=== PATIENT | female | born 1950 | race Caucasian/White ===

== ENCOUNTER 2016-04-10 15:57 | Emergency (ER) | payer BC ==
[2016-04-10 16:07] VITALS: TEMP 98.4; BMI 35.0
--- NOTE | 2016-04-10 18:09 | PDOC ---
[id number]: No Limitations - History of Present Illness Initial Comments: 04/10/16 19:02 The patient is a 65 year old female with a significant past medical history of COPD, GERD, hypothyroid, stress incontinence, SATYA, urinary retention, who presents to the emergency department today for further evaluation of RUQ abdominal and right flank pain occurring for one month. The patient states that her flank pain radiates to her right lower thoracic and upper lumbar regions. She states that her pain is intermittent with no distinct pattern. The patient reports taking Tylenol to alleviate symptoms with minimal relief. The patient also notes intermittent shooting pain radiating from her right ear to her right shoulder. The patient denies fever, chills, and sweats. The patient denies nausea, vomiting, and diarrhea. The patient denies chest pain, cough, and shortness of breath. <Victorino Palafox - Last Filed: 04/10/16 19:02> <Octavio Swenson - Last Filed: 05/09/16 09:45> - General Chief Complaint: Pain, Acute Stated Complaint: ABD PAIN, LOWER BACK PAIN Time Seen by Provider: 04/10/16 17:22 Past History <Victorino Palafox - Last Filed: 04/10/16 19:02> - Past Medical History Anemia: No Asthma: No Cancer: No Cardiac Disorders: No CVA: No COPD: Yes CHF: No Dementia: No Diabetes: Yes (PRE) GI Disorders: Yes (gall stones) Disorders: Yes (STATES HAS KIDNEY STONES) HTN: No Hypercholesterolemia: Yes Kidney Stones: Yes Liver Disease: No Seizures: No Thyroid Disease: Yes - Surgical History Abdominal Surgery: No Appendectomy: No Cardiac Surgery: No Cholecystectomy: Yes Lung Surgery: No Neurologic Surgery: No Orthopedic Surgery: No - Reproductive History (#): 1 Para: 1 Spontaneous : 1 - Immunization History Immunization Up to Date: Yes - Psycho/Social/Smoking Cessation Hx Anxiety: No Suicidal Ideation: No Smoking Status: Yes Smoking History: Former smoker Have you smoked in the past 12 months: No Number of Cigarettes Smoked Daily: 20 If you are a former smoker, when did you quit?: 2012 Information on smoking cessation initiated: No Hx Alcohol Use: No Drug/Substance Use Hx: No Substance Use Type: None Hx Substance Use Treatment: No <Octavio Swenson - Last Filed: 05/09/16 09:45> - Past Medical History Allergies/Adverse Reactions: Allergies Allergy/AdvReac Type Severity Reaction Status Date / Time No Known Allergies Allergy Verified 04/10/16 16:04 Home Medications: Ambulatory Orders Alendronate Sodium [Binosto] 70 mg PO MO 04/19/15 FA/Mv,Ca,Iron,Min/Lycopene/Lut [Centrum Tablet] 1 each PO DAILY 04/19/15 Levothyroxine [Synthroid -] 112 mcg PO DAILY 04/19/15 Meloxicam [Mobic (Nf) -] 15 mg PO DAILY 04/19/15 Oxybutynin Chloride [Ditropan Xl] 5 mg PO DAILY 04/19/15 Potassium Citrate [Potassium Citrate ER] 10 meq PO TID 04/19/15 Pravastatin Sodium [Pravachol -] 80 mg PO HS 04/19/15 Ropinirole HCl 1 mg PO TID 04/19/15 Tiotropium [place] [Spiriva] 1 inh PO DAILY 04/19/15 Ursodiol [Actigal -] 300 mg PO BID #60 capsule 04/22/15 Albuterol 0.083% Nebulizer [place] [Ventolin 0.083% Nebulizer Soln -] 1 amp NEB QID 07/23/15 Diclofenac Sodium 50 mg PO DAILY 07/23/15 Aspirin [ASA -] 325 mg PO DAILY@0800 tablet 07/30/15 Oxycodone HCl [Roxicodone -] 5 mg PO Q4H PRN #60 tablet MDD 6 07/30/15 Cephalexin Monohydrate [Keflex -] 500 mg PO BID #20 capsule 04/10/16 Cholecalciferol (Vitamin D3) [Vitamin D3] 50,000 unit PO MO 04/10/16 Ibuprofen 800 mg PO TID #30 tablet 04/10/16 Oxycodone HCl/Acetaminophen [Percocet 5-325 mg Tablet] 1 - 2 tab PO Q6H #20 tablet MDD 4 04/10/16 Review of Systems - Review of Systems Able to Perform ROS?: Yes Comments:: 04/10/16 19:02 GENERAL/CONSTITUTIONAL: No fever or chills. No weakness. HEAD, EYES, EARS, NOSE AND THROAT: No change in vision. Right ear pain. No sore throat. CARDIOVASCULAR: No chest pain or shortness of breath. RESPIRATORY: No cough, wheezing, or hemoptysis. GASTROINTESTINAL: No nausea, vomiting, diarrhea or constipation. GENITOURINARY: No dysuria, frequency, or change in urination. MUSCULOSKELETAL: (+) Right flank pain radiating to her right lower thoracic and upper lumbar regions. Right shoulder pain. SKIN: No rash NEUROLOGIC: No headache, vertigo, loss of consciousness, or change in strength/ sensation. ENDOCRINE: No increased thirst. No abnormal weight change. HEMATOLOGIC/LYMPHATIC: No anemia, easy bleeding, or history of blood clots. ALLERGIC/IMMUNOLOGIC: No hives or skin allergy. <Victorino Palafox - Last Filed: 04/10/16 19:02> *Physical Exam - Vital Signs Last Vital Signs Temp Pulse Resp BP Pulse Ox 98.4 F 80 20 133/69 96 04/10/16 16:05 04/10/16 16:05 04/10/16 16:04/10/16 16:04/10/16 18:07 - Physical Exam Comments: 04/10/16 19:03 GENERAL: Awake, alert, and fully oriented, in no acute distress HEAD: No signs of trauma EYES: PERRLA, EOMI, sclera anicteric, conjunctiva clear ENT: Auricles normal inspection, hearing grossly normal, nares patent, oropharynx clear without exudates. Moist mucosa NECK/BACK: Normal ROM, supple, no lymphadenopathy, JVD, or masses. Mild tenderness palpation of right flank. LUNGS: Breath sounds equal, clear to auscultation bilaterally. No wheezes, and no crackles HEART: Regular rate and rhythm, normal S1 and S2, no murmurs, rubs or gallops ABDOMEN: Soft, nontender, normoactive bowel sounds. No guarding, no rebound. No masses EXTREMITIES: Normal range of motion, no edema. No clubbing or cyanosis. No cords, erythema, or tenderness NEUROLOGICAL: Cranial nerves II through XII grossly intact. Normal speech, normal gait SKIN: Warm, Dry, normal turgor, no rashes or lesions noted. <Victorino Palafox - Last Filed: 04/10/16 19:02> - Vital Signs Last Vital Signs Temp Pulse Resp BP Pulse Ox 98.4 F 80 20 133/69 95 04/10/16 16:05 04/10/16 16:05 04/10/16 16:05 04/10/16 16:05 04/10/16 16:05 <Octavio Swenson - Last Filed: 05/09/16 09:45> ED Treatment Course - LABORATORY CBC & Chemistry Diagram: 04/10/16 18:07 04/10/16 18:07 - ADDITIONAL ORDERS Additional order review: Laboratory Results 04/10/16 04/10/16 18:07 18:07 Sodium 140 Potassium 4.4 Chloride 100 Carbon Dioxide 30 Anion Gap 10 BUN 33 H Creatinine 0.9 Creat Clearance w eGFR > 60 Random Glucose 84 Calcium 9.5 Total Bilirubin 0.4 AST 15 D ALT 22 D Alkaline Phosphatase 89 D Total Protein 8.0 Albumin 4.0 Lipase 123 Urine Color Ltyellow Urine Appearance Slcloudy Urine pH 7.0 D Ur Specific [place] 1.017 Urine Protein Negative Urine Glucose (UA) Negative Urine Ketones 1+ H Urine Blood Negative Urine Nitrite Negative Urine Bilirubin Negative Urine Urobilinogen Negative Ur Leukocyte Esterase 2+ H Urine RBC 1 Urine WBC 5 Ur Epithelial Cells Rare Urine Bacteria Rare Urine Mucus Rare 04/10/16 18:07 RBC 4.24 D MCV 87.2 MCHC 33.2 RDW 13.4 MPV 8.9 Neutrophils % 62.3 Lymphocytes % 28.0 D Monocytes % 7.2 Eosinophils % 1.7 D Basophils % 0.8 - Medications Given in the ED: ED Medications Discontinued Medications Generic Name Dose Route Start Last Admin Trade Name Lashonda PRN Reason Stop Dose Admin Ibuprofen 400 mg 04/10/16 18:28 04/10/16 18:40 Motrin - PO 04/10/16 18:29 400 mg ONCE ONE Administration Ondansetron HCl 8 mg 04/10/16 18:28 04/10/16 18:40 Zofran Odt - SL 04/10/16 18:29 8 mg ONCE ONE Administration Oxycodone/Acetaminophen 2 combo 04/10/16 18:28 04/10/16 18:40 Percocet 5/325 - PO 04/10/16 18:29 2 combo ONCE ONE Administration <Victorino Palafox - Last Filed: 04/10/16 19:02> - LABORATORY CBC & Chemistry Diagram: 04/10/16 18:07 04/10/16 18:07 <Octavio Swenson - Last Filed: 05/09/16 09:45> *DC/Admit/Observation/Transfer <Victorino Palafox - Last Filed: 04/10/16 19:02> - Attestations Physician Attestion: 04/10/16 18:09 I, Dr. Octavio Swenson, attest that this document has been prepared under my direction and personally reviewed by me in its entirety. I further attest, that it accurately reflects all work, treatment, procedures and medical decision -making performed by me. <Octavio Swenson - Last Filed: 05/09/16 09:45> Diagnosis at time of Disposition: Abdominal pain Qualifiers: Abdominal location: epigastric Qualified Code(s): R10.13 - Epigastric pain UTI (urinary tract infection) Qualifiers: Urinary tract infection type: site unspecified Hematuria presence: without hematuria Qualified Code(s): N39.0 - Urinary tract infection, site not specified Gallstone Qualifiers: Cholecystitis presence: without cholecystitis Biliary obstruction: without biliary obstruction Qualified Code(s): K80.20 - Calculus of gallbladder without cholecystitis without obstruction - Discharge Dispostion Disposition: HOME Condition at time of disposition: Stable - Prescriptions Prescriptions: Ibuprofen 800 mg PO TID #30 tablet Cephalexin Monohydrate [Keflex -] 500 mg PO BID #20 capsule Oxycodone HCl/Acetaminophen [Percocet 5-325 mg Tablet] 1 - 2 tab PO Q6H #20 tablet MDD 4 - Referrals Referrals: Darin Mahajan MD [Primary Care Provider] - Alejandro Blount MD [Staff Physician] - - Patient Instructions Printed Discharge Instructions: DI for Gallstones, DI for Urinary Tract Infection (UTI)
[2016-04-10 18:12] LABS: URINE APPEARANCE SLCLOUDY; URINE BILIRUBIN NEGATIVE (NEGATIVE); URINE BLOOD NEGATIVE (NEGATIVE); URINE COLOR LTYELLOW; URINE GLUCOSE (UA) NEGATIVE (NEGATIVE); URINE KETONE 1+ (NEGATIVE); URINE NITRITE NEGATIVE (NEGATIVE); URINE PROTEIN NEGATIVE (NEGATIVE); URINE UROBILINOGEN NEGATIVE E.U./dl (0.2-1.0)
[2016-04-10 18:13] LABS: URINE LEUK ESTERASE 2+ (NEGATIVE)
[2016-04-10 18:14] LABS: BASOPHIL 0.8 % (0-2.0); EOSINOPHIL 1.7 % (0-4.5); MCH 28.9 pg (25.7-33.7); MCHC 33.2 g/dl (32.0-36.0); MEAN CELL VOLUME 87.2 fl (80-96); MEAN PLT VOLUME 8.9 fl (7.5-11.1); NEUTROPHILS 62.3 % (42.8-82.8); PLATELET COUNT 246 K/MM3 (134-434); RDW 13.4 % (11.6-15.6); WHITE BLOOD COUNT 10.1 K/mm3 (4.0-10.0)
[2016-04-10 18:18] LABS: URINE BACTERIA RARE /hpf (NONE SEEN); URINE MUCUS RARE; URINE RBC 1 /hpf (0-3); URINE WBC 5 /hpf (3-5)
[2016-04-10] MEDS ORDERED: ONDANSETRON *ODT* 4 MG TABLET SL ONE (18:28)
[2016-04-10] MEDS ORDERED: OXYCODONE/APAP 5/325MG COMBO TABLET PO ONE (18:28)
[2016-04-10] MEDS ORDERED: IBUPROFEN 400 MG TABLET (FP) PO ONE ×2 (18:28→18:37)
[2016-04-10] MEDS ORDERED: OXYCODONE/APAP 5/325MG COMBO TABLET ONE (18:37)
[2016-04-10] MEDS ORDERED: ONDANSETRON *ODT* 4 MG TABLET ONE (18:37)
[2016-04-10 18:38] LABS: ALK PHOS 89 U/L (45-117); ANION GAP 10 (8-16); BILIRUBIN,TOTAL 0.4 mg/dL (0.2-1.0); CALCIUM 9.5 mg/dL (8.5-10.1); CO2 30 mmol/L (21-32); CREATININE 0.9 mg/dL (0.55-1.02); GLUCOSE,RANDOM 84 mg/dL (74-106); SGOT/AST 15 U/L (15-37); SGPT/ALT 22 U/L (12-78)
[2016-04-10] MEDS ORDERED: CEPHALEXIN MONOHYDRATE 500 MG CAPSULE (UD) PO ONE (19:18)
[2016-04-10] MEDS ORDERED: CEPHALEXIN MONOHYDRATE 250 MG CAPSULE (FP) ONE ×2 (19:26→20:12)
--- NOTE | 2016-04-10 20:42 | PDOC ---
*Physical Exam - Vital Signs Last Vital Signs Temp Pulse Resp BP Pulse Ox 98.4 F 80 20 133/69 96 04/10/16 16:05 04/10/16 16:05 04/10/16 16:05 04/10/16 16:05 04/10/16 18:07 ED Treatment Course - LABORATORY CBC & Chemistry Diagram: 04/10/16 18:07 04/10/16 18:07 - ADDITIONAL ORDERS Additional order review: Laboratory Results 04/10/16 04/10/16 18:07 18:07 Sodium 140 Potassium 4.4 Chloride 100 Carbon Dioxide 30 Anion Gap 10 BUN 33 H Creatinine 0.9 Creat Clearance w eGFR > 60 Random Glucose 84 Calcium 9.5 Total Bilirubin 0.4 AST 15 D ALT 22 D Alkaline Phosphatase 89 D Total Protein 8.0 Albumin 4.0 Lipase 123 Urine Color Ltyellow Urine Appearance Slcloudy Urine pH 7.0 D Ur Specific [place] 1.017 Urine Protein Negative Urine Glucose (UA) Negative Urine Ketones 1+ H Urine Blood Negative Urine Nitrite Negative Urine Bilirubin Negative Urine Urobilinogen Negative Ur Leukocyte Esterase 2+ H Urine RBC 1 Urine WBC 5 Ur Epithelial Cells Rare Urine Bacteria Rare Urine Mucus Rare 04/10/16 18:07 RBC 4.24 D MCV 87.2 MCHC 33.2 RDW 13.4 MPV 8.9 Neutrophils % 62.3 Lymphocytes % 28.0 D Monocytes % 7.2 Eosinophils % 1.7 D Basophils % 0.8 - Medications Given in the ED: ED Medications Discontinued Medications Generic Name Dose Route Start Last Admin Trade Name Freq PRN Reason Stop Dose Admin Cephalexin HCl 500 mg 04/10/16 19:18 04/10/16 20:10 Keflex - PO 04/10/16 19:19 500 mg ONCE ONE Administration Ibuprofen 400 mg 04/10/16 18:28 04/10/16 18:40 Motrin - PO 04/10/16 18:29 400 mg ONCE ONE Administration Ondansetron HCl 8 mg 04/10/16 18:28 04/10/16 18:40 Zofran Odt - SL 04/10/16 18:29 8 mg ONCE ONE Administration Oxycodone/Acetaminophen 2 combo 04/10/16 18:28 04/10/16 18:40 Percocet 5/325 - PO 04/10/16 18:29 2 combo ONCE ONE Administration *DC/Admit/Observation/Transfer Diagnosis at time of Disposition: Abdominal pain Qualifiers: Abdominal location: epigastric Qualified Code(s): R10.13 - Epigastric pain UTI (urinary tract infection) Qualifiers: Urinary tract infection type: site unspecified Hematuria presence: without hematuria Qualified Code(s): N39.0 - Urinary tract infection, site not specified Gallstone Qualifiers: Cholecystitis presence: without cholecystitis - Discharge Dispostion Disposition: HOME Condition at time of disposition: Stable Admit: No - Prescriptions Prescriptions: Ibuprofen 800 mg PO TID #30 tablet Cephalexin Monohydrate [Keflex -] 500 mg PO BID #20 capsule Oxycodone HCl/Acetaminophen [Percocet 5-325 mg Tablet] 1 - 2 tab PO Q6H #20 tablet MDD 4 - Referrals Referrals: Darin Mahajan MD [Primary Care Provider] - Alejandro Blount MD [Staff Physician] - - Patient Instructions Printed Discharge Instructions: DI for Urinary Tract Infection (UTI), DI for Gallstones - Post Discharge Activity
[2016-04-10 20:52] VITALS: BP 130/70; PULSE 78
== END 2016-04-10 20:52 | disposition home or self-care (01) ==
LOC: JER 15:57
DX: N39.0 Urinary tract infection, site not specified (principal); R10.11 Right upper quadrant pain
CPT/HCPCS: 36415; 76700-TC; 80053; 81003; 81015; 83690; 85025; 99283-25

== ENCOUNTER 2016-06-09 07:21 | Emergency (ER) | payer BC, OTHER ==
[2016-06-09 07:27] VITALS: TEMP 98.3; BMI 34.0
--- NOTE | 2016-06-09 07:46 | PDOC ---
History of Present Illness - General Chief Complaint: Injury Stated Complaint: FALL Time Seen by Provider: 06/09/16 07:44 History Source: Patient Exam Limitations: No Limitations - History of Present Illness Initial Comments: 06/09/16 07:45 CHIEF COMPLAINT: Fall HISTORY OF PRESENT ILLNESS: This is a 65 year old female with a history of COPD , GERD, hypothyroid, stress incontinence, SATYA, and urinary retention who presents to the ED for evaluation of swelling and pain around her right eye after tripping and falling last night. She struck her head on the ground but did not lose consciousness. She denies vomiting, visual changes, difficulty walking, dizziness, neck pain, or any other symptoms. She takes ASA 81mg daily, but no other AC. V/s on arrival are unremarkable. REVIEW OF SYSTEMS: GENERAL/CONSTITUTIONAL: No fever or chills. No weakness. No weight change. HEAD, EYES, EARS, NOSE AND THROAT: No change in vision. Pain around right eye. CARDIOVASCULAR: No chest pain or palpitations. RESPIRATORY: No cough, wheezing, or shortness of breath. GASTROINTESTINAL: No nausea, vomiting, diarrhea or constipation. GENITOURINARY: No dysuria, frequency, or change in urination. MUSCULOSKELETAL: No joint or muscle swelling or pain. No neck or back pain. SKIN: No rash or easy bruising. NEUROLOGIC: No headache, vertigo, loss of consciousness, or loss of sensation. PSYCHIATRIC: No depression or anxiety. ENDOCRINE: No increased thirst. No abnormal weight change. HEMATOLOGIC/LYMPHATIC: No anemia, easy bleeding, or history of blood clots. ALLERGIC/IMMUNOLOGIC: No hives or skin allergy. No latex allergy. PHYSICAL EXAM: GENERAL: The patient is awake, alert, and fully oriented, in no acute distress. ENT: Hematoma, tenderness to right lateral orbit. EOMI. PERRLA. Visual acuity 20 /25 both eyes. LUNGS: Clear to auscultation bilaterally. Normal excursion. No respiratory distress or use of accessory muscles. CV: RRR, S1/S2, no MRG. Cap refill < 2 sec. ABDOMEN: Soft, non-distended, non-tender. EXTREMITIES: Normal range of motion, no edema. NEUROLOGICAL: Normal speech, normal gait. CN II-XII grossly intact. No midline cervical vertebral tenderness. PSYCH: Normal mood, normal affect. SKIN: Warm, dry, normal turgor, no rashes or lesions noted. Past History - Past Medical History Allergies/Adverse Reactions: Allergies Allergy/AdvReac Type Severity Reaction Status Date / Time No Known Allergies Allergy Verified 06/09/16 07:27 Home Medications: Ambulatory Orders Alendronate Sodium [Binosto] 70 mg PO WEEKLY 04/19/15 FA/Mv,Ca,Iron,Min/Lycopene/Lut [Centrum Tablet] 1 each PO DAILY 04/19/15 Levothyroxine [Synthroid -] 112 mcg PO DAILY 04/19/15 Meloxicam [Mobic (Nf) -] 15 mg PO DAILY 04/19/15 Oxybutynin Chloride [Ditropan Xl] 5 mg PO DAILY 04/19/15 Potassium Citrate [Potassium Citrate ER] 10 meq PO TID 04/19/15 Pravastatin Sodium [Pravachol -] 80 mg PO HS 04/19/15 Ropinirole HCl 1 mg PO TID 04/19/15 Tiotropium [place] [Spiriva] 1 inh PO DAILY 04/19/15 Ursodiol [Actigal -] 300 mg PO BID #60 capsule 04/22/15 Albuterol 0.083% Nebulizer [place]ár[place] [Ventolin 0.083% Nebulizer Soln -] 1 amp NEB QID 07/23/15 Diclofenac Sodium 50 mg PO DAILY 07/23/15 Aspirin [ASA -] 325 mg PO DAILY@0800 tablet 07/30/15 Cholecalciferol (Vitamin D3) [Vitamin D3] 50,000 unit PO WEEKLY 04/10/16 Anemia: No Asthma: No Cancer: No Cardiac Disorders: No CVA: No COPD: Yes CHF: No Dementia: No Diabetes: Yes (PRE) GI Disorders: Yes (gall stones) Disorders: Yes (STATES HAS KIDNEY STONES) HTN: No Hypercholesterolemia: Yes Kidney Stones: Yes Liver Disease: No Seizures: No Thyroid Disease: Yes - Surgical History Abdominal Surgery: No Appendectomy: No Cardiac Surgery: No Cholecystectomy: Yes Lung Surgery: No Neurologic Surgery: No Orthopedic Surgery: No - Reproductive History (#): 1 Para: 1 Spontaneous : 1 - Immunization History Immunization Up to Date: Yes - Psycho/Social/Smoking Cessation Hx Anxiety: No Suicidal Ideation: No Smoking Status: Yes Smoking History: Former smoker Have you smoked in the past 12 months: No Number of Cigarettes Smoked Daily: 20 If you are a former smoker, when did you quit?: 2013 Information on smoking cessation initiated: No Hx Alcohol Use: No Drug/Substance Use Hx: No Substance Use Type: None Hx Substance Use Treatment: No *Physical Exam - Vital Signs Last Vital Signs Temp Pulse Resp BP Pulse Ox 98.3 F 70 18 135/62 96 06/09/16 07:22 06/09/16 07:22 06/09/16 07:22 06/09/16 07:22 06/09/16 07:22 Medical Decision Making - Medical Decision Making 06/09/16 09:21 A/P: 65 year old female with right orbital hematoma s/p mechanical fall. Normal neurologic exam. 1. CT head and facial bones 2. Tylenol 975mg for pain CTH and facial bones reviewed: moderate soft tissue swelling/hematoma along the lateral aspect of the right orbit with no fracture. No intracranial hemorrhage. Incidental note of mild asymmetric prominence of right laryngeal wall relative to left; ENT evaluation recommended. 10mm lesion within the left lateral ventricle also noted in 2005 is again seen; non-emergent MRI is recommended. *DC/Admit/Observation/Transfer Diagnosis at time of Disposition: Fall Qualifiers: Encounter type: initial encounter Qualified Code(s): W19.XXXA - Unspecified fall, initial encounter Closed head injury Qualifiers: Encounter type: initial encounter Qualified Code(s): S09.90XA - Unspecified injury of head, initial encounter - Discharge Dispostion Disposition: HOME Condition at time of disposition: Stable Admit: No - Referrals Referrals: Nora Harry MD [Primary Care Provider] - 3 days - Patient Instructions Printed Discharge Instructions: DI for Closed Head Injury Additional Instructions: -Your CT scans do not show any signs of fracture. -Please see Dr. Harry later this week and show her the copies of your CT scans, as there are some findings that need to be followed up. -Take Tylenol as needed for pain and apply ice to the swollen area several times a day. -Return here for severe headache, change in your vision, vomiting, difficulty walking, or any other concerning symptoms.
[2016-06-09] MEDS ORDERED: ACETAMINOPHEN 500 MG TABLET (FP) PO ONE (07:50)
[2016-06-09] MEDS ORDERED: ACETAMINOPHEN 325 MG TABLET (FP) ONE (08:04)
[2016-06-09 09:59] VITALS: BP 130/78; PULSE 80
== END 2016-06-09 09:59 | disposition home or self-care (01) ==
LOC: JER 07:21
DX: S05.11XA Contusion of eyeball and orbital tissues, right eye, initial encounter (principal); W01.0XXA Fall on same level from slipping, tripping and stumbling without subsequent striking against object, initial encounter; Y93.89 Activity, other specified; Y92.89 Other specified places as the place of occurrence of the external cause; J44.9 Chronic obstructive pulmonary disease, unspecified; K21.9 Gastro-esophageal reflux disease without esophagitis; R73.03 Prediabetes; E03.9 Hypothyroidism, unspecified
CPT/HCPCS: 70450-TC; 70486-TC; 99282-25

== ENCOUNTER 2016-06-22 01:29 | Inpatient (IN) | payer BC, OTHER ==
[2016-06-22] MEDS ORDERED: MAG HYDROX/AL HYDROX/SIMETH 30 ML UNIT-DOSE CUP PO ONE (02:31)
[2016-06-22] MEDS ORDERED: KETOROLAC TROMETHAMINE 30 MG/1 ML VIAL IVPUSH ONE (02:31)
[2016-06-22] MEDS ORDERED: LACTULOSE 20 GM/30 ML UDC (FOR ORAL USE ONLY) PO ONE (02:31)
[2016-06-22] MEDS ORDERED: FAMOTIDINE 20 MG/50 ML IVPB 50 ML IVPB ONE ×2 (02:31→02:59)
--- NOTE | 2016-06-22 02:32 | PDOC ---
History of Present Illness - History of Present Illness Initial Comments: 06/22/16 02:32 The patient is a 65 year old female with history of hyperlipidemia, prediabetes , gallstones, kidney stones, thryoid disorder, COPD on home oxygen, who presents to the ED complaining of diffuse abdominal pain for some time, made much worse tonight around 9 PM. She states her pain is now moderate and worse with positional changes and lying flat. The patient denies any fever or chills. She denies nausea, vomiting, or diarrhea. She reports she produced two bowel movements today. She denies dysuria, hematuria, or urinary retention. GI: Dr. Smyth <Ashley Bloom - Last Filed: 06/22/16 05:49> <Rekha Morgan - Last Filed: 06/22/16 19:28> - General Chief Complaint: Pain, Acute Stated Complaint: ABDOMINAL PAIN Time Seen by Provider: 06/22/16 01:44 Past History <Ashley Bloom - Last Filed: 06/22/16 05:49> - Past Medical History Anemia: No Asthma: No Cancer: No Cardiac Disorders: No CVA: No COPD: Yes CHF: No Dementia: No Diabetes: Yes (PRE) GI Disorders: Yes (gall stones) Disorders: Yes (STATES HAS KIDNEY STONES) HTN: No Hypercholesterolemia: Yes Kidney Stones: Yes Liver Disease: No Seizures: No Thyroid Disease: Yes - Surgical History Abdominal Surgery: No Appendectomy: No Cardiac Surgery: No Cholecystectomy: Yes Lung Surgery: No Neurologic Surgery: No Orthopedic Surgery: No - Reproductive History (#): 1 Para: 1 Spontaneous : 1 - Immunization History Immunization Up to Date: Yes - Psycho/Social/Smoking Cessation Hx Anxiety: No Suicidal Ideation: No Smoking Status: Yes Smoking History: Former smoker Have you smoked in the past 12 months: No Number of Cigarettes Smoked Daily: 20 If you are a former smoker, when did you quit?: 2012 Information on smoking cessation initiated: No Hx Alcohol Use: No Drug/Substance Use Hx: No Substance Use Type: None Hx Substance Use Treatment: No <Rekha Morgan - Last Filed: 06/22/16 19:28> - Past Medical History Allergies/Adverse Reactions: Allergies Allergy/AdvReac Type Severity Reaction Status Date / Time No Known Allergies Allergy Verified 06/22/16 01:33 Home Medications: Ambulatory Orders Alendronate Sodium [Binosto] 70 mg PO WEEKLY 04/19/15 FA/Mv,Ca,Iron,Min/Lycopene/Lut [Centrum Tablet] 1 each PO DAILY 04/19/15 Levothyroxine [Synthroid -] 112 mcg PO DAILY 04/19/15 Meloxicam [Mobic (Nf) -] 15 mg PO DAILY 04/19/15 Oxybutynin Chloride [Ditropan Xl] 5 mg PO DAILY 04/19/15 Potassium Citrate [Potassium Citrate ER] 10 meq PO TID 04/19/15 Pravastatin Sodium [Pravachol -] 80 mg PO HS 04/19/15 Ropinirole HCl 1 mg PO TID 04/19/15 Tiotropium [place] [Spiriva] 1 inh PO DAILY 04/19/15 Ursodiol [Actigal -] 300 mg PO BID #60 capsule 04/22/15 Albuterol 0.083% Nebulizer Bárbara [Ventolin 0.083% Nebulizer Soln -] 1 amp NEB QID 07/23/15 Diclofenac Sodium 50 mg PO DAILY 07/23/15 Aspirin [ASA -] 325 mg PO DAILY@0800 tablet 07/30/15 Cholecalciferol (Vitamin D3) [Vitamin D3] 50,000 unit PO WEEKLY 04/10/16 Review of Systems - Review of Systems Able to Perform ROS?: Yes Comments:: 06/22/16 02:35 GENERAL/CONSTITUTIONAL: No fever or chills. No weakness. HEAD, EYES, EARS, NOSE AND THROAT: No change in vision. No ear pain or discharge. No sore throat CARDIOVASCULAR: No chest pain or shortness of breath. RESPIRATORY: No cough, wheezing, or hemoptysis. GASTROINTESTINAL: +Diffuse abdominal pain. No nausea, vomiting, diarrhea. GENITOURINARY: No dysuria, frequency, or change in urination. MUSCULOSKELETAL: No joint or muscle swelling or pain. No neck or back pain. SKIN: No rash NEUROLOGIC: No headache, vertigo, loss of consciousness, or change in strength/ sensation. ENDOCRINE: No increased thirst. No abnormal weight change. HEMATOLOGIC/LYMPHATIC: No anemia, easy bleeding, or history of blood clots. ALLERGIC/IMMUNOLOGIC: No hives or skin allergy. <Ashley Bloom - Last Filed: 06/22/16 05:49> *Physical Exam - Vital Signs Last Vital Signs Temp Pulse Resp BP Pulse Ox 98.8 F 112 H 18 113/56 90 L 06/22/16 01:33 06/22/16 01:33 06/22/16 01:33 06/22/16 01:33 06/22/16 01:33 - Physical Exam Comments: 06/22/16 02:36 GENERAL: Awake, alert, and fully oriented, uncomfortable appearing. HEAD: No signs of trauma EYES: PERRLA, EOMI, sclera anicteric, conjunctiva clear ENT: Auricles normal inspection, hearing grossly normal, nares patent, oropharynx clear without exudates. Moist mucosa. Poor dentition. NECK: Normal ROM, supple, no lymphadenopathy, JVD, or masses LUNGS: Breath sounds equal, clear to auscultation bilaterally. No wheezes, and no crackles HEART: Regular rate and rhythm, normal S1 and S2, no murmurs, rubs or gallops ABDOMEN: Diffuse tenderness to palpation. Soft, normoactive bowel sounds. No guarding, no rebound. No masses EXTREMITIES: Normal range of motion, no edema. No clubbing or cyanosis. No cords, erythema, or tenderness NEUROLOGICAL: Cranial nerves II through XII grossly intact. Normal speech, normal gait SKIN: Warm, Dry, normal turgor, no rashes or lesions noted. <Ashley Bloom - Last Filed: 06/22/16 05:49> - Vital Signs Last Vital Signs Temp Pulse Resp BP Pulse Ox 98.8 F 112 H 18 113/56 90 L 06/22/16 01:33 06/22/16 01:33 06/22/16 01:33 06/22/16 01:33 06/22/16 01:33 <Rekha Morgan - Last Filed: 06/22/16 19:28> ED Treatment Course - LABORATORY CBC & Chemistry Diagram: 06/22/16 03:15 06/22/16 03:15 <Ashley Bloom - Last Filed: 06/22/16 05:49> - LABORATORY CBC & Chemistry Diagram: 06/22/16 17:30 06/22/16 17:30 <Rekha Morgan - Last Filed: 06/22/16 19:28> Medical Decision Making - Medical Decision Making 06/22/16 05:49 Placed call to patient's PCP, Dr. Morley and [phone]. Awaiting callback. <Ashley Bloom - Last Filed: 06/22/16 05:49> - Medical Decision Making 06/22/16 06:49 Pt comes with abdominal pain. SHe is demanding narcotics, however I will not give them to her as on exam pt appears to be full of hard stools in her abdomen. She is afebrile. She was treated with ofirmev and toradol, lactulose and miralax, NSS, and pepcid and maalox. SHe drank oral contrast for a CT scan. CT scan is pending. She will go for CT abd/pelvis this AM. All labs are normal. Pt will be signed out to the daytime ER doctor. <Rekha Morgan - Last Filed: 06/22/16 19:28> *DC/Admit/Observation/Transfer - Attestations Scribe Attestion: 06/22/16 02:36 Documentation prepared by Ashley Bloom, acting as certified medical transcriptionist for Rekha Morgan MD. <Ashley Bloom - Last Filed: 06/22/16 05:49> <Rekha Morgan - Last Filed: 06/22/16 19:28> Diagnosis at time of Disposition: Pneumoperitoneum - Discharge Dispostion Condition at time of disposition: Guarded - Referrals
[2016-06-22] MEDS ORDERED: LACTULOSE 20 GM/30 ML UDC (FOR ORAL USE ONLY) ONE (02:58)
[2016-06-22] MEDS ORDERED: MAG HYDROX/AL HYDROX/SIMETH 30 ML UNIT-DOSE CUP ONE (02:59)
[2016-06-22] MEDS ORDERED: KETOROLAC TROMETHAMINE 30 MG/1 ML VIAL ONE (02:59)
[2016-06-22 03:26] LABS: BASOPHIL 0.4 % (0-2.0); EOSINOPHIL 0.4 % (0-4.5); MCHC 32.9 g/dl (32.0-36.0); MEAN CELL VOLUME 85.1 fl (80-96); MEAN PLT VOLUME 9.1 fl (7.5-11.1); NEUTROPHILS 79.8 % (42.8-82.8); PLATELET COUNT 312 K/MM3 (134-434); RDW 13.1 % (11.6-15.6); WHITE BLOOD COUNT 11.4 K/mm3 (4.0-10.0)
[2016-06-22 03:51] LABS: ALBUMIN 3.7 g/dl (3.4-5.0); CALCIUM 8.5 mg/dL (8.5-10.1); COCKROFT - GAULT 39.083; CREATININE 1.3 mg/dL (0.55-1.02)
[2016-06-22 03:53] LABS: BILIRUBIN,TOTAL 0.7 mg/dL (0.2-1.0); TOT PROT 7.8 g/dl (6.4-8.2)
[2016-06-22] MEDS ORDERED: ACETAMINOPHEN 1000 MG/100 ML VIAL (NON FORMULARY) IVPB ONE ×2 (04:04→10:44)
[2016-06-22] MEDS ORDERED: POLYETHYLENE GLYCOL 3350 119 GM BTL PO ONE (04:04)
[2016-06-22] MEDS ORDERED: ACETAMINOPHEN INJECTION 100 ML IVPB ONE ×2 (04:14→11:02)
[2016-06-22] MEDS ORDERED: SODIUM CHLORIDE 0.9% 500 ML INFUS.BAG IV ONE (04:16)
--- NOTE | 2016-06-22 10:13 | PDOC ---
*Physical Exam - Vital Signs Last Vital Signs Temp Pulse Resp BP Pulse Ox 97.6 F 96 H 18 100/68 96 06/22/16 06:52 06/22/16 06:52 06/22/16 06:52 06/22/16 06:52 06/22/16 06:52 <Jovani Ugarteine - Last Filed: 06/22/16 11:47> - Vital Signs Last Vital Signs Temp Pulse Resp BP Pulse Ox 97.6 F 96 H 18 100/68 96 06/22/16 06:52 06/22/16 06:52 06/22/16 06:52 06/22/16 06:52 06/22/16 06:52 <Mildred Chau - Last Filed: 06/22/16 14:14> ED Treatment Course - LABORATORY CBC & Chemistry Diagram: 06/22/16 03:15 06/22/16 03:15 - ADDITIONAL ORDERS Additional order review: Laboratory Results 06/22/16 06/22/16 06/22/16 03:15 03:15 03:15 Sodium 141 Potassium 4.3 Chloride 100 Carbon Dioxide 30 Anion Gap 11 BUN 29 H D Creatinine 1.3 H Creat Clearance w eGFR 40.86 Random Glucose 168 H D Calcium 8.5 Total Bilirubin 0.7 D AST 15 ALT 18 Alkaline Phosphatase 77 Total Protein 7.8 Albumin 3.7 Total Amylase 60 D Lipase 277 06/22/16 03:15 RBC 4.28 MCV 85.1 MCHC 32.9 RDW 13.1 MPV 9.1 Neutrophils % 79.8 D Lymphocytes % 13.8 D Monocytes % 5.6 Eosinophils % 0.4 Basophils % 0.4 - Medications Given in the ED: ED Medications Discontinued Medications Generic Name Dose Route Start Last Admin Trade Name Kareemq PRN Reason Stop Dose Admin Acetaminophen 1,000 mg 06/22/16 04:04 06/22/16 04:14 Ofirmev Injection - IVPB 06/22/16 04:05 1,000 mg ONCE ONE Administration Al Hydroxide/Mg Hydroxide 30 ml 06/22/16 02:31 06/22/16 03:00 Mylanta Oral Suspension - PO 06/22/16 02:32 30 ml ONCE ONE Administration Famotidine/Sodium Chloride 50 mls @ 100 mls/hr 06/22/16 02:31 06/22/16 03:27 Pepcid 20 Mg Premixed Ivpb - IVPB 06/22/16 03:00 100 mls/hr ONCE ONE Administration Ketorolac Tromethamine 30 mg 06/22/16 02:31 06/22/16 03:27 Toradol Injection - IVPUSH 06/22/16 02:32 30 mg ONCE ONE Administration Lactulose 20 gm 06/22/16 02:31 06/22/16 02:59 Cephulac (Oral Use) PO 06/22/16 02:32 20 gm ONCE ONE Administration Polyethylene Glycol 17 gm 06/22/16 04:04 06/22/16 04:25 Miralax (For Daily Use) - PO 06/22/16 04:05 17 g ONCE ONE Administration Sodium Chloride 1,000 ml 06/22/16 04:16 06/22/16 04:47 Normal Saline - IV 06/22/16 04:17 1,000 ml ONCE ONE Administration <Priscila Ugarte - Last Filed: 06/22/16 11:47> - LABORATORY CBC & Chemistry Diagram: 06/22/16 03:15 06/22/16 03:15 - ADDITIONAL ORDERS Additional order review: Laboratory Results 06/22/16 06/22/16 06/22/16 03:15 03:15 03:15 Sodium 141 Potassium 4.3 Chloride 100 Carbon Dioxide 30 Anion Gap 11 BUN 29 H D Creatinine 1.3 H Creat Clearance w eGFR 40.86 Random Glucose 168 H D Calcium 8.5 Total Bilirubin 0.7 D AST 15 ALT 18 Alkaline Phosphatase 77 Total Protein 7.8 Albumin 3.7 Total Amylase 60 D Lipase 277 06/22/16 03:15 RBC 4.28 MCV 85.1 MCHC 32.9 RDW 13.1 MPV 9.1 Neutrophils % 79.8 D Lymphocytes % 13.8 D Monocytes % 5.6 Eosinophils % 0.4 Basophils % 0.4 - Medications Given in the ED: ED Medications Discontinued Medications Generic Name Dose Route Start Last Admin Trade Name Freq PRN Reason Stop Dose Admin Acetaminophen 1,000 mg 06/22/16 04:04 06/22/16 04:14 Ofirmev Injection - IVPB 06/22/16 04:05 1,000 mg ONCE ONE Administration Al Hydroxide/Mg Hydroxide 30 ml 06/22/16 02:31 06/22/16 03:00 Mylanta Oral Suspension - PO 06/22/16 02:32 30 ml ONCE ONE Administration Famotidine/Sodium Chloride 50 mls @ 100 mls/hr 06/22/16 02:31 06/22/16 03:27 Pepcid 20 Mg Premixed Ivpb - IVPB 06/22/16 03:00 100 mls/hr ONCE ONE Administration Ketorolac Tromethamine 30 mg 06/22/16 02:31 06/22/16 03:27 Toradol Injection - IVPUSH 06/22/16 02:32 30 mg ONCE ONE Administration Lactulose 20 gm 06/22/16 02:31 06/22/16 02:59 Cephulac (Oral Use) PO 06/22/16 02:32 20 gm ONCE ONE Administration Polyethylene Glycol 17 gm 06/22/16 04:04 06/22/16 04:25 Miralax (For Daily Use) - PO 06/22/16 04:05 17 g ONCE ONE Administration Sodium Chloride 1,000 ml 06/22/16 04:16 06/22/16 04:47 Normal Saline - IV 06/22/16 04:17 1,000 ml ONCE ONE Administration <Mildred Chau - Last Filed: 06/22/16 14:14> Medical Decision Making - Medical Decision Making 06/22/16 10:[address] Nora Chiu. Immediate response. Case was discussed. 06/22/16 10:24 Paged Adelaida Esquivel. Immediate response. Case was discussed. 06/22/16 10:[address] Nora Chiu. 06/22/16 10:[address] Chiu at her mobile phone. Left voicemail. 06/22/16 11:[address] Chiu via service. 06/22/16 11:[address] Chiu. 06/22/16 11:[address] Chiu. Case was discussed. 06/22/16 11:[address] Johnson. 06/22/16 11:[address] Johnson. Immediate response. Case was discussed. <Priscila Ugarte - Last Filed: 06/22/16 11:47> - Critical Care Time Total Critical Care Time (minutes): 60 Critical Care Statement: The care of this patient involved high complexity decision making to prevent further life threatening deterioration of the patient 's condition and/or to evalute & treat vital organ system(s) failure or risk of failure. - Medical Decision Making 06/22/16 07:12 Patient received at 7am signout, presented with abdominal pain. Labs have resulted, she is awaiting CT a/p for further evaluation. 06/22/16 10:06 Called by radiology, patient with +pneumoperitoneum on CT. Discussed results with patient. She is currently in pain, I will give morphine. I will call Dr. Harry to discuss admission. 06/22/16 10:24 Case d/w Dr. Harry, requested Dr. Esquivel for surgery. I spoke with Dr. Esquivel , he is approximately 3 hours away, not available for consult (not documentation engineer today ). Will call Dr. Harry back for additional request. 06/22/16 11:05 Pt noted to have fever. I will send blood cx and lactate. Will give second dose of IV tylenol. Will give broad spectrum abx. Awaiting callback from Dr. Harry. 06/22/16 11:[address] Johnson's service. Awaiting callback. 06/22/16 11:50 Case d/w Dr. Johnson. He is now discussing with Dr. Harry via phone (Dr. Harry at bedside). 06/22/16 13:20 Called to bedside by RN, patient desatting to 60%. Improved with O2 via NRB. She states that she was having difficulty taking deep breath due to pain. She is about to receive the dose of dilaudid. Will give and continue to monitor. 06/22/16 13:48 Dr. Johnson at bedside. <Mildred Chau - Last Filed: 06/22/16 14:14> *DC/Admit/Observation/Transfer <Priscila Ugarte - Last Filed: 06/22/16 11:47> - Discharge Dispostion Admit: Yes <Mildred Chau - Last Filed: 06/22/16 14:14> Diagnosis at time of Disposition: Pneumoperitoneum - Discharge Dispostion Condition at time of disposition: Guarded - Referrals - Patient Instructions - Post Discharge Activity
[2016-06-22] MEDS ORDERED: morphine CARPU-JECT 4 MG/1 ML DISP.SYRIN IVPUSH ONE (10:14)
[2016-06-22] MEDS ORDERED: morphine CARPU-JECT 4 MG/1 ML DISP.SYRIN ONE (10:25)
[2016-06-22] MEDS ORDERED: SODIUM CHLORIDE 1,000 ML IV STA (10:42)
[2016-06-22] MEDS: SODIUM CHLORIDE 1,000 ML IV SCH (10:44)
[2016-06-22] MEDS ORDERED: VANCOMYCIN 1,000 MG in DEXTROSE 5%-WATER - 250 ML IVPB ONE (10:52)
[2016-06-22] MEDS ORDERED: PIPERACILLIN/TAZOB 3.375 GM 3.375 GM in DEXTROSE 5%-WATER - 50 ML IVPB ONE (10:52)
[2016-06-22] MEDS ORDERED: ALBUTEROL SO4 2.5/IPRATROPIUM 0.5 INH SOL 3 ML VIAL.NEB. NEB ONE ×2 (11:02→13:19)
[2016-06-22] MEDS ORDERED: PIPERACILLIN/TAZOB 3.375 GM 50 ML IVPB ONE (11:02)
[2016-06-22] MEDS ORDERED: VANCOMYCIN 1 GRAM (PRE-DOCKED) 250 ML IVPB ONE (11:02)
[2016-06-22] MEDS: ALBUTEROL SO4 2.5/IPRATROPIUM 0.5 INH SOL 3 ML VIAL.NEB. NEB SCH ×2 (11:03→11:33)
--- NOTE | 2016-06-22 12:04 | CON.GI ---
Consult Consult Specialty:: GI Referred by:: Dr Harry Reason for Consultation:: perforated viscus - History of Present Illness Chief Complaint: abdominal pain History of Present Illness: 65 F with h/o HLD, DM, gallstones, nephrolithiasis, hypothyroid, O2 dependent COPD, seen by myself as opt last month for abdominal pain evaluation. She was noted to be on 3 NSAIDS which I told her to stop taking. I also sent her for CT which apparently took several weeks to authorize. The CT showed marked abnormality in the gastric antrum but no perf. I scheduled an EGD but she came into the hospital prior to the procedure with abdominal pain and was found to have a large amount of free air, likely secondary to perforated gastric ulcer. - History Source History Provided By: Patient, Family Member, Medical Record, Caregiver (PCP-Dr Harry) Limitations to Obtaining History: No Limitations - Past Medical History Pulmonary: Yes: COPD, Sleep Apnea Gastrointestinal: Yes: GERD Hepatobiliary: Yes: Cholelithiasis Renal/: Yes: Renal Calculi ...LMP: 03/09/95 Endocrine: Yes: Hypothyroidism - Past Surgical History Past Surgical History: Yes: Colonoscopy (More than 8 years ago, negative), C- Section (At age 42) - Alcohol/Substance Use Hx Alcohol Use: No History of Substance Use: reports: None - Smoking History Smoking history: Former smoker Have you smoked in the past 12 months: No Aproximately how many cigarettes per day: 20 If you are a former smoker, when did you quit?: 2012 - Social History ADL: Independent History of Recent Travel: No Home Medications - Allergies Allergies/Adverse Reactions: Allergies Allergy/AdvReac Type Severity Reaction Status Date / Time No Known Allergies Allergy Verified 06/22/16 01:33 - Home Medications Home Medications: Ambulatory Orders Alendronate Sodium [Binosto] 70 mg PO WEEKLY 04/19/15 FA/Mv,Ca,Iron,Min/Lycopene/Lut [Centrum Tablet] 1 each PO DAILY 04/19/15 Levothyroxine [Synthroid -] 112 mcg PO DAILY 04/19/15 Meloxicam [Mobic (Nf) -] 15 mg PO DAILY 04/19/15 Oxybutynin Chloride [Ditropan Xl] 5 mg PO DAILY 04/19/15 Potassium Citrate [Potassium Citrate ER] 10 meq PO TID 04/19/15 Pravastatin Sodium [Pravachol -] 80 mg PO HS 04/19/15 Ropinirole HCl 1 mg PO TID 04/19/15 Tiotropium [place] [Spiriva] 1 inh PO DAILY 04/19/15 Ursodiol [Actigal -] 300 mg PO BID #60 capsule 04/22/15 Albuterol 0.083% Nebulizer [place]árbara [Ventolin 0.083% Nebulizer Soln -] 1 amp NEB QID 07/23/15 Diclofenac Sodium 50 mg PO DAILY 07/23/15 Aspirin [ASA -] 325 mg PO DAILY@0800 tablet 07/30/15 Cholecalciferol (Vitamin D3) [Vitamin D3] 50,000 unit PO WEEKLY 04/10/16 Family Disease History - Family Disease History Family Disease History: Heart Disease: Mother (CHF, Hypoglycemia), Other: Father (Alzheimer's), Mother Physical Exam-GI Vital Signs: Vital Signs Temperature 97.5 F L 06/22/16 11:00 Pulse Rate 116 H 06/22/16 11:48 Respiratory Rate 20 06/22/16 11:48 Blood Pressure 127/62 06/22/16 11:48 O2 Sat by Pulse Oximetry (%) 96 06/22/16 11:48 Constitutional: Yes: Well Nourished, Mild Distress HENT: Yes: Normocephalic Neck: Yes: Supple Cardiovascular: Yes: Regular Rate and Rhythm, Tachycardia Respiratory: Yes: Diminished Gastrointestinal Inspection: Yes: WNL ...Auscultate: Yes: No Bowel Sounds ...Palpate: Yes: Firm/Rigid, Tenderness (-diffuse) ...Percussion: Yes: Tympanitic ((+) rebound) Labs: CBC, BMP 06/22/16 03:15 06/22/16 03:15 Hepatic Panel Total Bilirubin 0.7 mg/dL (0.2-1.0) D 06/22/16 03:15 AST 15 U/L (15-37) 06/22/16 03:15 ALT 18 U/L (12-78) 06/22/16 03:15 Alkaline Phosphatase 77 U/L (45-117) 06/22/16 03:15 Albumin 3.7 g/dl (3.4-5.0) 06/22/16 03:15 Imaging - Results Cat Scan: Report Reviewed Assessment/Plan Patient with spontaneous perforation likely gastric based on film done 06/09. Surgery notified (Alex) and is coming in now. NPO IV AbRx (vanco/zosyn) PCP present (Kamryn) For surgery JOLLY Re-check labs incl TSH protonix drip
--- NOTE | 2016-06-22 12:24 | HP ---
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 patiet seen and examined in the ER -- daughter at bedside She reports abdominal pain began last night - generalized / reports 2 BM no blood prior to coming to ER / no N / V/ patient initially treated for constipation and sent for CT -- which showed pneumoperitoneum Surgery contacted and being evaluated for OR today . History Source: Patient, Family Member, Medical Record Limitations to Obtaining History: No Limitations, Poor Historian - Past Medical History Cardiovascular: Yes: Hyperlipdemia Pulmonary: Yes: COPD, Sleep Apnea Gastrointestinal: Yes: GERD Hepatobiliary: Yes: Cholelithiasis Renal/: Yes: Renal Calculi ...LMP: 03/09/95 ...: No Endocrine: Yes: Hypothyroidism - Past Surgical History Past Surgical History: Yes: Colonoscopy (More than 8 years ago, negative), C- Section (At age 42) - Smoking History Smoking history: Former smoker Have you smoked in the past 12 months: No Aproximately how many cigarettes per day: 20 If you are a former smoker, when did you quit?: 2013 - Alcohol/Substance Use Hx Alcohol Use: No History of Substance Use: reports: None - Social History ADL: Independent History of Recent Travel: No Home Medications - Allergies Allergies/Adverse Reactions: Allergies Allergy/AdvReac Type Severity Reaction Status Date / Time No Known Allergies Allergy Verified 06/22/16 01:33 - Home Medications Home Medications: Ambulatory Orders Alendronate Sodium [Binosto] 70 mg PO WEEKLY 04/19/15 FA/Mv,Ca,Iron,Min/Lycopene/Lut [Centrum Tablet] 1 each PO DAILY 04/19/15 Levothyroxine [Synthroid -] 112 mcg PO DAILY 04/19/15 Meloxicam [Mobic (Nf) -] 15 mg PO DAILY 04/19/15 Oxybutynin Chloride [Ditropan Xl] 5 mg PO DAILY 04/19/15 Potassium Citrate [Potassium Citrate ER] 10 meq PO TID 04/19/15 Pravastatin Sodium [Pravachol -] 80 mg PO HS 04/19/15 Ropinirole HCl 1 mg PO TID 04/19/15 Tiotropium [place] [Spiriva] 1 inh PO DAILY 04/19/15 Ursodiol [Actigal -] 300 mg PO BID #60 capsule 04/22/15 Albuterol 0.083% Nebulizer [place]ár[place] [Ventolin 0.083% Nebulizer Soln -] 1 amp NEB QID 07/23/15 Diclofenac Sodium 50 mg PO DAILY 07/23/15 Aspirin [ASA -] 325 mg PO DAILY@0800 tablet 07/30/15 Cholecalciferol (Vitamin D3) [Vitamin D3] 50,000 unit PO WEEKLY 04/10/16 Family Disease History - Family Disease History Family Disease History: Heart Disease: Mother (CHF, Hypoglycemia), Other: Father (Alzheimer's), Mother Review of Systems - Review of Systems Constitutional: reports: No Symptoms, Loss of Appetite Eyes: reports: No Symptoms HENT: reports: No Symptoms Neck: reports: No Symptoms Cardiovascular: reports: No Symptoms Respiratory: reports: SOB on Exertion Gastrointestinal: reports: Abdominal Pain, Bloating, Other (distension) Genitourinary: reports: No Symptoms Breasts: reports: No Symptoms Reported Musculoskeletal: reports: No Symptoms Integumentary: reports: No Symptoms Neurological: reports: No Symptoms Endocrine: reports: No Symptoms Hematology/Lymphatic: reports: No Symptoms Psychiatric: reports: No Symptoms Physical Examination Vital Signs: Vital Signs Temperature 97.5 F L 06/22/16 11:00 Pulse Rate 116 H 06/22/16 11:48 Respiratory Rate 20 06/22/16 11:48 Blood Pressure 127/62 06/22/16 11:48 O2 Sat by Pulse Oximetry (%) 96 06/22/16 11:48 Findings/Remarks: seen and examined at bed side -- daughter present Constitutional: Yes: Well Nourished, Calm, Mild Distress Eyes: Yes: WNL HENT: Yes: WNL, Other (trauma to right periocular area s/p fall -- hx seen at office last feek) Neck: Yes: WNL Cardiovascular: Yes: WNL, Regular Rate and Rhythm, Tachycardia Respiratory: Yes: CTA Bilaterally (shallow breaths -- pain with deep inspiration ), Bradypnea Gastrointestinal: Yes: Tenderness, Rebound (distended/ diffusely tender / firm abdomen / hypo - absent BS /) Breast(s): Yes: WNL Musculoskeletal: Yes: WNL Extremities: Yes: WNL Edema: No Peripheral Pulses: Left Radial: 1+, Right Radial: 1+, Left Doralis Pedis: 1+, Right Dorsalis Pedis: 1+, Left Femoral: 1+, Right Femoral: 1+ Neurological: Yes: WNL, Alert, Oriented ...Motor Strength: WNL Psychiatric: Yes: WNL, Alert, Oriented Problem List - Problems (1) Pneumoperitoneum Code(s): K66.8 - OTHER SPECIFIED DISORDERS OF PERITONEUM (2) Abdominal pain Code(s): R10.9 - UNSPECIFIED ABDOMINAL PAIN Qualifiers: Abdominal location: epigastric Qualified Code(s): R10.13 - Epigastric pain (3) Diabetes Code(s): E11.9 - TYPE 2 DIABETES MELLITUS WITHOUT COMPLICATIONS (4) COPD (chronic obstructive pulmonary disease) Code(s): J44.9 - CHRONIC OBSTRUCTIVE PULMONARY DISEASE, UNSPECIFIED Assessment/Plan # Perforated Bowel / gastric perforation ? IV fluids / IV broad spectrum abx surgical consult Dr Johnson GI consult appreciated protonix drip # COPD nebulizer / O2 probably intubated post OR # Hx of neck surgery /with trache yrs ago anesthesia eval ?? trache vs Intubation # DM II has been controlled NPO observe for hypoglycemia
[2016-06-22 12:27] LABS: INR 1.21 (0.82-1.09); PROTHROMBIN TIME (PATIENT) 13.4 SEC (9.98-11.88)
[2016-06-22] MEDS ORDERED: PANTOPRAZOLE SODIUM 40 MG VIAL ONE (12:33)
[2016-06-22 12:41] LABS: THYROID STIMULATING HORMONE 2.16 uIU/ml (0.358-3.74)
[2016-06-22] MEDS: PANTOPRAZOLE SODIUM 80 MG in SODIUM CHLORIDE 100 ML IVPB SCH ×2 (12:49→23:50)
[2016-06-22] MEDS ORDERED: SODIUM CHLORIDE 1,000 ML IV ONE ×3 (12:49→12:51)
[2016-06-22] MEDS ORDERED: DEXTROSE 5%-NORMAL SALINE 1,000 ML IV ONE (13:02)
[2016-06-22] MEDS ORDERED: HYDROmorphone HCL CARPU-JECT 1 MG/1 ML DISP.SYRIN ONE (13:13)
[2016-06-22] MEDS ORDERED: HYDROmorphone HCL CARPU-JECT 1 MG/1 ML DISP.SYRIN IVPUSH ONE (13:13)
--- NOTE | 2016-06-22 14:11 | EKG ---
Test Reason : Blood Pressure : / mmHG Vent. Rate : 104 BPM Atrial Rate : 104 BPM P-R Int : 160 ms QRS Dur : 086 ms QT Int : 350 ms P-R-T Axes : 044 016 043 degrees QTc Int : 460 ms SINUS TACHYCARDIA POSSIBLE LEFT ATRIAL ENLARGEMENT BORDERLINE ECG WHEN COMPARED WITH ECG OF 18-JUL-2015 11:55, VENT. RATE HAS INCREASED BY 48 BPM NONSPECIFIC T WAVE ABNORMALITY NOW EVIDENT IN LATERAL LEADS QT HAS LENGTHENED CLINICAL CORRELATION IS RECOMMENDED Confirmed by GET GANDARA MD ([id number]) on 06/22/2016 2:11:21 PM Referred By: Confirmed By:GET GANDARA MD
[2016-06-22 14:35] LABS: URINE APPEARANCE CLEAR; URINE BILIRUBIN NEGATIVE (NEGATIVE); URINE BLOOD NEGATIVE (NEGATIVE); URINE COLOR YELLOW; URINE GLUCOSE (UA) NEGATIVE (NEGATIVE); URINE KETONE TRACE (NEGATIVE); URINE LEUK ESTERASE NEGATIVE (NEGATIVE); URINE NITRITE NEGATIVE (NEGATIVE); URINE UROBILINOGEN NEGATIVE E.U./dl (0.2-1.0)
--- NOTE | 2016-06-22 14:37 | CONSULT ---
Consult Consult Specialty:: Surgery Referred by:: Apple Melendez MD Reason for Consultation:: Perforated viscus. - History of Present Illness Chief Complaint: Abdominal pain since yesterday. History of Present Illness: C/O Abdominal pain in midabdomen since yesterday. Denies any vomiting. She has had similar abdominal pain about a year ago and was diagnosed to have gallstones and kidney stone. She says she has passed her kidney stone, since. She is oxygen dependent, amd had total thyroidectomy about 3 years ago at [facility]. Following the procedure she had an emergency tracheostomy, for vocal cord paralysis. She has been followed by shrink pit supervisor , and had radiological study showing a deformity of the stomach, and followed by Dr. Smyth. - History Source History Provided By: Patient Limitations to Obtaining History: No Limitations - Past Medical History Cardio/Vascular: Yes: Hyperlipdemia Pulmonary: Yes: COPD, Sleep Apnea Gastrointestinal: Yes: GERD Hepatobiliary: Yes: Cholelithiasis Renal/: Yes: Renal Calculi ...LMP: 03/09/95 ...: No Endocrine: Yes: Hypothyroidism - Past Surgical History Past Surgical History: Yes: Colonoscopy (More than 8 years ago, negative), C- Section (At age 42) - Alcohol/Substance Use Hx Alcohol Use: No History of Substance Use: reports: None - Smoking History Smoking history: Former smoker Have you smoked in the past 12 months: No Aproximately how many cigarettes per day: 20 If you are a former smoker, when did you quit?: 2012 - Social History ADL: Independent History of Recent Travel: No Home Medications - Allergies Allergies/Adverse Reactions: Allergies Allergy/AdvReac Type Severity Reaction Status Date / Time No Known Allergies Allergy Verified 06/22/16 01:33 - Home Medications Home Medications: Ambulatory Orders Alendronate Sodium [Binosto] 70 mg PO WEEKLY 04/19/15 FA/Mv,Ca,Iron,Min/Lycopene/Lut [Centrum Tablet] 1 each PO DAILY 04/19/15 Levothyroxine [Synthroid -] 112 mcg PO DAILY 04/19/15 Meloxicam [Mobic (Nf) -] 15 mg PO DAILY 04/19/15 Oxybutynin Chloride [Ditropan Xl] 5 mg PO DAILY 04/19/15 Potassium Citrate [Potassium Citrate ER] 10 meq PO TID 04/19/15 Pravastatin Sodium [Pravachol -] 80 mg PO HS 04/19/15 Ropinirole HCl 1 mg PO TID 04/19/15 Tiotropium [place] [Spiriva] 1 inh PO DAILY 04/19/15 Ursodiol [Actigal -] 300 mg PO BID #60 capsule 04/22/15 Albuterol 0.083% Nebulizer Bárbara [Ventolin 0.083% Nebulizer Soln -] 1 amp NEB QID 07/23/15 Diclofenac Sodium 50 mg PO DAILY 07/23/15 Aspirin [ASA -] 325 mg PO DAILY@0800 tablet 07/30/15 Cholecalciferol (Vitamin D3) [Vitamin D3] 50,000 unit PO WEEKLY 04/10/16 Family Disease History - Family Disease History Family Disease History: Heart Disease: Mother (CHF, Hypoglycemia), Other: Father (Alzheimer's), Mother Physical Exam Vital Signs: Vital Signs Temperature 98.6 F 06/22/16 13:06 Pulse Rate 111 H 06/22/16 13:06 Respiratory Rate 20 06/22/16 13:06 Blood Pressure 133/82 06/22/16 13:06 O2 Sat by Pulse Oximetry (%) 96 06/22/16 13:06 Neck: Yes: Other (Scar of prior tracheostomy and thyroidectomy.) Gastrointestinal: Yes: Abdomen, Obese, Other (Diffusely tender, and guarding. Obese/distended abdomen.) Imaging - Results Cat Scan: Report Reviewed, Image Reviewed (Ct sca was reviewed with radiologist. Free air in peritoneal cavity, with plenty of contrast and fluid around the stomach. CT of neck does not show any narrowing of the trachea.) Problem List - Problems (1) Perforated viscus Code(s): R19.8 - OTH SYMPTOMS AND SIGNS INVOLVING THE DGSTV SYS AND ABDOMEN (2) Pneumoperitoneum Code(s): K66.8 - OTHER SPECIFIED DISORDERS OF PERITONEUM (3) Surgical pneumoperitoneum Code(s): K66.8 - OTHER SPECIFIED DISORDERS OF PERITONEUM (4) Abdominal pain Code(s): R10.9 - UNSPECIFIED ABDOMINAL PAIN Qualifiers: Abdominal location: generalized Qualified Code(s): R10.84 - Generalized abdominal pain (5) Abnormal EKG Code(s): R94.31 - ABNORMAL ELECTROCARDIOGRAM [ECG] [EKG] (6) Gallstone Code(s): K80.20 - CALCULUS OF GALLBLADDER W/O CHOLECYSTITIS W/O OBSTRUCTION Qualifiers: Cholecystitis presence: without cholecystitis Biliary obstruction: without biliary obstruction Qualified Code(s): K80.20 - Calculus of gallbladder without cholecystitis without obstruction (7) SOB (shortness of breath) Code(s): R06.02 - SHORTNESS OF BREATH (8) COPD (chronic obstructive pulmonary disease) Code(s): J44.9 - CHRONIC OBSTRUCTIVE PULMONARY DISEASE, UNSPECIFIED Qualifiers : COPD type: emphysema Assessment/Plan Patoent and her daughter were informed of the finding of a perforated viscus, with large amounts of air and fluid in the peritoneal cavity. She was explained the seriousness of the situation, and critical nature of her problem. She was to undergo an orthopedic procedure last week . and was cancelled due to inability to intubate. She is explained that this is an emergency procedure , and she might need an emergency tracheostomy, for airway, if needed. Complication of the surgical procedure and postoperative sequlae was explained , including leakage , intestinal fistulae , sepsis, bleeding and fatality. She understands. If unable to ventilate she might be transferred to [facility]. The possibilty of blood transfusion was explained. Condition critical. H/O vocal cord paralysis following thyroidectomy about 3 years ago , with immediate postoperative tracheoatomy. She is oxygen dependant. Antibiotics and fluids given. She is taken to the OR. I was called around 11.00 am. ICU team aware.
[2016-06-22 14:40] LABS: URINE PROTEIN 1+ (NEGATIVE)
[2016-06-22 14:45] LABS: URINE MUCUS RARE; URINE RBC 12 /hpf (0-3); URINE WBC 1 /hpf (3-5)
--- NOTE | 2016-06-22 16:57 | OP ---
Operative Note - Note: Operative Date: 06/22/16 Pre-Operative Diagnosis: Perforated viscus,. COPD,. Vocal cord paralysis. Obesity. Operation: Exploratory laparotomy,. Plicationof duodenal ulcer with omental overlay,. Peritoneal washout. Findings: 1)1cm. perforation of the anterior wall of the prepyloric. pyloric channel ulcer. 2) Intrabdominal abscess with diffuse peritonitis, and contamination. 3)Paralysis of left vocal cord noted during intubation. Post-Operative Diagnosis: Other (Perforation of anterior wall of the pyloric channel . Generalised peritonitis with abscess.) Surgeon: Nadeen Johnson Mail Teller: Steffen Arora Anesthesiologist/BID WRITER: Melodie Oliva Anesthesia: General Specimens Removed: None Estimated Blood Loss (mls): 20 Drains & Tubes with Location: Ciara sump tube in subhepatic space. Operative Report Dictated: Yes
[2016-06-22] MEDS ORDERED: PROPOFOL 100 ML ONE (17:15)
[2016-06-22] MEDS ORDERED: ONDANSETRON 4 MG/2 ML VIAL IVPUSH PRN (17:20)
[2016-06-22] MEDS ORDERED: LACTATED RINGERS SOLUTION 1,000 ML IV SCH (17:30)
[2016-06-22] MEDS ORDERED: PROPOFOL 100 ML IVPB SCH ×2 (17:30)
[2016-06-22] MEDS ORDERED: PHENYLEPHRINE HCL 10 MG/1 ML SINGLE DOSE VIAL ONE ×2 (17:39→23:27)
[2016-06-22 17:50] LABS: MCH 27.8 pg (25.7-33.7); MCHC 31.4 g/dl (32.0-36.0); MEAN CELL VOLUME 88.6 fl (80-96); MEAN PLT VOLUME 9.8 fl (7.5-11.1); RDW 13.8 % (11.6-15.6); WHITE BLOOD COUNT 5.2 K/mm3 (4.0-10.0)
[2016-06-22 18:11] LABS: ALBUMIN 2.5 g/dl (3.4-5.0); BILIRUBIN,TOTAL 0.3 mg/dL (0.2-1.0); COCKROFT - GAULT 28.2285; CREATININE 1.8 mg/dL (0.55-1.02); TOT PROT 5.9 g/dl (6.4-8.2)
[2016-06-22] MEDS ORDERED: PHENYLEPHRINE HCL 20,000 MCG in SODIUM CHLORIDE 248 ML IVPB SCH (18:15)
[2016-06-22 18:19] LABS: CALCIUM 6.8 mg/dL (8.5-10.1)
[2016-06-22 18:55] LABS: PLATELET ESTIMATE DECREASED (NORMAL)
[2016-06-22 18:56] LABS: DOHLE BODIES 1+
[2016-06-22 20:00] LABS: ARTERIAL BLOOD GAS BASE EXCESS -7.7 meq/l (-2-2); ARTERIAL BLOOD GAS pH 7.35 (7.35-7.45)
[2016-06-22 20:01] LABS: ALLENS TEST POSITIVE; ART PUNCT SITE RIGHT RADIAL; ARTERIAL BLOOD GAS HCO3 16.5 meq/L (22-26); LPM/O2% 100%; MECH. VENT. YES; PT. ON O2? YES; TYPE OF O2 MECH VENT; VENT RATE 14; VT/PRESS 500
--- NOTE | 2016-06-22 20:16 | CONSULT ---
Consult - text type - Consultation Consultation Note: PULM/CCM Pt seen and examined in ICU CC: abd pain, s/p ex lap for perforated viscous HPI: Briefly Ms Nolan is a 65 year old female with pmhx of hyperlipidemia, prediabetes, gallstones, kidney stones, thryoid disorder, COPD on home oxygen, who presented to the ED complaining of diffuse abdominal pain last night. CTAP was performed with PO contrast which showed free air and contrast. Surgery was consulted and pt went to OR today with Dr Johnson. Exploratory laparotomy, placation of duodenal ulcer with omental overlay and Peritoneal washout was performed. . A 1cm. perforation of the anterior wall of the prepyloric with ulcer was noted as was Intrabdominal abscess with diffuse peritonitis, and contamination. Of note during intubation by anesthesia Paralysis of left vocal cord noted (hx of trach after neck surgery years back now since decannulated). Post operatively she was hypotensive despite fluid resusitation. Her Cr had climbed, and HCo3 dropped. Pt required low dose (50mc) phenylepherine for blood pressure support. Given tenuous status and compromised vocal cord pt was not extubated in PACU. She has a drain in R abd with serous -sang output, an NG to LWS with bilious output. Past Medical History Cardio/Vascular Hyperlipdemia Pulmonary COPD,Sleep Apnea Gastrointestinal GERD Hepatobiliary Cholelithiasis Renal/ Renal Calculi Endocrine Hypothyroidism Past Surgical History Past Surgical History Colonoscopy (More than 8 years ago, negative),C - Section (At age 42) Home Medications Medication Instructions Recorded Alendronate Sodium [Binosto] 70 mg PO WEEKLY 04/19/15 FA/Mv,Ca,Iron,Min/Lycopene/Lut 1 each PO DAILY 04/19/15 [Centrum Tablet] Levothyroxine [Synthroid -] 112 mcg PO DAILY 04/19/15 Meloxicam [Mobic (Nf) -] 15 mg PO DAILY 04/19/15 Oxybutynin Chloride [Ditropan Xl] 5 mg PO DAILY 04/19/15 Potassium Citrate [Potassium 10 meq PO TID 04/19/15 Citrate ER] Pravastatin Sodium [Pravachol -] 80 mg PO HS 04/19/15 Ropinirole HCl 1 mg PO TID 04/19/15 Tiotropium [place] [Spiriva] 1 inh PO DAILY 04/19/15 Ursodiol [Actigal -] 300 mg PO BID #60 capsule 04/22/15 Albuterol 0.083% Nebulizer Bárbara 1 amp NEB QID 07/23/15 [Ventolin 0.083% Nebulizer Soln -] Diclofenac Sodium 50 mg PO DAILY 07/23/15 Aspirin [ASA -] 325 mg PO DAILY@0800 tablet 07/30/15 Cholecalciferol (Vitamin D3) 50,000 unit PO WEEKLY 04/10/16 [Vitamin D3] Current Medications Fentanyl (Sublimaze Injection -) 25 mcg IVPUSH [id number] PRN PRN Reason: PAIN Stop: 06/25/16 17:21 Heparin Sodium (Porcine) (Heparin -) 5,000 unit SQ BID KARIE Sodium Chloride (Normal Saline -) 1,000 mls @ 75 mls/hr IV ASDIR KARIE Last Admin: 06/22/16 10:44 Dose: 75 mls/hr Pantoprazole Sodium 80 mg/ (Sodium Chloride) 100 mls @ 10 mls/hr IVPB Q10H KARIE PRN Reason: 8 MG/HR Last Admin: 06/22/16 12:49 Dose: 10 mls/hr Dextrose/Lactated Ringer's (D5-Lr -) 1,000 mls @ 125 mls/hr IV ASDIR KARIE Piperacillin Sod/Tazobactam Sod (Zosyn 3.375gm Ivpb (Pre-Docked)) 50 mls @ 100 mls/hr IVPB Q8H-IV KARIE PRN Reason: Protocol Piperacillin Sod/Tazobactam Sod (Zosyn 3.375gm Ivpb (Pre-Docked)) 50 mls @ 100 mls/hr IVPB Q8H-IV KARIE PRN Reason: Protocol Stop: 06/23/16 02:29 Lactated Ringer's (Lactated Ringers Solution) 1,000 mls @ 125 mls/hr IV ASDIR KARIE Propofol (Diprivan -) 100 mls @ 3.538 mls/hr IVPB TITR KARIE; 10 MCG/KG/MIN PRN Reason: Protocol Phenylephrine HCl 20,000 mcg/ (Sodium Chloride) 250 mls @ 75 mls/hr IVPB ASDIR KARIE; 100 MCG/MIN PRN Reason: Protocol Ondansetron HCl (Zofran Injection) 4 mg IVPUSH Q6H PRN PRN Reason: NAUSEA AND/OR VOMITING Stop: 06/22/16 23:21 CBC, BMP 06/22/16 17:30 06/22/16 17:30 Vital Signs Temp 97 F L 06/22/16 20:19 Pulse 76 06/22/16 20:19 Resp 14 06/22/16 20:19 BP 117/79 06/22/16 20:19 Pulse Ox 100 06/22/16 18:50 Intake & Output 06/21/16 06/22/16 06/22/16 23:59 11:59 23:59 Intake Total 7700 Output Total 5380 Balance 2320 Weight 58.967 kg 95.1 kg Intake: IV 2900 Other 4800 Output: Urine 650 Mroe 200 Estimated Blood Loss 10 Other 4720 Other: Voiding Method Bedpan Indwelling Catheter Height 5 ft 3 in 5 ft 3 in Body Mass Index (BMI) 23.0 37.1 Weight Measurement Method Est/Stated by Patient CTAP: free air and contrast throughout abd cavity CTneck: minimal narrowing at level of cords CTchest: bibasilar atelectasis, few small air-bronchograms c/f pna PE: HEENT: orally intubated, PERRL, trach midline PULM: diminished bases, few crackles bilaterally ABD: slightly distended, minimal serous-sang output from R abd drain, absent bowel sounds EXT: w/w/p, mild dependant edema NEURO: awakens to voice, not purposeful, slight grimace to abd palpation diffusely Peripheral access Current Active Problems COPD (chronic obstructive pulmonary disease) (Acute) Diabetes (Acute) Perforated viscus (Acute) Pneumoperitoneum (Acute) Surgical pneumoperitoneum (Acute) Acute Kidney Injury A/ 65 y/o woman s/p ex lap for perforated viscous with Dr Johnson , pre pyloric ulcer noted, abd washout of abcess and free fluid. Noted vocal cord paralysis during intubation likely from previous neck surgery/tracheostomy now in ICU for post op care on low dose vasopressors P/ -cont vent support tonight. Make sure pt has adequate cuff leak and minimal oral secretions prior to extubation given vocal cord paralysis, consider ENT eval if note signs of aspiration -cont abx, agree with PT, low trheshold to escalate if rising pressors -wean vasopressors as tolerated, may need more volume resusitation -closely follow Cr, uptrending with assoc drop in Hco3 -monitor drain output -NG to intermittent LWS -GI/Fallick following - will add PPI -ICU care. Donnell Daniel ACNP [id number]
[2016-06-22 20:23] VITALS: BMI 37.1
[2016-06-22] MEDS ORDERED: HYDROmorphone HCL CARPU-JECT 1 MG/1 ML DISP.SYRIN IVPUSH PRN (22:15)
[2016-06-22 22:38] LABS: BASOPHIL 0.2 % (0-2.0); WHITE BLOOD COUNT 8.3 K/mm3 (4.0-10.0)
[2016-06-22 22:45] LABS: MCH 27.8 pg (25.7-33.7); MCHC 32.2 g/dl (32.0-36.0); MEAN CELL VOLUME 86.2 fl (80-96); MEAN PLT VOLUME 9.5 fl (7.5-11.1); NEUTROPHILS 80.6 % (42.8-82.8); PLATELET COUNT 358 K/MM3 (134-434); RDW 13.2 % (11.6-15.6)
[2016-06-22] MEDS: DEXTROSE 5%-LACTATED RINGERS 1,000 ML IV SCH (23:22)
[2016-06-22] MEDS: HEPARIN NA (PORCINE) 5,000 UNITS/ML 1ML VIAL SQ SCH (23:29)
[2016-06-22] MEDS: PIPERACILLIN/TAZOB 3.375 GM 50 ML IVPB SCH (23:30)
[2016-06-22 23:48] LABS: ALBUMIN 2.2 g/dl (3.4-5.0); BILIRUBIN,TOTAL 0.4 mg/dL (0.2-1.0); COCKROFT - GAULT 47.6; CREATININE 1.7 mg/dL (0.55-1.02); MAGNESIUM 2.1 mg/dL (1.8-2.4); PHOSPHOROUS 2.8 mg/dL (2.5-4.9); TOT PROT 5.4 g/dl (6.4-8.2)
[2016-06-22 23:55] LABS: CALCIUM 6.1 mg/dL (8.5-10.1)
[2016-06-22] MEDS ORDERED: CALCIUM GLUCONATE 10% - 1,000 MG/10 ML VIAL ONE (23:59)
[2016-06-23] MEDS ORDERED: PROPOFOL 100 ML IVPB SCH (00:15)
[2016-06-23] MEDS ORDERED: CALCIUM GLUCONATE 10% - 1,000 MG/10 ML VIAL IVPB ONE (01:00)
[2016-06-23] MEDS: PIPERACILLIN/TAZOB 3.375 GM 50 ML IVPB SCH ×3 (01:17→17:22)
[2016-06-23] MEDS ORDERED: PHENYLEPHRINE HCL 10 MG/1 ML SINGLE DOSE VIAL ONE (03:00)
[2016-06-23 06:05] LABS: BASOPHIL 0.1 % (0-2.0); MCH 27.9 pg (25.7-33.7); MCHC 32.2 g/dl (32.0-36.0); MEAN CELL VOLUME 86.8 fl (80-96); MEAN PLT VOLUME 9.6 fl (7.5-11.1); NEUTROPHILS 86.7 % (42.8-82.8); PLATELET COUNT 286 K/MM3 (134-434); RDW 13.5 % (11.6-15.6); WHITE BLOOD COUNT 12.5 K/mm3 (4.0-10.0)
[2016-06-23 06:51] LABS: COCKROFT - GAULT 47.6; CREATININE 1.7 mg/dL (0.55-1.02)
[2016-06-23] MEDS: PANTOPRAZOLE SODIUM 80 MG in SODIUM CHLORIDE 100 ML IVPB SCH ×3 (08:18→18:30)
--- NOTE | 2016-06-23 08:51 | PN ---
Progress Note (short form) - Note Progress Note: Anesthesia POD#1 S/P Ex lap and Repair of duodenal ulcer under GA She remained stable overnight while intubated.VSS. Rise of creatinine POSt/op. Extubation is the plan under supervision of critical care Dr. Fio2 50% A/P Stable,no new complications except the vocal cord paralysis found out at intubation time. Careful extubation is recommend. Yaneli Conroy MD.
[2016-06-23 09:32] LABS: CALCIUM 6.6 mg/dL (8.5-10.1)
[2016-06-23] MEDS: morphine CARPU-JECT 2 MG/1 ML DISP.SYRIN IVPUSH PRN ×3 (10:05→21:38)
[2016-06-23] MEDS ORDERED: morphine CARPU-JECT 2 MG/1 ML DISP.SYRIN ONE (10:08)
--- NOTE | 2016-06-23 10:30 | OP ---
DATE OF OPERATION: 06/22/2016 PREOPERATIVE DIAGNOSES: Perforated viscus. Chronic obstructive pulmonary disease. Vocal cord paralysis. Obesity. Sleep apnea. Gastroesophageal reflux disease. Cholelithiasis. POSTOPERATIVE DIAGNOSES: Perforation of the anterior wall of the pyloric channel. Generalized peritonitis with abscess. OPERATIVE PROCEDURE: Exploratory laparotomy, plication of duodenal ulcer with omental overlay (patch) and peritoneal washout. SURGEON: Pawan Johnson MD TRANSPORTATION SALES CONSULTANT: Kelli, PGY1 Laboratory Apparatus Glass Blower ANESTHESIA: General anesthesia. OPERATIVE DESCRIPTION: This 65-year-old woman came to the emergency room with abdominal pain for 1 day. She was found to have diffuse peritonitis with abdominal pain and rigidity. She was found to have free air in the peritoneal cavity with contrast in the peritoneal cavity and a lot of air and fluid. Patient also has history of COPD and oxygen dependent. She has had previous tracheostomy, total thyroidectomy, vocal cord paralysis treated at [facility] 3 years ago. Consent was obtained for exploratory laparotomy for repair of perforated viscus. Risks, benefits, and complications had been extensively discussed with the patient and the daughter. Patient was given antibiotics and IV fluids in the emergency room, brought to the operating room. General anesthesia was administered. Patient was intubated satisfactorily and abdomen was painted and draped. Time- out was called. The abdomen was opened through a vertical midline incision above the umbilicus. Upon entering the abdominal cavity, there was 2 L of fluid in the peritoneal cavity, which was cloudy and purulent. There were multiple exudates in the peritoneal cavity and fluid collections throughout the abdominal cavity in all quadrants. The fluid was evacuated. Upon exploring the abdomen, there was a large 1-cm punched-out ulcer in the anterior wall of the pyloric channel and the prepyloric area through which gastric and duodenal fluid was exuding out. This was repaired with number 1 silk sutures with 3 silk sutures across the ulcer, 1 above the ulcer and 1 at the middle of the perforation and 1 below the perforation. This was then approximated, approximating the ulcer. A segment of greater omentum was then laid over the repair and the silk suture was again tied. Thus, an omental overlay was performed after plicating the ulcer. There was no leak from the abdominal cavity after the perforation was closed. The abdominal cavity was then thoroughly irrigated with normal saline. The bowel was run from the duodenal-jejunal flexure to the terminal ileum. All fluid was evacuated from both right upper quadrant of the abdomen, left upper quadrant of the abdomen, from both gutters as well as the pelvis and peritoneal cavity. The abdominal cavity was then thoroughly irrigated with 5-6 L of normal saline. A n Ciara drain was then placed into the abdominal cavity through a stab wound in the right flank and placed in the subhepatic space and over the stomach and perforation. This was anchored to the abdominal wall with number 1 silk sutures. After thorough irrigation, peritoneal washout, and removing some of the exudates from the peritoneal cavity, sending for culture along with the peritoneal fluid, the abdomen was closed with number 1 looped PDS sutures in a running fashion. The skin and subcutaneous tissue was then irrigated with normal saline, loosely approximated with nile. Sponge count, instrument count were correct. Sterile dressing was placed over the wound and patient was sent to the ICU, intubated and on a ventilator. Estimated blood loss was less than 20 mL. The urinary output was about 100 mL. Ange OREILLY/[id number] cc: Nora Harry MD MTDD
--- NOTE | 2016-06-23 11:55 | PN ---
Progress Note, Physician - Current Medication List Current Medications: Active Medications Fentanyl (Sublimaze Injection -) 25 mcg IVPUSH [id number] PRN PRN Reason: PAIN Stop: 06/25/16 17:21 Heparin Sodium (Porcine) (Heparin -) 5,000 unit SQ BID KARIE Last Admin: 06/22/16 23:29 Dose: 5,000 unit Sodium Chloride (Normal Saline -) 1,000 mls @ 75 mls/hr IV ASDIR KARIE Last Admin: 06/22/16 10:44 Dose: 75 mls/hr Pantoprazole Sodium 80 mg/ (Sodium Chloride) 100 mls @ 10 mls/hr IVPB Q10H KARIE PRN Reason: 8 MG/HR Last Admin: 06/23/16 08:18 Dose: 10 mls/hr Dextrose/Lactated Ringer's (D5-Lr -) 1,000 mls @ 125 mls/hr IV ASDIR KARIE Last Admin: 06/22/16 23:22 Dose: 125 mls/hr Piperacillin Sod/Tazobactam Sod (Zosyn 3.375gm Ivpb (Pre-Docked)) 50 mls @ 100 mls/hr IVPB Q8H-IV KARIE PRN Reason: Protocol Phenylephrine HCl 20,000 mcg/ (Sodium Chloride) 250 mls @ 75 mls/hr IVPB ASDIR KARIE; 100 MCG/MIN PRN Reason: Protocol Last Titration: 06/23/16 01:05 Dose: 75 mcg/min Propofol (Diprivan -) 100 mls @ 5.706 mls/hr IVPB TITR KARIE; 10 MCG/KG/MIN PRN Reason: Protocol Last Titration: 06/23/16 01:06 Dose: 15 mcg/kg/min Pneumococcal 13-Valent Conj Vacc (Prevnar 13 Syringe -) 0.5 ml IM .ONCE ONE Stop: 06/22/16 20:47 - Objective Vital Signs: Vital Signs Temperature 97 F L 06/22/16 20:19 Pulse Rate 78 06/23/16 09:35 Respiratory Rate 24 06/23/16 09:40 Blood Pressure 120/71 06/23/16 04:38 O2 Sat by Pulse Oximetry (%) 68 L 06/23/16 09:40 Labs: CBC, BMP 06/23/16 05:15 06/23/16 05:15 INR, PTT INR 1.21 (0.82-1.09) H 06/22/16 12:00 Problem List - Problems (1) Perforated viscus Code(s): R19.8 - OTH SYMPTOMS AND SIGNS INVOLVING THE DGSTV SYS AND ABDOMEN (2) Pneumoperitoneum Code(s): K66.8 - OTHER SPECIFIED DISORDERS OF PERITONEUM (3) Surgical pneumoperitoneum Code(s): K66.8 - OTHER SPECIFIED DISORDERS OF PERITONEUM (4) Abdominal pain Code(s): R10.9 - UNSPECIFIED ABDOMINAL PAIN Qualifiers: Abdominal location: generalized Qualified Code(s): R10.84 - Generalized abdominal pain (5) Abnormal EKG Code(s): R94.31 - ABNORMAL ELECTROCARDIOGRAM [ECG] [EKG] (6) Gallstone Code(s): K80.20 - CALCULUS OF GALLBLADDER W/O CHOLECYSTITIS W/O OBSTRUCTION Qualifiers: Cholecystitis presence: without cholecystitis Biliary obstruction: without biliary obstruction Qualified Code(s): K80.20 - Calculus of gallbladder without cholecystitis without obstruction (7) SOB (shortness of breath) Code(s): R06.02 - SHORTNESS OF BREATH (8) COPD (chronic obstructive pulmonary disease) Code(s): J44.9 - CHRONIC OBSTRUCTIVE PULMONARY DISEASE, UNSPECIFIED Qualifiers : COPD type: emphysema Assessment/Plan Surgery: Patient is extubated, alert and oriented. NG tube was adjusted. NG is draining bilious material. Wound is clean. Patient is talking, alert and oriented. Still has lactic acid, low bicarb, low albumin. sepsis. Continue antibiotics. manage I & O.
[2016-06-23] MEDS: HEPARIN NA (PORCINE) 5,000 UNITS/ML 1ML VIAL SQ SCH ×2 (12:11→21:17)
--- NOTE | 2016-06-23 12:11 | PN ---
Teaching Attending Note Name of Resident: Otilio Alonzo ATTENDING PHYSICIAN STATEMENT I saw and evaluated the patient. I reviewed the resident's note and discussed the case with the resident. I agree with the resident's findings and plan as documented. SUBJECTIVE: Pt seen and examined in the ICU. s/p ex-lap found to have perforated prepyloric ulcer with difffuse peritonitis, s/p plication/Umair patch repair and peritoneal washout. Also noted to have left vocal cord paralysis during intubation. Remained intubated overnight, currently awake, tolerated CPAP/PS trials and subsequently extubated. OBJECTIVE: Last Vital Signs Temp Pulse Resp BP Pulse Ox 97 F L 78 24 120/71 68 L 06/22/16 20:19 06/23/16 09:35 06/23/16 09:40 06/23/16 04:38 06/23/16 09:40 Intake & Output 06/20/16 06/21/16 06/22/16 06/23/16 23:59 23:59 23:59 23:59 Intake Total 7700 2335 Output Total 5380 750 Balance 2320 1585 Weight 209 lb 10.554 oz Gen: intubated, awake Heart: RRR Lung: decreased breath sounds at the bases Abd: soft, appropriately tender, dressings dry, drain in place Ext: no edema CBC, BMP 06/23/16 05:15 06/23/16 05:15 Active Medications Fentanyl (Sublimaze Injection -) 25 mcg IVPUSH [id number] PRN PRN Reason: PAIN Stop: 06/25/16 17:21 Heparin Sodium (Porcine) (Heparin -) 5,000 unit SQ BID KARIE Last Admin: 06/23/16 12:11 Dose: 5,000 unit Sodium Chloride (Normal Saline -) 1,000 mls @ 75 mls/hr IV ASDIR KARIE Last Admin: 06/23/16 12:12 Dose: 75 mls/hr Pantoprazole Sodium 80 mg/ (Sodium Chloride) 100 mls @ 10 mls/hr IVPB Q10H KARIE PRN Reason: 8 MG/HR Last Admin: 06/23/16 08:18 Dose: 10 mls/hr Dextrose/Lactated Ringer's (D5-Lr -) 1,000 mls @ 125 mls/hr IV ASDIR KARIE Last Admin: 06/22/16 23:22 Dose: 125 mls/hr Piperacillin Sod/Tazobactam Sod (Zosyn 3.375gm Ivpb (Pre-Docked)) 50 mls @ 100 mls/hr IVPB Q8H-IV KARIE PRN Reason: Protocol Phenylephrine HCl 20,000 mcg/ (Sodium Chloride) 250 mls @ 75 mls/hr IVPB ASDIR KARIE; 100 MCG/MIN PRN Reason: Protocol Last Titration: 06/23/16 01:05 Dose: 75 mcg/min Propofol (Diprivan -) 100 mls @ 5.706 mls/hr IVPB TITR KARIE; 10 MCG/KG/MIN PRN Reason: Protocol Last Titration: 06/23/16 01:06 Dose: 15 mcg/kg/min Morphine Sulfate (Morphine Injection -) 2 mg IVPUSH Q2H PRN PRN Reason: PAIN Pneumococcal 13-Valent Conj Vacc (Prevnar 13 Syringe -) 0.5 ml IM .ONCE ONE Stop: 06/22/16 20:47 ASSESSMENT AND PLAN: Perforated Gastric Ulcer s/p ex-lap/Umair patch repair/abdominal washout 06/23 Peritonitis Severe Sepsis Lactic Acidosis Acute Kidney Injury s/p Acute respiratory Failure - extubated to ventimask - continue antibiotics - f/u cultures - ID evaluation - protonix - pain control - incentive spirometry - IVF - monitor urine output, creatinine - trend lactate - NPO - NGT to low wall suction - DVT/GI prophylaxis - continue ICU monitoring critical care time spent in reviewing chart, evaluating patient and formulating plan 40 min
[2016-06-23] MEDS: SODIUM CHLORIDE 1,000 ML IV SCH (12:12)
--- NOTE | 2016-06-23 12:51 | PN ---
Progress Note (short form) - Note Progress Note: ID consult dictated imp/reccd pod #1 65 year old female presented 06/22 with abdominal pain found to have pneumoperitoneum s/p OR - ex lap -prepyloric ulcer with perforation and intra-abdominal abscess with peritonitis awake and alert extubated ivf/no pressors denies recent antibiotic use or hospitalization Left TKR- july 2015 home oxygen 2 liters would continue zosyn as ordered by surgery f/u operative cultures Problem List - Problems (1) Perforated viscus Code(s): R19.8 - OTH SYMPTOMS AND SIGNS INVOLVING THE DGSTV SYS AND ABDOMEN (2) Peritonitis Code(s): K65.9 - PERITONITIS, UNSPECIFIED
[2016-06-23] MEDS: DEXTROSE 5%-LACTATED RINGERS 1,000 ML IV SCH (17:20)
[2016-06-23] MEDS ORDERED: PNEUMOC 13-VAL CONJ-DIP CRM/PF 0.5 ML DISP.SYRIN IM ONE (18:00)
--- NOTE | 2016-06-23 19:41 | PN ---
Physical Exam: SUBJECTIVE: Patient seen and examined at bed side in ICU. Remained intubated overnight, currently awake, tolerated CPAP/PS trials and subsequently extubated. currently awake and alert. ivf/no pressors NG tube was adjusted. NG is draining bilious material pneumoperitoneum-s/p OR - ex lap -prepyloric ulcer with perforation and intra- abdominal abscess with peritonitis pod #1 on home oxygen 2 liters OBJECTIVE: Vital Signs Period Temp Pulse Resp BP Sys/Regan Pulse Ox Last 24 Hr 97 F-98.2 F 55-99 14-24 101-148/53-93 68-100 GENERAL: The patient is awake, alert, and fully oriented, in no acute distress. HEAD: Normal with no signs of trauma. EYES: PERRL, extraocular movements intact, sclera anicteric, conjunctiva clear. No ptosis. ENT: Ears normal, nares patent, oropharynx clear without exudates, moist mucous membranes. NECK: Trachea midline, full range of motion, supple. old scare trachostomy LUNGS: diminished bases, few crackles bilaterally HEART: Regular rate and rhythm, S1, S2 without murmur, rub or gallop. ABDOMEN: Soft, nontender, nondistended, no bowel sounds, no guarding, no rebound, no hepatosplenomegaly, no masses. intact and dry surgical dressing EXTREMITIES: 2+ pulses, warm, well-perfused,trace edema. NEUROLOGICAL: Cranial nerves II through XII grossly intact. Normal speech, gait not observed. PSYCH: Normal mood, normal affect. SKIN: Warm, dry, normal turgor, no rashes or lesions noted Laboratory Results - last 24 hr 06/22/16 06/22/16 06/22/16 19:49 22:00 22:00 WBC 8.3 D RBC 4.07 Hgb 11.3 Hct 35.1 MCV 86.2 MCHC 32.2 RDW 13.2 Plt Count 358 MPV 9.5 Neutrophils % 80.6 D Lymphocytes % 15.7 Monocytes % 3.5 L Eosinophils % 0.0 D Basophils % 0.2 Puncture Site Right radial ABG pH 7.35 ABG pCO2 at Pt Temp 31.1 L ABG pO2 at Pt Temp 324.0 H* ABG HCO3 16.5 L ABG O2 Sat (Measured) 100.0 H* ABG O2 Content 16.3 ABG Base Excess -7.7 L Azael Test Positive O2 Delivery Device Mech vent Oxygen Flow Rate 100% Vent Mode A/c Vent Rate 14 Mechanical Rate Yes PEEP 5.0 Pressure Support Vent 500 Sodium 139 Potassium 4.7 Chloride 106 Carbon Dioxide 19 L Anion Gap 14 BUN 29 H Creatinine 1.7 H Creat Clearance w eGFR 29.98 Random Glucose 190 H Lactic Acid Calcium 6.1 L* Phosphorus 2.8 Magnesium 2.1 Total Bilirubin 0.4 D AST 73 H ALT 70 Alkaline Phosphatase 42 L Total Protein 5.4 L Albumin 2.2 L 06/22/16 06/23/16 06/23/16 22:00 05:15 05:15 WBC 12.5 H D RBC 4.05 Hgb 11.3 Hct 35.2 MCV 86.8 MCHC 32.2 RDW 13.5 Plt Count 286 D MPV 9.6 Neutrophils % 86.7 H Lymphocytes % 7.9 L D Monocytes % 5.3 Eosinophils % 0.0 Basophils % 0.1 Puncture Site ABG pH ABG pCO2 at Pt Temp ABG pO2 at Pt Temp ABG HCO3 ABG O2 Sat (Measured) ABG O2 Content ABG Base Excess Azael Test O2 Delivery Device Oxygen Flow Rate Vent Mode Vent Rate Mechanical Rate PEEP Pressure Support Vent Sodium 139 Potassium 4.9 Chloride 106 Carbon Dioxide 22 Anion Gap 11 BUN 30 H Creatinine 1.7 H Creat Clearance w eGFR Random Glucose 210 H Lactic Acid 4.112 H* Calcium 6.6 L* Phosphorus Magnesium Total Bilirubin AST ALT Alkaline Phosphatase Total Protein Albumin 06/23/16 07:15 WBC RBC Hgb Hct MCV MCHC RDW Plt Count MPV Neutrophils % Lymphocytes % Monocytes % Eosinophils % Basophils % Puncture Site ABG pH ABG pCO2 at Pt Temp ABG pO2 at Pt Temp ABG HCO3 ABG O2 Sat (Measured) ABG O2 Content ABG Base Excess Azael Test O2 Delivery Device Oxygen Flow Rate Vent Mode Vent Rate Mechanical Rate PEEP Pressure Support Vent Sodium Potassium Chloride Carbon Dioxide Anion Gap BUN Creatinine Creat Clearance w eGFR Random Glucose Lactic Acid 3.430 H* Calcium Phosphorus Magnesium Total Bilirubin AST ALT Alkaline Phosphatase Total Protein Albumin Active Medications Generic Name Dose Route Start Last Admin Trade Name Freq PRN Reason Stop Dose Admin Fentanyl 25 mcg 06/22/16 17:20 Sublimaze Injection - IVPUSH 06/25/16 17:21 [id number] PRN PAIN Heparin Sodium (Porcine) 5,000 unit 06/22/16 22:00 06/23/16 12:11 Heparin - SQ 5,000 unit BID KARIE Administration Pantoprazole Sodium 80 mg/ 100 mls @ 10 mls/hr 06/22/16 12:30 06/23/16 17:20 Sodium Chloride IVPB 10 mls/hr Q10H KARIE Administration 8 MG/HR Dextrose/Lactated Ringer's 1,000 mls @ 125 mls/hr 06/22/16 17:00 06/23/16 17:20 D5-Lr - IV 125 mls/hr ASDIR KARIE Administration Piperacillin Sod/Tazobactam Sod 50 mls @ 100 mls/hr 06/23/16 13:00 06/23/16 17: 22 Zosyn 3.375gm Ivpb (Pre-Docked) IVPB 100 mls/hr Q8H-IV KARIE Administration Protocol Morphine Sulfate 2 mg 06/23/16 11:59 06/23/16 13:27 Morphine Injection - IVPUSH 2 mg Q2H PRN Administration PAIN ASSESSMENT/PLAN: 65 year old female with pmhx of hyperlipidemia, prediabetes, gallstones, kidney stones, thryoid disorder, COPD on home oxygen, who presented to the ED complaining of diffuse abdominal pain. CT showed free air and contrast. A 1cm. perforation of the anterior wall of the prepyloric with ulcer was noted as was Intrabdominal abscess with diffuse peritonitis, and contamination. .POD#1 sever sepses 2/2 Peritonitis 2/2 erforated Gastric Ulcer, lactic acidosis POD# 1 s/p ex-lap/Umair patch repair/abdominal washout demargination-WBC trended up as expected post surgery NG tube was adjusted. NG is draining bilious material. Wound is clean. Still has lactic acid, trend down continue Zosyn day #2 f/u cultures trend lactate NGT to low wall suction low bicarb, low albumin. pain contol morphine 2mg IVPush Q2H PRN s/p Acute respiratory Failure s/p extubation to Venti mask incentive spirometry keep PO2 > 90% Lactic Acidosis- trending down keep trending Acute Kidney Injury - IVF - monitor urine output, creatinine DVT/GI prophylaxis hep sq TID protonix FEN D5Lr replet electrolytes as needed NPO diso: continue ICU monitoring Visit type - Emergency Visit Emergency Visit: Yes ED Registration Date: 06/22/16 Care time: The patient presented to the Emergency Department on the above date and was hospitalized for further evaluation of their emergent condition. - New Patient This patient is new to me today: Yes Date on this admission: 06/22/16 - Critical Care Critical Care patient: Yes Total Critical Care Time (in minutes): 46 Critical Care Statement: The care of this patient involved high complexity decision making to prevent further life threatening deterioration of the patient 's condition and/or to evalute & treat vital organ system(s) failure or risk of failure.
[2016-06-24] MEDS: PIPERACILLIN/TAZOB 3.375 GM 50 ML IVPB SCH ×3 (01:15→18:02)
[2016-06-24] MEDS: morphine CARPU-JECT 2 MG/1 ML DISP.SYRIN IVPUSH PRN ×4 (03:27→21:23)
[2016-06-24] MEDS: PANTOPRAZOLE SODIUM 80 MG in SODIUM CHLORIDE 100 ML IVPB SCH ×2 (04:30→14:30)
[2016-06-24 06:33] LABS: MCH 28.2 pg (25.7-33.7); MCHC 32.9 g/dl (32.0-36.0); MEAN CELL VOLUME 85.9 fl (80-96); MEAN PLT VOLUME 9.6 fl (7.5-11.1); PLATELET COUNT 220 K/MM3 (134-434); RDW 13.7 % (11.6-15.6); WHITE BLOOD COUNT 10.5 K/mm3 (4.0-10.0)
[2016-06-24 06:50] LABS: CALCIUM 7.2 mg/dL (8.5-10.1); COCKROFT - GAULT 74.443; CREATININE 1.1 mg/dL (0.55-1.02); MAGNESIUM 2.3 mg/dL (1.8-2.4); PHOSPHOROUS 2.6 mg/dL (2.5-4.9)
[2016-06-24] MEDS: HEPARIN NA (PORCINE) 5,000 UNITS/ML 1ML VIAL SQ SCH ×2 (09:16→21:05)
--- NOTE | 2016-06-24 09:49 | PN ---
Progress Note (short form) - Note Progress Note: doing well no complaints Vital Signs Period Temp Pulse Resp BP Sys/Regan Pulse Ox Last 24 Hr 97.8 F-98.5 F 62-99 11-23 99-148/47-93 95-95 cor-rrr lungs clear abd soft, +drain ext no edema CBC, BMP 06/24/16 05:15 06/24/16 05:15 Current Medications Fentanyl (Sublimaze Injection -) 25 mcg IVPUSH [id number] PRN PRN Reason: PAIN Stop: 06/25/16 17:21 Heparin Sodium (Porcine) (Heparin -) 5,000 unit SQ BID KARIE Last Admin: 06/24/16 09:16 Dose: 5,000 unit Pantoprazole Sodium 80 mg/ (Sodium Chloride) 100 mls @ 10 mls/hr IVPB Q10H KARIE PRN Reason: 8 MG/HR Last Admin: 06/24/16 04:30 Dose: 10 mls/hr Dextrose/Lactated Ringer's (D5-Lr -) 1,000 mls @ 125 mls/hr IV ASDIR KARIE Last Admin: 06/23/16 17:20 Dose: 125 mls/hr Piperacillin Sod/Tazobactam Sod (Zosyn 3.375gm Ivpb (Pre-Docked)) 50 mls @ 100 mls/hr IVPB Q8H-IV KARIE PRN Reason: Protocol Last Admin: 06/24/16 09:16 Dose: 100 mls/hr Morphine Sulfate (Morphine Injection -) 2 mg IVPUSH Q2H PRN PRN Reason: PAIN Last Admin: 06/24/16 09:12 Dose: 2 mg imp/reccd pod #2 65 year old female presented 06/22 with abdominal pain found to have pneumoperitoneum s/p OR - ex lap -prepyloric ulcer with perforation and intra-abdominal abscess with peritonitis awake and alert extubated would continue zosyn f/u operative culture Problem List - Problems (1) Perforated viscus Code(s): R19.8 - OTH SYMPTOMS AND SIGNS INVOLVING THE DGSTV SYS AND ABDOMEN (2) Peritonitis Code(s): K65.9 - PERITONITIS, UNSPECIFIED
--- NOTE | 2016-06-24 10:11 | PN ---
Progress Note, Physician - Current Medication List Current Medications: Active Medications Fentanyl (Sublimaze Injection -) 25 mcg IVPUSH [id number] PRN PRN Reason: PAIN Stop: 06/25/16 17:21 Heparin Sodium (Porcine) (Heparin -) 5,000 unit SQ BID KARIE Last Admin: 06/24/16 09:16 Dose: 5,000 unit Pantoprazole Sodium 80 mg/ (Sodium Chloride) 100 mls @ 10 mls/hr IVPB Q10H KARIE PRN Reason: 8 MG/HR Last Admin: 06/24/16 04:30 Dose: 10 mls/hr Dextrose/Lactated Ringer's (D5-Lr -) 1,000 mls @ 125 mls/hr IV ASDIR KARIE Last Admin: 06/23/16 17:20 Dose: 125 mls/hr Piperacillin Sod/Tazobactam Sod (Zosyn 3.375gm Ivpb (Pre-Docked)) 50 mls @ 100 mls/hr IVPB Q8H-IV KARIE PRN Reason: Protocol Last Admin: 06/24/16 09:16 Dose: 100 mls/hr Morphine Sulfate (Morphine Injection -) 2 mg IVPUSH Q2H PRN PRN Reason: PAIN Last Admin: 06/24/16 09:12 Dose: 2 mg - Objective Vital Signs: Vital Signs Temperature 97.3 F L 06/24/16 09:55 Pulse Rate 80 06/24/16 09:55 Respiratory Rate 18 06/24/16 09:55 Blood Pressure 114/57 06/24/16 09:55 O2 Sat by Pulse Oximetry (%) 95 06/24/16 08:24 Labs: CBC, BMP 06/24/16 05:15 06/24/16 05:15 INR, PTT INR 1.21 (0.82-1.09) H 06/22/16 12:00 Problem List - Problems (1) Perforated viscus Code(s): R19.8 - OTH SYMPTOMS AND SIGNS INVOLVING THE DGSTV SYS AND ABDOMEN (2) Pneumoperitoneum Code(s): K66.8 - OTHER SPECIFIED DISORDERS OF PERITONEUM (3) Surgical pneumoperitoneum Code(s): K66.8 - OTHER SPECIFIED DISORDERS OF PERITONEUM (4) Abdominal pain Code(s): R10.9 - UNSPECIFIED ABDOMINAL PAIN Qualifiers: Abdominal location: generalized Qualified Code(s): R10.84 - Generalized abdominal pain (5) Abnormal EKG Code(s): R94.31 - ABNORMAL ELECTROCARDIOGRAM [ECG] [EKG] (6) Gallstone Code(s): K80.20 - CALCULUS OF GALLBLADDER W/O CHOLECYSTITIS W/O OBSTRUCTION Qualifiers: Cholecystitis presence: without cholecystitis Biliary obstruction: without biliary obstruction Qualified Code(s): K80.20 - Calculus of gallbladder without cholecystitis without obstruction (7) SOB (shortness of breath) Code(s): R06.02 - SHORTNESS OF BREATH (8) COPD (chronic obstructive pulmonary disease) Code(s): J44.9 - CHRONIC OBSTRUCTIVE PULMONARY DISEASE, UNSPECIFIED Qualifiers : COPD type: emphysema Assessment/Plan Surgery: Post op day 3 2; She is alert and oriented. Abdomen is soft , not distended. Wound is clean. NG drainage is 600ml, bilious. Abdominal drainage is 100ml, blood stained , not bilious. Lactic acid is corrected. Urine output has improved. Chest X-Ray as reported , bilateral pleural effusions, infiltrates /, large heart. No calf tenderness, she has "restless leg syndrome". Overall , she is improving, no sign of ongoing sepsis. Continue NG aspiration , hydrate, antibiotics.
--- NOTE | 2016-06-24 12:40 | PN ---
Teaching Attending Note Name of Resident: Otilio Alonzo ATTENDING PHYSICIAN STATEMENT I saw and evaluated the patient. I reviewed the resident's note and discussed the case with the resident. I agree with the resident's findings and plan as documented. SUBJECTIVE: Pt seen and examined in the ICU. Pain controlled with current regimen. Remains on 50% fiO2. Denies shortness of breath. No fevers or chills. OBJECTIVE: Last Vital Signs Temp Pulse Resp BP Pulse Ox 98.4 F 85 18 129/68 95 06/24/16 10:55 06/24/16 10:55 06/24/16 10:55 06/24/16 10:55 06/24/16 08:24 Intake & Output 06/21/16 06/22/16 06/23/16 06/24/16 23:59 23:59 23:59 23:59 Intake Total 7700 4555 Output Total 5380 2900 700 Balance 2320 1655 -700 Weight 209 lb 10.554 oz 209 lb 8 oz Gen: mildly tachypneic at rest Heart: RRR Lung: scattered rhonchi Abd: soft, appropriately tender, dressings dry Ext: no edema CBC, BMP 06/24/16 05:15 06/24/16 05:15 Active Medications Fentanyl (Sublimaze Injection -) 25 mcg IVPUSH [id number] PRN PRN Reason: PAIN Stop: 06/25/16 17:21 Heparin Sodium (Porcine) (Heparin -) 5,000 unit SQ BID KARIE Last Admin: 06/24/16 09:16 Dose: 5,000 unit Pantoprazole Sodium 80 mg/ (Sodium Chloride) 100 mls @ 10 mls/hr IVPB Q10H KARIE PRN Reason: 8 MG/HR Last Admin: 06/24/16 04:30 Dose: 10 mls/hr Piperacillin Sod/Tazobactam Sod (Zosyn 3.375gm Ivpb (Pre-Docked)) 50 mls @ 100 mls/hr IVPB Q8H-IV KARIE PRN Reason: Protocol Last Admin: 06/24/16 09:16 Dose: 100 mls/hr Dextrose/Lactated Ringer's (D5-Lr -) 1,000 mls @ 75 mls/hr IV ASDIR KARIE Morphine Sulfate (Morphine Injection -) 2 mg IVPUSH Q2H PRN PRN Reason: PAIN Last Admin: 06/24/16 09:12 Dose: 2 mg ASSESSMENT AND PLAN: Perforated Gastric Ulcer s/p ex-lap/Umair patch repair/abdominal washout 06/23 Peritonitis Severe Sepsis improving Lactic Acidosis resolved Acute Kidney Injury s/p Acute respiratory Failure - taper Fio2 to keep SpO2 >90% - continue antibiotics - f/u cultures - protonix - pain control - incentive spirometry - decrease IVF rate - monitor urine output, creatinine - NPO - NGT to low wall suction - DVT/GI prophylaxis - continue ICU monitoring critical care time spent in reviewing chart, evaluating patient and formulating plan 40 min
[2016-06-24 13:26] LABS: MCH 27.8 pg (25.7-33.7); MCHC 32.5 g/dl (32.0-36.0); MEAN CELL VOLUME 85.6 fl (80-96); MEAN PLT VOLUME 8.9 fl (7.5-11.1); PLATELET COUNT 224 K/MM3 (134-434); RDW 13.6 % (11.6-15.6); WHITE BLOOD COUNT 11.9 K/mm3 (4.0-10.0)
[2016-06-24] MEDS: DEXTROSE 5%-LACTATED RINGERS 1,000 ML IV SCH (14:47)
--- NOTE | 2016-06-24 16:04 | PN ---
Physical Exam: SUBJECTIVE: Patient seen and examined in ICU at bedside. patient sitting in chair comfortably. afebrile, No BM d/c More today Vitals stable, Venti mask 50% decreased to 40%, than NC 3L saturating well. ( home uses 2L NC intermittently) Denies fevers, chills, cp, sob, n/v/d. POD#2 NG drainage is 600ml, bilious. Abdominal drainage is 100ml, blood stained , not bilious. H/H decreased to 9.8 today, repeat H/H stable. OBJECTIVE: Vital Signs Period Temp Pulse Resp BP Sys/Regan Pulse Ox Last 24 Hr 97.3 F-98.9 F 62-90 11-23 99-129/47-68 95-95 GENERAL: The patient is awake, alert, and fully oriented, in no acute distress. HEAD: Normal with no signs of trauma. EYES: PERRL, extraocular movements intact, sclera anicteric, conjunctiva clear. No ptosis. ENT: Ears normal, nares patent, oropharynx clear without exudates, moist mucous membranes. NECK: Trachea midline, full range of motion, supple. old scare trachostomy LUNGS: diminished bases, diffused crackles bilaterally HEART: Regular rate and rhythm, S1, S2 without murmur, rub or gallop. ABDOMEN: Soft, nontender, nondistended, no bowel sounds, no guarding, no rebound, no hepatosplenomegaly, no masses. intact and dry surgical dressing EXTREMITIES: 2+ pulses, warm, well-perfused, trace edema. NEUROLOGICAL: Normal speech, gait not observed. PSYCH: Normal mood, normal affect. SKIN: Warm, dry, normal turgor, no rashes or lesions noted Laboratory Results - last 24 hr 06/24/16 06/24/16 06/24/16 05:15 05:15 05:15 WBC 10.5 H RBC 3.49 L Hgb 9.8 L D Hct 29.9 L D MCV 85.9 MCHC 32.9 RDW 13.7 Plt Count 220 D MPV 9.6 Sodium 145 Potassium 4.1 Chloride 111 H Carbon Dioxide 27 D Anion Gap 7 L BUN 19 H D Creatinine 1.1 H D Random Glucose 96 D Lactic Acid 1.347 Calcium 7.2 L Phosphorus 2.6 Magnesium 2.3 06/24/16 13:05 WBC 11.9 H RBC 3.51 L Hgb 9.8 L Hct 30.0 L MCV 85.6 MCHC 32.5 RDW 13.6 Plt Count 224 MPV 8.9 Sodium Potassium Chloride Carbon Dioxide Anion Gap BUN Creatinine Random Glucose Lactic Acid Calcium Phosphorus Magnesium Active Medications Generic Name Dose Route Start Last Admin Trade Name Freq PRN Reason Stop Dose Admin Fentanyl 25 mcg 06/22/16 17:20 Sublimaze Injection - IVPUSH 06/25/16 17:21 [id number] PRN PAIN Heparin Sodium (Porcine) 5,000 unit 06/22/16 22:00 06/24/16 09:16 Heparin - SQ 5,000 unit BID KARIE Administration Pantoprazole Sodium 80 mg/ 100 mls @ 10 mls/hr 06/22/16 12:30 06/24/16 14:30 Sodium Chloride IVPB 10 mls/hr Q10H KARIE Administration 8 MG/HR Piperacillin Sod/Tazobactam Sod 50 mls @ 100 mls/hr 06/23/16 13:00 06/24/16 09: 16 Zosyn 3.375gm Ivpb (Pre-Docked) IVPB 100 mls/hr Q8H-IV KARIE Administration Protocol Dextrose/Lactated Ringer's 1,000 mls @ 75 mls/hr 06/24/16 12:09 06/24/16 14:47 D5-Lr - IV 75 mls/hr ASDIR KARIE Administration Morphine Sulfate 2 mg 06/23/16 11:59 06/24/16 09:12 Morphine Injection - IVPUSH 2 mg Q2H PRN Administration PAIN ASSESSMENT/PLAN: 65 year old female with pmhx of hyperlipidemia, prediabetes, gallstones, kidney stones, thryoid disorder, COPD on home oxygen, who presented to the ED complaining of diffuse abdominal pain. CT showed free air and contrast. A 1cm. perforation of the anterior wall of the prepyloric with ulcer was noted as was Intrabdominal abscess with diffuse peritonitis, and contamination. POD#2 Sever sepses 2/2 Peritonitis 2/2 erforated Gastric Ulcer, lactic acidosis POD# 1 s/p ex-lap/Umair patch repair/abdominal washout Chest X-Ray bilateral pleural effusions, infiltrates. demargination-WBC trended up as expected post surgery NGT to low wall suction NG is draining bilious material. Abdominal drainage is 100ml, blood stained , not bilious. Wound is clean. lactic acid trended down continue Zosyn day #3 f/u cultures pain control morphine 2mg IVPush Q2H PRN s/p Acute respiratory Failure s/p extubation to Venti mask incentive spirometry keep PO2 > 90% incentive spirometry Anemia: Dilutional H/H decreased to 9.8 today, repeat H/H stable. Lactic Acidosis- trending down keep trending Acute Kidney Injury- improving - IVF - monitor urine output, creatinine DVT/GI prophylaxis hep sq TID protonix OOB FEN D5Lr decreased to 75cc/hr replete electrolytes as needed NPO diso: continue ICU monitoring Visit type - Emergency Visit Emergency Visit: Yes ED Registration Date: 06/22/16 Care time: The patient presented to the Emergency Department on the above date and was hospitalized for further evaluation of their emergent condition. - New Patient This patient is new to me today: No - Critical Care Critical Care patient: Yes Total Critical Care Time (in minutes): 42 Critical Care Statement: The care of this patient involved high complexity decision making to prevent further life threatening deterioration of the patient 's condition and/or to evalute & treat vital organ system(s) failure or risk of failure.
--- NOTE | 2016-06-24 21:08 | PN ---
Progress Note (short form) - Note Progress Note: seen at 7pm ICU daughter at bedside events noted patient extubated NG in place - NG is draining bilious material pneumoperitoneum-s/p OR - ex lap -prepyloric ulcer with perforation and intra- abdominal abscess with peritonitis pod #1 awake alert / off pressers Vital Signs Period Temp Pulse Resp BP Sys/Regan Pulse Ox Last 24 Hr 97.3 F-99.3 F 62-88 11-18 99-129/46-68 94-95 neck supple heart reg lungs clear bilat poor inspiratory effort abd distended soft appropriately Tender midline surgical scar covered - dry Ext no edema no calf tenderness Microbiology 06/22/16 17:40 Abscess Wound Culture - Preliminary Lactose Fermenting Neg Bacilli Staphylococcus Latex Coag Pos Group D Strep Or Entero Coccus 06/22/16 17:40 Peritoneal Fluid Body Fluid Culture - Preliminary Staphylococcus Latex Coag Pos 06/22/16 11:10 Blood - Peripheral Venous Blood Culture - Preliminary NO GROWTH OBTAINED AFTER 48 HOURS, INCUBATION TO CONTINUE FOR 3 DAYS. 06/22/16 11:05 Blood - Peripheral Venous Blood Culture - Preliminary NO GROWTH OBTAINED AFTER 48 HOURS, INCUBATION TO CONTINUE FOR 3 DAYS. 06/22/16 14:28 Urine - Urine - Catheterized Urine Culture - Final NO GROWTH OBTAINED Active Medications Fentanyl (Sublimaze Injection -) 25 mcg IVPUSH [id number] PRN PRN Reason: PAIN Stop: 06/25/16 17:21 Heparin Sodium (Porcine) (Heparin -) 5,000 unit SQ BID KARIE Last Admin: 06/24/16 21:05 Dose: 5,000 unit Pantoprazole Sodium 80 mg/ (Sodium Chloride) 100 mls @ 10 mls/hr IVPB Q10H KARIE PRN Reason: 8 MG/HR Last Admin: 06/24/16 14:30 Dose: 10 mls/hr Piperacillin Sod/Tazobactam Sod (Zosyn 3.375gm Ivpb (Pre-Docked)) 50 mls @ 100 mls/hr IVPB Q8H-IV KARIE PRN Reason: Protocol Last Admin: 06/24/16 18:02 Dose: 100 mls/hr Dextrose/Lactated Ringer's (D5-Lr -) 1,000 mls @ 75 mls/hr IV ASDIR [facility] Last Admin: 06/24/16 14:47 Dose: 75 mls/hr Morphine Sulfate (Morphine Injection -) 2 mg IVPUSH Q2H PRN PRN Reason: PAIN Last Admin: 06/24/16 15:35 Dose: 2 mg Assessment/Plan # pneumoperitoneum-s/p OR - ex lap -prepyloric ulcer with perforation and intra-abdominal abscess with peritonitis ICU care Off pressers earlier today / IV fluids / IV broad spectrum abx surgical Dr Johnson ID consult appreciated protonix drip # COPD nebulizer / O2 incentive spirometer # DM II has been controlled NPO observe for hypoglycemia Problem List - Problems (1) Pneumoperitoneum Code(s): K66.8 - OTHER SPECIFIED DISORDERS OF PERITONEUM (2) Abdominal pain Code(s): R10.9 - UNSPECIFIED ABDOMINAL PAIN Qualifiers: Abdominal location: generalized Qualified Code(s): R10.84 - Generalized abdominal pain (3) Diabetes Code(s): E11.9 - TYPE 2 DIABETES MELLITUS WITHOUT COMPLICATIONS (4) COPD (chronic obstructive pulmonary disease) Code(s): J44.9 - CHRONIC OBSTRUCTIVE PULMONARY DISEASE, UNSPECIFIED Qualifiers : COPD type: emphysema
[2016-06-24] MEDS ORDERED: DEXMEDETOMIDINE HCL 200 MCG/2 ML ML IVPB SCH (22:00)
[2016-06-24] MEDS ORDERED: LORAZEPAM CARPU-JECT 2 MG/ML DISP.SYRIN IVPUSH ONE (22:15)
[2016-06-25] MEDS: PANTOPRAZOLE SODIUM 80 MG in SODIUM CHLORIDE 100 ML IVPB SCH ×3 (00:30→20:38)
[2016-06-25] MEDS: DEXTROSE 5%-LACTATED RINGERS 1,000 ML IV SCH ×4 (01:05→23:19)
[2016-06-25] MEDS: PIPERACILLIN/TAZOB 3.375 GM 50 ML IVPB SCH (01:05)
[2016-06-25 06:13] LABS: MCH 28.5 pg (25.7-33.7); MCHC 33.2 g/dl (32.0-36.0); MEAN CELL VOLUME 85.8 fl (80-96); MEAN PLT VOLUME 9.3 fl (7.5-11.1); PLATELET COUNT 248 K/MM3 (134-434); RDW 13.2 % (11.6-15.6); WHITE BLOOD COUNT 12.2 K/mm3 (4.0-10.0)
[2016-06-25 06:51] LABS: CALCIUM 7.6 mg/dL (8.5-10.1); COCKROFT - GAULT 81.6; MAGNESIUM 2.2 mg/dL (1.8-2.4)
--- NOTE | 2016-06-25 07:15 | PN ---
Progress Note, Physician Chief Complaint: ID Sharla Post day 3 Alert oriented no complaints - Current Medication List Current Medications: Active Medications Fentanyl (Sublimaze Injection -) 25 mcg IVPUSH [id number] PRN PRN Reason: PAIN Stop: 06/25/16 17:21 Heparin Sodium (Porcine) (Heparin -) 5,000 unit SQ BID KARIE Last Admin: 06/24/16 21:05 Dose: 5,000 unit Pantoprazole Sodium 80 mg/ (Sodium Chloride) 100 mls @ 10 mls/hr IVPB Q10H KARIE PRN Reason: 8 MG/HR Last Admin: 06/25/16 00:30 Dose: 10 mls/hr Piperacillin Sod/Tazobactam Sod (Zosyn 3.375gm Ivpb (Pre-Docked)) 50 mls @ 100 mls/hr IVPB Q8H-IV KARIE PRN Reason: Protocol Last Admin: 06/25/16 01:05 Dose: 100 mls/hr Dextrose/Lactated Ringer's (D5-Lr -) 1,000 mls @ 75 mls/hr IV ASDIR KAIRE Last Admin: 06/25/16 01:05 Dose: 75 mls/hr Morphine Sulfate (Morphine Injection -) 2 mg IVPUSH Q2H PRN PRN Reason: PAIN Last Admin: 06/24/16 21:23 Dose: 2 mg - Objective Vital Signs: Vital Signs Temperature 98.4 F 06/25/16 06:00 Pulse Rate 62 06/25/16 06:00 Respiratory Rate 15 06/25/16 06:00 Blood Pressure 148/64 06/25/16 06:00 O2 Sat by Pulse Oximetry (%) 94 L 06/24/16 20:36 Neck: Yes: WNL, Supple Cardiovascular: Yes: Regular Rate and Rhythm, S1, S2. No: Murmur Respiratory: Yes: WNL, Regular, CTA Bilaterally Gastrointestinal: Yes: WNL, Normal Bowel Sounds, Soft, Other (Drain mid line incision). No: Tenderness, Tenderness, Rebound Edema: No Labs: CBC, BMP 06/25/16 05:15 INR, PTT INR 1.21 (0.82-1.09) H 06/22/16 12:00 Assessment/Plan Microbiology 06/22/16 17:40 Peritoneal Fluid Body Fluid Culture - Preliminary Staphylococcus Latex Coag Pos 06/22/16 17:40 Abscess Wound Culture - Preliminary Lactose Fermenting Neg Bacilli Staphylococcus Latex Coag Pos Group D Strep Or Entero Coccus Laboratory Tests 06/24/16 06/25/16 06/25/16 13:05 05:15 05:15 WBC 11.9 H Pending Hgb 9.8 L Pending Hct 30.0 L Plt Count 224 Pending BUN 15 D Assessment Perforation of the antrum day 3 post op Peritonitis Intrabdominal abscess polymicrobial as above Plan Stop Zosyn Substitute Unasyn 1.5gr q6H ESR CRP Await final c/s Discussed with madelyn Chávez MD
[2016-06-25 07:43] LABS: ALLENS TEST POSITIVE; ART PUNCT SITE LEFT BRACHIAL; ARTERIAL BLD GAS O2 SATURATION 94.5 % (90-98.9); ARTERIAL BLOOD GAS BASE EXCESS 0.1 meq/l (-2-2); ARTERIAL BLOOD GAS HCO3 25.2 meq/L (22-26); ARTERIAL BLOOD GAS PO2 70.6 mmHg (80-100); ARTERIAL BLOOD GAS pH 7.36 (7.35-7.45); LPM/O2% 3 LPM; PT. ON O2? YES; TYPE OF O2 N/C
[2016-06-25] MEDS ORDERED: AMPICILLIN NA/SULBACTAM NA 1.5 GM in SODIUM CHLORIDE 100 ML IVPB SCH (09:00)
[2016-06-25] MEDS: morphine CARPU-JECT 2 MG/1 ML DISP.SYRIN IVPUSH PRN ×3 (09:01→20:47)
[2016-06-25] MEDS: HEPARIN NA (PORCINE) 5,000 UNITS/ML 1ML VIAL SQ SCH ×2 (09:10→22:18)
[2016-06-25] MEDS: AMPICILLIN NA/SULBACTAM NA 1.5 GM/100 ML PRE-DOCKED IVPB SCH ×3 (09:10→21:15)
[2016-06-25 09:25] LABS: C-REACTIVE PROTEIN 29.6 MG/DL (0.00-0.3)
--- NOTE | 2016-06-25 11:58 | PN ---
Teaching Attending Note Name of Resident: Otilio Alonzo ATTENDING PHYSICIAN STATEMENT I saw and evaluated the patient. I reviewed the resident's note and discussed the case with the resident. I agree with the resident's findings and plan as documented. SUBJECTIVE: Pt seen and examined in the ICU. Pain controlled with current regimen. No fevers or chills. No nausea or vomiting. No flatus or BM. OBJECTIVE: Last Vital Signs Temp Pulse Resp BP Pulse Ox 98.1 F 68 15 148/68 98 06/25/16 10:00 06/25/16 11:41 06/25/16 11:41 06/25/16 11:41 06/25/16 10:05 Intake & Output 06/22/16 06/23/16 06/24/16 06/25/16 23:59 23:59 23:59 23:59 Intake Total 7700 4555 1370 995 Output Total 5380 2900 935 240 Balance 2320 1655 435 755 Weight 209 lb 10.554 oz 209 lb 8 oz 208 lb 12.8 oz Gen: NAD at rest Heart: RRR Lung: decreased breath sounds at the bases Abd: soft, nontender, dressings dry Ext: no edema CBC, BMP 06/25/16 05:15 06/25/16 05:15 Active Medications Ampicillin Sodium/Sulbactam Sodium (Unasyn 1.5 Gm (Pre-Docked)) 1.5 gm IVPB Q6H -IV KARIE Last Admin: 06/25/16 09:10 Dose: 1.5 gm Fentanyl (Sublimaze Injection -) 25 mcg IVPUSH [id number] PRN PRN Reason: PAIN Stop: 06/25/16 17:21 Heparin Sodium (Porcine) (Heparin -) 5,000 unit SQ BID KARIE Last Admin: 06/25/16 09:10 Dose: 5,000 unit Pantoprazole Sodium 80 mg/ (Sodium Chloride) 100 mls @ 10 mls/hr IVPB Q10H KARIE PRN Reason: 8 MG/HR Last Admin: 06/25/16 10:59 Dose: 10 mls/hr Dextrose/Lactated Ringer's (D5-Lr -) 1,000 mls @ 75 mls/hr IV ASDIR KARIE Last Admin: 06/25/16 01:05 Dose: 75 mls/hr Potassium Phosphate 20 mm/ (Sodium Chloride) 256.6667 mls @ 62.5 mls/hr IVPB ONCE ONE Stop: 06/25/16 15:22 Morphine Sulfate (Morphine Injection -) 2 mg IVPUSH Q2H PRN PRN Reason: PAIN Last Admin: 06/25/16 09:01 Dose: 2 mg ASSESSMENT AND PLAN: Perforated Gastric Ulcer s/p ex-lap/Umair patch repair/abdominal washout 06/23 Peritonitis Severe Sepsis improving Lactic Acidosis resolved Acute Kidney Injury s/p Acute respiratory Failure - taper Fio2 to keep SpO2 >90% - continue antibiotics - f/u OR cultures - protonix - pain control - incentive spirometry - continue IVF - monitor urine output, creatinine - NPO - NGT to low wall suction - OOB to chair - DVT/GI prophylaxis - can monitor on surgical floor critical care time spent in reviewing chart, evaluating patient and formulating plan 35 min
[2016-06-25] MEDS ORDERED: POTASSIUM PHOSPHATE 20 MM in SODIUM CHLORIDE 250 ML IVPB ONE (12:00)
--- NOTE | 2016-06-25 12:14 | PN ---
Physical Exam: SUBJECTIVE: Patient seen and examined in ICU at bedside. patient sitting in chair comfortably. only asked used 2mg morphine over night Afebrile, No BM, No flatus , BM, +BS NC 2L saturating well. (home uses 2L NC intermittently) Denies fevers, chills, cp, sob, n/v/d. POD #3 NG drainage is 200ml, bilious. Abdominal drainage is 40ml, serous little blood stained. OBJECTIVE: Vital Signs Period Temp Pulse Resp BP Sys/Regan Pulse Ox Last 24 Hr 98.1 F-99.4 F 62-93 12-18 93-148/40-68 94-98 GENERAL: The patient is awake, alert, and fully oriented, in no acute distress.siting up in chair HEAD: Normal with no signs of trauma. EYES: PERRL, extraocular movements intact, sclera anicteric, conjunctiva clear. No ptosis. ENT: Ears normal, nares patent, oropharynx clear without exudates, moist mucous membranes. NECK: Trachea midline, full range of motion, supple. old scare trachostomy LUNGS: diminished bases, diffused crackles bilaterally HEART: Regular rate and rhythm, S1, S2 without murmur, rub or gallop. ABDOMEN: Soft, nontender, nondistended, + bowel sounds, no guarding, no rebound, no hepatosplenomegaly, no masses. intact and dry surgical dressing EXTREMITIES: 2+ pulses, warm, well-perfused, trace edema. NEUROLOGICAL: slow sleard speech at base line , gait not observed. PSYCH: Normal mood, normal affect. SKIN: Warm, dry, normal turgor, no rashes or lesions noted Laboratory Results - last 24 hr 06/24/16 06/25/16 06/25/16 13:05 05:15 05:15 WBC 11.9 H 12.2 H RBC 3.51 L 3.30 L Hgb 9.8 L 9.4 L Hct 30.0 L 28.3 L MCV 85.6 85.8 MCHC 32.5 33.2 RDW 13.6 13.2 Plt Count 224 248 MPV 8.9 9.3 Puncture Site ABG pH ABG pCO2 at Pt Temp ABG pO2 at Pt Temp ABG HCO3 ABG O2 Sat (Measured) ABG O2 Content ABG Base Excess Azael Test O2 Delivery Device Oxygen Flow Rate PEEP Sodium 144 Potassium 3.7 Chloride 109 H Carbon Dioxide 30 Anion Gap 5 L BUN 15 D Creatinine 1.0 Random Glucose 150 H D Lactic Acid Calcium 7.6 L Phosphorus 2.0 L D Magnesium 2.2 C-Reactive Protein 29.6 H D 06/25/16 06/25/16 06/25/16 05:15 05:15 07:20 WBC RBC Hgb Hct MCV MCHC RDW Plt Count MPV Puncture Site Left brachial ABG pH 7.36 ABG pCO2 at Pt Temp 45.6 H D ABG pO2 at Pt Temp 70.6 L D ABG HCO3 25.2 ABG O2 Sat (Measured) 94.5 ABG O2 Content 15.2 ABG Base Excess 0.1 Azael Test Positive O2 Delivery Device N/c Oxygen Flow Rate 3 lpm PEEP 0.0 Sodium Potassium Chloride Carbon Dioxide Anion Gap BUN Creatinine Random Glucose Lactic Acid 1.001 Calcium Phosphorus Magnesium C-Reactive Protein Cancelled Active Medications Generic Name Dose Route Start Last Admin Trade Name Freq PRN Reason Stop Dose Admin Ampicillin Sodium/Sulbactam Sodium 1.5 gm 06/25/16 09:00 06/25/16 09:10 Unasyn 1.5 Gm (Pre-Docked) IVPB 1.5 gm Q6H-IV KARIE Administration Fentanyl 25 mcg 06/22/16 17:20 Sublimaze Injection - IVPUSH 06/25/16 17:21 [id number] PRN PAIN Heparin Sodium (Porcine) 5,000 unit 06/22/16 22:00 06/25/16 09:10 Heparin - SQ 5,000 unit BID KARIE Administration Pantoprazole Sodium 80 mg/ 100 mls @ 10 mls/hr 06/22/16 12:30 06/25/16 10:59 Sodium Chloride IVPB 10 mls/hr Q10H KARIE Administration 8 MG/HR Dextrose/Lactated Ringer's 1,000 mls @ 75 mls/hr 06/24/16 12:09 06/25/16 01:05 D5-Lr - IV 75 mls/hr ASDIR KARIE Administration Potassium Phosphate 20 mm/ 256.6667 mls @ 64.16 mls/hr 06/25/16 12:00 Sodium Chloride IVPB 06/25/16 16:00 ONCE ONE 20 MM/4 HR Morphine Sulfate 2 mg 06/23/16 11:59 06/25/16 09:01 Morphine Injection - IVPUSH 2 mg Q2H PRN Administration PAIN ASSESSMENT/PLAN: 65 year old female with pmhx of hyperlipidemia, prediabetes, gallstones, kidney stones, thryoid disorder, COPD on home oxygen, who presented to the ED complaining of diffuse abdominal pain. CT showed free air and contrast. A 1cm. perforation of the anterior wall of the prepyloric with ulcer was noted as was Intrabdominal abscess with diffuse peritonitis, and contamination. .POD#1 sever sepses: improving 2/2 Peritonitis 2/2 erforated Gastric Ulcer, lactic acidosis POD# 2 s/p ex-lap/Umair patch repair/abdominal washout demargination-WBC trended up as expected post surgery NG is draining bilious material. Wound is clean. Still has lactic acid,Resolved continue Zosyn day #3 f/u cultures trend lactate NGT to low wall suction low bicarb, low albumin. pain contol morphine 2mg IVPush Q2H PRN Acute respiratory Failure: resolved s/p extubation to Venti mask saturating well on 2 L NC, ( base line patient on home intermittent 2L NC) incentive spirometry keep PO2 > 90% Lactic Acidosis- resolved keep trending Acute Kidney Injury - IVF - monitor urine output, creatinine DVT/GI prophylaxis hep sq TID protonix FEN D5Lr replet electrolytes as needed NPO diso: can monitor on surgical floor Visit type - Emergency Visit Emergency Visit: Yes ED Registration Date: 06/22/16 Care time: The patient presented to the Emergency Department on the above date and was hospitalized for further evaluation of their emergent condition. - New Patient This patient is new to me today: No - Critical Care Critical Care patient: Yes Total Critical Care Time (in minutes): 41 Critical Care Statement: The care of this patient involved high complexity decision making to prevent further life threatening deterioration of the patient 's condition and/or to evalute & treat vital organ system(s) failure or risk of failure.
[2016-06-25] MEDS ORDERED: LORAZEPAM CARPU-JECT 2 MG/ML DISP.SYRIN IM ONE (23:00)
[2016-06-25] MEDS ORDERED: LORazepam 2 MG/ML SDV VIAL IM ONE (23:00)
--- NOTE | 2016-06-26 00:56 | PN ---
Progress Note (short form) - Note Progress Note: POD # 2 patient seen and examined in ICU comfortable / was OOB to chair earlier today NGT in place --Bilious drainage (600 cc) remains afebrile /hemodynamically stable Vital Signs Period Temp Pulse Resp BP Sys/Regan Pulse Ox Last 24 Hr 98 F-99.4 F 62-93 12-20 93-148/40-76 98 awake alert oriented X3 NGT in place neck supple /no JVD heart regular S1/S2 lungs clear bilat / abd depresable /appropriately tender / dressing dry Bs scant ext no calf tenderness / warm to touch / 06/24/17 18/17 06/24/16 05:15 05:15 05:15 WBC 10.5 H RBC 3.49 L Hgb 9.8 L D Hct 29.9 L D MCV 85.9 MCHC 32.9 RDW 13.7 Plt Count 220 D MPV 9.6 Sodium 145 Potassium 4.1 Chloride 111 H Carbon Dioxide 27 D Anion Gap 7 L BUN 19 H D Creatinine 1.1 H D Random Glucose 96 D Lactic Acid 1.347 Calcium 7.2 L Phosphorus 2.6 Magnesium 2.3 06/24/16 13:05 WBC 11.9 H RBC 3.51 L Hgb 9.8 L Hct 30.0 L MCV 85.6 MCHC 32.5 RDW 13.6 Plt Count 224 MPV 8.9 Fentanyl (Sublimaze Injection -) 25 mcg IVPUSH [id number] PRN PRN Reason: PAIN Stop: 06/25/16 17:21 Heparin Sodium (Porcine) (Heparin -) 5,000 unit SQ BID KARIE Last Admin: 06/24/16 09:16 Dose: 5,000 unit Pantoprazole Sodium 80 mg/ (Sodium Chloride) 100 mls @ 10 mls/hr IVPB Q10H [facility] PRN Reason: 8 MG/HR Last Admin: 06/24/16 04:30 Dose: 10 mls/hr Dextrose/Lactated Ringer's (D5-Lr -) 1,000 mls @ 125 mls/hr IV ASDIR KARIE Last Admin: 06/23/16 17:20 Dose: 125 mls/hr Piperacillin Sod/Tazobactam Sod (Zosyn 3.375gm Ivpb (Pre-Docked)) 50 mls @ 100 mls/hr IVPB Q8H-IV KARIE PRN Reason: Protocol Last Admin: 06/24/16 09:16 Dose: 100 mls/hr Morphine Sulfate (Morphine Injection -) 2 mg IVPUSH Q2H PRN PRN Reason: PAIN Last Admin: 06/24/16 09:12 Dose: 2 mg Assessment/Plan # pneumoperitoneum-s/p OR - ex lap -prepyloric ulcer with perforation and intra-abdominal abscess with peritonitis POD #2 / ICU care Off pressers / IV fluids / IV broad spectrum abx / protonix drip # COPD nebulizer / O2 incentive spirometer # DM II has been controlled NPO observe for hypoglycemia Problem List - Problems (1) Pneumoperitoneum Code(s): K66.8 - OTHER SPECIFIED DISORDERS OF PERITONEUM (2) Abdominal pain Code(s): R10.9 - UNSPECIFIED ABDOMINAL PAIN Qualifiers: Abdominal location: generalized Qualified Code(s): R10.84 - Generalized abdominal pain (3) Diabetes Code(s): E11.9 - TYPE 2 DIABETES MELLITUS WITHOUT COMPLICATIONS (4) COPD (chronic obstructive pulmonary disease) Code(s): J44.9 - CHRONIC OBSTRUCTIVE PULMONARY DISEASE, UNSPECIFIED Qualifiers : COPD type: emphysema
--- NOTE | 2016-06-26 01:25 | PN ---
Progress Note (short form) - Note Progress Note: POD#3 comfortable / has been OOB to chair NGT remains in place afebrile Vital Signs Period Temp Pulse Resp BP Sys/Regan Pulse Ox Last 24 Hr 98 F-99.4 F 62-93 12-20 93-148/40-76 98 awake / alert / neck supple heart reg s1/s2 lungs clear bilat abd distended / depressible / surgical scar intact / ext no calf tenderness / no edema / warm to touch CBC, BMP 06/25/16 05:15 06/25/16 05:15 Microbiology 06/22/16 17:40 Peritoneal Fluid Gram Stain - Final 06/22/16 17:40 Peritoneal Fluid Body Fluid Culture - Preliminary Staphylococcus Aureus 06/22/16 17:40 Peritoneal Fluid Anaerobic Culture - Final NO ANAEROBES WERE ISOLATED 06/22/16 17:40 Abscess Gram Stain - Final 06/22/16 17:40 Abscess Wound Culture - Preliminary Klebsiella Oxytoca Staphylococcus Aureus Group D Strep Or Entero Coccus 06/22/16 11:10 Blood - Peripheral Venous Blood Culture - Preliminary NO GROWTH OBTAINED AFTER 72 HOURS, INCUBATION TO CONTINUE FOR 2 DAYS. 06/22/16 11:05 Blood - Peripheral Venous Blood Culture - Preliminary NO GROWTH OBTAINED AFTER 72 HOURS, INCUBATION TO CONTINUE FOR 2 DAYS. 06/22/16 14:28 Urine - Urine - Catheterized Urine Culture - Final NO GROWTH OBTAINED Active Medications Ampicillin Sodium/Sulbactam Sodium (Unasyn 1.5 Gm (Pre-Docked)) 1.5 gm IVPB Q6H -IV KARIE Last Admin: 06/25/16 21:15 Dose: 1.5 gm Heparin Sodium (Porcine) (Heparin -) 5,000 unit SQ BID KARIE Last Admin: 06/25/16 22:18 Dose: 5,000 unit Dextrose/Lactated Ringer's (D5-Lr -) 1,000 mls @ 75 mls/hr IV ASDIR KARIE Last Admin: 06/25/16 23:19 Dose: Not Given Pantoprazole Sodium 80 mg/ (Sodium Chloride) 100 mls @ 10 mls/hr IVPB Q10H KARIE PRN Reason: 8 MG/HR Last Admin: 06/25/16 20:38 Dose: 10 mls/hr Morphine Sulfate (Morphine Injection -) 2 mg IVPUSH Q2H PRN PRN Reason: PAIN Last Admin: 06/25/16 20:47 Dose: 2 mg appreciate ID follow up patient transferred to medical [facility] today remains hemodynamicallystable Assessment/Plan # pneumoperitoneum-s/p OR - ex lap -prepyloric ulcer with perforation and intra-abdominal abscess with peritonitis POD#3 / IV fluids / IV broad spectrum abx continue per ID # COPD nebulizer / O2 incentive spirometer # DM II has been controlled NPO observe for hypoglycemia Problem List - Problems (1) Pneumoperitoneum Code(s): K66.8 - OTHER SPECIFIED DISORDERS OF PERITONEUM (2) Abdominal pain Code(s): R10.9 - UNSPECIFIED ABDOMINAL PAIN Qualifiers: Abdominal location: generalized Qualified Code(s): R10.84 - Generalized abdominal pain (3) Diabetes Code(s): E11.9 - TYPE 2 DIABETES MELLITUS WITHOUT COMPLICATIONS (4) COPD (chronic obstructive pulmonary disease) Code(s): J44.9 - CHRONIC OBSTRUCTIVE PULMONARY DISEASE, UNSPECIFIED Qualifiers : COPD type: emphysema
[2016-06-26] MEDS: AMPICILLIN NA/SULBACTAM NA 1.5 GM/100 ML PRE-DOCKED IVPB SCH (02:08)
[2016-06-26] MEDS: PANTOPRAZOLE SODIUM 80 MG in SODIUM CHLORIDE 100 ML IVPB SCH ×2 (06:05→16:36)
[2016-06-26 08:37] LABS: CALCIUM 8.2 mg/dL (8.5-10.1); COCKROFT - GAULT 114.24; CREATININE 0.7 mg/dL (0.55-1.02); MAGNESIUM 1.7 mg/dL (1.8-2.4); PHOSPHOROUS 3.6 mg/dL (2.5-4.9)
[2016-06-26 08:39] LABS: MCHC 32.9 g/dl (32.0-36.0); MEAN CELL VOLUME 85.1 fl (80-96); MEAN PLT VOLUME 8.9 fl (7.5-11.1); PLATELET COUNT 251 K/MM3 (134-434); RDW 13.1 % (11.6-15.6); WHITE BLOOD COUNT 13.3 K/mm3 (4.0-10.0)
--- NOTE | 2016-06-26 08:44 | PN ---
Progress Note, Physician Chief Complaint: ID Unasyn post op alert and NAD - Current Medication List Current Medications: Active Medications Ampicillin Sodium/Sulbactam Sodium (Unasyn 1.5 Gm (Pre-Docked)) 1.5 gm IVPB Q6H -IV KARIE Last Admin: 06/26/16 02:08 Dose: 1.5 gm Heparin Sodium (Porcine) (Heparin -) 5,000 unit SQ BID KARIE Last Admin: 06/25/16 22:18 Dose: 5,000 unit Dextrose/Lactated Ringer's (D5-Lr -) 1,000 mls @ 75 mls/hr IV ASDIR KARIE Last Admin: 06/25/16 23:19 Dose: Not Given Pantoprazole Sodium 80 mg/ (Sodium Chloride) 100 mls @ 10 mls/hr IVPB Q10H KARIE PRN Reason: 8 MG/HR Last Admin: 06/26/16 06:05 Dose: 10 mls/hr Morphine Sulfate (Morphine Injection -) 2 mg IVPUSH Q2H PRN PRN Reason: PAIN Last Admin: 06/25/16 20:47 Dose: 2 mg - Objective Vital Signs: Vital Signs Temperature 98.2 F 06/26/16 06:00 Pulse Rate 91 H 06/26/16 06:00 Respiratory Rate 20 06/26/16 06:00 Blood Pressure 147/67 06/26/16 06:00 O2 Sat by Pulse Oximetry (%) 98 06/25/16 21:00 Constitutional: Yes: Well Nourished, No Distress HENT: Yes: Other (NG tube) Cardiovascular: Yes: Regular Rate and Rhythm, S1, S2. No: Murmur Respiratory: Yes: WNL, Regular, CTA Bilaterally Gastrointestinal: Yes: Soft, Other (post op incision Drain) Labs: INR, PTT INR 1.21 (0.82-1.09) H 06/22/16 12:00 Assessment/Plan Microbiology 06/22/16 17:40 Peritoneal Fluid Gram Stain - Final 06/22/16 17:40 Peritoneal Fluid Anaerobic Culture - Final NO ANAEROBES WERE ISOLATED 06/22/16 17:40 Abscess Gram Stain - Final 06/22/16 17:40 Peritoneal Fluid Body Fluid Culture - Preliminary Staphylococcus Aureus 06/22/16 17:40 Abscess Wound Culture - Preliminary Klebsiella Oxytoca Staphylococcus Aureus Group D Strep Or Entero Coccus Laboratory Tests 06/25/16 06/25/16 06/26/16 05:15 05:15 07:00 WBC 12.2 H Pending Hgb 9.4 L Pending BUN 15 D Creatinine 1.0 Assessment Perforation of the antrum with abscess Plan Final sensitivity reviewed Klebsiela Oxytoxa only intermediate for Unasyn Original choice of Zosyn probably better option then Saira FLORES
[2016-06-26] MEDS: DEXTROSE 5%-LACTATED RINGERS 1,000 ML IV SCH ×2 (08:57→18:50)
--- NOTE | 2016-06-26 09:07 | PN ---
Progress Note (short form) - Note Progress Note: Awake and alert. Reports abdominal pain overall better. NGT intact. Denies CP or SOB. No BM. Intake & Output 06/23/16 06/24/16 06/25/16 06/26/16 23:59 23:59 23:59 23:59 Intake Total 4555 1370 1835 Output Total 2900 935 320 10 Balance 4743 140 9876 -10 Weight 209 lb 8 oz 208 lb 12.8 oz 204 lb 11.2 oz Last Vital Signs Temp Pulse Resp BP Pulse Ox 98.2 F 91 H 20 147/67 98 06/26/16 06:00 06/26/16 06:00 06/26/16 06:00 06/26/16 06:00 06/25/16 21:00 Active Medications Heparin Sodium (Porcine) (Heparin -) 5,000 unit SQ BID KARIE Last Admin: 06/25/16 22:18 Dose: 5,000 unit Dextrose/Lactated Ringer's (D5-Lr -) 1,000 mls @ 75 mls/hr IV ASDIR KARIE Last Admin: 06/26/16 08:57 Dose: 75 mls/hr Pantoprazole Sodium 80 mg/ (Sodium Chloride) 100 mls @ 10 mls/hr IVPB Q10H KARIE PRN Reason: 8 MG/HR Last Admin: 06/26/16 06:05 Dose: 10 mls/hr Piperacillin Sod/Tazobactam Sod (Zosyn 4.5gm Ivpb (Pre-Docked)) 100 mls @ 200 mls/hr IVPB Q8H-IV KARIE PRN Reason: Protocol Morphine Sulfate (Morphine Injection -) 2 mg IVPUSH Q2H PRN PRN Reason: PAIN Last Admin: 06/25/16 20:47 Dose: 2 mg Gen: NAD at rest Heart: RRR Lung: decreased breath sounds at the bases Abd: soft, nontender, dressings dry Ext: no edema Laboratory Results - last 24 hr 06/25/16 06/25/16 06/26/16 05:15 05:15 07:00 WBC 13.3 H RBC 3.47 L Hgb 9.7 L Hct 29.5 L MCV 85.1 MCHC 32.9 RDW 13.1 Plt Count 251 MPV 8.9 Sodium Potassium Chloride Carbon Dioxide Anion Gap BUN Creatinine Random Glucose Calcium Phosphorus Magnesium C-Reactive Protein 29.6 H D Cancelled 06/26/16 07:00 WBC RBC Hgb Hct MCV MCHC RDW Plt Count MPV Sodium 143 Potassium 3.7 Chloride 104 Carbon Dioxide 29 Anion Gap 10 BUN 8 D Creatinine 0.7 D Random Glucose 95 D Calcium 8.2 L Phosphorus 3.6 D Magnesium 1.7 L D C-Reactive Protein ASSESSMENT AND PLAN: Perforated Gastric Ulcer s/p ex-lap/Umair patch repair/abdominal washout 06/23 Peritonitis Severe Sepsis improving Lactic Acidosis resolved Acute Kidney Injury s/p Acute respiratory Failure - O2 to maintain to SpO2 > 88% to 92% - ABX per ID - GI prophylaxis - pain control - incentive spirometry - monitor urine output, creatinine - NGT to low wall suction - OOB to chair - DVT/GI prophylaxis Dr Jama
[2016-06-26] MEDS: HEPARIN NA (PORCINE) 5,000 UNITS/ML 1ML VIAL SQ SCH ×2 (09:34→21:31)
[2016-06-26] MEDS: morphine CARPU-JECT 2 MG/1 ML DISP.SYRIN IVPUSH PRN ×4 (09:34→23:11)
[2016-06-26] MEDS: PIPERACILLIN/TAZOB 4.5 GM 100 ML IVPB SCH ×2 (09:35→18:00)
--- NOTE | 2016-06-26 15:30 | PN ---
Progress Note, Physician - Current Medication List Current Medications: Active Medications Heparin Sodium (Porcine) (Heparin -) 5,000 unit SQ BID KARIE Last Admin: 06/26/16 09:34 Dose: 5,000 unit Dextrose/Lactated Ringer's (D5-Lr -) 1,000 mls @ 75 mls/hr IV ASDIR KARIE Last Admin: 06/26/16 08:57 Dose: 75 mls/hr Pantoprazole Sodium 80 mg/ (Sodium Chloride) 100 mls @ 10 mls/hr IVPB Q10H KARIE PRN Reason: 8 MG/HR Last Admin: 06/26/16 06:05 Dose: 10 mls/hr Piperacillin Sod/Tazobactam Sod (Zosyn 4.5gm Ivpb (Pre-Docked)) 100 mls @ 200 mls/hr IVPB Q8H-IV KARIE PRN Reason: Protocol Last Admin: 06/26/16 09:35 Dose: 200 mls/hr Morphine Sulfate (Morphine Injection -) 2 mg IVPUSH Q2H PRN PRN Reason: PAIN Last Admin: 06/26/16 12:09 Dose: 2 mg - Objective Vital Signs: Vital Signs Temperature 97.9 F 06/26/16 15:21 Pulse Rate 76 06/26/16 15:21 Respiratory Rate 18 06/26/16 15:21 Blood Pressure 135/59 06/26/16 12:00 O2 Sat by Pulse Oximetry (%) 99 06/26/16 09:00 Labs: CBC, BMP 06/26/16 07:00 06/26/16 07:00 INR, PTT INR 1.21 (0.82-1.09) H 06/22/16 12:00 Problem List - Problems (1) Perforated viscus Code(s): R19.8 - OTH SYMPTOMS AND SIGNS INVOLVING THE DGSTV SYS AND ABDOMEN (2) Pneumoperitoneum Code(s): K66.8 - OTHER SPECIFIED DISORDERS OF PERITONEUM (3) Surgical pneumoperitoneum Code(s): K66.8 - OTHER SPECIFIED DISORDERS OF PERITONEUM (4) Abdominal pain Code(s): R10.9 - UNSPECIFIED ABDOMINAL PAIN Qualifiers: Abdominal location: generalized Qualified Code(s): R10.84 - Generalized abdominal pain (5) Abnormal EKG Code(s): R94.31 - ABNORMAL ELECTROCARDIOGRAM [ECG] [EKG] (6) Gallstone Code(s): K80.20 - CALCULUS OF GALLBLADDER W/O CHOLECYSTITIS W/O OBSTRUCTION Qualifiers: Cholecystitis presence: without cholecystitis Biliary obstruction: without biliary obstruction Qualified Code(s): K80.20 - Calculus of gallbladder without cholecystitis without obstruction (7) SOB (shortness of breath) Code(s): R06.02 - SHORTNESS OF BREATH (8) COPD (chronic obstructive pulmonary disease) Code(s): J44.9 - CHRONIC OBSTRUCTIVE PULMONARY DISEASE, UNSPECIFIED Qualifiers : COPD type: emphysema Assessment/Plan Patient is out of bed. Wound is clean. WBC is rising, [address]. Cultures : Staph and Klebsiella, and enterococcus. Will do gastrograffin g.i. study tomorrow, before resuming oral ffeds, and removing NG tube. R/O Intraabdominal collections/ abscess.
--- NOTE | 2016-06-26 22:07 | PN ---
Progress Note (short form) - Note Progress Note: patient in medical [facility] comfortable / has remained afebrile / complain of restless leg / unable to sleep NGT in place clamped events reviewed scheduled for Gastrografin study in am Vital Signs Period Temp Pulse Resp BP Sys/Regan Pulse Ox Last 24 Hr 97.7 F-99 F 73-95 18-20 135-161/59-78 98-99 awake / alert / comfortable NGT in place neck supple heat regulat lungs clear bilat abd surgical scar midline nile in place dry healing well / + scant BS / depressable Ext no edema / no calf tenderness CBC, BMP 06/26/16 07:00 06/26/16 07:00 Microbiology 06/22/16 17:40 Abscess Gram Stain - Final 06/22/16 17:40 Abscess Wound Culture - Final Klebsiella Oxytoca Staphylococcus Aureus Enterococcus Faecalis 06/22/16 11:10 Blood - Peripheral Venous Blood Culture - Preliminary NO GROWTH OBTAINED AFTER 96 HOURS, INCUBATION TO CONTINUE FOR 1 DAYS. 06/22/16 11:05 Blood - Peripheral Venous Blood Culture - Preliminary NO GROWTH OBTAINED AFTER 96 HOURS, INCUBATION TO CONTINUE FOR 1 DAYS. 06/22/16 17:40 Peritoneal Fluid Gram Stain - Final 06/22/16 17:40 Peritoneal Fluid Body Fluid Culture - Final Staphylococcus Aureus 06/22/16 17:40 Peritoneal Fluid Anaerobic Culture - Final NO ANAEROBES WERE ISOLATED 06/22/16 14:28 Urine - Urine - Catheterized Urine Culture - Final NO GROWTH OBTAINED ID note reviewed and appreciated Active Medications Heparin Sodium (Porcine) (Heparin -) 5,000 unit SQ BID KARIE Last Admin: 06/26/16 21:31 Dose: 5,000 unit Dextrose/Lactated Ringer's (D5-Lr -) 1,000 mls @ 75 mls/hr IV ASDIR KARIE Last Admin: 06/26/16 08:57 Dose: 75 mls/hr Pantoprazole Sodium 80 mg/ (Sodium Chloride) 100 mls @ 10 mls/hr IVPB Q10H KARIE PRN Reason: 8 MG/HR Last Admin: 06/26/16 16:36 Dose: 10 mls/hr Piperacillin Sod/Tazobactam Sod (Zosyn 4.5gm Ivpb (Pre-Docked)) 100 mls @ 200 mls/hr IVPB Q8H-IV KARIE PRN Reason: Protocol Last Admin: 06/26/16 18:00 Dose: 200 mls/hr Morphine Sulfate (Morphine Injection -) 2 mg IVPUSH Q2H PRN PRN Reason: PAIN Last Admin: 06/26/16 17:37 Dose: 2 mg Assessment/Plan # pneumoperitoneum-s/p OR - ex lap -prepyloric ulcer with perforation and intra-abdominal abscess with peritonitis POD#4 WBC slightly elevated IV fluids / OOB to chair / activity as tolerated NGT in place / clamped scheduled for Gastrografin in am cultured reviewed / abx per ID # COPD nebulizer / O2 incentive spirometer # DM II has been controlled NPO observe for hypoglycemia # restless leg ativan IM for sleep PRN Problem List - Problems (1) Pneumoperitoneum Code(s): K66.8 - OTHER SPECIFIED DISORDERS OF PERITONEUM (2) Abdominal pain Code(s): R10.9 - UNSPECIFIED ABDOMINAL PAIN Qualifiers: Abdominal location: generalized Qualified Code(s): R10.84 - Generalized abdominal pain (3) Diabetes Code(s): E11.9 - TYPE 2 DIABETES MELLITUS WITHOUT COMPLICATIONS (4) COPD (chronic obstructive pulmonary disease) Code(s): J44.9 - CHRONIC OBSTRUCTIVE PULMONARY DISEASE, UNSPECIFIED Qualifiers : COPD type: emphysema
[2016-06-26] MEDS ORDERED: LORAZEPAM CARPU-JECT 2 MG/ML DISP.SYRIN IM ONE (22:14)
[2016-06-27] MEDS: PIPERACILLIN/TAZOB 4.5 GM 100 ML IVPB SCH ×3 (01:17→17:14)
[2016-06-27] MEDS: DEXTROSE 5%-LACTATED RINGERS 1,000 ML IV SCH ×3 (01:28→20:39)
[2016-06-27] MEDS ORDERED: PT OWN MED DRAWER 7, Y5N ONE (02:12)
[2016-06-27] MEDS: PANTOPRAZOLE SODIUM 80 MG in SODIUM CHLORIDE 100 ML IVPB SCH ×3 (02:35→22:22)
[2016-06-27 07:21] LABS: MCH 28.2 pg (25.7-33.7); MCHC 33.3 g/dl (32.0-36.0); MEAN CELL VOLUME 84.6 fl (80-96); MEAN PLT VOLUME 8.5 fl (7.5-11.1); PLATELET COUNT 258 K/MM3 (134-434); RDW 13.3 % (11.6-15.6); WHITE BLOOD COUNT 11.1 K/mm3 (4.0-10.0)
[2016-06-27 07:49] LABS: CALCIUM 8.4 mg/dL (8.5-10.1); MAGNESIUM 1.5 mg/dL (1.8-2.4)
[2016-06-27 07:51] LABS: COCKROFT - GAULT 113.9765; CREATININE 0.7 mg/dL (0.55-1.02); PHOSPHOROUS 3.6 mg/dL (2.5-4.9)
[2016-06-27] MEDS: morphine CARPU-JECT 2 MG/1 ML DISP.SYRIN IVPUSH PRN ×3 (09:03→21:54)
--- NOTE | 2016-06-27 10:30 | PN ---
Progress Note (short form) - Note Progress Note: doing well some abdominal discomfort- generalized Vital Signs Period Temp Pulse Resp BP Sys/Regan Pulse Ox Last 24 Hr 97.7 F-98.1 F 73-80 16-20 112-135/56-71 99 cor-rrr lungs decreased bs at bases abd nile intact, firm lower abdomen, right sided drain ext no edema CBC, BMP 06/27/16 06:15 06/27/16 06:15 Microbiology 06/22/16 17:40 Abscess Gram Stain - Final 06/22/16 17:40 Abscess Wound Culture - Final Klebsiella Oxytoca Staphylococcus Aureus Enterococcus Faecalis 06/22/16 11:10 Blood - Peripheral Venous Blood Culture - Preliminary NO GROWTH OBTAINED AFTER 96 HOURS, INCUBATION TO CONTINUE FOR 1 DAYS. 06/22/16 11:05 Blood - Peripheral Venous Blood Culture - Preliminary NO GROWTH OBTAINED AFTER 96 HOURS, INCUBATION TO CONTINUE FOR 1 DAYS. 06/22/16 17:40 Peritoneal Fluid Gram Stain - Final 06/22/16 17:40 Peritoneal Fluid Body Fluid Culture - Final Staphylococcus Aureus 06/22/16 17:40 Peritoneal Fluid Anaerobic Culture - Final NO ANAEROBES WERE ISOLATED 06/22/16 14:28 Urine - Urine - Catheterized Urine Culture - Final NO GROWTH OBTAINED Current Medications Heparin Sodium (Porcine) (Heparin -) 5,000 unit SQ BID [facility] Last Admin: 06/26/16 21:31 Dose: 5,000 unit Dextrose/Lactated Ringer's (D5-Lr -) 1,000 mls @ 75 mls/hr IV ASDIR [facility] Last Admin: 06/27/16 01:28 Dose: 75 mls/hr Pantoprazole Sodium 80 mg/ (Sodium Chloride) 100 mls @ 10 mls/hr IVPB Q10H [facility] PRN Reason: 8 MG/HR Last Admin: 06/27/16 02:35 Dose: 10 mls/hr Piperacillin Sod/Tazobactam Sod (Zosyn 4.5gm Ivpb (Pre-Docked)) 100 mls @ 200 mls/hr IVPB Q8H-IV [facility] PRN Reason: Protocol Last Admin: 06/27/16 01:17 Dose: 200 mls/hr Morphine Sulfate (Morphine Injection -) 2 mg IVPUSH Q2H PRN PRN Reason: PAIN Last Admin: 06/27/16 09:03 Dose: 2 mg imp/reccd pod #5 65 year old female presented 06/22 with abdominal pain found to have pneumoperitoneum s/p OR - ex lap -prepyloric ulcer with perforation and intra-abdominal abscess with peritonitis awake and alert extubated for gatrograffin test today continue zosyn Problem List - Problems (1) Perforated viscus Code(s): R19.8 - OTH SYMPTOMS AND SIGNS INVOLVING THE DGSTV SYS AND ABDOMEN (2) Peritonitis Code(s): K65.9 - PERITONITIS, UNSPECIFIED
[2016-06-27] MEDS: HEPARIN NA (PORCINE) 5,000 UNITS/ML 1ML VIAL SQ SCH ×2 (11:02→21:54)
[2016-06-27] MEDS: KCL 10 MEQ IVPB 100 ML IVPB SCH ×4 (11:05→23:53)
--- NOTE | 2016-06-27 14:56 | PN ---
Progress Note (short form) - Note Progress Note: PULMONARY AFEBRILE/VSS AWAKE/ALERT NGT IN PLACE ANICTERIC CLEAR ANTERIOR B/L S1S2 FIRM MILDLY TENDER NO EDEMA/NO CALF TENDERNESS LABS/MEDS/NOTES/IMAGING/MICRO REVIEWED ASSESSMENT AND PLAN: Perforated Gastric Ulcer s/p ex-lap/Umair patch repair/abdominal washout 06/23 Peritonitis Severe Sepsis improving Lactic Acidosis resolved Acute Kidney Injury s/p Acute respiratory Failure - O2 to maintain to SpO2 > 88% to 92% - ABX per ID - GI prophylaxis - pain control - incentive spirometry - monitor urine output, creatinine - NGT to low wall suction - OOB to chair - DVT/GI proph Lois RAYA MD
--- NOTE | 2016-06-27 16:35 | PN ---
Progress Note, Physician - Current Medication List Current Medications: Active Medications Heparin Sodium (Porcine) (Heparin -) 5,000 unit SQ BID [facility] Last Admin: 06/27/16 11:02 Dose: 5,000 unit Dextrose/Lactated Ringer's (D5-Lr -) 1,000 mls @ 75 mls/hr IV ASDIR [facility] Last Admin: 06/27/16 14:52 Dose: 75 mls/hr Pantoprazole Sodium 80 mg/ (Sodium Chloride) 100 mls @ 10 mls/hr IVPB Q10H [facility] PRN Reason: 8 MG/HR Last Admin: 06/27/16 14:48 Dose: 10 mls/hr Piperacillin Sod/Tazobactam Sod (Zosyn 4.5gm Ivpb (Pre-Docked)) 100 mls @ 200 mls/hr IVPB Q8H-IV [facility] PRN Reason: Protocol Last Admin: 06/27/16 11:02 Dose: 200 mls/hr Morphine Sulfate (Morphine Injection -) 2 mg IVPUSH Q2H PRN PRN Reason: PAIN Last Admin: 06/27/16 14:49 Dose: 2 mg - Objective Vital Signs: Vital Signs Temperature 99.2 F 06/27/16 15:33 Pulse Rate 93 H 06/27/16 15:33 Respiratory Rate 18 06/27/16 15:33 Blood Pressure 124/63 06/27/16 15:33 O2 Sat by Pulse Oximetry (%) 99 06/26/16 21:00 Labs: CBC, BMP 06/27/16 06:15 06/27/16 06:15 INR, PTT INR 1.21 (0.82-1.09) H 06/22/16 12:00 Problem List - Problems (1) Perforated viscus Code(s): R19.8 - OTH SYMPTOMS AND SIGNS INVOLVING THE DGSTV SYS AND ABDOMEN (2) Pneumoperitoneum Code(s): K66.8 - OTHER SPECIFIED DISORDERS OF PERITONEUM (3) Surgical pneumoperitoneum Code(s): K66.8 - OTHER SPECIFIED DISORDERS OF PERITONEUM (4) Abdominal pain Code(s): R10.9 - UNSPECIFIED ABDOMINAL PAIN Qualifiers: Abdominal location: generalized Qualified Code(s): R10.84 - Generalized abdominal pain (5) Abnormal EKG Code(s): R94.31 - ABNORMAL ELECTROCARDIOGRAM [ECG] [EKG] (6) Gallstone Code(s): K80.20 - CALCULUS OF GALLBLADDER W/O CHOLECYSTITIS W/O OBSTRUCTION Qualifiers: Cholecystitis presence: without cholecystitis Biliary obstruction: without biliary obstruction Qualified Code(s): K80.20 - Calculus of gallbladder without cholecystitis without obstruction (7) SOB (shortness of breath) Code(s): R06.02 - SHORTNESS OF BREATH (8) COPD (chronic obstructive pulmonary disease) Code(s): J44.9 - CHRONIC OBSTRUCTIVE PULMONARY DISEASE, UNSPECIFIED Qualifiers : COPD type: emphysema Assessment/Plan Surgery: Patient c/o left lower quadrant abdominal pain. NG drainage , bilious 110 ml. Abdomen is soft , wound is clean, CT scan shows no leak from stomach [place] [address]. Will clamp NG tube, Maintain drain until feeding is tolerated. Continue antibiotics.
--- NOTE | 2016-06-27 17:01 | PN ---
Progress Note (short form) - Note Progress Note: patient in medical muñoz comfortable / has remained afebrile / complain of restless leg / unable to sleep NGT in place to LWS events reviewed scheduled for Gastrografin study today Vital Signs Period Temp Pulse Resp BP Sys/Regan Pulse Ox Last 24 Hr 97.7 F-99 F 73-95 18-20 135-161/59-78 98-99 awake / alert / comfortable NGT in place neck supple heat regulat lungs clear bilat abd surgical scar midline nile in place dry healing well / + scant BS / depressable Ext no edema / no calf tenderness CBC, BMP 06/27/16 06:15 06/27/16 06:15 Microbiology 06/22/16 17:40 Abscess Gram Stain - Final 06/22/16 17:40 Abscess Wound Culture - Final Klebsiella Oxytoca Staphylococcus Aureus Enterococcus Faecalis 06/22/16 11:10 Blood - Peripheral Venous Blood Culture - Preliminary NO GROWTH OBTAINED AFTER 96 HOURS, INCUBATION TO CONTINUE FOR 1 DAYS. 06/22/16 11:05 Blood - Peripheral Venous Blood Culture - Preliminary NO GROWTH OBTAINED AFTER 96 HOURS, INCUBATION TO CONTINUE FOR 1 DAYS. 06/22/16 17:40 Peritoneal Fluid Gram Stain - Final 06/22/16 17:40 Peritoneal Fluid Body Fluid Culture - Final Staphylococcus Aureus 06/22/16 17:40 Peritoneal Fluid Anaerobic Culture - Final NO ANAEROBES WERE ISOLATED 06/22/16 14:28 Urine - Urine - Catheterized Urine Culture - Final NO GROWTH OBTAINED ID note reviewed and appreciated Active Medications Heparin Sodium (Porcine) (Heparin -) 5,000 unit SQ BID [facility] Last Admin: 06/27/16 11:02 Dose: 5,000 unit Dextrose/Lactated Ringer's (D5-Lr -) 1,000 mls @ 75 mls/hr IV ASDIR [facility] Last Admin: 06/27/16 14:52 Dose: 75 mls/hr Pantoprazole Sodium 80 mg/ (Sodium Chloride) 100 mls @ 10 mls/hr IVPB Q10H [facility] PRN Reason: 8 MG/HR Last Admin: 06/27/16 14:48 Dose: 10 mls/hr Piperacillin Sod/Tazobactam Sod (Zosyn 4.5gm Ivpb (Pre-Docked)) 100 mls @ 200 mls/hr IVPB Q8H-IV [facility] PRN Reason: Protocol Last Admin: 06/27/16 11:02 Dose: 200 mls/hr Morphine Sulfate (Morphine Injection -) 2 mg IVPUSH Q2H PRN PRN Reason: PAIN Last Admin: 06/27/16 14:49 Dose: 2 mg Assessment/Plan # pneumoperitoneum-s/p OR - ex lap -prepyloric ulcer with perforation and intra-abdominal abscess with peritonitis POD#5 WBC down to 11 IV fluids / OOB to chair / activity as tolerated NGT in place / scheduled for Gastrografin today cultured reviewed / abx per ID # COPD nebulizer / O2 incentive spirometer # DM II has been controlled NPO observe for hypoglycemia # restless leg ativan IM for sleep PRN Problem List - Problems (1) Pneumoperitoneum Code(s): K66.8 - OTHER SPECIFIED DISORDERS OF PERITONEUM (2) Abdominal pain Code(s): R10.9 - UNSPECIFIED ABDOMINAL PAIN Qualifiers: Abdominal location: generalized Qualified Code(s): R10.84 - Generalized abdominal pain (3) Diabetes Code(s): E11.9 - TYPE 2 DIABETES MELLITUS WITHOUT COMPLICATIONS (4) COPD (chronic obstructive pulmonary disease) Code(s): J44.9 - CHRONIC OBSTRUCTIVE PULMONARY DISEASE, UNSPECIFIED Qualifiers : COPD type: emphysema
[2016-06-27] MEDS ORDERED: MAGNESIUM SULF 50% (8.12 MEQ/2 ML-1 GM VIAL) IVPB ONE (19:15)
[2016-06-28] MEDS: PIPERACILLIN/TAZOB 4.5 GM 100 ML IVPB SCH ×3 (01:45→17:03)
[2016-06-28] MEDS: morphine CARPU-JECT 2 MG/1 ML DISP.SYRIN IVPUSH PRN ×2 (05:06→09:39)
[2016-06-28] MEDS: DEXTROSE 5%-LACTATED RINGERS 1,000 ML IV SCH ×2 (05:54→20:54)
[2016-06-28 07:13] LABS: BASOPHIL 0.5 % (0-2.0); EOSINOPHIL 3.3 % (0-4.5); MCH 27.8 pg (25.7-33.7); MCHC 32.9 g/dl (32.0-36.0); MEAN CELL VOLUME 84.5 fl (80-96); NEUTROPHILS 68.5 % (42.8-82.8); PLATELET COUNT 343 K/MM3 (134-434); WHITE BLOOD COUNT 12.7 K/mm3 (4.0-10.0)
[2016-06-28 07:42] LABS: ALBUMIN 1.9 g/dl (3.4-5.0); ANION GAP 8 (8-16); CALCIUM 8.7 mg/dL (8.5-10.1); CO2 34 mmol/L (21-32); GLUCOSE,RANDOM 146 mg/dL (74-106); MAGNESIUM 1.9 mg/dL (1.8-2.4)
[2016-06-28 07:46] LABS: ALK PHOS 64 U/L (45-117); BILIRUBIN,TOTAL 0.4 mg/dL (0.2-1.0); CREATININE 0.8 mg/dL (0.55-1.02); PHOSPHOROUS 3.7 mg/dL (2.5-4.9); SGOT/AST 11 U/L (15-37); SGPT/ALT 18 U/L (12-78); TOT PROT 5.4 g/dl (6.4-8.2)
[2016-06-28] MEDS ORDERED: PT OWN MED DRAWER 7, Y5N ONE ×2 (08:50→09:23)
[2016-06-28] MEDS: PANTOPRAZOLE SODIUM 80 MG in SODIUM CHLORIDE 100 ML IVPB SCH ×2 (08:55→18:32)
[2016-06-28] MEDS: HEPARIN NA (PORCINE) 5,000 UNITS/ML 1ML VIAL SQ SCH ×2 (09:29→22:00)
--- NOTE | 2016-06-28 12:51 | PN ---
Progress Note, Physician History of Present Illness: pulmonary alert,nad,-sob,ngt removed. pt with less abd discomfort - Current Medication List Current Medications: Active Medications Heparin Sodium (Porcine) (Heparin -) 5,000 unit SQ BID [facility] Last Admin: 06/28/16 09:29 Dose: 5,000 unit Dextrose/Lactated Ringer's (D5-Lr -) 1,000 mls @ 75 mls/hr IV ASDIR [facility] Last Admin: 06/28/16 05:54 Dose: 75 mls/hr Pantoprazole Sodium 80 mg/ (Sodium Chloride) 100 mls @ 10 mls/hr IVPB Q10H [facility] PRN Reason: 8 MG/HR Last Admin: 06/28/16 08:55 Dose: 10 mls/hr Piperacillin Sod/Tazobactam Sod (Zosyn 4.5gm Ivpb (Pre-Docked)) 100 mls @ 200 mls/hr IVPB Q8H-IV [facility] PRN Reason: Protocol Last Admin: 06/28/16 09:28 Dose: 200 mls/hr Morphine Sulfate (Morphine Injection -) 2 mg IVPUSH Q2H PRN PRN Reason: PAIN Last Admin: 06/28/16 09:39 Dose: 2 mg - Objective Vital Signs: Vital Signs Temperature 97.2 F L 06/28/16 08:15 Pulse Rate 77 06/28/16 08:15 Respiratory Rate 18 06/28/16 08:15 Blood Pressure 129/63 06/28/16 08:15 O2 Sat by Pulse Oximetry (%) 98 06/28/16 01:16 Constitutional: Yes: Well Nourished, Calm Eyes: Yes: WNL HENT: Yes: WNL Neck: Yes: WNL Cardiovascular: Yes: Regular Rate and Rhythm, S1, S2 Respiratory: Yes: Diminished Gastrointestinal: Yes: Normal Bowel Sounds, Soft Extremities: Yes: WNL Edema: No Labs: CBC, BMP 06/28/16 06:00 06/28/16 06:00 INR, PTT INR 1.21 (0.82-1.09) H 06/22/16 12:00 Assessment/Plan ASSESSMENT AND PLAN: Perforated Gastric Ulcer s/p ex-lap/Umair patch repair/abdominal washout 06/23 Peritonitis Severe Sepsis improved Lactic Acidosis resolved Acute Kidney Injury s/p Acute respiratory Failure - O2 - continue antibiotics - protonix - pain control - incentive spirometry - continue IVF - monitor urine output, creatinine - OOB to chair - DVT/GI prophylaxis - PO as per surgery DR RAMIREZ
--- NOTE | 2016-06-28 16:20 | PN ---
Progress Note (short form) - Note Progress Note: sitting in chair / appears comfortable NGT out / ice chips PO difficulty doing incentive spirometry Vital Signs Period Temp Pulse Resp BP Sys/Regan Pulse Ox Last 24 Hr 97.2 F-99.4 F 71-96 18-20 117-153/57-79 95-98 neck supple heart reg lungs decreased bs through out / dull at base abd distended / BS + nile in place / depressable ext no edema no calf tenderness CBC, BMP 06/28/16 06:00 06/28/16 06:00 Microbiology 06/22/16 11:10 Blood - Peripheral Venous Blood Culture - Final NO GROWTH AFTER 5 DAYS INCUBATION 06/22/16 11:05 Blood - Peripheral Venous Blood Culture - Final NO GROWTH AFTER 5 DAYS INCUBATION 06/22/16 17:40 Abscess Gram Stain - Final 06/22/16 17:40 Abscess Wound Culture - Final Klebsiella Oxytoca Staphylococcus Aureus Enterococcus Faecalis 06/22/16 17:40 Peritoneal Fluid Gram Stain - Final 06/22/16 17:40 Peritoneal Fluid Body Fluid Culture - Final Staphylococcus Aureus 06/22/16 17:40 Peritoneal Fluid Anaerobic Culture - Final NO ANAEROBES WERE ISOLATED 06/22/16 14:28 Urine - Urine - Catheterized Urine Culture - Final NO GROWTH OBTAINED Active Medications Albuterol/Ipratropium (Duoneb -) 1 amp NEB QIDR [facility] Heparin Sodium (Porcine) (Heparin -) 5,000 unit SQ BID [facility] Last Admin: 06/28/16 09:29 Dose: 5,000 unit Dextrose/Lactated Ringer's (D5-Lr -) 1,000 mls @ 75 mls/hr IV ASDIR [facility] Last Admin: 06/28/16 05:54 Dose: 75 mls/hr Pantoprazole Sodium 80 mg/ (Sodium Chloride) 100 mls @ 10 mls/hr IVPB Q10H [facility] PRN Reason: 8 MG/HR Last Admin: 06/28/16 08:55 Dose: 10 mls/hr Piperacillin Sod/Tazobactam Sod (Zosyn 4.5gm Ivpb (Pre-Docked)) 100 mls @ 200 mls/hr IVPB Q8H-IV [facility] PRN Reason: Protocol Last Admin: 06/28/16 09:28 Dose: 200 mls/hr Morphine Sulfate (Morphine Injection -) 2 mg IVPUSH Q2H PRN PRN Reason: PAIN Last Admin: 06/28/16 09:39 Dose: 2 mg Assessment/Plan # pneumoperitoneum-s/p OR - ex lap -prepyloric ulcer with perforation and intra-abdominal abscess with peritonitis POD#6 WBC down to 11 IV fluids / OOB to chair / activity as tolerated NGT removed / ice chips / sips of water cultured reviewed / abx per ID # COPD nebulizer duoned QID O2 incentive spirometer # DM II has been controlled NPO observe for hypoglycemia # restless leg ativan IM for sleep PRN # hypomag / hypok / follow lytes and replace as needed # deconditioning PT for ambulation Problem List - Problems (1) Pneumoperitoneum Code(s): K66.8 - OTHER SPECIFIED DISORDERS OF PERITONEUM (2) Abdominal pain Code(s): R10.9 - UNSPECIFIED ABDOMINAL PAIN Qualifiers: Abdominal location: generalized Qualified Code(s): R10.84 - Generalized abdominal pain (3) Diabetes Code(s): E11.9 - TYPE 2 DIABETES MELLITUS WITHOUT COMPLICATIONS (4) COPD (chronic obstructive pulmonary disease) Code(s): J44.9 - CHRONIC OBSTRUCTIVE PULMONARY DISEASE, UNSPECIFIED Qualifiers : COPD type: emphysema
[2016-06-28] MEDS: ALBUTEROL SO4 2.5/IPRATROPIUM 0.5 INH SOL 3 ML VIAL.NEB. NEB SCH ×2 (18:00→23:00)
[2016-06-28] MEDS ORDERED: morphine CARPU-JECT 2 MG/1 ML DISP.SYRIN IVPUSH ONE (20:46)
[2016-06-29] MEDS: PIPERACILLIN/TAZOB 4.5 GM 100 ML IVPB SCH ×3 (01:12→17:37)
[2016-06-29] MEDS ORDERED: morphine CARPU-JECT 2 MG/1 ML DISP.SYRIN IVPUSH ONE (03:03)
[2016-06-29] MEDS: PANTOPRAZOLE SODIUM 80 MG in SODIUM CHLORIDE 100 ML IVPB SCH (04:00)
[2016-06-29] MEDS: ALBUTEROL SO4 2.5/IPRATROPIUM 0.5 INH SOL 3 ML VIAL.NEB. NEB SCH ×4 (06:14→23:38)
[2016-06-29] MEDS: DEXTROSE 5%-LACTATED RINGERS 1,000 ML IV SCH ×2 (07:22→12:00)
[2016-06-29 08:35] LABS: BASOPHIL 0.7 % (0-2.0); EOSINOPHIL 3.6 % (0-4.5); MCHC 32.9 g/dl (32.0-36.0); MEAN PLT VOLUME 8.1 fl (7.5-11.1); NEUTROPHILS 62.4 % (42.8-82.8); PLATELET COUNT 341 K/MM3 (134-434); RDW 13.4 % (11.6-15.6)
[2016-06-29 08:55] LABS: CALCIUM 7.6 mg/dL (8.5-10.1); COCKROFT - GAULT 88.6465; CREATININE 0.9 mg/dL (0.55-1.02); MAGNESIUM 1.8 mg/dL (1.8-2.4)
[2016-06-29] MEDS: HEPARIN NA (PORCINE) 5,000 UNITS/ML 1ML VIAL SQ SCH ×2 (09:39→21:53)
--- NOTE | 2016-06-29 11:09 | PN ---
Progress Note (short form) - Note Progress Note: feels better ngt out Vital Signs Period Temp Pulse Resp BP Sys/Regan Pulse Ox Last 24 Hr 97.9 F-98.3 F 65-77 18-20 110-117/52-64 98 cor-rrr llungs decreased bs at bases abd soft, incision dry, still with drain ext no edema CBC, BMP 06/29/16 06:30 06/29/16 06:30 Microbiology 06/22/16 11:10 Blood - Peripheral Venous Blood Culture - Final NO GROWTH AFTER 5 DAYS INCUBATION 06/22/16 11:05 Blood - Peripheral Venous Blood Culture - Final NO GROWTH AFTER 5 DAYS INCUBATION 06/22/16 17:40 Abscess Gram Stain - Final 06/22/16 17:40 Abscess Wound Culture - Final Klebsiella Oxytoca Staphylococcus Aureus Enterococcus Faecalis 06/22/16 17:40 Peritoneal Fluid Gram Stain - Final 06/22/16 17:40 Peritoneal Fluid Body Fluid Culture - Final Staphylococcus Aureus 06/22/16 17:40 Peritoneal Fluid Anaerobic Culture - Final NO ANAEROBES WERE ISOLATED 06/22/16 14:28 Urine - Urine - Catheterized Urine Culture - Final NO GROWTH OBTAINED Current Medications Albuterol/Ipratropium (Duoneb -) 1 amp NEB QIDR [facility] Last Admin: 06/29/16 06:14 Dose: 1 amp Heparin Sodium (Porcine) (Heparin -) 5,000 unit SQ BID [facility] Last Admin: 06/29/16 09:39 Dose: 5,000 unit Dextrose/Lactated Ringer's (D5-Lr -) 1,000 mls @ 75 mls/hr IV ASDIR [facility] Last Admin: 06/29/16 07:22 Dose: Not Given Pantoprazole Sodium 80 mg/ (Sodium Chloride) 100 mls @ 10 mls/hr IVPB Q10H [facility] PRN Reason: 8 MG/HR Last Admin: 06/29/16 04:00 Dose: 10 mls/hr Piperacillin Sod/Tazobactam Sod (Zosyn 4.5gm Ivpb (Pre-Docked)) 100 mls @ 200 mls/hr IVPB Q8H-IV [facility]IE PRN Reason: Protocol Last Admin: 06/29/16 09:39 Dose: 200 mls/hr imp/reccd pod #7 65 year old female presented 06/22 with abdominal pain found to have pneumoperitoneum s/p OR - ex lap -prepyloric ulcer with perforation and intra-abdominal abscess with peritonitis ngt out continue zosyn surgical f/u encourage OOB and incentive spirometry if wbc continues to rise will need ct scan abd/pelvis to r/o fluid collection Problem List - Problems (1) Perforated viscus Code(s): R19.8 - OTH SYMPTOMS AND SIGNS INVOLVING THE DGSTV SYS AND ABDOMEN (2) Peritonitis Code(s): K65.9 - PERITONITIS, UNSPECIFIED
[2016-06-29] MEDS: morphine CARPU-JECT 2 MG/1 ML DISP.SYRIN IVPB PRN ×2 (11:57→17:16)
--- NOTE | 2016-06-29 13:41 | PN ---
Progress Note, Physician - Current Medication List Current Medications: Active Medications Albuterol/Ipratropium (Duoneb -) 1 amp NEB QIDR [facility] Last Admin: 06/29/16 11:13 Dose: 1 amp Heparin Sodium (Porcine) (Heparin -) 5,000 unit SQ BID [facility] Last Admin: 06/29/16 09:39 Dose: 5,000 unit Dextrose/Lactated Ringer's (D5-Lr -) 1,000 mls @ 75 mls/hr IV ASDIR [facility] Last Admin: 06/29/16 12:00 Dose: 75 mls/hr Pantoprazole Sodium 80 mg/ (Sodium Chloride) 100 mls @ 10 mls/hr IVPB Q10H [facility] PRN Reason: 8 MG/HR Last Admin: 06/29/16 04:00 Dose: 10 mls/hr Piperacillin Sod/Tazobactam Sod (Zosyn 4.5gm Ivpb (Pre-Docked)) 100 mls @ 200 mls/hr IVPB Q8H-IV [facility] PRN Reason: Protocol Last Admin: 06/29/16 09:39 Dose: 200 mls/hr Morphine Sulfate (Morphine Injection -) 2 mg IVPB Q2H PRN PRN Reason: PAIN Last Admin: 06/29/16 11:57 Dose: 2 mg Pantoprazole Sodium (Protonix -) 40 mg PO BID [facility] - Objective Vital Signs: Vital Signs Temperature 98.2 F 06/29/16 08:43 Pulse Rate 68 06/29/16 11:12 Respiratory Rate 18 06/29/16 08:43 Blood Pressure 117/52 06/29/16 08:43 O2 Sat by Pulse Oximetry (%) 91 L 06/29/16 11:12 Labs: CBC, BMP 06/29/16 06:30 06/29/16 06:30 INR, PTT INR 1.21 (0.82-1.09) H 06/22/16 12:00 Problem List - Problems (1) Perforated viscus Code(s): R19.8 - OTH SYMPTOMS AND SIGNS INVOLVING THE DGSTV SYS AND ABDOMEN (2) Pneumoperitoneum Code(s): K66.8 - OTHER SPECIFIED DISORDERS OF PERITONEUM (3) Surgical pneumoperitoneum Code(s): K66.8 - OTHER SPECIFIED DISORDERS OF PERITONEUM (4) Abdominal pain Code(s): R10.9 - UNSPECIFIED ABDOMINAL PAIN Qualifiers: Abdominal location: generalized Qualified Code(s): R10.84 - Generalized abdominal pain (5) Abnormal EKG Code(s): R94.31 - ABNORMAL ELECTROCARDIOGRAM [ECG] [EKG] (6) Gallstone Code(s): K80.20 - CALCULUS OF GALLBLADDER W/O CHOLECYSTITIS W/O OBSTRUCTION Qualifiers: Cholecystitis presence: without cholecystitis Biliary obstruction: without biliary obstruction Qualified Code(s): K80.20 - Calculus of gallbladder without cholecystitis without obstruction (7) SOB (shortness of breath) Code(s): R06.02 - SHORTNESS OF BREATH (8) COPD (chronic obstructive pulmonary disease) Code(s): J44.9 - CHRONIC OBSTRUCTIVE PULMONARY DISEASE, UNSPECIFIED Qualifiers : COPD type: emphysema Assessment/Plan Surgery: Patient is afebrile. Abdomen is soft , no sign of wound infection. Drain removed , no drainage from tube. Tolerated clear liquids. Will progress to full liquids , and then progress to regular [place] [address], increased. Will start oral medications, Pantoprazole. Out of bed , ambulating. Continue antibiotics. Discharge planning.
[2016-06-29] MEDS: PANTOPRAZOLE 40 MG TABLET (FP) PO SCH ×2 (14:23→21:51)
--- NOTE | 2016-06-29 15:09 | PN ---
Progress Note, Physician History of Present Illness: pulmonary alert,oob-chair,-sob. drain removed - Current Medication List Current Medications: Active Medications Albuterol/Ipratropium (Duoneb -) 1 amp NEB QIDR [facility] Last Admin: 06/29/16 11:13 Dose: 1 amp Heparin Sodium (Porcine) (Heparin -) 5,000 unit SQ BID [facility] Last Admin: 06/29/16 09:39 Dose: 5,000 unit Piperacillin Sod/Tazobactam Sod (Zosyn 4.5gm Ivpb (Pre-Docked)) 100 mls @ 200 mls/hr IVPB Q8H-IV [facility] PRN Reason: Protocol Last Admin: 06/29/16 09:39 Dose: 200 mls/hr Morphine Sulfate (Morphine Injection -) 2 mg IVPB Q2H PRN PRN Reason: PAIN Last Admin: 06/29/16 11:57 Dose: 2 mg Pantoprazole Sodium (Protonix -) 40 mg PO BID [facility] Last Admin: 06/29/16 14:23 Dose: 40 mg - Objective Vital Signs: Vital Signs Temperature 99.3 F 06/29/16 14:58 Pulse Rate 81 06/29/16 14:58 Respiratory Rate 20 06/29/16 14:58 Blood Pressure 113/59 06/29/16 14:58 O2 Sat by Pulse Oximetry (%) 91 L 06/29/16 11:12 Constitutional: Yes: Well Nourished, Calm Eyes: Yes: WNL HENT: Yes: WNL Neck: Yes: WNL Cardiovascular: Yes: Regular Rate and Rhythm, S1, S2 Respiratory: Yes: Diminished Gastrointestinal: Yes: Normal Bowel Sounds, Soft Extremities: Yes: WNL Edema: LLE: Trace, RLE: Trace Labs: CBC, BMP 06/29/16 06:30 06/29/16 06:30 INR, PTT INR 1.21 (0.82-1.09) H 06/22/16 12:00 - ....Imaging Chest X-ray: Report Reviewed, Image Reviewed Assessment/Plan ASSESSMENT AND PLAN: Perforated Gastric Ulcer s/p ex-lap/Umair patch repair/abdominal washout 06/23 Peritonitis Severe Sepsis improved Lactic Acidosis resolved Acute Kidney Injury s/p Acute respiratory Failure - O2 - continue antibiotics - protonix - pain control - incentive spirometry - continue IVF - monitor urine output, creatinine - OOB to chair - DVT/GI prophylaxis - PO as per surgery DR RAMIREZ
--- NOTE | 2016-06-29 15:12 | PN ---
Progress Note (short form) - Note Progress Note: called earlier by staff patient desaturating to high 80's in spite of O2 2 l n/c in place has had no pain meds -- probably splinting / painful deep inspiration has been shallow breathing Remains afebrile and now starting to tolerate PO had full liquids for lunch and is doing well > no N/V resumed Mso4 for pain sats now 95% Vital Signs Period Temp Pulse Resp BP Sys/Regan Pulse Ox Last 24 Hr 97.9 F-99.3 F 65-81 18-20 110-117/52-60 91-98 neck - jvd heart reg lungs decreased BS especially lower dull percusion bases abd soft /depressable / BS + / distended ext no edema + pluses CBC, BMP 06/29/16 06:30 06/29/16 06:30 CXR -- no CHF bibasilar effusion / atelectasis Microbiology 06/22/16 11:10 Blood - Peripheral Venous Blood Culture - Final NO GROWTH AFTER 5 DAYS INCUBATION 06/22/16 11:05 Blood - Peripheral Venous Blood Culture - Final NO GROWTH AFTER 5 DAYS INCUBATION 06/22/16 17:40 Abscess Gram Stain - Final 06/22/16 17:40 Abscess Wound Culture - Final Klebsiella Oxytoca Staphylococcus Aureus Enterococcus Faecalis 06/22/16 17:40 Peritoneal Fluid Gram Stain - Final 06/22/16 17:40 Peritoneal Fluid Body Fluid Culture - Final Staphylococcus Aureus 06/22/16 17:40 Peritoneal Fluid Anaerobic Culture - Final NO ANAEROBES WERE ISOLATED 06/22/16 14:28 Urine - Urine - Catheterized Urine Culture - Final NO GROWTH OBTAINED Active Medications Albuterol/Ipratropium (Duoneb -) 1 amp NEB QIDR [facility] Last Admin: 06/29/16 11:13 Dose: 1 amp Heparin Sodium (Porcine) (Heparin -) 5,000 unit SQ BID [facility] Last Admin: 06/29/16 09:39 Dose: 5,000 unit Piperacillin Sod/Tazobactam Sod (Zosyn 4.5gm Ivpb (Pre-Docked)) 100 mls @ 200 mls/hr IVPB Q8H-IV [facility] PRN Reason: Protocol Last Admin: 06/29/16 09:39 Dose: 200 mls/hr Morphine Sulfate (Morphine Injection -) 2 mg IVPB Q2H PRN PRN Reason: PAIN Last Admin: 06/29/16 11:57 Dose: 2 mg Pantoprazole Sodium (Protonix -) 40 mg PO BID [facility] Last Admin: 06/29/16 14:23 Dose: 40 mg ssessment/Plan # pneumoperitoneum-s/p OR - ex lap -prepyloric ulcer with perforation and intra-abdominal abscess with peritonitis POD#7 WBC 13K slightly up IV fluids / OOB to chair / activity as tolerated NGT removed / advancing diet / full liquids cultured reviewed / abx per ID # COPD CXR --- bilatera basilar atelectasis / effusion nebulizer / duoned QID O2 incentive spirometer increase physical activity as tolerated # DM II has been controlled diet started # restless leg will start requip tonight # hypomag / hypok / follow lytes and replace as needed # deconditioning PT for ambulation / ADLs Problem List - Problems (1) Pneumoperitoneum Code(s): K66.8 - OTHER SPECIFIED DISORDERS OF PERITONEUM (2) Abdominal pain Code(s): R10.9 - UNSPECIFIED ABDOMINAL PAIN Qualifiers: Abdominal location: generalized Qualified Code(s): R10.84 - Generalized abdominal pain (3) Diabetes Code(s): E11.9 - TYPE 2 DIABETES MELLITUS WITHOUT COMPLICATIONS (4) COPD (chronic obstructive pulmonary disease) Code(s): J44.9 - CHRONIC OBSTRUCTIVE PULMONARY DISEASE, UNSPECIFIED Qualifiers : COPD type: emphysema
[2016-06-29] MEDS ORDERED: PT OWN MED DRAWER 7, Y5N ONE (21:49)
[2016-06-29] MEDS: rOPINIRole HCL 1 MG TABLET (FP) PO SCH (21:51)
[2016-06-29] MEDS: ACLIDINIUM BROMIDE 400 MCG/INH AERO.POWD IH SCH (21:52)
[2016-06-30] MEDS: PIPERACILLIN/TAZOB 4.5 GM 100 ML IVPB SCH ×3 (01:30→17:00)
[2016-06-30] MEDS: ACLIDINIUM BROMIDE 400 MCG/INH AERO.POWD IH SCH ×3 (01:31→22:17)
[2016-06-30] MEDS: morphine CARPU-JECT 2 MG/1 ML DISP.SYRIN IVPB PRN ×5 (06:08→22:24)
[2016-06-30] MEDS: rOPINIRole HCL 1 MG TABLET (FP) PO SCH ×3 (06:08→22:12)
[2016-06-30] MEDS: LEVOTHYROXINE NA 125 MCG TABLET (FP) PO SCH (06:08)
[2016-06-30] MEDS: ALBUTEROL SO4 2.5/IPRATROPIUM 0.5 INH SOL 3 ML VIAL.NEB. NEB SCH ×3 (06:35→17:15)
[2016-06-30 08:24] LABS: MCH 27.5 pg (25.7-33.7); MCHC 32.7 g/dl (32.0-36.0); MEAN CELL VOLUME 84.3 fl (80-96); MEAN PLT VOLUME 7.7 fl (7.5-11.1); PLATELET COUNT 405 K/MM3 (134-434); RDW 13.6 % (11.6-15.6); WHITE BLOOD COUNT 14.4 K/mm3 (4.0-10.0)
[2016-06-30 08:54] LABS: CALCIUM 7.9 mg/dL (8.5-10.1); COCKROFT - GAULT 99.433; CREATININE 0.8 mg/dL (0.55-1.02); MAGNESIUM 1.9 mg/dL (1.8-2.4)
--- NOTE | 2016-06-30 10:29 | PN ---
Progress Note (short form) - Note Progress Note: PULMONARY Denies shortness of breath. Occasional cough. Reports abdominal pain. Tolerating clears. +flatus but no BM. Last Vital Signs Temp Pulse Resp BP Pulse Ox 98.1 F 72 20 135/62 91 L 06/30/16 07:39 06/30/16 07:39 06/30/16 07:39 06/30/16 07:39 06/29/16 21:00 Gen: NAD at rest Heart: RRR Lung: scattered rhonchi, decreased breath sounds at the bases Abd: soft, diffusely tender but appropriate, no rebound Ext: no edema CBC, BMP 06/30/16 06:15 Active Medications Aclidinium [place] (Tudorza -) 1 puff IH BID [facility] Last Admin: 06/30/16 01:31 Dose: Not Given Albuterol/Ipratropium (Duoneb -) 1 amp NEB QIDR [facility] Last Admin: 06/30/16 06:35 Dose: 1 amp Heparin Sodium (Porcine) (Heparin -) 5,000 unit SQ BID [facility] Last Admin: 06/29/16 21:53 Dose: 5,000 unit Piperacillin Sod/Tazobactam Sod (Zosyn 4.5gm Ivpb (Pre-Docked)) 100 mls @ 200 mls/hr IVPB Q8H-IV KARIE PRN Reason: Protocol Last Admin: 06/30/16 01:30 Dose: 200 mls/hr Levothyroxine Sodium (Synthroid -) 125 mcg PO DAILY@0700 [facility] Last Admin: 06/30/16 06:08 Dose: 125 mcg Morphine Sulfate (Morphine Injection -) 2 mg IVPB Q2H PRN PRN Reason: PAIN Last Admin: 06/30/16 08:47 Dose: 2 mg Pantoprazole Sodium (Protonix -) 40 mg PO BID [facility] Last Admin: 06/29/16 21:51 Dose: 40 mg Ropinirole HCl (Requip -) 1 mg PO TID [facility] Last Admin: 06/30/16 06:08 Dose: 1 mg A/P Perforated Gastric Ulcer s/p ex-lap/Umair patch repair/abdominal washout 06/23 Peritonitis Severe Sepsis resolved Acute Kidney Injury Hypoxia likely related to Atelectasis COPD - continue antibiotics - protonix - pain control - taper Fio2 to keep SpO2 >90% - incentive spirometry - PO per surgery - OOB to chair - increase activity, encouraged ambulation - DVT/GI prophylaxis
[2016-06-30] MEDS ORDERED: PT OWN MED DRAWER 7, Y5N ONE ×2 (10:32→13:36)
[2016-06-30] MEDS: PANTOPRAZOLE 40 MG TABLET (FP) PO SCH ×2 (10:35→22:12)
[2016-06-30] MEDS: HEPARIN NA (PORCINE) 5,000 UNITS/ML 1ML VIAL SQ SCH ×2 (10:36→22:12)
[2016-06-30 12:28] LABS: PLATELET ESTIMATE ADEQUATE (NORMAL)
--- NOTE | 2016-06-30 12:28 | PN ---
Progress Note, Physician History of Present Illness: OOB in chair C/O diffuse abdominal pain No N/V + Flatus; no BM No fever/ chills WBC elevated 14k - Current Medication List Current Medications: Active Medications Aclidinium [place] (Tudorza -) 1 puff IH BID [facility] Last Admin: 06/30/16 10:36 Dose: 1 inh Albuterol/Ipratropium (Duoneb -) 1 amp NEB QIDR [facility] Last Admin: 06/30/16 11:30 Dose: 1 amp Heparin Sodium (Porcine) (Heparin -) 5,000 unit SQ BID [facility] Last Admin: 06/30/16 10:36 Dose: 5,000 unit Piperacillin Sod/Tazobactam Sod (Zosyn 4.5gm Ivpb (Pre-Docked)) 100 mls @ 200 mls/hr IVPB Q8H-IV KARIE PRN Reason: Protocol Last Admin: 06/30/16 10:35 Dose: 200 mls/hr Levothyroxine Sodium (Synthroid -) 125 mcg PO DAILY@0700 [facility] Last Admin: 06/30/16 06:08 Dose: 125 mcg Morphine Sulfate (Morphine Injection -) 2 mg IVPB Q2H PRN PRN Reason: PAIN Last Admin: 06/30/16 08:47 Dose: 2 mg Pantoprazole Sodium (Protonix -) 40 mg PO BID [facility] Last Admin: 06/30/16 10:35 Dose: 40 mg Ropinirole HCl (Requip -) 1 mg PO TID [facility] Last Admin: 06/30/16 06:08 Dose: 1 mg - Objective Vital Signs: Vital Signs Temperature 97.9 F 06/30/16 08:25 Pulse Rate 86 06/30/16 08:25 Respiratory Rate 18 06/30/16 08:25 Blood Pressure 144/69 06/30/16 08:25 O2 Sat by Pulse Oximetry (%) 92 L 06/30/16 09:00 Constitutional: Yes: No Distress Eyes: Yes: Conjunctiva Clear Cardiovascular: Yes: Regular Rate and Rhythm, S1, S2 Respiratory: Yes: CTA Bilaterally Gastrointestinal: Yes: Normal Bowel Sounds, Soft, Abdomen, Obese, Tenderness ( mild diffuse tenderness) Labs: CBC, BMP 06/30/16 06:15 06/30/16 06:15 INR, PTT INR 1.21 (0.82-1.09) H 06/22/16 12:00 Assessment/Plan POD #8 exploratory laparotomy, perforated peptic ulcer/ peritonitis/abscess Leukocytosis Continue zosyn CT abdo/pelvis in light of persistant leukocytosis
[2016-07-01] MEDS: PIPERACILLIN/TAZOB 4.5 GM 100 ML IVPB SCH ×2 (01:25→09:46)
[2016-07-01] MEDS: ALBUTEROL SO4 2.5/IPRATROPIUM 0.5 INH SOL 3 ML VIAL.NEB. NEB SCH ×2 (05:57)
[2016-07-01] MEDS: rOPINIRole HCL 1 MG TABLET (FP) PO SCH ×3 (06:53→23:49)
[2016-07-01] MEDS: LEVOTHYROXINE NA 125 MCG TABLET (FP) PO SCH (06:53)
[2016-07-01] MEDS: morphine CARPU-JECT 2 MG/1 ML DISP.SYRIN IVPB PRN ×5 (07:03→19:30)
--- NOTE | 2016-07-01 09:31 | PN ---
Progress Note (short form) - Note Progress Note: PULMONARY Still with diffuse abdominal pain. Denies shortness of breath. Occasional cough. +flatus but no BM. CT A/P showing RLQ enhancing fluid collection. Last Vital Signs Temp Pulse Resp BP Pulse Ox 98 F 72 20 124/58 92 L 07/01/16 06:10 07/01/16 06:10 07/01/16 06:10 07/01/16 06:10 06/30/16 09:00 Gen: NAD at rest Heart: RRR Lung: scattered rhonchi, decreased breath sounds at the bases Abd: soft, diffusely tender but appropriate, no rebound Ext: no edema CBC, BMP 06/30/16 06:15 06/30/16 06:15 Active Medications Aclidinium [place] (Tudorza -) 1 puff IH BID [facility] Last Admin: 06/30/16 22:17 Dose: 1 inh Albuterol/Ipratropium (Duoneb -) 1 amp NEB QIDR [facility] Last Admin: 07/01/16 05:57 Dose: 1 amp Heparin Sodium (Porcine) (Heparin -) 5,000 unit SQ BID [facility] Last Admin: 06/30/16 22:12 Dose: 5,000 unit Piperacillin Sod/Tazobactam Sod (Zosyn 4.5gm Ivpb (Pre-Docked)) 100 mls @ 200 mls/hr IVPB Q8H-IV KARIE PRN Reason: Protocol Last Admin: 07/01/16 01:25 Dose: 200 mls/hr Levothyroxine Sodium (Synthroid -) 125 mcg PO DAILY@0700 [facility] Last Admin: 07/01/16 06:53 Dose: 125 mcg Morphine Sulfate (Morphine Injection -) 2 mg IVPB Q2H PRN PRN Reason: PAIN Last Admin: 07/01/16 07:03 Dose: 2 mg Pantoprazole Sodium (Protonix -) 40 mg PO BID [facility] Last Admin: 06/30/16 22:12 Dose: 40 mg Ropinirole HCl (Requip -) 1 mg PO TID [facility] Last Admin: 07/01/16 06:53 Dose: 1 mg A/P Perforated Gastric Ulcer s/p ex-lap/Umair patch repair/abdominal washout 06/23 Peritonitis Severe Sepsis resolved Acute Kidney Injury Hypoxia likely related to Atelectasis COPD - continue antibiotics - d/w surgery/ID need for drainage of fluid collection - protonix - pain control - taper Fio2 to keep SpO2 >90% - incentive spirometry - PO per surgery - OOB to chair - increase activity, encouraged ambulation - DVT/GI prophylaxis
[2016-07-01] MEDS: HEPARIN NA (PORCINE) 5,000 UNITS/ML 1ML VIAL SQ SCH ×2 (09:46→23:49)
[2016-07-01] MEDS: PANTOPRAZOLE 40 MG TABLET (FP) PO SCH ×2 (09:46→23:49)
--- NOTE | 2016-07-01 10:15 | PN ---
Progress Note, Physician - Current Medication List Current Medications: Active Medications Albuterol Sulfate (Ventolin 0.083% Nebulizer Soln -) 1 amp NEB QIDR [facility] Cholecalciferol (Vitamin D3 -) 5,000 unit PO ONCE ONE Stop: 07/01/16 10:31 Heparin Sodium (Porcine) (Heparin -) 5,000 unit SQ BID [facility] Last Admin: 07/01/16 09:46 Dose: 5,000 unit Piperacillin Sod/Tazobactam Sod (Zosyn 4.5gm Ivpb (Pre-Docked)) 100 mls @ 200 mls/hr IVPB Q8H-IV KARIE PRN Reason: Protocol Last Admin: 07/01/16 09:46 Dose: 200 mls/hr Levothyroxine Sodium (Synthroid -) 125 mcg PO DAILY@0700 [facility] Last Admin: 07/01/16 06:53 Dose: 125 mcg Morphine Sulfate (Morphine Injection -) 2 mg IVPB Q2H PRN PRN Reason: PAIN Last Admin: 07/01/16 09:46 Dose: 2 mg Pantoprazole Sodium (Protonix -) 40 mg PO BID [facility] Last Admin: 07/01/16 09:46 Dose: 40 mg Ropinirole HCl (Requip -) 1 mg PO TID [facility] Last Admin: 07/01/16 06:53 Dose: 1 mg Tiotropium [place] (Spiriva -) 1 puff IH DAILY [facility] - Objective Vital Signs: Vital Signs Temperature 98 F 07/01/16 06:10 Pulse Rate 72 07/01/16 06:10 Respiratory Rate 20 07/01/16 06:10 Blood Pressure 124/58 07/01/16 06:10 O2 Sat by Pulse Oximetry (%) 92 L 06/30/16 09:00 Labs: CBC, BMP 06/30/16 06:15 06/30/16 06:15 INR, PTT INR 1.21 (0.82-1.09) H 06/22/16 12:00 Problem List - Problems (1) Perforated viscus Code(s): R19.8 - OTH SYMPTOMS AND SIGNS INVOLVING THE DGSTV SYS AND ABDOMEN (2) Pneumoperitoneum Code(s): K66.8 - OTHER SPECIFIED DISORDERS OF PERITONEUM (3) Surgical pneumoperitoneum Code(s): K66.8 - OTHER SPECIFIED DISORDERS OF PERITONEUM (4) Abdominal pain Code(s): R10.9 - UNSPECIFIED ABDOMINAL PAIN Qualifiers: Abdominal location: generalized Qualified Code(s): R10.84 - Generalized abdominal pain (5) Abnormal EKG Code(s): R94.31 - ABNORMAL ELECTROCARDIOGRAM [ECG] [EKG] (6) Gallstone Code(s): K80.20 - CALCULUS OF GALLBLADDER W/O CHOLECYSTITIS W/O OBSTRUCTION Qualifiers: Cholecystitis presence: without cholecystitis Biliary obstruction: without biliary obstruction Qualified Code(s): K80.20 - Calculus of gallbladder without cholecystitis without obstruction (7) SOB (shortness of breath) Code(s): R06.02 - SHORTNESS OF BREATH (8) COPD (chronic obstructive pulmonary disease) Code(s): J44.9 - CHRONIC OBSTRUCTIVE PULMONARY DISEASE, UNSPECIFIED Qualifiers : COPD type: emphysema Assessment/Plan Wound is clean. WBC is rising. CT scan reviewed , has about 2 intraabdominal collections. I have discussed with Dr. Fam. Will drain the collections. Continue antibiotics.
[2016-07-01] MEDS ORDERED: CHOLECALCIFEROL (VITAMIN D3) 1,000 UNIT TABLET (FP) PO ONE (10:30)
[2016-07-01] MEDS: ALBUTEROL SO4 0.083% IH SOL 2.5 MG/3 ML VIAL.NEB. NEB SCH ×3 (11:10→23:15)
--- NOTE | 2016-07-01 11:13 | PN ---
Progress Note, Physician History of Present Illness: C/O intermittant diffuse abdominal pain No N/V + Flatus No BM Afebrile CT shows abdominal fluid collection, probable abscess - Current Medication List Current Medications: Active Medications Albuterol Sulfate (Ventolin 0.083% Nebulizer Soln -) 1 amp NEB QIDR [facility] Heparin Sodium (Porcine) (Heparin -) 5,000 unit SQ BID [facility] Last Admin: 07/01/16 09:46 Dose: 5,000 unit Piperacillin Sod/Tazobactam Sod (Zosyn 4.5gm Ivpb (Pre-Docked)) 100 mls @ 200 mls/hr IVPB Q8H-IV KARIE PRN Reason: Protocol Last Admin: 07/01/16 09:46 Dose: 200 mls/hr Levothyroxine Sodium (Synthroid -) 125 mcg PO DAILY@0700 [facility] Last Admin: 07/01/16 06:53 Dose: 125 mcg Morphine Sulfate (Morphine Injection -) 2 mg IVPB Q2H PRN PRN Reason: PAIN Last Admin: 07/01/16 09:46 Dose: 2 mg Pantoprazole Sodium (Protonix -) 40 mg PO BID [facility] Last Admin: 07/01/16 09:46 Dose: 40 mg Ropinirole HCl (Requip -) 1 mg PO TID [facility] Last Admin: 07/01/16 06:53 Dose: 1 mg Tiotropium [place] (Spiriva -) 1 puff IH DAILY [facility] - Objective Vital Signs: Vital Signs Temperature 98 F 07/01/16 06:10 Pulse Rate 72 07/01/16 06:10 Respiratory Rate 20 07/01/16 06:10 Blood Pressure 124/58 07/01/16 06:10 O2 Sat by Pulse Oximetry (%) 92 L 06/30/16 09:00 Constitutional: Yes: No Distress, Obese Eyes: Yes: Conjunctiva Clear Cardiovascular: Yes: Regular Rate and Rhythm, S1, S2 Respiratory: Yes: CTA Bilaterally Gastrointestinal: Yes: Normal Bowel Sounds, Soft, Other (surgical wound with nile in place no erythema/ drainage). No: Tenderness Labs: CBC, BMP 06/30/16 06:15 06/30/16 06:15 INR, PTT INR 1.21 (0.82-1.09) H 06/22/16 12:00 Assessment/Plan POD #9 exploratory laparotomy, perforated peptic ulcer/ peritonitis/abscess Intra abdominal collection, probable abscess Leukocytosis Continue zosyn IR evaluation for percutaneous drainage
[2016-07-01] MEDS: TIOTROPIUM BROMIDE 18 MCG/INH (DEVICE W/ 5 CAPSULES) IH SCH (11:27)
--- NOTE | 2016-07-01 12:28 | PN ---
Progress Note (short form) - Note Progress Note: patient sitting in chair comfortable but still with diffuse abdominal pain as been tolerating PO as its advaced Vital Signs Period Temp Pulse Resp BP Sys/Regan Pulse Ox Last 24 Hr 95 F-98.2 F 68-89 16-20 124-133/57-78 neck suppl e heart reg lungs decreased BS - some scattered rhonchi abd distended diffusely tender / appropriate BS + / + flatus ext no edema Active Medications Aclidinium [place] (Tudorza -) 1 puff IH BID [facility] Last Admin: 06/30/16 01:31 Dose: Not Given Albuterol/Ipratropium (Duoneb -) 1 amp NEB QIDR [facility] Last Admin: 06/30/16 06:35 Dose: 1 amp Heparin Sodium (Porcine) (Heparin -) 5,000 unit SQ BID [facility] Last Admin: 06/29/16 21:53 Dose: 5,000 unit Piperacillin Sod/Tazobactam Sod (Zosyn 4.5gm Ivpb (Pre-Docked)) 100 mls @ 200 mls/hr IVPB Q8H-IV KARIE PRN Reason: Protocol Last Admin: 06/30/16 01:30 Dose: 200 mls/hr Levothyroxine Sodium (Synthroid -) 125 mcg PO DAILY@0700 [facility] Last Admin: 06/30/16 06:08 Dose: 125 mcg Morphine Sulfate (Morphine Injection -) 2 mg IVPB Q2H PRN PRN Reason: PAIN Last Admin: 06/30/16 08:47 Dose: 2 mg Pantoprazole Sodium (Protonix -) 40 mg PO BID [facility] Last Admin: 06/29/16 21:51 Dose: 40 mg Ropinirole HCl (Requip -) 1 mg PO TID [facility] Last Admin: 06/30/16 06:08 Dose: 1 mg sessment/Plan # pneumoperitoneum-s/p OR - ex lap -prepyloric ulcer with perforation and intra-abdominal abscess with peritonitis POD#8 IV fluids / OOB to chair / activity as tolerated NGT removed / advancing diet / cultured reviewed / abx per ID # COPD CXR --- bilatera basilar atelectasis / effusion nebulizer / duoned QID O2 incentive spirometer increase physical activity as tolerated # DM II has been controlled diet started # restless leg started requip # hypomag / hypok / follow lytes and replace as needed # deconditioning PT for ambulation / ADLs Problem List - Problems (1) Pneumoperitoneum Code(s): K66.8 - OTHER SPECIFIED DISORDERS OF PERITONEUM (2) Abdominal pain Code(s): R10.9 - UNSPECIFIED ABDOMINAL PAIN Qualifiers: Abdominal location: generalized Qualified Code(s): R10.84 - Generalized abdominal pain (3) Diabetes Code(s): E11.9 - TYPE 2 DIABETES MELLITUS WITHOUT COMPLICATIONS (4) COPD (chronic obstructive pulmonary disease) Code(s): J44.9 - CHRONIC OBSTRUCTIVE PULMONARY DISEASE, UNSPECIFIED Qualifiers : COPD type: emphysema
--- NOTE | 2016-07-01 12:35 | PN ---
Progress Note (short form) - Note Progress Note: in bed c/o diffuse pain tolerated diet no n/v/ episodes of desatuation has difficulty with incentive spirometry encouraged to "try her best" and continue Incentive spirometry aware she will require a tap for abscess formation discussed with her / she understands and agrees to procedure Vital Signs Period Temp Pulse Resp BP Sys/Regan Pulse Ox Last 24 Hr 97.3 F-98.3 F 60-90 18-22 119-163/55-93 92-100 neck supple heart reg S1/s2 lungs clear bilat abd soft / depressible / BS + diffusely tender / BS + Ext no calf tenderness / no edema # abscess collection will require abdominal tap -- scheduled for tomorrow patient understands and agrees # pneumoperitoneum-s/p OR - ex lap -prepyloric ulcer with perforation and intra-abdominal abscess with peritonitis POD#9 IV fluids / OOB to chair / activity as tolerated tolerating diet - had regular food this am cultured reviewed / abx per ID # COPD CXR --- bilatera basilar atelectasis / effusion nebulizer / duoned QID O2 incentive spirometer increase physical activity as tolerated # DM II has been controlled diet started # restless leg started requip # hypomag / hypok / follow lytes and replace as needed # deconditioning PT for ambulation / ADLs Problem List - Problems (1) Pneumoperitoneum Code(s): K66.8 - OTHER SPECIFIED DISORDERS OF PERITONEUM (2) Abdominal pain Code(s): R10.9 - UNSPECIFIED ABDOMINAL PAIN Qualifiers: Abdominal location: generalized Qualified Code(s): R10.84 - Generalized abdominal pain (3) Diabetes Code(s): E11.9 - TYPE 2 DIABETES MELLITUS WITHOUT COMPLICATIONS (4) COPD (chronic obstructive pulmonary disease) Code(s): J44.9 - CHRONIC OBSTRUCTIVE PULMONARY DISEASE, UNSPECIFIED Qualifiers : COPD type: emphysema
[2016-07-01] MEDS ORDERED: PT OWN MED DRAWER 7, Y5N ONE ×2 (13:28→22:23)
[2016-07-01] MEDS: PIPERACILLIN/TAZOB 4.5 GM/100 ML PRE-DOCKED IVPB SCH (17:27)
[2016-07-02] MEDS: PIPERACILLIN/TAZOB 4.5 GM/100 ML PRE-DOCKED IVPB SCH ×3 (01:28→18:18)
[2016-07-02] MEDS: LEVOTHYROXINE NA 125 MCG TABLET (FP) PO SCH (06:14)
[2016-07-02] MEDS: rOPINIRole HCL 1 MG TABLET (FP) PO SCH ×3 (06:14→21:26)
[2016-07-02] MEDS: morphine CARPU-JECT 2 MG/1 ML DISP.SYRIN IVPB PRN ×5 (06:16→22:59)
[2016-07-02] MEDS: ALBUTEROL SO4 0.083% IH SOL 2.5 MG/3 ML VIAL.NEB. NEB SCH ×3 (07:05→18:10)
[2016-07-02] MEDS: TIOTROPIUM BROMIDE 18 MCG/INH (DEVICE W/ 5 CAPSULES) IH SCH (12:06)
[2016-07-02] MEDS: PANTOPRAZOLE 40 MG TABLET (FP) PO SCH ×2 (12:06→21:26)
[2016-07-02] MEDS: HEPARIN NA (PORCINE) 5,000 UNITS/ML 1ML VIAL SQ SCH ×2 (12:07→21:27)
--- NOTE | 2016-07-02 12:19 | PN ---
Progress Note, Physician History of Present Illness: S/P IR drainage of abdominal abscesses [address] C/O generalized abdominal pain No F/C No N/V No BM - Current Medication List Current Medications: Active Medications Albuterol Sulfate (Ventolin 0.083% Nebulizer Soln -) 1 amp NEB QIDR [facility] Last Admin: 07/02/16 10:59 Dose: Not Given Heparin Sodium (Porcine) (Heparin -) 5,000 unit SQ BID [facility] Last Admin: 07/02/16 12:07 Dose: Not Given Levothyroxine Sodium (Synthroid -) 125 mcg PO DAILY@0700 [facility] Last Admin: 07/02/16 06:14 Dose: 125 mcg Morphine Sulfate (Morphine Injection -) 2 mg IVPB Q2H PRN PRN Reason: PAIN Last Admin: 07/02/16 12:06 Dose: 2 mg Pantoprazole Sodium (Protonix -) 40 mg PO BID [facility] Last Admin: 07/02/16 12:06 Dose: 40 mg Piperacillin Sod/Tazobactam Sod (Zosyn 4.5gm Ivpb (Pre-Docked)) 4.5 gm IVPB Q8H -IV [facility] Last Admin: 07/02/16 01:28 Dose: 4.5 gm Ropinirole HCl (Requip -) 1 mg PO TID [facility] Last Admin: 07/02/16 06:14 Dose: 1 mg Tiotropium [place] (Spiriva -) 1 puff IH DAILY [facility] Last Admin: 07/02/16 12:06 Dose: 1 puff - Objective Vital Signs: Vital Signs Temperature 98.3 F 07/01/16 22:00 Pulse Rate 85 07/02/16 11:32 Respiratory Rate 21 07/02/16 11:32 Blood Pressure 146/75 07/02/16 11:32 O2 Sat by Pulse Oximetry (%) 92 L 07/02/16 11:32 Constitutional: Yes: No Distress, Obese Eyes: Yes: Conjunctiva Clear Cardiovascular: Yes: Regular Rate and Rhythm, S1, S2 Respiratory: Yes: Diminished Gastrointestinal: Yes: Normal Bowel Sounds, Soft, Abdomen, Obese, Tenderness, Other (mild diffuse tenderness Surgical wound with nile in place + surgical drains x 2) Labs: CBC, BMP 06/30/16 06:15 06/30/16 06:15 INR, PTT INR 1.21 (0.82-1.09) H 06/22/16 12:00 Assessment/Plan POD # 10 exploratory laparotomy, perforated peptic ulcer/ peritonitis/abscess Intra abdominal collection, probable abscess Leukocytosis Continue zosyn Await cultures
[2016-07-02] MEDS ORDERED: PT OWN MED DRAWER 7, Y5N ONE (14:50)
--- NOTE | 2016-07-02 15:10 | PN ---
Progress Note, Physician - Current Medication List Current Medications: Active Medications Albuterol Sulfate (Ventolin 0.083% Nebulizer Soln -) 1 amp NEB QIDR [facility] Last Admin: 07/02/16 10:59 Dose: Not Given Heparin Sodium (Porcine) (Heparin -) 5,000 unit SQ BID [facility] Last Admin: 07/02/16 12:07 Dose: Not Given Levothyroxine Sodium (Synthroid -) 125 mcg PO DAILY@0700 [facility] Last Admin: 07/02/16 06:14 Dose: 125 mcg Morphine Sulfate (Morphine Injection -) 2 mg IVPB Q2H PRN PRN Reason: PAIN Last Admin: 07/02/16 12:06 Dose: 2 mg Pantoprazole Sodium (Protonix -) 40 mg PO BID [facility] Last Admin: 07/02/16 12:06 Dose: 40 mg Piperacillin Sod/Tazobactam Sod (Zosyn 4.5gm Ivpb (Pre-Docked)) 4.5 gm IVPB Q8H -IV [facility] Last Admin: 07/02/16 13:01 Dose: 4.5 gm Ropinirole HCl (Requip -) 1 mg PO TID [facility] Last Admin: 07/02/16 06:14 Dose: 1 mg Tiotropium [place] (Spiriva -) 1 puff IH DAILY [facility] Last Admin: 07/02/16 12:06 Dose: 1 puff - Objective Vital Signs: Vital Signs Temperature 97.7 F 07/02/16 10:00 Pulse Rate 85 07/02/16 11:32 Respiratory Rate 21 07/02/16 11:32 Blood Pressure 146/75 07/02/16 11:32 O2 Sat by Pulse Oximetry (%) 92 L 07/02/16 11:32 Labs: CBC, BMP 06/30/16 06:15 06/30/16 06:15 INR, PTT INR 1.21 (0.82-1.09) H 06/22/16 12:00 Problem List - Problems (1) Perforated viscus Code(s): R19.8 - OTH SYMPTOMS AND SIGNS INVOLVING THE DGSTV SYS AND ABDOMEN (2) Pneumoperitoneum Code(s): K66.8 - OTHER SPECIFIED DISORDERS OF PERITONEUM (3) Surgical pneumoperitoneum Code(s): K66.8 - OTHER SPECIFIED DISORDERS OF PERITONEUM (4) Abdominal pain Code(s): R10.9 - UNSPECIFIED ABDOMINAL PAIN Qualifiers: Abdominal location: generalized Qualified Code(s): R10.84 - Generalized abdominal pain (5) Abnormal EKG Code(s): R94.31 - ABNORMAL ELECTROCARDIOGRAM [ECG] [EKG] (6) Gallstone Code(s): K80.20 - CALCULUS OF GALLBLADDER W/O CHOLECYSTITIS W/O OBSTRUCTION Qualifiers: Cholecystitis presence: without cholecystitis Biliary obstruction: without biliary obstruction Qualified Code(s): K80.20 - Calculus of gallbladder without cholecystitis without obstruction (7) SOB (shortness of breath) Code(s): R06.02 - SHORTNESS OF BREATH (8) COPD (chronic obstructive pulmonary disease) Code(s): J44.9 - CHRONIC OBSTRUCTIVE PULMONARY DISEASE, UNSPECIFIED Qualifiers : COPD type: emphysema Assessment/Plan Surgery: Abdominal wound : Clean , nile intact. S/P drainage of intraabdominal abscess. Out of bed eating. Constipted. On Zosyn IV.
--- NOTE | 2016-07-02 17:39 | PN ---
Progress Note, Physician History of Present Illness: pulmonary alert,nad,-sob,mild abd discomfort - Current Medication List Current Medications: Active Medications Albuterol Sulfate (Ventolin 0.083% Nebulizer Soln -) 1 amp NEB QIDR [facility] Last Admin: 07/02/16 10:59 Dose: Not Given Docusate Sodium (Colace -) 100 mg PO DAILY [facility] Heparin Sodium (Porcine) (Heparin -) 5,000 unit SQ BID [facility] Last Admin: 07/02/16 12:07 Dose: Not Given Levothyroxine Sodium (Synthroid -) 125 mcg PO DAILY@0700 [facility] Last Admin: 07/02/16 06:14 Dose: 125 mcg Morphine Sulfate (Morphine Injection -) 2 mg IVPB Q2H PRN PRN Reason: PAIN Last Admin: 07/02/16 15:19 Dose: 2 mg Pantoprazole Sodium (Protonix -) 40 mg PO BID [facility] Last Admin: 07/02/16 12:06 Dose: 40 mg Piperacillin Sod/Tazobactam Sod (Zosyn 4.5gm Ivpb (Pre-Docked)) 4.5 gm IVPB Q8H -IV [facility] Last Admin: 07/02/16 13:01 Dose: 4.5 gm Ropinirole HCl (Requip -) 1 mg PO TID [facility] Last Admin: 07/02/16 15:14 Dose: 1 mg Tiotropium [place] (Spiriva -) 1 puff IH DAILY [facility] Last Admin: 07/02/16 12:06 Dose: 1 puff - Objective Vital Signs: Vital Signs Temperature 97.7 F 07/02/16 10:00 Pulse Rate 85 07/02/16 11:32 Respiratory Rate 21 07/02/16 11:32 Blood Pressure 146/75 07/02/16 11:32 O2 Sat by Pulse Oximetry (%) 92 L 07/02/16 11:32 Constitutional: Yes: Well Nourished, Calm Eyes: Yes: WNL HENT: Yes: WNL Neck: Yes: WNL Cardiovascular: Yes: Regular Rate and Rhythm, S1, S2 Respiratory: Yes: Rhonchi (occ few rhonchi) Gastrointestinal: Yes: Soft, Tenderness Extremities: Yes: WNL Edema: Yes Labs: CBC, BMP Assessment/Plan ASSESSMENT AND PLAN: Perforated Gastric Ulcer s/p ex-lap/Umair patch repair/abdominal washout 06/23 Peritonitis Severe Sepsis improved Lactic Acidosis resolved Acute Kidney Injury s/p Acute respiratory Failure - O2 - continue antibiotics - protonix - pain control - incentive spirometry - monitor urine output, creatinine - OOB to chair - DVT/GI prophylaxis - PO as per surgery DR RAMIREZ
[2016-07-03] MEDS: ALBUTEROL SO4 0.083% IH SOL 2.5 MG/3 ML VIAL.NEB. NEB SCH ×5 (00:03→23:33)
[2016-07-03] MEDS: morphine CARPU-JECT 2 MG/1 ML DISP.SYRIN IVPB PRN ×5 (01:29→17:58)
[2016-07-03] MEDS: PIPERACILLIN/TAZOB 4.5 GM/100 ML PRE-DOCKED IVPB SCH ×3 (01:37→18:23)
[2016-07-03] MEDS: LEVOTHYROXINE NA 125 MCG TABLET (FP) PO SCH (07:23)
[2016-07-03] MEDS: rOPINIRole HCL 1 MG TABLET (FP) PO SCH ×3 (07:23→21:59)
--- NOTE | 2016-07-03 09:38 | PN ---
Progress Note (short form) - Note Progress Note: History of Present Illness: S/P IR drainage of abdominal abscesses [address] C/O generalized abdominal pain No F/C No N/V No BM Vital Signs Period Temp Pulse Resp BP Sys/Regan Pulse Ox Last 24 Hr 97.3 F-98.3 F 60-90 18-22 119-163/55-93 92-100 Temperature 98.3 F 07/01/16 22:00 Pulse Rate 85 07/02/16 11:32 Respiratory Rate 21 07/02/16 11:32 Blood Pressure 146/75 07/02/16 11:32 O2 Sat by Pulse Oximetry (%) 92 L 07/02/16 11:32 supple heart reg S1/S2 lungs clear but diminished BS throughtout abd distended drains in place appropriately tender ext no edema / no calf tenderness # s/p drainage of intra abdominal abcess today s/p pneumoperitoneum-s/p OR -POD # 10 ex lap -prepyloric ulcer with perforation and intra-abdominal abscess with peritonitis IV fluids / OOB to chair / activity as tolerated cultured reviewed / abx per ID # COPD CXR --- bilatera basilar atelectasis / effusion nebulizer / duoned QID O2 incentive spirometer increase physical activity as tolerated # DM II has been controlled diet started # restless leg started requip # hypomag / hypok / follow lytes and replace as needed # deconditioning PT for ambulation / ADLs Problem List - Problems (1) Pneumoperitoneum Code(s): K66.8 - OTHER SPECIFIED DISORDERS OF PERITONEUM (2) Abdominal pain Code(s): R10.9 - UNSPECIFIED ABDOMINAL PAIN Qualifiers: Abdominal location: generalized Qualified Code(s): R10.84 - Generalized abdominal pain (3) Diabetes Code(s): E11.9 - TYPE 2 DIABETES MELLITUS WITHOUT COMPLICATIONS (4) COPD (chronic obstructive pulmonary disease) Code(s): J44.9 - CHRONIC OBSTRUCTIVE PULMONARY DISEASE, UNSPECIFIED Qualifiers : COPD type: emphysema
--- NOTE | 2016-07-03 09:47 | PN ---
Progress Note (short form) - Note Progress Note: PULMONARY Reports pain in RLQ not controlled with current regimen. Denies shortness of breath. Occasional cough. +flatus but no BM. Tolerating PO. Last Vital Signs Temp Pulse Resp BP Pulse Ox 97.3 F L 60 20 119/55 94 L 07/03/16 07:24 07/03/16 07:24 07/03/16 07:24 07/03/16 07:24 07/02/16 21:00 Gen: NAD at rest Heart: RRR Lung: scattered rhonchi, decreased breath sounds at the bases Abd: soft, diffusely tender but appropriate, no rebound, +RITIKA drains Ext: no edema CBC, BMP 06/30/16 06:15 06/30/16 06:15 Active Medications Albuterol Sulfate (Ventolin 0.083% Nebulizer Soln -) 1 amp NEB QIDR [facility] Last Admin: 07/03/16 06:46 Dose: 1 amp Docusate Sodium (Colace -) 100 mg PO DAILY [facility] Levothyroxine Sodium (Synthroid -) 125 mcg PO DAILY@0700 [facility] Last Admin: 07/03/16 07:23 Dose: 125 mcg Morphine Sulfate (Morphine Injection -) 4 mg IVPB Q3H PRN PRN Reason: PAIN Pantoprazole Sodium (Protonix -) 40 mg PO BID [facility] Last Admin: 07/02/16 21:26 Dose: 40 mg Piperacillin Sod/Tazobactam Sod (Zosyn 4.5gm Ivpb (Pre-Docked)) 4.5 gm IVPB Q8H -IV [facility] Last Admin: 07/03/16 01:37 Dose: 4.5 gm Ropinirole HCl (Requip -) 1 mg PO TID [facility] Last Admin: 07/03/16 07:23 Dose: 1 mg Tiotropium [place] (Spiriva -) 1 puff IH DAILY [facility] Last Admin: 07/02/16 12:06 Dose: 1 puff A/P Perforated Gastric Ulcer s/p ex-lap/Umair patch repair/abdominal washout 06/23 Peritonitis Severe Sepsis resolved Acute Kidney Injury Hypoxia likely related to Atelectasis COPD - continue antibiotics - f/u drain cultures - protonix - pain control, will increase morphine to 4mg q3h PRN - taper Fio2 to keep SpO2 >90% - incentive spirometry - PO per surgery - OOB to chair - increase activity, encouraged ambulation - DVT/GI prophylaxis
[2016-07-03] MEDS ORDERED: PT OWN MED DRAWER 7, Y5N ONE ×3 (10:08→21:21)
[2016-07-03] MEDS: DOCUSATE SODIUM 100 MG CAPSULE (FP) PO SCH (10:12)
[2016-07-03] MEDS: PANTOPRAZOLE 40 MG TABLET (FP) PO SCH ×2 (10:12→21:59)
[2016-07-03] MEDS: TIOTROPIUM BROMIDE 18 MCG/INH (DEVICE W/ 5 CAPSULES) IH SCH (10:25)
--- NOTE | 2016-07-03 10:25 | PN ---
Progress Note (short form) - Note Progress Note: sitting up in bed c/o pain to abdomen [address] minimal draiage this am toelrated breakfast no Nausea / Vomiting / no fever was OOB to chair yesterday Vital Signs Period Temp Pulse Resp BP Sys/Regan Pulse Ox Last 24 Hr 97.3 F-98.3 F 60-90 18-22 119-163/55-93 92-100 neck supple heart reg lung decreased BS at bases / mild scattered rhonchi abd diffusely tender / Distended / BS + [address] Ext no edema no calf tenderness CBC, BMP 06/30/16 06:15 06/30/16 06:15 # s/p drainage of intra abdominal abcess 07/[address] incresed abdominal pain Morphine dose adjusted by Dr Olvera afebrile # s/p pneumoperitoneum- s/p OR -POD # 11 ex lap -prepyloric ulcer with perforation and intra- abdominal abscess with peritonitis IV fluids / OOB to chair / activity as tolerated cultured reviewed / abx per ID # COPD CXR --- bilatera basilar atelectasis / effusion nebulizer / duoned QID O2 incentive spirometer increase physical activity as tolerated # DM II has been controlled diet started # restless leg started requip # hypomag / hypok / follow lytes and replace as needed # deconditioning PT for ambulation / ADLs Problem List - Problems (1) Pneumoperitoneum Code(s): K66.8 - OTHER SPECIFIED DISORDERS OF PERITONEUM (2) Abdominal pain Code(s): R10.9 - UNSPECIFIED ABDOMINAL PAIN Qualifiers: Abdominal location: generalized Qualified Code(s): R10.84 - Generalized abdominal pain (3) Diabetes Code(s): E11.9 - TYPE 2 DIABETES MELLITUS WITHOUT COMPLICATIONS (4) COPD (chronic obstructive pulmonary disease) Code(s): J44.9 - CHRONIC OBSTRUCTIVE PULMONARY DISEASE, UNSPECIFIED Qualifiers : COPD type: emphysema
--- NOTE | 2016-07-03 16:01 | PN ---
Progress Note, Physician History of Present Illness: No c/o abdominal pain, No N/V No BM Afebrile WBC slightly elevated - Current Medication List Current Medications: Active Medications Albuterol Sulfate (Ventolin 0.083% Nebulizer Soln -) 1 amp NEB QIDR [facility] Last Admin: 07/03/16 11:31 Dose: 1 amp Docusate Sodium (Colace -) 100 mg PO DAILY [facility] Last Admin: 07/03/16 10:12 Dose: 100 mg Levothyroxine Sodium (Synthroid -) 125 mcg PO DAILY@0700 [facility] Last Admin: 07/03/16 07:23 Dose: 125 mcg Morphine Sulfate (Morphine Injection -) 4 mg IVPB Q3H PRN PRN Reason: PAIN Last Admin: 07/03/16 14:26 Dose: 4 mg Pantoprazole Sodium (Protonix -) 40 mg PO BID [facility] Last Admin: 07/03/16 10:12 Dose: 40 mg Piperacillin Sod/Tazobactam Sod (Zosyn 4.5gm Ivpb (Pre-Docked)) 4.5 gm IVPB Q8H -IV [facility] Last Admin: 07/03/16 10:13 Dose: 4.5 gm Ropinirole HCl (Requip -) 1 mg PO TID [facility] Last Admin: 07/03/16 14:26 Dose: 1 mg Tiotropium [place] (Spiriva -) 1 puff IH DAILY [facility] Last Admin: 07/03/16 10:25 Dose: 1 puff - Objective Vital Signs: Vital Signs Temperature 98.9 F 07/03/16 14:42 Pulse Rate 97 H 07/03/16 14:42 Respiratory Rate 20 07/03/16 14:42 Blood Pressure 115/56 07/03/16 14:42 O2 Sat by Pulse Oximetry (%) 88 L 07/03/16 11:30 Constitutional: Yes: No Distress Eyes: Yes: Conjunctiva Clear Cardiovascular: Yes: Regular Rate and Rhythm, S1, S2 Respiratory: Yes: CTA Bilaterally Gastrointestinal: Yes: Normal Bowel Sounds, Soft, Tenderness, Other (+ mild diffuse tenderness Surgical drains in place) Labs: CBC, BMP 06/30/16 06:15 06/30/16 06:15 INR, PTT INR 1.21 (0.82-1.09) H 06/22/16 12:00 Assessment/Plan POD # 11 exploratory laparotomy, perforated peptic ulcer/ peritonitis/abscess Intra abdominal collection, probable abscess S/P IR drainage Leukocytosis Continue zosyn Await cultures
--- NOTE | 2016-07-03 17:01 | PN ---
Progress Note, Physician - Current Medication List Current Medications: Active Medications Albuterol Sulfate (Ventolin 0.083% Nebulizer Soln -) 1 amp NEB QIDR [facility] Last Admin: 07/03/16 11:31 Dose: 1 amp Docusate Sodium (Colace -) 100 mg PO DAILY [facility] Last Admin: 07/03/16 10:12 Dose: 100 mg Levothyroxine Sodium (Synthroid -) 125 mcg PO DAILY@0700 [facility] Last Admin: 07/03/16 07:23 Dose: 125 mcg Morphine Sulfate (Morphine Injection -) 4 mg IVPB Q3H PRN PRN Reason: PAIN Last Admin: 07/03/16 14:26 Dose: 4 mg Pantoprazole Sodium (Protonix -) 40 mg PO BID [facility] Last Admin: 07/03/16 10:12 Dose: 40 mg Piperacillin Sod/Tazobactam Sod (Zosyn 4.5gm Ivpb (Pre-Docked)) 4.5 gm IVPB Q8H -IV [facility] Last Admin: 07/03/16 10:13 Dose: 4.5 gm Ropinirole HCl (Requip -) 1 mg PO TID [facility] Last Admin: 07/03/16 14:26 Dose: 1 mg Tiotropium [place] (Spiriva -) 1 puff IH DAILY [facility] Last Admin: 07/03/16 10:25 Dose: 1 puff - Objective Vital Signs: Vital Signs Temperature 98.9 F 07/03/16 14:42 Pulse Rate 97 H 07/03/16 14:42 Respiratory Rate 20 07/03/16 14:42 Blood Pressure 115/56 07/03/16 14:42 O2 Sat by Pulse Oximetry (%) 88 L 07/03/16 11:30 Labs: CBC, BMP 06/30/16 06:15 06/30/16 06:15 INR, PTT INR 1.21 (0.82-1.09) H 06/22/16 12:00 Problem List - Problems (1) Perforated viscus Code(s): R19.8 - OTH SYMPTOMS AND SIGNS INVOLVING THE DGSTV SYS AND ABDOMEN (2) Pneumoperitoneum Code(s): K66.8 - OTHER SPECIFIED DISORDERS OF PERITONEUM (3) Surgical pneumoperitoneum Code(s): K66.8 - OTHER SPECIFIED DISORDERS OF PERITONEUM (4) Abdominal pain Code(s): R10.9 - UNSPECIFIED ABDOMINAL PAIN Qualifiers: Abdominal location: generalized Qualified Code(s): R10.84 - Generalized abdominal pain (5) Abnormal EKG Code(s): R94.31 - ABNORMAL ELECTROCARDIOGRAM [ECG] [EKG] (6) Gallstone Code(s): K80.20 - CALCULUS OF GALLBLADDER W/O CHOLECYSTITIS W/O OBSTRUCTION Qualifiers: Cholecystitis presence: without cholecystitis Biliary obstruction: without biliary obstruction Qualified Code(s): K80.20 - Calculus of gallbladder without cholecystitis without obstruction (7) SOB (shortness of breath) Code(s): R06.02 - SHORTNESS OF BREATH (8) COPD (chronic obstructive pulmonary disease) Code(s): J44.9 - CHRONIC OBSTRUCTIVE PULMONARY DISEASE, UNSPECIFIED Qualifiers : COPD type: emphysema Assessment/Plan Suergery: Afebrile, Wound is clean. Abscesses drained , cultures : Staph aureus, and gram negative bacilli. On antibiotics as per ID. tolerating diet.
[2016-07-03] MEDS: morphine CARPU-JECT 4 MG/1 ML DISP.SYRIN IVPB PRN (20:08)
[2016-07-04] MEDS: PIPERACILLIN/TAZOB 4.5 GM/100 ML PRE-DOCKED IVPB SCH ×3 (02:55→18:48)
[2016-07-04] MEDS: morphine CARPU-JECT 4 MG/1 ML DISP.SYRIN IVPB PRN ×5 (03:37→22:16)
[2016-07-04] MEDS ORDERED: PT OWN MED DRAWER 7, Y5N ONE ×3 (06:15→21:59)
[2016-07-04] MEDS: LEVOTHYROXINE NA 125 MCG TABLET (FP) PO SCH (06:32)
[2016-07-04] MEDS: rOPINIRole HCL 1 MG TABLET (FP) PO SCH ×3 (06:32→22:00)
[2016-07-04] MEDS: ALBUTEROL SO4 0.083% IH SOL 2.5 MG/3 ML VIAL.NEB. NEB SCH ×3 (06:40→18:10)
[2016-07-04 07:53] LABS: BASOPHIL 1.2 % (0-2.0); EOSINOPHIL 1.9 % (0-4.5); MCH 27.3 pg (25.7-33.7); MEAN CELL VOLUME 85.3 fl (80-96); NEUTROPHILS 68.5 % (42.8-82.8); PLATELET COUNT 451 K/MM3 (134-434); RDW 13.5 % (11.6-15.6); WHITE BLOOD COUNT 11.8 K/mm3 (4.0-10.0)
[2016-07-04 08:40] LABS: ALBUMIN 1.8 g/dl (3.4-5.0); BILIRUBIN,TOTAL 0.2 mg/dL (0.2-1.0); CALCIUM 8.1 mg/dL (8.5-10.1); COCKROFT - GAULT 76.687; MAGNESIUM 2.2 mg/dL (1.8-2.4); PHOSPHOROUS 3.7 mg/dL (2.5-4.9); TOT PROT 6.4 g/dl (6.4-8.2)
[2016-07-04] MEDS: DOCUSATE SODIUM 100 MG CAPSULE (FP) PO SCH (09:59)
[2016-07-04] MEDS: PANTOPRAZOLE 40 MG TABLET (FP) PO SCH ×2 (09:59→22:00)
[2016-07-04] MEDS: TIOTROPIUM BROMIDE 18 MCG/INH (DEVICE W/ 5 CAPSULES) IH SCH (10:58)
--- NOTE | 2016-07-04 12:26 | PN ---
Progress Note (short form) - Note Progress Note: PULMONARY AFEBRILE/VSS AWAKE/ALERT/SITTING IN [employer] DISCOMFORT YESTERDAY AFTER EATING BUT NONE TODAY AFTER BREAKFAST ANICTERIC DIMINISHED BIBASILAR S1S2 BS+ MILDLY TENDER NO EDEMA/NO CALF TENDERNESS LABS/MEDS/NOTES/IMAGING/MICRO REVIEWED ASSESSMENT AND PLAN: Perforated Gastric Ulcer s/p ex-lap/Umair patch repair/abdominal washout 06/23 Peritonitis Severe Sepsis improved Lactic Acidosis resolved Acute Kidney Injury s/p Acute respiratory Failure - O2 to maintain to SpO2 > 88% to 92% - ABX per ID - GI prophylaxis - pain control - incentive spirometry - monitor urine output, creatinine - OOB to chair - DVT/GI proph - Needs PT Lois RAYA MD
--- NOTE | 2016-07-04 13:54 | PN ---
Progress Note, Physician History of Present Illness: Was doing well; pain-free until she ate solids Now with c/o bilateral lower abdominal pain No N/V + soft BMs No c/o fever/ chills - Current Medication List Current Medications: Active Medications Albuterol Sulfate (Ventolin 0.083% Nebulizer Soln -) 1 amp NEB QIDR [facility] Last Admin: 07/04/16 11:21 Dose: 1 amp Docusate Sodium (Colace -) 100 mg PO DAILY [facility] Last Admin: 07/04/16 09:59 Dose: 100 mg Levothyroxine Sodium (Synthroid -) 125 mcg PO DAILY@0700 [facility] Last Admin: 07/04/16 06:32 Dose: 125 mcg Morphine Sulfate (Morphine Injection -) 4 mg IVPB Q3H PRN PRN Reason: PAIN Last Admin: 07/04/16 13:36 Dose: 4 mg Pantoprazole Sodium (Protonix -) 40 mg PO BID [facility] Last Admin: 07/04/16 09:59 Dose: 40 mg Piperacillin Sod/Tazobactam Sod (Zosyn 4.5gm Ivpb (Pre-Docked)) 4.5 gm IVPB Q8H -IV [facility] Last Admin: 07/04/16 10:00 Dose: 4.5 gm Ropinirole HCl (Requip -) 1 mg PO TID [facility] Last Admin: 07/04/16 13:36 Dose: 1 mg Tiotropium [place] (Spiriva -) 1 puff IH DAILY [facility] Last Admin: 07/04/16 10:58 Dose: 1 puff - Objective Vital Signs: Vital Signs Temperature 97.3 F L 07/04/16 08:48 Pulse Rate 72 07/04/16 11:22 Respiratory Rate 20 07/04/16 08:48 Blood Pressure 134/61 07/04/16 08:48 O2 Sat by Pulse Oximetry (%) 94 L 07/04/16 11:52 Constitutional: Yes: No Distress Eyes: Yes: Conjunctiva Clear Cardiovascular: Yes: Regular Rate and Rhythm, S1, S2 Respiratory: Yes: CTA Bilaterally Gastrointestinal: Yes: Normal Bowel Sounds, Soft, Tenderness (mild lower abdominal tenderness biltaterally +nile in place, surgical wound) Edema: No Labs: CBC, BMP 07/04/16 06:15 07/04/16 06:15 INR, PTT INR 1.21 (0.82-1.09) H 06/22/16 12:00 Assessment/Plan POD # 12 exploratory laparotomy, perforated peptic ulcer/ peritonitis/abscess Intra abdominal collection, probable abscess S/P IR drainage wound c/s polmicrobial, including yeast Leukocytosis- improved Continue zosyn Add fluconazole for yeast in abdo c/s
[2016-07-04] MEDS: FLUCONAZOLE 200 MG/D5W 100 ML IVPB SCH (15:22)
--- NOTE | 2016-07-04 17:45 | PN ---
Progress Note, Physician - Current Medication List Current Medications: Active Medications Albuterol Sulfate (Ventolin 0.083% Nebulizer Soln -) 1 amp NEB QIDR [facility] Last Admin: 07/04/16 11:21 Dose: 1 amp Docusate Sodium (Colace -) 100 mg PO DAILY [facility] Last Admin: 07/04/16 09:59 Dose: 100 mg Fluconazole (Diflucan 200 Mg/D5w Premixed Ivpb -) 100 mls @ 100 mls/hr IVPB DAILY [facility] Last Admin: 07/04/16 15:22 Dose: 100 mls/hr Levothyroxine Sodium (Synthroid -) 125 mcg PO DAILY@0700 [facility] Last Admin: 07/04/16 06:32 Dose: 125 mcg Morphine Sulfate (Morphine Injection -) 4 mg IVPB Q3H PRN PRN Reason: PAIN Last Admin: 07/04/16 13:36 Dose: 4 mg Pantoprazole Sodium (Protonix -) 40 mg PO BID [facility] Last Admin: 07/04/16 09:59 Dose: 40 mg Piperacillin Sod/Tazobactam Sod (Zosyn 4.5gm Ivpb (Pre-Docked)) 4.5 gm IVPB Q8H -IV [facility] Last Admin: 07/04/16 10:00 Dose: 4.5 gm Ropinirole HCl (Requip -) 1 mg PO TID [facility] Last Admin: 07/04/16 13:36 Dose: 1 mg Tiotropium [place] (Spiriva -) 1 puff IH DAILY [facility] Last Admin: 07/04/16 10:58 Dose: 1 puff - Objective Vital Signs: Vital Signs Temperature 98.4 F 07/04/16 14:24 Pulse Rate 69 07/04/16 14:24 Respiratory Rate 16 07/04/16 14:24 Blood Pressure 128/55 07/04/16 14:24 O2 Sat by Pulse Oximetry (%) 94 L 07/04/16 11:52 Labs: CBC, BMP 07/04/16 06:15 07/04/16 06:15 INR, PTT INR 1.21 (0.82-1.09) H 06/22/16 12:00 Problem List - Problems (1) Perforated viscus Code(s): R19.8 - OTH SYMPTOMS AND SIGNS INVOLVING THE DGSTV SYS AND ABDOMEN (2) Pneumoperitoneum Code(s): K66.8 - OTHER SPECIFIED DISORDERS OF PERITONEUM (3) Surgical pneumoperitoneum Code(s): K66.8 - OTHER SPECIFIED DISORDERS OF PERITONEUM (4) Abdominal pain Code(s): R10.9 - UNSPECIFIED ABDOMINAL PAIN Qualifiers: Abdominal location: generalized Qualified Code(s): R10.84 - Generalized abdominal pain (5) Abnormal EKG Code(s): R94.31 - ABNORMAL ELECTROCARDIOGRAM [ECG] [EKG] (6) Gallstone Code(s): K80.20 - CALCULUS OF GALLBLADDER W/O CHOLECYSTITIS W/O OBSTRUCTION Qualifiers: Cholecystitis presence: without cholecystitis Biliary obstruction: without biliary obstruction Qualified Code(s): K80.20 - Calculus of gallbladder without cholecystitis without obstruction (7) SOB (shortness of breath) Code(s): R06.02 - SHORTNESS OF BREATH (8) COPD (chronic obstructive pulmonary disease) Code(s): J44.9 - CHRONIC OBSTRUCTIVE PULMONARY DISEASE, UNSPECIFIED Qualifiers : COPD type: emphysema Assessment/Plan Surgery: Patient is feeling better today. WBC improved. Anyibiotics , added for fungal coverage by Dr. Jones, Wound is clean . Continue treatment of intraabdominal abscess. Drains still draining 20 and 10ml.
[2016-07-05] MEDS ORDERED: morphine CARPU-JECT 4 MG/1 ML DISP.SYRIN IVPB ONE (00:30)
[2016-07-05] MEDS: PIPERACILLIN/TAZOB 4.5 GM/100 ML PRE-DOCKED IVPB SCH ×3 (01:49→19:48)
[2016-07-05] MEDS: ALBUTEROL SO4 0.083% IH SOL 2.5 MG/3 ML VIAL.NEB. NEB SCH ×4 (06:10→18:13)
[2016-07-05] MEDS: rOPINIRole HCL 1 MG TABLET (FP) PO SCH ×3 (06:40→21:16)
[2016-07-05] MEDS ORDERED: PT OWN MED DRAWER 7, Y5N ONE ×4 (06:40→21:09)
[2016-07-05] MEDS: LEVOTHYROXINE NA 125 MCG TABLET (FP) PO SCH (06:41)
[2016-07-05] MEDS: morphine CARPU-JECT 4 MG/1 ML DISP.SYRIN IVPB PRN ×4 (06:41→22:58)
--- NOTE | 2016-07-05 09:58 | PN ---
Progress Note (short form) - Note Progress Note: Awake and alert. Reports some abdominal pain depending on diet. Minimal symptoms when she eats soft/moist foods. Denies CP or SOB. Intake & Output 07/02/16 07/03/16 07/04/16 07/05/16 23:59 23:59 23:59 23:59 Intake Total 705 865 650 250 Output Total 155 20 20 22 Balance 550 845 630 228 Weight 203 lb 3.2 oz 190 lb 9 oz 196 lb 3 oz 186 lb 6 oz Last Vital Signs Temp Pulse Resp BP Pulse Ox 98.4 F 59 L 20 106/49 94 L 07/05/16 06:27 07/05/16 06:27 07/05/16 06:27 07/05/16 06:27 07/04/16 21:00 Active Medications Albuterol Sulfate (Ventolin 0.083% Nebulizer Soln -) 1 amp NEB QIDR [facility] Last Admin: 07/05/16 06:10 Dose: 1 amp Docusate Sodium (Colace -) 100 mg PO DAILY [facility] Last Admin: 07/04/16 09:59 Dose: 100 mg Fluconazole (Diflucan 200 Mg/D5w Premixed Ivpb -) 100 mls @ 100 mls/hr IVPB DAILY [facility] Last Admin: 07/04/16 15:22 Dose: 100 mls/hr Levothyroxine Sodium (Synthroid -) 125 mcg PO DAILY@0700 [facility] Last Admin: 07/05/16 06:41 Dose: 125 mcg Morphine Sulfate (Morphine Injection -) 4 mg IVPB Q3H PRN PRN Reason: PAIN Last Admin: 07/05/16 06:41 Dose: 4 mg Pantoprazole Sodium (Protonix -) 40 mg PO BID [facility] Last Admin: 07/04/16 22:00 Dose: 40 mg Piperacillin Sod/Tazobactam Sod (Zosyn 4.5gm Ivpb (Pre-Docked)) 4.5 gm IVPB Q8H -IV [facility] Last Admin: 07/05/16 01:49 Dose: 4.5 gm Ropinirole HCl (Requip -) 1 mg PO TID [facility] Last Admin: 07/05/16 06:40 Dose: 1 mg Tiotropium [place] (Spiriva -) 1 puff IH DAILY [facility] Last Admin: 07/04/16 10:58 Dose: 1 puff Gen: NAD at rest Heart: RRR Lung: decreased breath sounds at the bases Abd: soft, mild tenderness to palpation, (+) BS Ext: no edema ASSESSMENT AND PLAN: Perforated Gastric Ulcer s/p ex-lap/Umair patch repair/abdominal washout 06/23 Peritonitis Severe Sepsis improving Lactic Acidosis resolved Acute Kidney Injury s/p Acute respiratory Failure - O2 to maintain to SpO2 - GI prophylaxis - pain control - incentive spirometry - OOB to chair - DVT/GI prophylaxis - PO as tolerated -> Dietary will reassess Dr Jama
[2016-07-05] MEDS: FLUCONAZOLE 200 MG/D5W 100 ML IVPB SCH (10:22)
[2016-07-05] MEDS: TIOTROPIUM BROMIDE 18 MCG/INH (DEVICE W/ 5 CAPSULES) IH SCH (10:23)
[2016-07-05] MEDS: DOCUSATE SODIUM 100 MG CAPSULE (FP) PO SCH (10:23)
[2016-07-05] MEDS: PANTOPRAZOLE 40 MG TABLET (FP) PO SCH ×2 (10:23→21:16)
--- NOTE | 2016-07-05 12:03 | PN ---
Progress Note (short form) - Note Progress Note: sitting in bed comfortable -- however has been requiring pain meds q3 Reports had been doing well and was pain-free until she ate solids after solid in take she reports "sharp" abdominal pain -- has been asking for more pain meds in the last 24-48 hours No N/V + soft BMs No c/o fever/ chills Vital Signs Period Temp Pulse Resp BP Sys/Regan Pulse Ox Last 24 Hr 98.4 F-98.7 F 59-70 16-20 106-130/49-60 94 nrck supple heart reg lung decreased / no wheezing abd soft depressible / nile in place diffusely tender one drain in place but not output seen ext no edema no calf tenderness CBC, BMP 07/04/16 06:15 07/04/16 06:15 Microbiology 07/02/16 11:55 Abscess Gram Stain - Final 07/02/16 11:55 Abscess Body Fluid Culture - Final Yeast Like Organism 07/02/16 11:55 Abscess Anaerobic Culture - Preliminary No growth. 07/02/16 11:54 Abscess Gram Stain - Final 07/02/16 11:54 Abscess Body Fluid Culture - Preliminary Klebsiella Oxytoca Group D Strep Or Entero Coccus Yeast Like Organism 07/02/16 11:54 Abscess Anaerobic Culture - Final NO ANAEROBES WERE ISOLATED 06/22/16 11:10 Blood - Peripheral Venous Blood Culture - Final NO GROWTH AFTER 5 DAYS INCUBATION 06/22/16 11:05 Blood - Peripheral Venous Blood Culture - Final NO GROWTH AFTER 5 DAYS INCUBATION 06/22/16 17:40 Abscess Gram Stain - Final 06/22/16 17:40 Abscess Wound Culture - Final Klebsiella Oxytoca Staphylococcus Aureus Enterococcus Faecalis 06/22/16 17:40 Peritoneal Fluid Gram Stain - Final 06/22/16 17:40 Peritoneal Fluid Body Fluid Culture - Final Staphylococcus Aureus 06/22/16 17:40 Peritoneal Fluid Anaerobic Culture - Final NO ANAEROBES WERE ISOLATED 06/22/16 14:28 Urine - Urine - Catheterized Urine Culture - Final NO GROWTH OBTAINED Active Medications Albuterol Sulfate (Ventolin 0.083% Nebulizer Soln -) 1 amp NEB QIDR [facility] Last Admin: 07/05/16 11:52 Dose: 1 amp Docusate Sodium (Colace -) 100 mg PO DAILY [facility] Last Admin: 07/05/16 10:23 Dose: 100 mg Fluconazole (Diflucan 200 Mg/D5w Premixed Ivpb -) 100 mls @ 100 mls/hr IVPB DAILY [facility] Last Admin: 07/05/16 10:22 Dose: 100 mls/hr Levothyroxine Sodium (Synthroid -) 125 mcg PO DAILY@0700 [facility] Last Admin: 07/05/16 06:41 Dose: 125 mcg Morphine Sulfate (Morphine Injection -) 4 mg IVPB Q3H PRN PRN Reason: PAIN Last Admin: 07/05/16 10:24 Dose: 4 mg Pantoprazole Sodium (Protonix -) 40 mg PO BID [facility] Last Admin: 07/05/16 10:23 Dose: 40 mg Piperacillin Sod/Tazobactam Sod (Zosyn 4.5gm Ivpb (Pre-Docked)) 4.5 gm IVPB Q8H -IV [facility] Last Admin: 07/05/16 10:19 Dose: 4.5 gm Ropinirole HCl (Requip -) 1 mg PO TID [facility] Last Admin: 07/05/16 06:40 Dose: 1 mg Tiotropium [place] (Spiriva -) 1 puff IH DAILY [facility] Last Admin: 07/05/16 10:23 Dose: 1 puff # abdominal pain increased requirement for pain meds remains afebrile / no chills / wbc -NL/ will recall GI - discussed with Dr Smyth change diet to FULL liquids encourage increased activity repeat FUA today # s/p drainage of intra abdominal abcess 07/[address] increased abdominal pain Morphine dose titrated up afebrile # s/p pneumoperitoneum- s/p OR -06/22/16 ex lap -prepyloric ulcer with perforation and intra- abdominal abscess with peritonitis IV fluids / OOB to chair / activity as tolerated cultured reviewed / abx per ID # COPD CXR --- bilatera basilar atelectasis / effusion nebulizer / duoned QID O2 incentive spirometer increase physical activity as tolerated # DM II has been controlled diet started # restless leg started requip # deconditioning PT for ambulation / ADLs Problem List - Problems (1) Pneumoperitoneum Code(s): K66.8 - OTHER SPECIFIED DISORDERS OF PERITONEUM (2) Abdominal pain Code(s): R10.9 - UNSPECIFIED ABDOMINAL PAIN Qualifiers: Abdominal location: generalized Qualified Code(s): R10.84 - Generalized abdominal pain (3) Diabetes Code(s): E11.9 - TYPE 2 DIABETES MELLITUS WITHOUT COMPLICATIONS (4) COPD (chronic obstructive pulmonary disease) Code(s): J44.9 - CHRONIC OBSTRUCTIVE PULMONARY DISEASE, UNSPECIFIED Qualifiers : COPD type: emphysema
--- NOTE | 2016-07-05 12:24 | PN ---
Progress Note (short form) - Note Progress Note: sitting up in bed c/o pain to abdomen ? related to meal [address] minimal drainage tolerated breakfast no Nausea / Vomiting / no fever / no chills ++ flatus / + bm Vital Signs Period Temp Pulse Resp BP Sys/Regan Pulse Ox Last 24 Hr 98.4 F-98.7 F 59-70 16-20 106-130/49-60 94 neck supple heart reg lungs grossly clear - decreased abd soft tenderness appropriate/ BS + / no guarding ext no edema no calf tenderness CBC, BMP 07/04/16 06:15 07/04/16 06:15 Microbiology 07/02/16 11:55 Abscess Gram Stain - Final 07/02/16 11:55 Abscess Body Fluid Culture - Final Yeast Like Organism 07/02/16 11:55 Abscess Anaerobic Culture - Preliminary No growth. 07/02/16 11:54 Abscess Gram Stain - Final 07/02/16 11:54 Abscess Body Fluid Culture - Preliminary Klebsiella Oxytoca Group D Strep Or Entero Coccus Yeast Like Organism 07/02/16 11:54 Abscess Anaerobic Culture - Final NO ANAEROBES WERE ISOLATED 06/22/16 11:10 Blood - Peripheral Venous Blood Culture - Final NO GROWTH AFTER 5 DAYS INCUBATION 06/22/16 11:05 Blood - Peripheral Venous Blood Culture - Final NO GROWTH AFTER 5 DAYS INCUBATION 06/22/16 17:40 Abscess Gram Stain - Final 06/22/16 17:40 Abscess Wound Culture - Final Klebsiella Oxytoca Staphylococcus Aureus Enterococcus Faecalis 06/22/16 17:40 Peritoneal Fluid Gram Stain - Final 06/22/16 17:40 Peritoneal Fluid Body Fluid Culture - Final Staphylococcus Aureus 06/22/16 17:40 Peritoneal Fluid Anaerobic Culture - Final NO ANAEROBES WERE ISOLATED 06/22/16 14:28 Urine - Urine - Catheterized Urine Culture - Final NO GROWTH OBTAINED s/p drainage of intra abdominal abcess 07/[address] increased abdominal pain Morphine dose adjusted afebrile /no chills no N/V tolerating PO meals # s/p pneumoperitoneum- s/p OR -POD #12 ex lap -prepyloric ulcer with perforation and intra-abdominal abscess with peritonitis IV fluids / OOB to chair / activity as tolerated cultured reviewed / abx per ID # COPD CXR --- bilatera basilar atelectasis / effusion nebulizer / duoned QID O2 incentive spirometer increase physical activity as tolerated # DM II has been controlled diet started # restless leg started requip # deconditioning PT for ambulation / ADLs Problem List - Problems (1) Pneumoperitoneum Code(s): K66.8 - OTHER SPECIFIED DISORDERS OF PERITONEUM (2) Abdominal pain Code(s): R10.9 - UNSPECIFIED ABDOMINAL PAIN Qualifiers: Abdominal location: generalized Qualified Code(s): R10.84 - Generalized abdominal pain (3) Diabetes Code(s): E11.9 - TYPE 2 DIABETES MELLITUS WITHOUT COMPLICATIONS (4) COPD (chronic obstructive pulmonary disease) Code(s): J44.9 - CHRONIC OBSTRUCTIVE PULMONARY DISEASE, UNSPECIFIED Qualifiers : COPD type: emphysema
--- NOTE | 2016-07-05 12:30 | PN ---
Progress Note, Physician History of Present Illness: C/O lower abdominal pain + flatus, small BM No fever/ chills WBC improved - Current Medication List Current Medications: Active Medications Albuterol Sulfate (Ventolin 0.083% Nebulizer Soln -) 1 amp NEB QIDR [facility] Last Admin: 07/05/16 11:52 Dose: 1 amp Docusate Sodium (Colace -) 100 mg PO DAILY [facility] Last Admin: 07/05/16 10:23 Dose: 100 mg Fluconazole (Diflucan 200 Mg/D5w Premixed Ivpb -) 100 mls @ 100 mls/hr IVPB DAILY [facility] Last Admin: 07/05/16 10:22 Dose: 100 mls/hr Levothyroxine Sodium (Synthroid -) 125 mcg PO DAILY@0700 [facility] Last Admin: 07/05/16 06:41 Dose: 125 mcg Morphine Sulfate (Morphine Injection -) 4 mg IVPB Q3H PRN PRN Reason: PAIN Last Admin: 07/05/16 10:24 Dose: 4 mg Pantoprazole Sodium (Protonix -) 40 mg PO BID [facility] Last Admin: 07/05/16 10:23 Dose: 40 mg Piperacillin Sod/Tazobactam Sod (Zosyn 4.5gm Ivpb (Pre-Docked)) 4.5 gm IVPB Q8H -IV [facility] Last Admin: 07/05/16 10:19 Dose: 4.5 gm Ropinirole HCl (Requip -) 1 mg PO TID [facility] Last Admin: 07/05/16 06:40 Dose: 1 mg Tiotropium [place] (Spiriva -) 1 puff IH DAILY [facility] Last Admin: 07/05/16 10:23 Dose: 1 puff - Objective Vital Signs: Vital Signs Temperature 98.4 F 07/05/16 06:27 Pulse Rate 59 L 07/05/16 06:27 Respiratory Rate 20 07/05/16 06:27 Blood Pressure 106/49 07/05/16 06:27 O2 Sat by Pulse Oximetry (%) 94 L 07/04/16 21:00 Constitutional: Yes: No Distress, Obese Eyes: Yes: Conjunctiva Clear Cardiovascular: Yes: Regular Rate and Rhythm, S1, S2 Respiratory: Yes: CTA Bilaterally Gastrointestinal: Yes: Normal Bowel Sounds, Soft, Abdomen, Obese, Other ( surgical wound with nile in place + abdominal drain). No: Tenderness Labs: CBC, BMP 07/04/16 06:15 07/04/16 06:15 INR, PTT INR 1.21 (0.82-1.09) H 06/22/16 12:00 Assessment/Plan POD # 13 exploratory laparotomy, perforated peptic ulcer/ peritonitis/abscess Intra abdominal collection, probable abscess S/P IR drainage wound c/s polmicrobial, including yeast Leukocytosis- improved Continue zosyn/ fluconazole
--- NOTE | 2016-07-05 14:38 | PN ---
Progress Note (short form) - Note Progress Note: Went in to see patient and she told me she does not want me on her case any more. I told her nurse to call in another doctor to see her. Her PCP has been made aware.
[2016-07-06] MEDS: PIPERACILLIN/TAZOB 4.5 GM/100 ML PRE-DOCKED IVPB SCH ×3 (02:16→18:56)
[2016-07-06] MEDS: ALBUTEROL SO4 0.083% IH SOL 2.5 MG/3 ML VIAL.NEB. NEB SCH ×3 (05:54→11:48)
[2016-07-06] MEDS: LEVOTHYROXINE NA 125 MCG TABLET (FP) PO SCH (06:10)
[2016-07-06] MEDS: rOPINIRole HCL 1 MG TABLET (FP) PO SCH ×3 (06:10→22:12)
[2016-07-06] MEDS: morphine CARPU-JECT 4 MG/1 ML DISP.SYRIN IVPB PRN ×3 (06:14→14:45)
[2016-07-06 08:00] LABS: BASOPHIL 3.4 % (0-2.0); EOSINOPHIL 2.5 % (0-4.5); MCH 27.6 pg (25.7-33.7); MCHC 32.6 g/dl (32.0-36.0); MEAN CELL VOLUME 84.5 fl (80-96); MEAN PLT VOLUME 7.6 fl (7.5-11.1); NEUTROPHILS 60.3 % (42.8-82.8); PLATELET COUNT 527 K/MM3 (134-434); RDW 14.1 % (11.6-15.6); WHITE BLOOD COUNT 10.2 K/mm3 (4.0-10.0)
[2016-07-06 08:21] LABS: ALBUMIN 1.9 g/dl (3.4-5.0); ANION GAP 6 (8-16); CALCIUM 8.4 mg/dL (8.5-10.1); CO2 39 mmol/L (21-32); GLUCOSE,RANDOM 98 mg/dL (74-106)
[2016-07-06 08:26] LABS: ALK PHOS 52 U/L (45-117); BILIRUBIN,TOTAL 0.3 mg/dL (0.2-1.0); CREATININE 0.9 mg/dL (0.55-1.02); SGOT/AST 20 U/L (15-37); SGPT/ALT 12 U/L (12-78); TOT PROT 6.7 g/dl (6.4-8.2)
[2016-07-06] MEDS: FLUCONAZOLE 200 MG/D5W 100 ML IVPB SCH (09:50)
[2016-07-06] MEDS: DOCUSATE SODIUM 100 MG CAPSULE (FP) PO SCH (09:50)
[2016-07-06] MEDS: PANTOPRAZOLE 40 MG TABLET (FP) PO SCH ×2 (09:50→22:12)
--- NOTE | 2016-07-06 10:14 | PN ---
Progress Note (short form) - Note Progress Note: note from Dr Smyth appreciated discussed with patient - her cause of perforation was most likely NSAIDS and made clear GI had no responsibility in her case. states had less need for Morphine yesterday -- she was back on full liquid diet still tolerating PO well no N/V no fever or chills CT of abd done last night Vital Signs Period Temp Pulse Resp BP Sys/Regan Pulse Ox Last 24 Hr 98.6 F-99.4 F 68-86 16-20 111-128/55-70 94 neck supple heart reg lung no BS at bases / no wheezing / decreased BS abd soft / tenderness elicited diffusely / BS + Ext no edema Microbiology 07/02/16 11:54 Abscess Gram Stain - Final 07/02/16 11:54 Abscess Body Fluid Culture - Final Klebsiella Oxytoca Enterococcus Faecalis Yeast Like Organism 07/02/16 11:54 Abscess Anaerobic Culture - Final NO ANAEROBES WERE ISOLATED 07/02/16 11:55 Abscess Gram Stain - Final 07/02/16 11:55 Abscess Body Fluid Culture - Final Yeast Like Organism 07/02/16 11:55 Abscess Anaerobic Culture - Final NO ANAEROBES WERE ISOLATED 06/22/16 11:10 Blood - Peripheral Venous Blood Culture - Final NO GROWTH AFTER 5 DAYS INCUBATION 06/22/16 11:05 Blood - Peripheral Venous Blood Culture - Final NO GROWTH AFTER 5 DAYS INCUBATION 06/22/16 17:40 Abscess Gram Stain - Final 06/22/16 17:40 Abscess Wound Culture - Final Klebsiella Oxytoca Staphylococcus Aureus Enterococcus Faecalis 06/22/16 17:40 Peritoneal Fluid Gram Stain - Final 06/22/16 17:40 Peritoneal Fluid Body Fluid Culture - Final Staphylococcus Aureus 06/22/16 17:40 Peritoneal Fluid Anaerobic Culture - Final NO ANAEROBES WERE ISOLATED 06/22/16 14:28 Urine - Urine - Catheterized Urine Culture - Final NO GROWTH OBTAINED Active Medications Albuterol Sulfate (Ventolin 0.083% Nebulizer Soln -) 1 amp NEB QIDR [facility] Last Admin: 07/06/16 05:54 Dose: 1 amp Docusate Sodium (Colace -) 100 mg PO DAILY [facility] Last Admin: 07/06/16 09:50 Dose: 100 mg Fluconazole (Diflucan 200 Mg/D5w Premixed Ivpb -) 100 mls @ 100 mls/hr IVPB DAILY [facility] Last Admin: 07/06/16 09:50 Dose: 100 mls/hr Levothyroxine Sodium (Synthroid -) 125 mcg PO DAILY@0700 [facility] Last Admin: 07/06/16 06:10 Dose: 125 mcg Morphine Sulfate (Morphine Injection -) 4 mg IVPB Q3H PRN PRN Reason: PAIN Last Admin: 07/06/16 08:37 Dose: 4 mg Pantoprazole Sodium (Protonix -) 40 mg PO BID [facility] Last Admin: 07/06/16 09:50 Dose: 40 mg Piperacillin Sod/Tazobactam Sod (Zosyn 4.5gm Ivpb (Pre-Docked)) 4.5 gm IVPB Q8H -IV [facility] Last Admin: 07/06/16 09:52 Dose: 4.5 gm Ropinirole HCl (Requip -) 1 mg PO TID [facility] Last Admin: 07/06/16 06:10 Dose: 1 mg Tiotropium [place] (Spiriva -) 1 puff IH DAILY [facility] Last Admin: 07/05/16 10:23 Dose: 1 puff # abdominal pain requirement for pain meds less on FULL liquid diet remains afebrile / no chills / encourage increased activity repeat CT abd / pelvis done last night -- results pending GI consult requested # s/p drainage of intra abdominal abcess 07/[address] increased abdominal pain Morphine was dose titrated up afebrile # s/p pneumoperitoneum- s/p OR -06/22/16 ex lap -prepyloric ulcer with perforation and intra- abdominal abscess with peritonitis IV fluids / OOB to chair / activity as tolerated cultured reviewed / abx per ID # COPD nebulizer / duoned QID / spiriva/ O2 incentive spirometer increase physical activity as tolerated repeat CXR # DM II has been controlled diet started # restless leg started requip # deconditioning PT for ambulation / ADLs Problem List - Problems (1) Pneumoperitoneum Code(s): K66.8 - OTHER SPECIFIED DISORDERS OF PERITONEUM (2) Abdominal pain Code(s): R10.9 - UNSPECIFIED ABDOMINAL PAIN Qualifiers: Abdominal location: generalized Qualified Code(s): R10.84 - Generalized abdominal pain (3) Diabetes Code(s): E11.9 - TYPE 2 DIABETES MELLITUS WITHOUT COMPLICATIONS (4) COPD (chronic obstructive pulmonary disease) Code(s): J44.9 - CHRONIC OBSTRUCTIVE PULMONARY DISEASE, UNSPECIFIED Qualifiers : COPD type: emphysema
--- NOTE | 2016-07-06 10:41 | PN ---
Progress Note (short form) - Note Progress Note: Awake and alert. Still with some abdominal discomfort. GI here for further evaluation. Denies CP or SOB. Intake & Output 07/03/16 07/04/16 07/05/16 07/06/16 23:59 23:59 23:59 23:59 Intake Total 865 650 750 150 Output Total 20 20 22 20 Balance 845 630 728 130 Weight 190 lb 9 oz 196 lb 3 oz 186 lb 6 oz 189 lb 3 oz Last Vital Signs Temp Pulse Resp BP Pulse Ox 99.4 F 68 20 112/58 94 L 07/06/16 08:04 07/06/16 08:04 07/06/16 08:04 07/06/16 08:04 07/05/16 21:00 Active Medications Albuterol Sulfate (Ventolin 0.083% Nebulizer Soln -) 1 amp NEB QIDR [facility] Last Admin: 07/06/16 05:54 Dose: 1 amp Docusate Sodium (Colace -) 100 mg PO DAILY [facility] Last Admin: 07/06/16 09:50 Dose: 100 mg Fluconazole (Diflucan 200 Mg/D5w Premixed Ivpb -) 100 mls @ 100 mls/hr IVPB DAILY [facility] Last Admin: 07/06/16 09:50 Dose: 100 mls/hr Levothyroxine Sodium (Synthroid -) 125 mcg PO DAILY@0700 [facility] Last Admin: 07/06/16 06:10 Dose: 125 mcg Morphine Sulfate (Morphine Injection -) 4 mg IVPB Q3H PRN PRN Reason: PAIN Last Admin: 07/06/16 08:37 Dose: 4 mg Pantoprazole Sodium (Protonix -) 40 mg PO BID [facility] Last Admin: 07/06/16 09:50 Dose: 40 mg Piperacillin Sod/Tazobactam Sod (Zosyn 4.5gm Ivpb (Pre-Docked)) 4.5 gm IVPB Q8H -IV [facility] Last Admin: 07/06/16 09:52 Dose: 4.5 gm Ropinirole HCl (Requip -) 1 mg PO TID [facility] Last Admin: 07/06/16 06:10 Dose: 1 mg Tiotropium [place] (Spiriva -) 1 puff IH DAILY [facility] Last Admin: 07/05/16 10:23 Dose: 1 puff Gen: NAD at rest Heart: RRR Lung: decreased breath sounds at the bases Abd: soft, mild tenderness to palpation, (+) BS Ext: no edema Laboratory Results - last 24 hr 07/06/16 07/06/16 06:00 06:00 WBC 10.2 H RBC 3.47 L Hgb 9.6 L Hct 29.3 L MCV 84.5 MCHC 32.6 RDW 14.1 Plt Count 527 H MPV 7.6 Neutrophils % 60.3 Lymphocytes % 22.5 D Monocytes % 11.3 H Eosinophils % 2.5 Basophils % 3.4 H Sodium 138 Potassium 4.6 Chloride 93 L Carbon Dioxide 39 H Anion Gap 6 L BUN 5 L D Creatinine 0.9 Creat Clearance w eGFR > 60 Random Glucose 98 Calcium 8.4 L Total Bilirubin 0.3 D AST 20 ALT 12 Alkaline Phosphatase 52 Total Protein 6.7 Albumin 1.9 L ASSESSMENT AND PLAN: Perforated Gastric Ulcer s/p ex-lap/Umair patch repair/abdominal washout 06/23 Peritonitis Severe Sepsis improving Lactic Acidosis resolved Acute Kidney Injury s/p Acute respiratory Failure - O2 to maintain to SpO2 - GI prophylaxis - pain control - incentive spirometry - OOB to chair - DVT/GI prophylaxis - PO as tolerated Dr Jama
--- NOTE | 2016-07-06 11:07 | CON.GI ---
Consult Consult Specialty:: Gastroenterology Referred by:: Dr Harry Reason for Consultation:: Abdominal pain - History of Present Illness Chief Complaint: abdominal pain History of Present Illness: Asked to consult in this 68W after she dismissed Dr Smyth from her care. She has postprandial bilateral abdominal pain described as sharp and colicky. No vomiting. She is s/p plication and omental overlay of a perforated duodenal ulcer by Dr Johnson on 06/22/16. She required additional postoperative drains for lower abdominal/pelvic abscesses. She had been taking multiple NSAIDs prior to her perforation. She is still receiving narcotic analgesics. Although a C section is listed she denies ever having had a previous abdominal surgery. She had a colonoscopy remotely which she reports as having been normal. She has been constipated since admission and feels very bloated. She is s/p a total thyroidectomy with subsequent trachestomy following vocal cord damage at [facility]. Her vocal cord was noted to be paralytic prior to being intubated on 06/22/16 as per the operative report. - History Source History Provided By: Patient Limitations to Obtaining History: No Limitations - Past Medical History Cardio/Vascular: Yes: Hyperlipdemia Pulmonary: Yes: COPD, Sleep Apnea Gastrointestinal: Yes: GERD, Peptic Ulcer Disease (perforated DU plicated ) Hepatobiliary: Yes: Cholelithiasis Renal/: Yes: Renal Calculi ...LMP: 03/09/95 ...: No Musculoskeletal: Yes: Osteoarthritis, Other (cervical radiculopathy) Endocrine: Yes: Hypothyroidism - Past Surgical History Past Surgical History: Yes: Cataract Removal, Colonoscopy (More than 8 years ago , negative) Additional Surgical History: s/p total thyroidectomy for benign condition complicated by vocal cord paralysis requiring tracheostomy creation. s/p right knee makoplasty. s/p laparotomy 06/22/16 for plication and omental patching of perforated duodenal ulcer - Alcohol/Substance Use Hx Alcohol Use: No History of Substance Use: reports: None - Smoking History Smoking history: Former smoker Have you smoked in the past 12 months: No Aproximately how many cigarettes per day: 20 If you are a former smoker, when did you quit?: 2013 - Social History Usual Living Arrangement: Alone ADL: Independent Occupation: unemployed Place of : [facility] History of Recent Travel: No Home Medications - Allergies Allergies/Adverse Reactions: Allergies Allergy/AdvReac Type Severity Reaction Status Date / Time No Known Allergies Allergy Verified 06/22/16 01:33 - Home Medications Home Medications: Ambulatory Orders Alendronate Sodium [Binosto] 70 mg PO WEEKLY 04/19/15 FA/Mv,Ca,Iron,Min/Lycopene/Lut [Centrum Tablet] 1 each PO DAILY 04/19/15 Levothyroxine [Synthroid -] 112 mcg PO DAILY 04/19/15 Meloxicam [Mobic (Nf) -] 15 mg PO DAILY 04/19/15 Oxybutynin Chloride [Ditropan Xl] 5 mg PO DAILY 04/19/15 Potassium Citrate [Potassium Citrate ER] 10 meq PO TID 04/19/15 Pravastatin Sodium [Pravachol -] 80 mg PO HS 04/19/15 Ropinirole HCl 1 mg PO TID 04/19/15 Tiotropium [place] [Spiriva] 1 inh PO DAILY 04/19/15 Ursodiol [Actigal -] 300 mg PO BID #60 capsule 04/22/15 Albuterol 0.083% Nebulizer [place] [Ventolin 0.083% Nebulizer Soln -] 1 amp NEB QID 07/23/15 Diclofenac Sodium 50 mg PO DAILY 07/23/15 Aspirin [ASA -] 325 mg PO DAILY@0800 tablet 07/30/15 Cholecalciferol (Vitamin D3) [Vitamin D3] 50,000 unit PO WEEKLY 04/10/16 Family Disease History - Family Disease History Family Disease History: Heart Disease: Mother (CHF, Hypoglycemia), Other: Father (Alzheimer's), Mother Review of Systems - Review of Systems Constitutional: reports: Weakness Eyes: reports: No Symptoms HENT: reports: No Symptoms Neck: reports: No Symptoms Cardiovascular: reports: No Symptoms Respiratory: reports: No Symptoms Gastrointestinal: reports: Abdominal Pain, Bloating, Constipation Musculoskeletal: reports: Back Pain, Muscle Pain Neurological: reports: No Symptoms Physical Exam-GI Vital Signs: Vital Signs Temperature 99.4 F 07/06/16 08:04 Pulse Rate 68 07/06/16 08:04 Respiratory Rate 20 07/06/16 08:04 Blood Pressure 112/58 07/06/16 08:04 O2 Sat by Pulse Oximetry (%) 94 L 07/05/16 21:00 Constitutional: Yes: Anxious Eyes: Yes: Conjunctiva Clear HENT: Yes: Atraumatic Neck: Yes: Supple, Other (healed trach and thyroidectomy inicisions) Cardiovascular: Yes: Regular Rate and Rhythm Respiratory: Yes: CTA Bilaterally Gastrointestinal Inspection: Yes: Distention, Scars (healing clean vertical upper midline incision, no fluctuance) ...Auscultate: Yes: Normoactive Bowel Sounds ...Palpate: Yes: Soft, Other (mild samantha-incicional tenderness) ...Percussion: Yes: Tympanitic ...Rectal Exam: Yes: Guaiac Positive (no masses, brown hard stool) Labs: CBC, BMP 07/06/16 06:00 07/06/16 06:00 INR, PTT INR 1.21 (0.82-1.09) H 06/22/16 12:00 Imaging - Results Cat Scan: Image Reviewed (CT reviewed with Dr Núñez. Collections associated with RLQ and buttock drains are resolved. There are a right perinephric and right upper paramedian ventral collections which are decerased since previous CT. Pancreas WNL. 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 Advised minimizing her narcotic usage and increasing mobilization. Will start Miralax. Continue PPI. Will advance diet. Do not believe that the gallstones are symptomatic but if pain persists will consider Hida scan
[2016-07-06] MEDS ORDERED: PT OWN MED DRAWER 7, Y5N ONE ×2 (14:37→19:01)
[2016-07-06] MEDS: TIOTROPIUM BROMIDE 18 MCG/INH (DEVICE W/ 5 CAPSULES) IH SCH (14:46)
[2016-07-06] MEDS: morphine CARPU-JECT 2 MG/1 ML DISP.SYRIN IVPB PRN (20:25)
[2016-07-06] MEDS: POLYETHYLENE GLYCOL 3350 119 GM BTL PO SCH (22:13)
[2016-07-07] MEDS: PIPERACILLIN/TAZOB 4.5 GM/100 ML PRE-DOCKED IVPB SCH ×3 (01:29→17:43)
[2016-07-07] MEDS: morphine CARPU-JECT 2 MG/1 ML DISP.SYRIN IVPB PRN ×2 (06:49→13:43)
[2016-07-07] MEDS: LEVOTHYROXINE NA 125 MCG TABLET (FP) PO SCH (06:50)
[2016-07-07] MEDS: rOPINIRole HCL 1 MG TABLET (FP) PO SCH ×3 (06:50→22:49)
[2016-07-07 07:44] LABS: BASOPHIL 1.2 % (0-2.0); EOSINOPHIL 2.9 % (0-4.5); MCH 27.4 pg (25.7-33.7); MCHC 32.3 g/dl (32.0-36.0); MEAN PLT VOLUME 8.1 fl (7.5-11.1); PLATELET COUNT 595 K/MM3 (134-434); RDW 14.1 % (11.6-15.6); WHITE BLOOD COUNT 9.5 K/mm3 (4.0-10.0)
[2016-07-07 08:22] LABS: CALCIUM 9.4 mg/dL (8.5-10.1); COCKROFT - GAULT 84.6005; CREATININE 0.9 mg/dL (0.55-1.02); MAGNESIUM 2.5 mg/dL (1.8-2.4); PHOSPHOROUS 4.4 mg/dL (2.5-4.9)
--- NOTE | 2016-07-07 09:54 | PN ---
Progress Note (short form) - Note Progress Note: GI note appreciated Patient has been instructed to inc activity as tolerated and has also PT assitance for inc activity She has also been told multiple times to decrease pain meds -- I agree inc pain meds have made her pain worse. Today has had multiple BM / still with pain going to radiology for FUA now Has been tplerating diet well /denies Nausea/ vomiting / remains afebrile Vital Signs Period Temp Pulse Resp BP Sys/Regan Pulse Ox Last 24 Hr 98.5 F-99.8 F 66-92 16-20 117-135/53-66 98 neck supple heart reg lungs improved BS / still decreased lower bases abd distended / soft / diffusely tender / no guarding ext no edema / no calf tenderness Active Medications Fluconazole (Diflucan 200 Mg/D5w Premixed Ivpb -) 100 mls @ 100 mls/hr IVPB DAILY [facility] Last Admin: 07/06/16 09:50 Dose: 100 mls/hr Levothyroxine Sodium (Synthroid -) 125 mcg PO DAILY@0700 [facility] Last Admin: 07/07/16 06:50 Dose: 125 mcg Morphine Sulfate (Morphine Injection -) 2 mg IVPB Q4H PRN PRN Reason: PAIN Last Admin: 07/07/16 06:49 Dose: 2 mg Pantoprazole Sodium (Protonix -) 40 mg PO BID [facility] Last Admin: 07/06/16 22:12 Dose: 40 mg Piperacillin Sod/Tazobactam Sod (Zosyn 4.5gm Ivpb (Pre-Docked)) 4.5 gm IVPB Q8H -IV [facility] Last Admin: 07/07/16 01:29 Dose: 4.5 gm Polyethylene Glycol (Miralax (For Daily Use) -) 17 gm PO BID [facility] Last Admin: 07/06/16 22:13 Dose: Not Given Ropinirole HCl (Requip -) 1 mg PO TID [facility] Last Admin: 07/07/16 06:50 Dose: 1 mg Tiotropium [place] (Spiriva -) 1 puff IH DAILY [facility] Last Admin: 07/06/16 14:46 Dose: 1 puff # abdominal pain remains afebrile / no chills / encourage increased activity repeat CT discussed with GI / today for FUA # s/p drainage of intra abdominal abcess 4/26 CT show decreased collection one drain in place Morphine decreased to 2mg q4 afebrile # s/p pneumoperitoneum- s/p OR -06/22/16 ex lap -prepyloric ulcer with perforation and intra- abdominal abscess with peritonitis IV fluids / OOB to chair / activity as tolerated cultured reviewed / abx per ID # COPD nebulizer / duoned QID / spiriva/ O2 incentive spirometer increase physical activity as tolerated # DM II has been controlled diet started # restless leg started requip Problem List - Problems (1) Pneumoperitoneum Code(s): K66.8 - OTHER SPECIFIED DISORDERS OF PERITONEUM (2) Abdominal pain Code(s): R10.9 - UNSPECIFIED ABDOMINAL PAIN Qualifiers: Abdominal location: generalized Qualified Code(s): R10.84 - Generalized abdominal pain (3) Diabetes Code(s): E11.9 - TYPE 2 DIABETES MELLITUS WITHOUT COMPLICATIONS (4) COPD (chronic obstructive pulmonary disease) Code(s): J44.9 - CHRONIC OBSTRUCTIVE PULMONARY DISEASE, UNSPECIFIED Qualifiers : COPD type: emphysema
[2016-07-07] MEDS: PANTOPRAZOLE 40 MG TABLET (FP) PO SCH ×2 (10:41→22:49)
[2016-07-07] MEDS: POLYETHYLENE GLYCOL 3350 119 GM BTL PO SCH ×2 (10:41→22:48)
[2016-07-07] MEDS: FLUCONAZOLE 200 MG/D5W 100 ML IVPB SCH (10:41)
--- NOTE | 2016-07-07 11:49 | PN ---
Progress Note (short form) - Note Progress Note: doing well +BM today Vital Signs Period Temp Pulse Resp BP Sys/Regan Pulse Ox Last 24 Hr 98.5 F-99.8 F 66-92 16-20 117-135/53-66 98 cor-rrr lungs clear abd soft, nt nile intact no drainage from incision +drains (2) ext no edema CBC, BMP 07/07/16 06:00 07/07/16 06:00 Microbiology 07/02/16 11:54 Gram Stain - Final Abscess Body Fluid Culture - Final Klebsiella Oxytoca Enterococcus Faecalis Yeast Like Organism Anaerobic Culture - Final NO ANAEROBES WERE ISOLATED Current Medications Fluconazole (Diflucan 200 Mg/D5w Premixed Ivpb -) 100 mls @ 100 mls/hr IVPB DAILY [facility] Last Admin: 07/07/16 10:41 Dose: 100 mls/hr Levothyroxine Sodium (Synthroid -) 125 mcg PO DAILY@0700 [facility] Last Admin: 07/07/16 06:50 Dose: 125 mcg Morphine Sulfate (Morphine Injection -) 2 mg IVPB Q4H PRN PRN Reason: PAIN Last Admin: 07/07/16 06:49 Dose: 2 mg Pantoprazole Sodium (Protonix -) 40 mg PO BID [facility] Last Admin: 07/07/16 10:41 Dose: 40 mg Piperacillin Sod/Tazobactam Sod (Zosyn 4.5gm Ivpb (Pre-Docked)) 4.5 gm IVPB Q8H -IV [facility] Last Admin: 07/07/16 10:41 Dose: 4.5 gm Polyethylene Glycol (Miralax (For Daily Use) -) 17 gm PO BID [facility] Last Admin: 07/07/16 10:41 Dose: 17 gm Ropinirole HCl (Requip -) 1 mg PO TID [facility] Last Admin: 07/07/16 06:50 Dose: 1 mg Tiotropium [place] (Spiriva -) 1 puff IH DAILY [facility] Last Admin: 07/06/16 14:46 Dose: 1 puff a/p s/p IR drainage of of intra-abdominal abscess 07/02- original surgery 06/22 continue zosyn/diflucan constipation - improved Problem List - Problems (1) Perforated viscus Code(s): R19.8 - OTH SYMPTOMS AND SIGNS INVOLVING THE DGSTV SYS AND ABDOMEN (2) Peritonitis Code(s): K65.9 - PERITONITIS, UNSPECIFIED
--- NOTE | 2016-07-07 11:58 | PN ---
Progress Note (short form) - Note Progress Note: Awake and alert. Abdominal discomfort slowly improving. Tolerating PO intake. Some dry cough. Intake & Output 07/04/16 07/05/16 07/06/16 07/07/16 23:59 23:59 23:59 23:59 Intake Total 650 750 750 200 Output Total 20 22 27 Balance 630 728 723 200 Weight 196 lb 3 oz 186 lb 6 oz 189 lb 3 oz 197 lb 8 oz Last Vital Signs Temp Pulse Resp BP Pulse Ox 99.4 F 68 20 135/57 98 07/07/16 06:00 07/07/16 06:00 07/07/16 06:00 07/07/16 06:00 07/06/16 21:00 Active Medications Fluconazole (Diflucan 200 Mg/D5w Premixed Ivpb -) 100 mls @ 100 mls/hr IVPB DAILY [facility] Last Admin: 07/07/16 10:41 Dose: 100 mls/hr Levothyroxine Sodium (Synthroid -) 125 mcg PO DAILY@0700 [facility] Last Admin: 07/07/16 06:50 Dose: 125 mcg Morphine Sulfate (Morphine Injection -) 2 mg IVPB Q4H PRN PRN Reason: PAIN Last Admin: 07/07/16 06:49 Dose: 2 mg Pantoprazole Sodium (Protonix -) 40 mg PO BID [facility] Last Admin: 07/07/16 10:41 Dose: 40 mg Piperacillin Sod/Tazobactam Sod (Zosyn 4.5gm Ivpb (Pre-Docked)) 4.5 gm IVPB Q8H -IV [facility] Last Admin: 07/07/16 10:41 Dose: 4.5 gm Polyethylene Glycol (Miralax (For Daily Use) -) 17 gm PO BID [facility] Last Admin: 07/07/16 10:41 Dose: 17 gm Ropinirole HCl (Requip -) 1 mg PO TID [facility] Last Admin: 07/07/16 06:50 Dose: 1 mg Tiotropium [place] (Spiriva -) 1 puff IH DAILY [facility] Last Admin: 07/06/16 14:46 Dose: 1 puff Gen: NAD at rest Heart: RRR Lung: decreased breath sounds at the bases Abd: soft, mild tenderness to palpation, (+) BS Ext: no edema Laboratory Results - last 24 hr 07/07/16 07/07/16 06:00 06:00 WBC 9.5 RBC 3.97 Hgb 10.9 D Hct 33.7 D MCV 85.0 MCHC 32.3 RDW 14.1 Plt Count 595 H MPV 8.1 Neutrophils % 62.0 Lymphocytes % 24.0 Monocytes % 9.9 Eosinophils % 2.9 Basophils % 1.2 Sodium 137 Potassium 4.3 Chloride 92 L Carbon Dioxide 33 H Anion Gap 12 BUN 8 D Creatinine 0.9 Random Glucose 82 Calcium 9.4 Phosphorus 4.4 Magnesium 2.5 H ASSESSMENT AND PLAN: Perforated Gastric Ulcer s/p ex-lap/Umair patch repair/abdominal washout 06/23 Peritonitis Severe Sepsis improving Lactic Acidosis resolved Acute Kidney Injury s/p Acute respiratory Failure - O2 to maintain to SpO2 - GI prophylaxis - pain control - incentive spirometry - OOB to chair - DVT/GI prophylaxis - PO as tolerated Dr Jama
[2016-07-07] MEDS ORDERED: PT OWN MED DRAWER 7, Y5N ONE ×2 (13:40→20:31)
[2016-07-07] MEDS: TIOTROPIUM BROMIDE 18 MCG/INH (DEVICE W/ 5 CAPSULES) IH SCH (13:43)
--- NOTE | 2016-07-07 16:17 | PN ---
Progress Note, Physician - Current Medication List Current Medications: Active Medications Fluconazole (Diflucan 200 Mg/D5w Premixed Ivpb -) 100 mls @ 100 mls/hr IVPB DAILY [facility] Last Admin: 07/07/16 10:41 Dose: 100 mls/hr Levothyroxine Sodium (Synthroid -) 125 mcg PO DAILY@0700 [facility] Last Admin: 07/07/16 06:50 Dose: 125 mcg Morphine Sulfate (Morphine Injection -) 2 mg IVPB Q4H PRN PRN Reason: PAIN Last Admin: 07/07/16 13:43 Dose: 2 mg Pantoprazole Sodium (Protonix -) 40 mg PO BID [facility] Last Admin: 07/07/16 10:41 Dose: 40 mg Piperacillin Sod/Tazobactam Sod (Zosyn 4.5gm Ivpb (Pre-Docked)) 4.5 gm IVPB Q8H -IV [facility] Last Admin: 07/07/16 10:41 Dose: 4.5 gm Polyethylene Glycol (Miralax (For Daily Use) -) 17 gm PO BID [facility] Last Admin: 07/07/16 10:41 Dose: 17 gm Ropinirole HCl (Requip -) 1 mg PO TID [facility] Last Admin: 07/07/16 13:43 Dose: 1 mg Tiotropium [place] (Spiriva -) 1 puff IH DAILY [facility] Last Admin: 07/07/16 13:43 Dose: 1 puff - Objective Vital Signs: Vital Signs Temperature 98.9 F 07/07/16 14:40 Pulse Rate 69 07/07/16 14:40 Respiratory Rate 18 07/07/16 14:40 Blood Pressure 103/63 07/07/16 14:40 O2 Sat by Pulse Oximetry (%) 95 07/07/16 09:00 Labs: CBC, BMP 07/07/16 06:00 07/07/16 06:00 INR, PTT INR 1.21 (0.82-1.09) H 06/22/16 12:00 Problem List - Problems (1) Perforated viscus Code(s): R19.8 - OTH SYMPTOMS AND SIGNS INVOLVING THE DGSTV SYS AND ABDOMEN (2) Pneumoperitoneum Code(s): K66.8 - OTHER SPECIFIED DISORDERS OF PERITONEUM (3) Surgical pneumoperitoneum Code(s): K66.8 - OTHER SPECIFIED DISORDERS OF PERITONEUM (4) Abdominal pain Code(s): R10.9 - UNSPECIFIED ABDOMINAL PAIN Qualifiers: Abdominal location: generalized Qualified Code(s): R10.84 - Generalized abdominal pain (5) Abnormal EKG Code(s): R94.31 - ABNORMAL ELECTROCARDIOGRAM [ECG] [EKG] (6) Gallstone Code(s): K80.20 - CALCULUS OF GALLBLADDER W/O CHOLECYSTITIS W/O OBSTRUCTION Qualifiers: Cholecystitis presence: without cholecystitis Biliary obstruction: without biliary obstruction Qualified Code(s): K80.20 - Calculus of gallbladder without cholecystitis without obstruction (7) SOB (shortness of breath) Code(s): R06.02 - SHORTNESS OF BREATH (8) COPD (chronic obstructive pulmonary disease) Code(s): J44.9 - CHRONIC OBSTRUCTIVE PULMONARY DISEASE, UNSPECIFIED Qualifiers : COPD type: emphysema Assessment/Plan Drainage catheters are not draining, will request radiology to remove the catheter. All skin nile are removed. Wound is healing well. Having bowel movements. WBC is normal.
[2016-07-08] MEDS: PIPERACILLIN/TAZOB 4.5 GM/100 ML PRE-DOCKED IVPB SCH ×2 (02:34→10:41)
[2016-07-08] MEDS: morphine CARPU-JECT 2 MG/1 ML DISP.SYRIN IVPB PRN ×4 (04:49→23:36)
[2016-07-08] MEDS ORDERED: PT OWN MED DRAWER 7, Y5N ONE ×2 (06:50→16:20)
[2016-07-08] MEDS: rOPINIRole HCL 1 MG TABLET (FP) PO SCH ×3 (06:53→21:39)
[2016-07-08] MEDS: LEVOTHYROXINE NA 125 MCG TABLET (FP) PO SCH (06:53)
[2016-07-08] MEDS: POLYETHYLENE GLYCOL 3350 119 GM BTL PO SCH ×3 (10:00→21:38)
[2016-07-08] MEDS: PANTOPRAZOLE 40 MG TABLET (FP) PO SCH ×2 (10:00→21:38)
--- NOTE | 2016-07-08 11:11 | PN ---
Progress Note (short form) - Note Progress Note: Subjective: The patient was seen and examined at the bedside, she has no complaints at this time. She states passing gas and having bowel movements. She states she would like to discuss her discharge with top case assembler. Current Medications Generic Name Dose Route Start Last Admin Trade Name Freq PRN Reason Stop Dose Admin Fluconazole 100 mls @ 100 mls/hr 07/04/16 14:45 07/07/16 10:41 Diflucan 200 Mg/D5w Premixed Ivpb - IVPB 100 mls/hr DAILY [facility] Administration Levothyroxine Sodium 125 mcg 06/30/16 07:00 07/08/16 06:53 Synthroid - PO 125 mcg DAILY@0700 K[facility] Administration Morphine Sulfate 2 mg 07/06/16 19:51 07/08/16 10:00 Morphine Injection - IVPB 2 mg Q4H PRN Administration PAIN Pantoprazole Sodium 40 mg 06/29/16 13:45 07/08/16 10:00 Protonix - PO 40 mg BID KARIE Administration Piperacillin Sod/Tazobactam Sod 4.5 gm 07/01/16 18:00 07/08/16 10:41 Zosyn 4.5gm Ivpb (Pre-Docked) IVPB 4.5 gm Q8H-IV KARIE Administration Polyethylene Glycol 17 gm 07/06/16 22:00 07/08/16 10:41 Miralax (For Daily Use) - PO Not Given BID KARIE Ropinirole HCl 1 mg 06/29/16 22:00 07/08/16 06:53 Requip - PO 1 mg TID KARIE Administration Tiotropium [place] 1 puff 07/01/16 10:00 07/07/16 13:43 Spiriva - IH 1 puff DAILY [facility]ARIE Administration Objective: Vital Signs Period Temp Pulse Resp BP Sys/Regan Pulse Ox Last 24 Hr 98.5 F-99.4 F 66-69 18-20 103-134/56-63 95 Physical Exam: General: NAD, A&Ox3 Lungs: CTA bilaterally Heart: RRR, S1S2 Abd: Midline abdominal incision, c/d/i, some dried blood. RLQ drain with no drainage. Non-tender, non-distended. RITIKA drain from buttock, no drainage Ext: Warm, well-perfused. 2+ DP/PT bilaterally Neuro: CN 2-12 intact CBCD WBC 9.5 K/mm3 (4.0-10.0) 07/07/16 06:00 RBC 3.97 M/mm3 (3.60-5.2) 07/07/16 06:00 Hgb 10.9 GM/dL (10.7-15.3) D 07/07/16 06:00 Hct 33.7 % (32.4-45.2) D 07/07/16 06:00 MCV 85.0 fl (80-96) 07/07/16 06:00 MCHC 32.3 g/dl (32.0-36.0) 07/07/16 06:00 RDW 14.1 % (11.6-15.6) 07/07/16 06:00 Plt Count 595 K/MM3 (134-434) H 07/07/16 06:00 MPV 8.1 fl (7.5-11.1) 07/07/16 06:00 CMP Sodium 137 mmol/L (136-145) 07/07/16 06:00 Potassium 4.3 mmol/L (3.5-5.1) 07/07/16 06:00 Chloride 92 mmol/L (98-107) L 07/07/16 06:00 Carbon Dioxide 33 mmol/L (21-32) H 07/07/16 06:00 Anion Gap 12 (8-16) 07/07/16 06:00 BUN 8 mg/dL (7-18) D 07/07/16 06:00 Creatinine 0.9 mg/dL (0.55-1.02) 07/07/16 06:00 Creat Clearance w eGFR > 60 (>60) 07/06/16 06:00 Random Glucose 82 mg/dL (74-106) 07/07/16 06:00 Calcium 9.4 mg/dL (8.5-10.1) 07/07/16 06:00 Total Bilirubin 0.3 mg/dL (0.2-1.0) D 07/06/16 06:00 AST 20 U/L (15-37) 07/06/16 06:00 ALT 12 U/L (12-78) 07/06/16 06:00 Alkaline Phosphatase 52 U/L (45-117) 07/06/16 06:00 Total Protein 6.7 g/dl (6.4-8.2) 07/06/16 06:00 Albumin 1.9 g/dl (3.4-5.0) L 07/06/16 06:00 Microbiology 07/02/16 11:54 Abscess Gram Stain - Final 07/02/16 11:54 Abscess Body Fluid Culture - Final Klebsiella Oxytoca Enterococcus Faecalis Yeast Like Organism 07/02/16 11:54 Abscess Anaerobic Culture - Final NO ANAEROBES WERE ISOLATED 07/02/16 11:55 Abscess Gram Stain - Final 07/02/16 11:55 Abscess Body Fluid Culture - Final Yeast Like Organism 07/02/16 11:55 Abscess Anaerobic Culture - Final NO ANAEROBES WERE ISOLATED 06/22/16 11:10 Blood - Peripheral Venous Blood Culture - Final NO GROWTH AFTER 5 DAYS INCUBATION 06/22/16 11:05 Blood - Peripheral Venous Blood Culture - Final NO GROWTH AFTER 5 DAYS INCUBATION 06/22/16 17:40 Abscess Gram Stain - Final 06/22/16 17:40 Abscess Wound Culture - Final Klebsiella Oxytoca Staphylococcus Aureus Enterococcus Faecalis 06/22/16 17:40 Peritoneal Fluid Gram Stain - Final 06/22/16 17:40 Peritoneal Fluid Body Fluid Culture - Final Staphylococcus Aureus 06/22/16 17:40 Peritoneal Fluid Anaerobic Culture - Final NO ANAEROBES WERE ISOLATED 06/22/16 14:28 Urine - Urine - Catheterized Urine Culture - Final NO GROWTH OBTAINED Assessment: This is a 66 year old female with PMHx of hyperlipidemia, COPD on O2 at home, 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 Plan: 1) GI: Abdominal pain, s/p pneumoperitoneum exlap 06/22, and IR drainage of intraabdominal abscess on 07/02 - 06/22: ex-lap for perforated viscous, pre pyloric ulcer noted, abdominal washout for peritonitis. Vocal cord paralysis noted - RLQ drain and buttock drain in place, not draining - Pain management - Marana removed 07/07 - Having bowel movements - Continue Zosyn - Continue Diflucan - OOB ambulating - CTAP 07/05, awaiting report in [facility] - Appreciate surgery consult - Appreciate GI consult 2) Pulmonary: COPD - NO active issues - O2 via nc - Albuterol nebs - Spiriva - Appreciate pulmonary consult 3) F/E/N: - Diabetic diet - Monitor electrolytes 4) Prophylaxis: - Heparin 5,000u sq tid - PT 5) Dispo: - Will need SNF placement once IV abx switched to oral CODE STATUS: FULL CODE Visit type - Emergency Visit Emergency Visit: Yes ED Registration Date: 06/22/16 Care time: The patient presented to the Emergency Department on the above date and was hospitalized for further evaluation of their emergent condition. - New Patient This patient is new to me today: Yes Date on this admission: 07/08/16 - Critical Care Critical Care patient: No
--- NOTE | 2016-07-08 11:54 | PN ---
Progress Note (short form) - Note Progress Note: Awake and alert. No acute events overnight. Tolerating PO intake. Some dry cough. Intake & Output 07/05/16 07/06/16 07/07/16 07/08/16 23:59 23:59 23:59 23:59 Intake Total 750 750 500 Output Total 22 27 Balance 728 723 500 Weight 186 lb 6 oz 189 lb 3 oz 197 lb 8 oz 196 lb 6.4 oz Last Vital Signs Temp Pulse Resp BP Pulse Ox 98.5 F 67 20 130/60 95 07/08/16 06:00 07/08/16 06:00 07/08/16 06:00 07/08/16 06:00 07/07/16 21:00 Active Medications Fluconazole (Diflucan 200 Mg/D5w Premixed Ivpb -) 100 mls @ 100 mls/hr IVPB DAILY [facility] Last Admin: 07/07/16 10:41 Dose: 100 mls/hr Levothyroxine Sodium (Synthroid -) 125 mcg PO DAILY@0700 [facility] Last Admin: 07/08/16 06:53 Dose: 125 mcg Morphine Sulfate (Morphine Injection -) 2 mg IVPB Q4H PRN PRN Reason: PAIN Last Admin: 07/08/16 10:00 Dose: 2 mg Pantoprazole Sodium (Protonix -) 40 mg PO BID [facility] Last Admin: 07/08/16 10:00 Dose: 40 mg Piperacillin Sod/Tazobactam Sod (Zosyn 4.5gm Ivpb (Pre-Docked)) 4.5 gm IVPB Q8H -IV [facility] Last Admin: 07/08/16 10:41 Dose: 4.5 gm Polyethylene Glycol (Miralax (For Daily Use) -) 17 gm PO BID [facility] Last Admin: 07/08/16 10:41 Dose: Not Given Ropinirole HCl (Requip -) 1 mg PO TID [facility] Last Admin: 07/08/16 06:53 Dose: 1 mg Tiotropium [place] (Spiriva -) 1 puff IH DAILY [facility] Last Admin: 07/07/16 13:43 Dose: 1 puff Gen: NAD at rest Heart: RRR Lung: decreased breath sounds at the bases Abd: soft, minimal tenderness to palpation, (+) BS Ext: no edema ASSESSMENT AND PLAN: Perforated Gastric Ulcer s/p ex-lap/Umair patch repair/abdominal washout 4/17 Peritonitis Severe Sepsis improving Lactic Acidosis resolved Acute Kidney Injury s/p Acute respiratory Failure - O2 to maintain to SpO2 - GI prophylaxis - pain control - incentive spirometry - OOB to chair - DVT/GI prophylaxis - PO as tolerated - D/C planning Dr Jama
[2016-07-08] MEDS: FLUCONAZOLE 200 MG/D5W 100 ML IVPB SCH (11:55)
[2016-07-08] MEDS: TIOTROPIUM BROMIDE 18 MCG/INH (DEVICE W/ 5 CAPSULES) IH SCH (12:22)
--- NOTE | 2016-07-08 16:22 | PN ---
Progress Note, Physician History of Present Illness: No c/o abdominal pain Tolerating diet Drains removed + BMs Afebrile WBC WNL - Current Medication List Current Medications: Active Medications Albuterol Sulfate (Ventolin 0.083% Nebulizer Soln -) 1 amp NEB Q6H PRN PRN Reason: SHORT OF BREATH/WHEEZING Heparin Sodium (Porcine) (Heparin -) 5,000 unit SQ TID [facility] Fluconazole (Diflucan 200 Mg/D5w Premixed Ivpb -) 100 mls @ 100 mls/hr IVPB DAILY [facility] Last Admin: 07/08/16 11:55 Dose: 100 mls/hr Levothyroxine Sodium (Synthroid -) 125 mcg PO DAILY@0700 [facility] Last Admin: 07/08/16 06:53 Dose: 125 mcg Morphine Sulfate (Morphine Injection -) 2 mg IVPB Q4H PRN PRN Reason: PAIN Last Admin: 07/08/16 10:00 Dose: 2 mg Pantoprazole Sodium (Protonix -) 40 mg PO BID [facility] Last Admin: 07/08/16 10:00 Dose: 40 mg Piperacillin Sod/Tazobactam Sod (Zosyn 4.5gm Ivpb (Pre-Docked)) 4.5 gm IVPB Q8H -IV [facility] Last Admin: 07/08/16 10:41 Dose: 4.5 gm Polyethylene Glycol (Miralax (For Daily Use) -) 17 gm PO BID [facility] Last Admin: 07/08/16 10:41 Dose: Not Given Ropinirole HCl (Requip -) 1 mg PO TID [facility] Last Admin: 07/08/16 06:53 Dose: 1 mg Tiotropium [place] (Spiriva -) 1 puff IH DAILY [facility] Last Admin: 07/08/16 12:22 Dose: 1 puff - Objective Vital Signs: Vital Signs Temperature 98.6 F 07/08/16 15:26 Pulse Rate 72 07/08/16 15:26 Respiratory Rate 18 07/08/16 15:26 Blood Pressure 130/60 07/08/16 06:00 O2 Sat by Pulse Oximetry (%) 94 L 07/08/16 09:00 Constitutional: Yes: No Distress Eyes: Yes: Conjunctiva Clear Cardiovascular: Yes: Regular Rate and Rhythm, S1, S2 Respiratory: Yes: CTA Bilaterally Gastrointestinal: Yes: Normal Bowel Sounds, Soft. No: Tenderness Edema: No Labs: CBC, BMP 07/07/16 06:00 07/07/16 06:00 INR, PTT INR 1.21 (0.82-1.09) H 06/22/16 12:00 Assessment/Plan Post op exploratory laparotomy, perforated peptic ulcer/ peritonitis/abscess Intra abdominal collection, probable abscess S/P IR drainage wound c/s polmicrobial, including yeast Leukocytosis- resolved D/C antibiotics,observe
[2016-07-08] MEDS: HEPARIN NA (PORCINE) 5,000 UNITS/ML 1ML VIAL SQ SCH ×2 (16:25→21:39)
[2016-07-08] MEDS: ALBUTEROL SO4 0.083% IH SOL 2.5 MG/3 ML VIAL.NEB. NEB PRN (18:45)
[2016-07-09] MEDS: ALBUTEROL SO4 0.083% IH SOL 2.5 MG/3 ML VIAL.NEB. NEB PRN ×4 (06:10→18:45)
[2016-07-09] MEDS: HEPARIN NA (PORCINE) 5,000 UNITS/ML 1ML VIAL SQ SCH ×3 (06:40→22:15)
[2016-07-09] MEDS: LEVOTHYROXINE NA 125 MCG TABLET (FP) PO SCH (06:40)
[2016-07-09] MEDS: rOPINIRole HCL 1 MG TABLET (FP) PO SCH ×3 (06:40→22:15)
[2016-07-09] MEDS ORDERED: PT OWN MED DRAWER 7, Y5N ONE ×5 (07:18→22:25)
[2016-07-09] MEDS: morphine CARPU-JECT 2 MG/1 ML DISP.SYRIN IVPB PRN ×2 (07:56→14:45)
[2016-07-09] MEDS: POLYETHYLENE GLYCOL 3350 119 GM BTL PO SCH ×2 (10:17→22:18)
[2016-07-09] MEDS: PANTOPRAZOLE 40 MG TABLET (FP) PO SCH ×2 (10:17→22:15)
[2016-07-09] MEDS: TIOTROPIUM BROMIDE 18 MCG/INH (DEVICE W/ 5 CAPSULES) IH SCH (10:17)
--- NOTE | 2016-07-09 11:25 | PN ---
[id number] bedside, she reports some LLQ sharp pain that comes and goes. She reports an increase in flatus Awaiting surgery evaluation prior to discharge Drains pulled yesterday Abx stopped yesterday Current Medications Generic Name Dose Route Start Last Admin Trade Name Freq PRN Reason Stop Dose Admin Albuterol Sulfate 1 amp 07/08/16 12:03 07/09/16 06:10 Ventolin 0.083% Nebulizer Soln - NEB 1 amp Q6H PRN Administration SHORT OF BREATH/WHEEZING Heparin Sodium (Porcine) 5,000 unit 07/08/16 14:00 07/09/16 06:40 Heparin - SQ 5,000 unit TID KARIE Administration Levothyroxine Sodium 125 mcg 06/30/16 07:00 07/09/16 06:40 Synthroid - PO 125 mcg DAILY@0700 [facility]IE Administration Morphine Sulfate 2 mg 07/06/16 19:51 07/09/16 07:56 Morphine Injection - IVPB 2 mg Q4H PRN Administration PAIN Pantoprazole Sodium 40 mg 06/29/16 13:45 07/09/16 10:17 Protonix - PO 40 mg BID KARIE Administration Polyethylene Glycol 17 gm 07/06/16 22:00 07/09/16 10:17 Miralax (For Daily Use) - PO Not Given BID KARIE Ropinirole HCl 1 mg 06/29/16 22:00 07/09/16 06:40 Requip - PO 1 mg TID KARIE Administration Tiotropium [place] 1 puff 07/01/16 10:00 07/09/16 10:17 Spiriva - IH 1 puff DAILY KARIE Administration Objective: Vital Signs Period Temp Pulse Resp BP Sys/Regan Pulse Ox Last 24 Hr 98.6 F-99.7 F 68-74 18-20 126-152/60-73 Physical Exam: General: NAD, A&Ox3 Lungs: CTA bilaterally Heart: RRR, S1S2 Abd: Midline abdominal incision, c/d/i, some dried blood. Non-tender, non- distended Ext: Warm, well-perfused. 2+ DP/PT bilaterally Neuro: CN 2-12 intact CBCD WBC 9.5 K/mm3 (4.0-10.0) 07/07/16 06:00 RBC 3.97 M/mm3 (3.60-5.2) 07/07/16 06:00 Hgb 10.9 GM/dL (10.7-15.3) D 07/07/16 06:00 Hct 33.7 % (32.4-45.2) D 07/07/16 06:00 MCV 85.0 fl (80-96) 07/07/16 06:00 MCHC 32.3 g/dl (32.0-36.0) 07/07/16 06:00 RDW 14.1 % (11.6-15.6) 07/07/16 06:00 Plt Count 595 K/MM3 (134-434) H 07/07/16 06:00 MPV 8.1 fl (7.5-11.1) 07/07/16 06:00 CMP Sodium 137 mmol/L (136-145) 07/07/16 06:00 Potassium 4.3 mmol/L (3.5-5.1) 07/07/16 06:00 Chloride 92 mmol/L (98-107) L 07/07/16 06:00 Carbon Dioxide 33 mmol/L (21-32) H 07/07/16 06:00 Anion Gap 12 (8-16) 07/07/16 06:00 BUN 8 mg/dL (7-18) D 07/07/16 06:00 Creatinine 0.9 mg/dL (0.55-1.02) 07/07/16 06:00 Creat Clearance w eGFR > 60 (>60) 07/06/16 06:00 Random Glucose 82 mg/dL (74-106) 07/07/16 06:00 Calcium 9.4 mg/dL (8.5-10.1) 07/07/16 06:00 Total Bilirubin 0.3 mg/dL (0.2-1.0) D 07/06/16 06:00 AST 20 U/L (15-37) 07/06/16 06:00 ALT 12 U/L (12-78) 07/06/16 06:00 Alkaline Phosphatase 52 U/L (45-117) 07/06/16 06:00 Total Protein 6.7 g/dl (6.4-8.2) 07/06/16 06:00 Albumin 1.9 g/dl (3.4-5.0) L 07/06/16 06:00 Microbiology 07/02/16 11:54 Abscess Gram Stain - Final 07/02/16 11:54 Abscess Body Fluid Culture - Final Klebsiella Oxytoca Enterococcus Faecalis Yeast Like Organism 07/02/16 11:54 Abscess Anaerobic Culture - Final NO ANAEROBES WERE ISOLATED 07/02/16 11:55 Abscess Gram Stain - Final 07/02/16 11:55 Abscess Body Fluid Culture - Final Yeast Like Organism 07/02/16 11:55 Abscess Anaerobic Culture - Final NO ANAEROBES WERE ISOLATED 06/22/16 11:10 Blood - Peripheral Venous Blood Culture - Final NO GROWTH AFTER 5 DAYS INCUBATION 06/22/16 11:05 Blood - Peripheral Venous Blood Culture - Final NO GROWTH AFTER 5 DAYS INCUBATION 06/22/16 17:40 Abscess Gram Stain - Final 06/22/16 17:40 Abscess Wound Culture - Final Klebsiella Oxytoca Staphylococcus Aureus Enterococcus Faecalis 06/22/16 17:40 Peritoneal Fluid Gram Stain - Final 06/22/16 17:40 Peritoneal Fluid Body Fluid Culture - Final Staphylococcus Aureus 06/22/16 17:40 Peritoneal Fluid Anaerobic Culture - Final NO ANAEROBES WERE ISOLATED 06/22/16 14:28 Urine - Urine - Catheterized Urine Culture - Final NO GROWTH OBTAINED Assessment: This is a 66 year old female with PMHx of hyperlipidemia, COPD on O2 at home, 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 Plan: 1) GI: Abdominal pain, s/p pneumoperitoneum exlap 06/22, and IR drainage of intraabdominal abscess on 07/02 - 06/22: ex-lap for perforated viscous, pre pyloric ulcer noted, abdominal washout for peritonitis. Vocal cord paralysis noted - RLQ drain and buttock drain in place, not draining - Pain management - Mckenna removed 07/07 - Drains removed 07/08 - Having bowel movements - Zosyn and Diflucan discontinued on 07/08 - OOB ambulating - CTAP 07/05, awaiting report in [facility], called radiology for report - Appreciate surgery consult - Appreciate GI consult 2) Pulmonary: COPD - NO active issues - O2 via nc - Albuterol nebs - Spiriva - Appreciate pulmonary consult 3) F/E/N: - Diabetic diet - Monitor electrolytes 4) Prophylaxis: - Heparin 5,000u sq tid - PT, needs to walk steps with PT prior to discharge 5) Dispo: - For discharge to SNF after stairs eval with PT and evaluation by surgery CODE STATUS: FULL CODE Visit type - Emergency Visit Emergency Visit: Yes ED Registration Date: 06/22/16 Care time: The patient presented to the Emergency Department on the above date and was hospitalized for further evaluation of their emergent condition. - New Patient This patient is new to me today: No - Critical Care Critical Care patient: No
[2016-07-09] MEDS ORDERED: IBUPROFEN 400 MG TABLET (FP) PO ONE (18:00)
[2016-07-10] MEDS ORDERED: PT OWN MED DRAWER 7, Y5N ONE ×2 (05:59→13:59)
[2016-07-10] MEDS: HEPARIN NA (PORCINE) 5,000 UNITS/ML 1ML VIAL SQ SCH ×2 (06:11→15:05)
[2016-07-10] MEDS: rOPINIRole HCL 1 MG TABLET (FP) PO SCH ×2 (06:11→15:06)
[2016-07-10] MEDS: LEVOTHYROXINE NA 125 MCG TABLET (FP) PO SCH (06:15)
--- NOTE | 2016-07-10 08:51 | PN ---
Progress Note (short form) - Note Progress Note: Awake and alert. No acute events overnight. Afebrile. Tolerating PO intake. Some dry cough. Still with some mild, intermittent abdominal discomfort. Intake & Output 07/07/16 07/08/16 07/09/16 07/10/16 23:59 23:59 23:59 23:59 Intake Total 500 900 850 Balance 500 900 850 Weight 197 lb 8 oz 196 lb 6.4 oz 188 lb 6.4 oz Last Vital Signs Temp Pulse Resp BP Pulse Ox 98.6 F 60 20 125/57 94 L 07/10/16 06:00 07/10/16 06:00 07/10/16 06:00 07/10/16 06:00 07/09/16 09:00 Active Medications Albuterol Sulfate (Ventolin 0.083% Nebulizer Soln -) 1 amp NEB Q6H PRN PRN Reason: SHORT OF BREATH/WHEEZING Last Admin: 07/09/16 18:45 Dose: 1 amp Heparin Sodium (Porcine) (Heparin -) 5,000 unit SQ TID [facility] Last Admin: 07/10/16 06:11 Dose: 5,000 unit Levothyroxine Sodium (Synthroid -) 125 mcg PO DAILY@0700 [facility] Last Admin: 07/10/16 06:15 Dose: 125 mcg Pantoprazole Sodium (Protonix -) 40 mg PO BID [facility] Last Admin: 07/09/16 22:15 Dose: 40 mg Polyethylene Glycol (Miralax (For Daily Use) -) 17 gm PO BID [facility] Last Admin: 07/09/16 22:18 Dose: 17 gm Ropinirole HCl (Requip -) 1 mg PO TID [facility] Last Admin: 07/10/16 06:11 Dose: 1 mg Tiotropium [place] (Spiriva -) 1 puff IH DAILY [facility] Last Admin: 07/09/16 10:17 Dose: 1 puff Gen: NAD at rest Heart: RRR Lung: decreased breath sounds at the bases Abd: soft, minimal tenderness to palpation, (+) BS Ext: no edema ASSESSMENT AND PLAN: Perforated Gastric Ulcer s/p ex-lap/Umair patch repair/abdominal washout 06/23 Peritonitis Severe Sepsis improving Lactic Acidosis resolved Acute Kidney Injury s/p Acute respiratory Failure - O2 as needed - pain control - incentive spirometry - OOB to chair - DVT/GI prophylaxis - PO as tolerated - D/C planning Dr Jama
[2016-07-10] MEDS: POLYETHYLENE GLYCOL 3350 119 GM BTL PO SCH (10:24)
[2016-07-10] MEDS: PANTOPRAZOLE 40 MG TABLET (FP) PO SCH (10:24)
[2016-07-10] MEDS: TIOTROPIUM BROMIDE 18 MCG/INH (DEVICE W/ 5 CAPSULES) IH SCH (10:24)
[2016-07-10] MEDS ORDERED: COLCHICINE 0.6 MG TABLET (FP) PO ONE ×2 (14:00→16:00)
--- NOTE | 2016-07-10 14:52 | DS ---
Physical Examination Vital Signs: Vital Signs Temperature 97.1 F L 07/10/16 10:00 Pulse Rate 76 07/10/16 10:00 Respiratory Rate 16 07/10/16 10:00 Blood Pressure 142/67 07/10/16 10:00 O2 Sat by Pulse Oximetry (%) 100 07/10/16 10:00 Findings/Remarks: Physical Exam: General: NAD, A&Ox3 Lungs: CTA bilaterally Heart: RRR, S1S2 Abd: Midline abdominal incision, c/d/i, some dried blood. Non-tender, non- distended Ext: Warm, well-perfused. 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 Plan: 1) GI: Abdominal pain, s/p pneumoperitoneum exlap 06/22, and IR drainage of intraabdominal abscess on 07/02 - 06/22: ex-lap for perforated viscous, pre pyloric ulcer noted, abdominal washout for peritonitis. Vocal cord paralysis noted - RLQ drain and buttock drain in place, not draining - Pain management - Srinivas removed 07/07 - Drains removed 07/08 - Having bowel movements - Zosyn and Diflucan discontinued on 07/08 - OOB ambulating - CTAP 07/05, awaiting report in [facility] [employer], called radiology for report - Appreciate surgery consult - Appreciate GI consult 2) Pulmonary: COPD - NO active issues - O2 via nc - Albuterol nebs - Spiriva - Appreciate pulmonary consult Condition: Improved - Instructions Diet, Activity, Other Instructions: Please return to the ED with new, persistent, or worsening symptoms. Please follow-up with pcp and surgery within 1 week. Diabetic diet Activity as tolerated post op wound care, clean the wound with NS then dress with DSD daily May take shower Referrals: Nora Harry MD [Primary Care Provider] - (Please follow-up with Dr. Harry within 1 week) Nadeen Johnson MD [Staff Physician] - (Please follow-up with surgery within 1 week for post op care. ) Disposition: [facility] - Home Medications Comprehensive Discharge Medication List: Ambulatory Orders Alendronate Sodium [Binosto] 70 mg PO WEEKLY 04/19/15 FA/Mv,Ca,Iron,Min/Lycopene/Lut [Centrum Tablet] 1 each PO DAILY 04/19/15 Oxybutynin Chloride [Ditropan Xl] 5 mg PO DAILY 04/19/15 Pravastatin Sodium [Pravachol -] 80 mg PO HS 04/19/15 Ropinirole HCl 1 mg PO TID 04/19/15 Tiotropium [place] [Spiriva] 1 inh PO DAILY 04/19/15 Ursodiol [Actigal -] 300 mg PO BID #60 capsule 04/22/15 Albuterol 0.083% Nebulizer [place] [Ventolin 0.083% Nebulizer Soln -] 1 amp NEB QID 07/23/15 Diclofenac Sodium 50 mg PO DAILY 07/23/15 Cholecalciferol (Vitamin D3) [Vitamin D3] 50,000 unit PO WEEKLY 04/10/16 Heparin - 5,000 unit SQ TID vial 07/10/16 Levothyroxine [Synthroid -] 125 mcg PO DAILY@0700 tablet 07/10/16 This patient is new to me today: No Emergency Visit: Yes ED Registration Date: 06/22/16 Care time: The patient presented to the Emergency Department on the above date and was hospitalized for further evaluation of their emergent condition. Critical Care patient: No - Discharge Referral Referred to [facility] No
[2016-07-10 15:36] VITALS: BP 126/68; PULSE 87; TEMP 99.2
== END 2016-07-10 18:09 | DRG 853 ==
LOC: JER 01:29 → JERBED 10:28 → UNDOADMIN 10:40 → JICU 17:00 → J8W 06-25 19:35
PROVIDERS: ADMIT Family Medicine; ATTEND Registered Nurse
PROC: 0WJG0ZZ Inspection of Peritoneal Cavity, Open Approach (ICD-10-PCS; 2016-06-22)
PROC: 3E1M38X Irrigation of Peritoneal Cavity using Irrigating Substance, Percutaneous Approach, Diagnostic (ICD-10-PCS; 2016-06-22)
PROC: 0DU907Z Supplement Duodenum with Autologous Tissue Substitute, Open Approach (ICD-10-PCS; principal; 2016-06-22 13:53)
PROC: 0W9J30Z Drainage of Pelvic Cavity with Drainage Device, Percutaneous Approach (ICD-10-PCS; 2016-07-02)
PROC: 0W9G30Z Drainage of Peritoneal Cavity with Drainage Device, Percutaneous Approach (ICD-10-PCS; 2016-07-02)
PROC: 0DPW30Z Removal of Drainage Device from Peritoneum, Percutaneous Approach (ICD-10-PCS; 2016-07-08)
DX: A41.89 Other specified sepsis (principal); K25.5 Chronic or unspecified gastric ulcer with perforation; K65.1 Peritoneal abscess; J96.00 Acute respiratory failure, unspecified whether with hypoxia or hypercapnia; N17.9 Acute kidney failure, unspecified; E87.2 Acidosis; J90 Pleural effusion, not elsewhere classified; J98.11 Atelectasis; R65.20 Severe sepsis without septic shock; E11.9 Type 2 diabetes mellitus without complications; E78.5 Hyperlipidemia, unspecified; J44.9 Chronic obstructive pulmonary disease, unspecified; G47.30 Sleep apnea, unspecified; K21.9 Gastro-esophageal reflux disease without esophagitis; E03.9 Hypothyroidism, unspecified; N20.0 Calculus of kidney; K80.20 Calculus of gallbladder without cholecystitis without obstruction; R94.31 Abnormal electrocardiogram [ECG] [EKG]; J38.00 Paralysis of vocal cords and larynx, unspecified; E66.8 Other obesity; Z68.33 Body mass index [BMI] 33.0-33.9, adult; Z71.3 Dietary counseling and surveillance; D64.9 Anemia, unspecified; G25.81 Restless legs syndrome; E83.42 Hypomagnesemia; E87.6 Hypokalemia; D72.828 Other elevated white blood cell count; M54.12 Radiculopathy, cervical region; M19.90 Unspecified osteoarthritis, unspecified site; K63.89 Other specified diseases of intestine; T50.995A Adverse effect of other drugs, medicaments and biological substances, initial encounter; K56.41 Fecal impaction; Z99.81 Dependence on supplemental oxygen; Z87.891 Personal history of nicotine dependence
CPT/HCPCS: 36415; 36600; 49406; 49407; 49424; 70490-TC; 71010-TC; 71250-TC; 74000-TC; 74176-TC; 74177-TC; 74178-TC; 74245-TC; 76080-TC; 76098-TC; 77012-TC; 80048; 80053; 81003; 81015; 82150; 82803; 83605; 83690; 83735; 84100; 84443; 85025; 85027; 85610; 85651; 86140; 86850; 86900; 86901; 87040; 87070; 87075; 87077; 87086; 87186; 87205; 87899; 93005; 93010; 94002; 94640; 94760; 97116-GP; 97161-GP; 99285-25; A4358; C1729; C1769; J1644; Q9967

== ENCOUNTER 2016-08-15 13:00 | Emergency (ER) | payer BC, OTHER ==
[2016-08-15 13:06] VITALS: BMI 31.6
--- NOTE | 2016-08-15 13:11 | PDOC ---
History of Present Illness <Mildred Chau - Last Filed: 08/15/16 18:14> - General History Source: Patient Exam Limitations: No Limitations - History of Present Illness Initial Comments: 08/15/16 13:39 The patient is a 66 year old female, with a significant past medical history of pneumoperitoneum, hyperlipidemia, COPD, pre-diabetes, GERD, kidney stones, gallstones, and hypothyroidism, who presents to the emergency department sent by PCP, Dr. Harry, for diffuse abdominal pain for approximately 10 days. The patient reports associated diarrhea for approximately 2 weeks. She denies any nausea, vomiting, or constipation. Patient reports she presented to the ED approximately 1.5 months ago with abdominal pain, during which she was diagnosed with pneumoperitoneum. The patient reports her pain today is more mild than her last ED presentation. She reports her pain is intermittent. She denies any fever, chills, headache, or dizziness. She denies any chest pain, shortness of breath, diaphoresis, or palpitations. She denies any recent travel or sick contacts. Allergies: None reported. Past Surgical History: Left total knee replacement, Pneumoperitoneum exlap, IR drainage of intraabdominal abscess, Cholecystectomy Social History: Former smoker(Quit 20 years ago). Denies alcohol or drug use. PCP: Dr. Harry <Li Rinaldi - Last Filed: 08/15/16 19:02> <Rekha Morgan - Last Filed: 08/15/16 19:11> - General Chief Complaint: Pain, Acute Stated Complaint: LAB VARIANCE (PCP SENT) Time Seen by Provider: 08/15/16 13:09 Past History - Past Medical History Anemia: No COPD: Yes Diabetes: Yes (PRE) GI Disorders: Yes (gall stones) Disorders: Yes (STATES HAS KIDNEY STONES) Hypercholesterolemia: Yes Kidney Stones: Yes Thyroid Disease: Yes - Surgical History Abdominal Surgery: Yes (? 07/01/16) Cholecystectomy: Yes - Reproductive History (#): 1 Para: 1 Spontaneous : 1 - Immunization History Immunization Up to Date: Yes - Psycho/Social/Smoking Cessation Hx Anxiety: No Suicidal Ideation: No Smoking Status: Yes Smoking History: Former smoker Have you smoked in the past 12 months: No Number of Cigarettes Smoked Daily: 20 If you are a former smoker, when did you quit?: 2012 Information on smoking cessation initiated: No Hx Alcohol Use: No Drug/Substance Use Hx: No Substance Use Type: None Hx Substance Use Treatment: No <Mildred Chau - Last Filed: 08/15/16 18:14> <Li Rinaldi - Last Filed: 08/15/16 19:02> <Rekha Morgan - Last Filed: 08/15/16 19:11> - Past Medical History Allergies/Adverse Reactions: Allergies Allergy/AdvReac Type Severity Reaction Status Date / Time No Known Allergies Allergy Verified 08/15/16 13:03 Home Medications: Ambulatory Orders Alendronate Sodium [Binosto] 70 mg PO WEEKLY 04/19/15 Pravastatin Sodium [Pravachol -] 80 mg PO HS 04/19/15 Ropinirole HCl 1 mg PO TID 04/19/15 Tiotropium [place] [Spiriva] 1 inh PO DAILY 04/19/15 Ursodiol [Actigal -] 300 mg PO BID #60 capsule 04/22/15 Albuterol 0.083% Nebulizer [place] [Ventolin 0.083% Nebulizer Soln -] 1 amp NEB QID 07/23/15 Levothyroxine [Synthroid -] 125 mcg PO DAILY@0700 tablet 07/10/16 Cephalexin Monohydrate [Keflex -] 500 mg PO BID #14 capsule 08/15/16 Review of Systems - Review of Systems Able to Perform ROS?: Yes Comments:: 08/15/16 13:39 GENERAL/CONSTITUTIONAL: No fever or chills. No weakness. HEAD, EYES, EARS, NOSE AND THROAT: No change in vision. No ear pain or discharge. No sore throat. CARDIOVASCULAR: No chest pain or shortness of breath. RESPIRATORY: No cough, wheezing, or hemoptysis. GASTROINTESTINAL: Yes: +abdominal pain, +diarrhea. No nausea, vomiting, or constipation. GENITOURINARY: No dysuria, frequency, or change in urination. MUSCULOSKELETAL: No joint or muscle swelling or pain. No neck or back pain. SKIN: No rash NEUROLOGIC: No headache, vertigo, loss of consciousness, or change in strength/ sensation. ENDOCRINE: No increased thirst. No abnormal weight change. HEMATOLOGIC/LYMPHATIC: No anemia, easy bleeding, or history of blood clots. ALLERGIC/IMMUNOLOGIC: No hives or skin allergy. <Li Rinaldi - Last Filed: 08/15/16 19:02> *Physical Exam - Vital Signs Last Vital Signs Temp Pulse Resp BP Pulse Ox 98.2 F 85 18 122/71 98 08/15/16 13:02 08/15/16 13:02 08/15/16 13:02 08/15/16 13:02 08/15/16 13:02 - Physical Exam Comments: GENERAL: Awake, alert, and fully oriented, in no acute distress. Well-appearing. HEAD: No signs of trauma EYES: PERRLA, EOMI, sclera anicteric, conjunctiva clear ENT: Auricles normal inspection, hearing grossly normal, nares patent, oropharynx clear without exudates. Moist mucosa NECK: Normal ROM, supple, no lymphadenopathy, JVD, or masses LUNGS: Breath sounds equal, clear to auscultation bilaterally. No wheezes, and no crackles HEART: Regular rate and rhythm, normal S1 and S2, no murmurs, rubs or gallops ABDOMEN: Soft, +mod LLQ and R mid-abdominal tenderness. Normoactive bowel sounds. No guarding, no rebound. No masses EXTREMITIES: Normal range of motion, no edema. No clubbing or cyanosis. No cords, erythema, or tenderness NEUROLOGICAL: Cranial nerves II through XII grossly intact. Normal speech, normal gait SKIN: Warm, Dry, normal turgor, no rashes or lesions noted. <Mildred Chau - Last Filed: 08/15/16 18:14> - Vital Signs Last Vital Signs Temp Pulse Resp BP Pulse Ox 98.2 F 85 18 122/71 98 08/15/16 13:02 08/15/16 13:02 08/15/16 13:02 08/15/16 13:02 08/15/16 13:02 <Li Rinaldi - Last Filed: 08/15/16 19:02> - Vital Signs Last Vital Signs Temp Pulse Resp BP Pulse Ox 97.7 F 72 17 121/74 95 08/15/16 16:07 08/15/16 16:07 08/15/16 16:07 08/15/16 16:07 08/15/16 16:07 <Rekha Morgan - Last Filed: 08/15/16 19:11> ED Treatment Course - LABORATORY CBC & Chemistry Diagram: 08/15/16 13:35 08/15/16 13:35 <Mildred Chau - Last Filed: 08/15/16 18:14> - LABORATORY CBC & Chemistry Diagram: 08/15/16 13:35 08/15/16 13:35 - RADIOLOGY Radiograph Interpretation: 08/15/16 15:39 EXAM: CT abdomen and pelvis INTERPRETED BY: Dr. Rodriguez REVIEWED BY: Dr. Chau IMPRESSION: No evidence of pneumoperitoneum or acute pathology within the abdomen or pelvis. <Li Rinaldi - Last Filed: 08/15/16 19:02> - LABORATORY CBC & Chemistry Diagram: 08/15/16 13:35 08/15/16 13:35 - ADDITIONAL ORDERS Additional order review: Laboratory Results 08/15/16 08/15/16 08/15/16 16:45 13:35 13:35 INR Sodium 140 Potassium 3.9 Chloride 99 Carbon Dioxide 31 Anion Gap 10 BUN 13 D Creatinine 0.7 D Creat Clearance w eGFR > 60 Random Glucose 100 D Calcium 9.3 Total Bilirubin 0.3 AST 16 ALT 17 D Alkaline Phosphatase 92 D Total Protein 7.4 Albumin 2.9 L D Lipase 90 Urine Color Yellow Urine Appearance Slcloudy Urine pH 5.0 D Urine Protein Negative Urine Glucose (UA) Negative Urine Ketones Negative Urine Blood 2+ H Urine Nitrite Negative Urine Bilirubin Negative Urine Urobilinogen Negative Ur Leukocyte Esterase 1+ H Urine RBC 39 Urine WBC 52 Ur Epithelial Cells Few Urine Mucus Rare Blood Type O POSITIVE Antibody Screen Negative 08/15/16 13:35 INR 1.10 Sodium Potassium Chloride Carbon Dioxide Anion Gap BUN Creatinine Creat Clearance w eGFR Random Glucose Calcium Total Bilirubin AST ALT Alkaline Phosphatase Total Protein Albumin Lipase Urine Color Urine Appearance Urine pH Urine Protein Urine Glucose (UA) Urine Ketones Urine Blood Urine Nitrite Urine Bilirubin Urine Urobilinogen Ur Leukocyte Esterase Urine RBC Urine WBC Ur Epithelial Cells Urine Mucus Blood Type Antibody Screen 08/15/16 13:35 RBC 3.68 MCV 81.1 MCHC 32.1 RDW 14.7 MPV 8.2 Neutrophils % 60.1 Lymphocytes % 28.8 Monocytes % 9.0 Eosinophils % 1.4 Basophils % 0.7 - Medications Given in the ED: ED Medications Discontinued Medications Generic Name Dose Route Start Last Admin Trade Name Freq PRN Reason Stop Dose Admin Acetaminophen 1,000 mg 08/15/16 13:26 08/15/16 13:41 Ofirmev Injection - IVPB 08/15/16 13:27 1,000 mg ONCE ONE Administration Ceftriaxone Sodium 1,000 mg/ 50 mls @ 100 mls/hr 08/15/16 18:21 08/15/16 18:36 Dextrose IVPB 08/15/16 18:50 100 mls/hr ONCE ONE Administration <Rekha Morgan - Last Filed: 08/15/16 19:11> Medical Decision Making - Medical Decision Making 08/15/16 15:43 Late entry. Case discussed with Dr. Harry prior to patient arrival in ED. Patient is known to me from prior ED visit, as well. She was taken to CT early in her ED visit to evaluate for pneumoperitoneum in light of her prior presentation- it showed no acute findings. Labs obtained, no acute findings. Awaiting UA, and will contact Dr. Harry with an update. <Mildred Chau - Last Filed: 08/15/16 18:14> - Medical Decision Making 08/15/16 17:47 First call placed to Dr. Harry at 17:47. Awaiting call back. Second call placed to Dr. Harry at 18:12. Awaiting call back. Case discussed with Dr. Harry at 19:00. <Li Rinaldi - Last Filed: 08/15/16 19:02> - Medical Decision Making 08/15/16 19:[address] scan and labs are normal. Only with UTI. SHe will be treated with robaxin here and home with Keflex. I spoke to PMEliza Harry who will follow with her in the office next week. Pt is stable for discharge. <Rekha Morgan - Last Filed: 08/15/16 19:11> *DC/Admit/Observation/Transfer - Discharge Dispostion Admit: No <Mildred Chau - Last Filed: 08/15/16 18:14> - Attestations Scribe Attestion: 08/15/16 13:48 Documentation prepared by Li Rinaldi, acting as medical technologist chemistry for Mildred Chau MD. <Li Rinaldi - Last Filed: 08/15/16 19:02> <Rekha Morgan - Last Filed: 08/15/16 19:11> Diagnosis at time of Disposition: UTI (urinary tract infection) Qualifiers: Urinary tract infection type: site unspecified Hematuria presence: without hematuria Qualified Code(s): N39.0 - Urinary tract infection, site not specified - Discharge Dispostion Disposition: HOME Condition at time of disposition: Stable - Prescriptions Prescriptions: Cephalexin Monohydrate [Keflex -] 500 mg PO BID #14 capsule - Referrals Referrals: Nora Harry MD [Primary Care Provider] - - Patient Instructions Printed Discharge Instructions: DI for Urinary Tract Infection (UTI) Additional Instructions: FOLLOW WITH DR. HARRY NEXT WEEK
[2016-08-15] MEDS ORDERED: ACETAMINOPHEN 1000 MG/100 ML VIAL (NON FORMULARY) IVPB ONE (13:26)
[2016-08-15] MEDS ORDERED: ACETAMINOPHEN INJECTION 100 ML IVPB ONE (13:38)
[2016-08-15 13:45] LABS: BASOPHIL 0.7 % (0-2.0); EOSINOPHIL 1.4 % (0-4.5); MCHC 32.1 g/dl (32.0-36.0); MEAN CELL VOLUME 81.1 fl (80-96); MEAN PLT VOLUME 8.2 fl (7.5-11.1); NEUTROPHILS 60.1 % (42.8-82.8); PLATELET COUNT 244 K/MM3 (134-434); RDW 14.7 % (11.6-15.6)
[2016-08-15 14:04] LABS: INR 1.1 (0.82-1.09); PROTHROMBIN TIME (PATIENT) 12.1 SEC (9.98-11.88)
[2016-08-15 14:14] LABS: ALBUMIN 2.9 g/dl (3.4-5.0); ANION GAP 10 (8-16); BILIRUBIN,TOTAL 0.3 mg/dL (0.2-1.0); CALCIUM 9.3 mg/dL (8.5-10.1); CO2 31 mmol/L (21-32); COCKROFT - GAULT 98.5915; CREATININE 0.7 mg/dL (0.55-1.02); GLUCOSE,RANDOM 100 mg/dL (74-106); SGOT/AST 16 U/L (15-37); SGPT/ALT 17 U/L (12-78); TOT PROT 7.4 g/dl (6.4-8.2)
[2016-08-15 14:15] LABS: ALK PHOS 92 U/L (45-117)
[2016-08-15 17:14] LABS: URINE APPEARANCE SLCLOUDY; URINE BILIRUBIN NEGATIVE (NEGATIVE); URINE COLOR YELLOW; URINE GLUCOSE (UA) NEGATIVE (NEGATIVE); URINE KETONE NEGATIVE (NEGATIVE); URINE NITRITE NEGATIVE (NEGATIVE); URINE PROTEIN NEGATIVE (NEGATIVE); URINE UROBILINOGEN NEGATIVE E.U./dl (0.2-1.0)
[2016-08-15 17:29] LABS: URINE BLOOD 2+ (NEGATIVE); URINE LEUK ESTERASE 1+ (NEGATIVE)
[2016-08-15 17:32] LABS: URINE MUCUS RARE; URINE RBC 39 /hpf (0-3); URINE WBC 52 /hpf (3-5)
[2016-08-15] MEDS ORDERED: CEFTRIAXONE 1,000 MG in DEXTROSE 5%-WATER - 50 ML IVPB ONE (18:21)
[2016-08-15] MEDS ORDERED: CEFTRIAXONE 50 ML ONE (18:31)
[2016-08-15] MEDS ORDERED: LOPERAMIDE HCL 2 MG CAPSULE PO ONE (18:52)
[2016-08-15] MEDS ORDERED: LOPERAMIDE HCL 2 MG CAPSULE ONE (19:03)
[2016-08-15 19:14] VITALS: BP 123/76; PULSE 73; TEMP 98.4
--- NOTE | 2016-08-15 23:29 | PN ---
Progress Note (short form) - Note Progress Note: 66 y/o female with PMH of perforated bowel approx 6-7 weeks ago- treated at [facility] , COPD / Pre DM / GERD / Thyroid tumor s/p resection / cholecystitis / hypothyroid presented to office with several day hx of abdominal pain - now localized to right and left lower quadrants, this is accompanied by diarrhea. She is able to tolerate her PO intake well / denies vomiting or nausea / denies blood in her stool. She reports the pain has become progressively worse over the last 2 days. No fever / no chills / no dysuria / on exam Vitals stable no fever neck supple heart reg lungs clear abd obese / BS + x4 quadrants ++ guarding LLQ > RLQ no rebound Allergies: None reported. Past Surgical History: Left total knee replacement, Pneumoperitoneum exlap, IR drainage of intraabdominal abscess, Cholecystectomy Social History: Former smoker(Quit 20 years ago). Denies alcohol or drug use. patient was refered to ER for further evaulation now seen in ER CT done and reviewed labs reviewed UTI + patient treated at ER D/C home she will folllow up next week in office
== END 2016-08-15 19:15 | disposition home or self-care (01) ==
LOC: JER 13:00 → SUPCPDRO 13:00 → JER 19:15
PROC: 3E03329 Introduction of Other Anti-infective into Peripheral Vein, Percutaneous Approach (ICD-10-PCS; principal; 2016-08-15)
PROC: 3E033NZ Introduction of Analgesics, Hypnotics, Sedatives into Peripheral Vein, Percutaneous Approach (ICD-10-PCS; 2016-08-15)
DX: N39.0 Urinary tract infection, site not specified (principal); E78.5 Hyperlipidemia, unspecified; J44.9 Chronic obstructive pulmonary disease, unspecified; R73.03 Prediabetes; K21.9 Gastro-esophageal reflux disease without esophagitis; Z87.442 Personal history of urinary calculi; Z87.19 Personal history of other diseases of the digestive system; E03.9 Hypothyroidism, unspecified; Z87.891 Personal history of nicotine dependence
CPT/HCPCS: 36415; 74176-TC; 80053; 81003; 81015; 83690; 85025; 85610; 86850; 86900; 86901; 99284-25

== ENCOUNTER 2016-08-19 10:19 | Inpatient (IN) | payer BC, OTHER ==
[2016-08-19 10:30] VITALS: BMI 31.6
--- NOTE | 2016-08-19 10:39 | PDOC ---
History of Present Illness - General History Source: Patient Exam Limitations: No Limitations - History of Present Illness Initial Comments: 08/19/16 10:57 The patient is a 66-year-old woman, with a significant past medical history of hypercholesterolemia, pre-diabetes, chronic obstructive pulmonary disease, gastroesophageal reflux disease, gallstones, kidney stones, pneumoperitoneum and hypothyroidism who presents to the emergency department via EMS with complaints of dizziness. No recent head injury/fall. She states that she was walking yesterday and suddenly felt dizzy, described as "room-spinning" that spontaneously resolved on its own. She states that this morning, she bent over and got up and also felt dizzy and nauseous. She also reports experiencing some diffused abdominal pain, rated 6/10 in severity. She was in this ER approximately 1 month and a half ago, for which abdominal pain and she was found to have pneumoperitoneum status post IR drainage of intraabdominal abscess. Patient spoke to her PMD, Dr. Harry this morning, who as per patient, stated that her WBC was slightly elevated and was concerned for the patient's continuous abdominal pain symptoms She denies fever, chills, diaphoresis, generalized weakness. She denies chest pain, shortness of breath, cough She denies vomiting, diarrhea. Allergies: None reported. Past Surgical History: Left total knee replacement. Pneumoperitoneum exlap. IR drainage of intraabdominal abscess. Cholecystectomy Social History: Former smoker (quit approximately 20 years ago). No EtOH and recreational drug use. Primary Care Physician: Dr. Nora Harry <Priscila Ugarte - Last Filed: 08/19/16 15:46> <Mildred Chau - Last Filed: 08/19/16 16:26> - General Chief Complaint: Lightheaded Stated Complaint: DIZZINESS Time Seen by Provider: 08/19/16 10:35 Past History <Priscila Ugarte - Last Filed: 08/19/16 15:46> - Past Medical History Anemia: No COPD: Yes Diabetes: Yes (PRE) GI Disorders: Yes (gall stones) Disorders: Yes (STATES HAS KIDNEY STONES) Hypercholesterolemia: Yes Kidney Stones: Yes Thyroid Disease: Yes Other medical history: VOCAL CORD ISSUES - Surgical History Abdominal Surgery: Yes (07/04/16, DOES NOT RECALL EHAT SX) Cholecystectomy: Yes - Reproductive History (#): 1 Para: 1 Spontaneous : 1 - Immunization History Immunization Up to Date: Yes - Psycho/Social/Smoking Cessation Hx Anxiety: No Suicidal Ideation: No Smoking Status: Yes Smoking History: Former smoker Have you smoked in the past 12 months: No Number of Cigarettes Smoked Daily: 20 If you are a former smoker, when did you quit?: 2012 Information on smoking cessation initiated: No Hx Alcohol Use: No Drug/Substance Use Hx: No Substance Use Type: None Hx Substance Use Treatment: No <Mildred Chau - Last Filed: 08/19/16 16:26> - Past Medical History Allergies/Adverse Reactions: Allergies Allergy/AdvReac Type Severity Reaction Status Date / Time No Known Allergies Allergy Verified 08/15/16 13:03 Home Medications: Ambulatory Orders Alendronate Sodium [Binosto] 70 mg PO WEEKLY 04/19/15 Pravastatin Sodium [Pravachol -] 80 mg PO HS 04/19/15 Ropinirole HCl 1 mg PO TID 04/19/15 Tiotropium [place] [Spiriva] 1 inh PO DAILY 04/19/15 Ursodiol [Actigal -] 300 mg PO BID #60 capsule 04/22/15 Albuterol 0.083% Nebulizer [place] [Ventolin 0.083% Nebulizer Soln -] 1 amp NEB QID 07/23/15 Levothyroxine [Synthroid -] 125 mcg PO DAILY@0700 tablet 07/10/16 Cephalexin Monohydrate [Keflex -] 500 mg PO BID #14 capsule 08/15/16 Review of Systems - Review of Systems Able to Perform ROS?: Yes Comments:: 08/19/16 10:57 GENERAL/CONSTITUTIONAL: No fever or chills. No weakness. HEAD, EYES, EARS, NOSE AND THROAT: No change in vision. No ear pain or discharge. No sore throat. CARDIOVASCULAR: No chest pain or shortness of breath. RESPIRATORY: No cough, wheezing, or hemoptysis. GASTROINTESTINAL: Yes: Abdominal Pain. Nausea. No vomiting, diarrhea or constipation. GENITOURINARY: No dysuria, frequency, or change in urination. MUSCULOSKELETAL: No joint or muscle swelling or pain. No neck or back pain. SKIN: No rash NEUROLOGIC: Yes: Lightheadedness/Dizziness. No headache, vertigo, loss of consciousness, or change in strength/sensation. ENDOCRINE: No increased thirst. No abnormal weight change. HEMATOLOGIC/LYMPHATIC: No anemia, easy bleeding, or history of blood clots. ALLERGIC/IMMUNOLOGIC: No hives or skin allergy. <ShanelPriscila - Last Filed: 08/19/16 15:46> *Physical Exam - Vital Signs Last Vital Signs Temp Pulse Resp BP Pulse Ox 98.6 F 84 18 115/57 96 08/19/16 10:25 08/19/16 10:25 08/19/16 10:25 08/19/16 10:25 08/19/16 10:25 - Physical Exam Comments: 08/19/16 10:57 GENERAL: Awake, alert, and fully oriented, in no acute distress HEAD: No signs of trauma EYES: PERRLA, EOMI, sclera anicteric, conjunctiva clear ENT: Auricles normal inspection, hearing grossly normal, nares patent, oropharynx clear without exudates. Moist mucosa NECK: Normal ROM, supple, no lymphadenopathy, JVD, or masses LUNGS: Breath sounds equal, clear to auscultation bilaterally. No wheezes, and no crackles HEART: Regular rate and rhythm, normal S1 and S2, no murmurs, rubs or gallops ABDOMEN: Soft, diffuse tenderness worst at the left and right lower quadrant, normoactive bowel sounds. No guarding, no rebound. No masses EXTREMITIES: Normal range of motion, no edema. No clubbing or cyanosis. No cords, erythema, or tenderness NEUROLOGICAL: Cranial nerves II through XII grossly intact. Normal speech, normal gait <Ugarte,Priscila - Last Filed: 08/19/16 15:46> - Vital Signs Last Vital Signs Temp Pulse Resp BP Pulse Ox 98.6 F 84 18 115/57 96 08/19/16 10:25 08/19/16 10:25 08/19/16 10:25 08/19/16 10:25 08/19/16 10:25 <Mildred Chau - Last Filed: 08/19/16 16:26> ED Treatment Course - LABORATORY CBC & Chemistry Diagram: 08/19/16 10:54 08/19/16 11:20 - RADIOLOGY Radiograph Interpretation: 08/19/16 15:46 EXAM: CT/ABDOMEN PELVIS CT WITH CONTR Interpreted by Dr. Ada Palacios IMPRESSION: CT scan of the abdomen and pelvis following intravenous contrast. Oral contrast is present in the distal small bowel and colon likely from prior contrast enhanced CT scan dated There are mild bibasal atelectatic changes and interstitial thickening. The heart is within normal limits in size. Gallbladder is contracted with multiple small intraluminal stones. The liver remains enlarged measuring 19.3 cm in craniocaudal length. There is minimal pneumobilia that is less than on the prior examination. There is suggestion of mild periportal edema, which is nonspecific. Common bile duct is within normal limits in size. Evaluation of the spleen, pancreas and both adrenal glands appear unremarkable. Multiple tiny bilateral renal nonobstructing stones are again seen measuring up to 3 mm with a small right renal cyst measuring 1.8 cm, small left renal parapelvic cysts, mild left renal hydronephrosis and an obstructing stone at the left ureteropelvic junction measuring 7 x 6 mm in craniocaudal and AP dimension Fluid-filled slightly dilated small bowel loops in the pelvis likely on the basis of ileus. Normal stool burden in the colon without wall thickening. Partially distended urinary bladder without wall thickening. Atrophic/small uterus. Perirectal and pericecal fat is clear. Visualized osseous structures again demonstrates minimal anterolisthesis of L3 over L4, significant degenerative disc disease at L4-L5 and mild degenerative disc disease at L5-S1 level. <Priscila Ugarte - Last Filed: 08/19/16 15:46> - LABORATORY CBC & Chemistry Diagram: 08/19/16 10:54 08/19/16 11:20 <Mildred Chau - Last Filed: 08/19/16 16:26> Medical Decision Making - Medical Decision Making 08/19/16 15:[address] Palacios at extension [phone]. Reading the CT right now. 08/19/16 15:[address] Nora Harry <Priscila Ugarte - Last Filed: 08/19/16 15:46> - Medical Decision Making 08/19/16 16:25 Case d/w Dr. Harry. Patient found to have pneumobilia on CT a/p which is reportedly decreased from prior CT on 08/15, however, there was no comment on it at that time. Also noted a kidney stone to L UVJ, which does localize to the same area as the pain. Will admit her based on CT findings and her recent history, as she was admitted at the end of June for bowel perf. <Mildred Chau - Last Filed: 08/19/16 16:26> *DC/Admit/Observation/Transfer - Attestations Scribe Attestion: 08/19/16 10:57 Documentation prepared by Priscila Ugarte, acting as medical transcriptionist for Mildred Chau MD. <Priscila Ugarte - Last Filed: 08/19/16 15:46> - Discharge Dispostion Admit: Yes <Mildred Chau - Last Filed: 08/19/16 16:26> Diagnosis at time of Disposition: Kidney stone on left side, Pneumobilia - Discharge Dispostion Condition at time of disposition: Stable - Referrals Referrals: Nora Harry MD [Primary Care Provider] -
[2016-08-19] MEDS ORDERED: SODIUM CHLORIDE 1,000 ML IV STA (10:55)
[2016-08-19] MEDS ORDERED: ACETAMINOPHEN 1000 MG/100 ML VIAL (NON FORMULARY) IVPB ONE (10:55)
[2016-08-19] MEDS ORDERED: ACETAMINOPHEN INJECTION 100 ML IVPB ONE (11:15)
[2016-08-19 11:23] LABS: BASOPHIL 0.9 % (0-2.0); MCH 25.7 pg (25.7-33.7); MCHC 32.1 g/dl (32.0-36.0); MEAN CELL VOLUME 80.1 fl (80-96); MEAN PLT VOLUME 8.2 fl (7.5-11.1); NEUTROPHILS 59.7 % (42.8-82.8); PLATELET COUNT 265 K/MM3 (134-434); RDW 15.1 % (11.6-15.6); WHITE BLOOD COUNT 7.2 K/mm3 (4.0-10.0)
--- NOTE | 2016-08-19 11:49 | EKG ---
Test Reason : Blood Pressure : / mmHG Vent. Rate : 072 BPM Atrial Rate : 072 BPM P-R Int : 166 ms QRS Dur : 080 ms QT Int : 388 ms P-R-T Axes : 069 017 047 degrees QTc Int : 424 ms NORMAL SINUS RHYTHM NORMAL ECG WHEN COMPARED WITH ECG OF 22-JUN-2016 11:22, NO SIGNIFICANT CHANGE WAS FOUND Confirmed by GUADALUPE RUBIN MD ([id number]) on 08/19/2016 11:49:16 AM Referred By: Confirmed By:GUADALUPE RUBIN MD
[2016-08-19 11:51] LABS: ALBUMIN 3.1 g/dl (3.4-5.0); ANION GAP 8 (8-16); BILIRUBIN,TOTAL 0.2 mg/dL (0.2-1.0); CALCIUM 9.5 mg/dL (8.5-10.1); CO2 31 mmol/L (21-32); COCKROFT - GAULT 98.5915; CREATININE 0.7 mg/dL (0.55-1.02); GLUCOSE,RANDOM 94 mg/dL (74-106); SGOT/AST 20 U/L (15-37); SGPT/ALT 19 U/L (12-78); TOT PROT 7.7 g/dl (6.4-8.2)
[2016-08-19 11:53] LABS: ALK PHOS 89 U/L (45-117); TROPONIN I < 0.02 ng/ml (0.00-0.05)
[2016-08-19 22:51] LABS: URINE APPEARANCE CLEAR; URINE BILIRUBIN NEGATIVE (NEGATIVE); URINE BLOOD NEGATIVE (NEGATIVE); URINE COLOR STRAW; URINE GLUCOSE (UA) NEGATIVE (NEGATIVE); URINE KETONE NEGATIVE (NEGATIVE); URINE NITRITE NEGATIVE (NEGATIVE); URINE PROTEIN NEGATIVE (NEGATIVE); URINE UROBILINOGEN NEGATIVE E.U./dl (0.2-1.0)
[2016-08-19 22:52] LABS: URINE LEUK ESTERASE 2+ (NEGATIVE)
[2016-08-19 22:53] LABS: URINE MUCUS RARE; URINE RBC 5 /hpf (0-3); URINE WBC 41 /hpf (3-5)
--- NOTE | 2016-08-20 08:44 | CON.GU ---
Consult Consult Specialty:: urology Referred by:: Kamryn Reason for Consultation:: left hydronephrosis with left renal colic - History of Present Illness Chief Complaint: left hydro with obstructing left upj stone History of Present Illness: Patient is a 66 year old female with severe COPD who presents with left flank pain with nause. Patient denies fever, chills, or gross hematuria. Patient notes right flank pain attibutable to a history of gallstones. - History Source History Provided By: Patient Limitations to Obtaining History: No Limitations - Past Medical History Cardio/Vascular: Yes: Hyperlipdemia Pulmonary: Yes: COPD, Sleep Apnea Gastrointestinal: Yes: GERD, Peptic Ulcer Disease (perforated DU plicated ) Hepatobiliary: Yes: Cholelithiasis Renal/: Yes: Renal Calculi ...LMP: 03/09/95 ...: No Musculoskeletal: Yes: Osteoarthritis, Other (cervical radiculopathy) Endocrine: Yes: Hypothyroidism - Past Surgical History Past Surgical History: Yes: Cataract Removal, Colonoscopy (More than 8 years ago , negative) - Alcohol/Substance Use Hx Alcohol Use: No History of Substance Use: reports: None - Smoking History Smoking history: Former smoker Have you smoked in the past 12 months: No Aproximately how many cigarettes per day: 20 If you are a former smoker, when did you quit?: 2012 - Social History Usual Living Arrangement: Alone ADL: Independent Occupation: unemployed History of Recent Travel: No Home Medications - Allergies Allergies/Adverse Reactions: Allergies Allergy/AdvReac Type Severity Reaction Status Date / Time No Known Allergies Allergy Verified 08/15/16 13:03 - Home Medications Home Medications: Ambulatory Orders Alendronate Sodium [Binosto] 70 mg PO WEEKLY 04/19/15 Pravastatin Sodium [Pravachol -] 80 mg PO HS 04/19/15 Ropinirole HCl 1 mg PO TID 04/19/15 Ursodiol [Actigal -] 300 mg PO BID #60 capsule 04/22/15 Levothyroxine [Synthroid -] 125 mcg PO DAILY@0700 tablet 07/10/16 Family Disease History - Family Disease History Family Disease History: Heart Disease: Mother (CHF, Hypoglycemia), Other: Father (Alzheimer's), Mother Physical Exam- Vital Signs: Vital Signs Temperature 98.0 F 08/20/16 05:31 Pulse Rate 73 08/20/16 05:31 Respiratory Rate 20 08/20/16 05:31 Blood Pressure 108/65 08/20/16 05:31 O2 Sat by Pulse Oximetry (%) 95 08/20/16 05:31 Constitutional: Yes: Well Nourished, No Distress, Calm Eyes: Yes: WNL, Conjunctiva Clear, EOM Intact HENT: Yes: WNL, Atraumatic, Normocephalic Neck: Yes: WNL, Supple, Trachea Midline Gastrointestinal: Yes: WNL, Normal Bowel Sounds, Soft Renal/: Yes: CVA Tenderness - Left Kidneys: Yes: Flank Pain Left Pelvis: Yes: Bladder Non Palpable Imaging - Results Cat Scan: Report Reviewed Assessment/Plan left hyronephrosis with a 7mm x 6mm left upj stone with severe copd plan Patient is high risk for general anesthesia. The safest manner of rectifying the obstructing upj stone is to place a stent under spinal anesthesia or sedation. The patient can then be managed with an outpatient ESWL. Discussed with patient x 20 minutes. Will schedule procedure for 08/21
[2016-08-20] MEDS ORDERED: KETOROLAC TROMETHAMINE 30 MG/1 ML VIAL IM PRN (09:57)
--- NOTE | 2016-08-20 10:26 | HP ---
Admitting History and Physical - Admission Chief Complaint: abdoinal pain History of Present Illness: The patient is a 66-year-old woman, with a significant past medical history of hypercholesterolemia, pre-diabetes, chronic obstructive pulmonary disease, gastroesophageal reflux disease, gallstones, kidney stones, pneumoperitoneum and hypothyroidism who presents to the emergency department via EMS with complaints of dizziness. No recent head injury/fall. She states that she was walking yesterday and suddenly felt dizzy, described as "room-spinning" that spontaneously resolved on its own. She states that this morning, she bent over and got up and also felt dizzy and nauseous. She also reports experiencing some diffused abdominal pain, rated 6/10 in severity. She was in this ER approximately 1 month and a half ago, for which abdominal pain and she was found to have pneumoperitoneum status post IR drainage of intraabdominal abscess. Patient spoke to her PMD, Dr. Harry this morning, who as per patient, stated that her WBC was slightly elevated and was concerned for the patient's continuous abdominal pain symptoms History Source: Patient, Family Member, Medical Record Limitations to Obtaining History: No Limitations - Past Medical History Cardiovascular: Yes: Hyperlipdemia Pulmonary: Yes: COPD, Sleep Apnea Gastrointestinal: Yes: Diverticulosis, GERD, Peptic Ulcer Disease (perforated DU plicated 06/22/16), Other (s/p perforated bowel 6-8 weks ago) Hepatobiliary: Yes: Cholelithiasis Renal/: Yes: Renal Calculi Reproductive: Yes: Postmenopausal ...LMP: 03/09/95 ...: No Musculoskeletal: Yes: Osteoarthritis, Other (cervical radiculopathy) Endocrine: Yes: Hypothyroidism - Past Surgical History Past Surgical History: Yes: Cataract Removal, Colonoscopy (More than 8 years ago , negative) - Smoking History Smoking history: Former smoker Have you smoked in the past 12 months: No Aproximately how many cigarettes per day: 20 If you are a former smoker, when did you quit?: 2013 - Alcohol/Substance Use Hx Alcohol Use: No History of Substance Use: reports: None - Social History ADL: Independent Occupation: unemployed History of Recent Travel: No Home Medications - Allergies Allergies/Adverse Reactions: Allergies Allergy/AdvReac Type Severity Reaction Status Date / Time No Known Allergies Allergy Verified 08/15/16 13:03 - Home Medications Home Medications: Ambulatory Orders Alendronate Sodium [Binosto] 70 mg PO WEEKLY 04/19/15 Pravastatin Sodium [Pravachol -] 80 mg PO HS 04/19/15 Ropinirole HCl 1 mg PO TID 04/19/15 Ursodiol [Actigal -] 300 mg PO BID #60 capsule 04/22/15 Levothyroxine [Synthroid -] 125 mcg PO DAILY@0700 tablet 07/10/16 Family Disease History - Family Disease History Family Disease History: Heart Disease: Mother (CHF, Hypoglycemia), Other: Father (Alzheimer's), Mother Physical Examination Vital Signs: Vital Signs Temperature 98.0 F 08/20/16 05:31 Pulse Rate 73 08/20/16 05:31 Respiratory Rate 20 08/20/16 05:31 Blood Pressure 108/65 08/20/16 05:31 O2 Sat by Pulse Oximetry (%) 95 08/20/16 05:31 Constitutional: Yes: Well Nourished, No Distress, Calm Eyes: Yes: WNL, Conjunctiva Clear, EOM Intact HENT: Yes: WNL, Atraumatic, Normocephalic Neck: Yes: WNL, Supple, Trachea Midline Cardiovascular: Yes: WNL, Regular Rate and Rhythm Respiratory: Yes: WNL, Regular, CTA Bilaterally Gastrointestinal: Yes: Normal Bowel Sounds, Soft, Abdomen, Obese, Tenderness ( right and left lower quadrants + guarding / no rebound) Renal/: Yes: CVA Tenderness - Left, CVA Tenderness - Right Breast(s): Yes: WNL Musculoskeletal: Yes: WNL Extremities: Yes: WNL Edema: No Peripheral Pulses WNL: Yes Integumentary: Yes: WNL Wound/Incision: Yes: Clean/Dry Neurological: Yes: WNL, Alert, Oriented ...Motor Strength: WNL Psychiatric: Yes: WNL, Alert, Oriented Problem List - Problems (1) Kidney stone on left side Assessment/Plan: + stone UV junction Urology consult scheduled for stent tomorrow patient aware - understands procedure pain management with toradol PRN Code(s): N20.0 - CALCULUS OF KIDNEY (2) Pneumobilia Assessment/Plan: will follow up \\ recent hx of bowel perforation clinically stable will follow with GI as out patient Code(s): K83.8 - OTHER SPECIFIED DISEASES OF BILIARY TRACT (3) Abdominal pain Code(s): R10.9 - UNSPECIFIED ABDOMINAL PAIN Qualifiers: Abdominal location: generalized Qualified Code(s): R10.84 - Generalized abdominal pain (4) COPD (chronic obstructive pulmonary disease) Code(s): J44.9 - CHRONIC OBSTRUCTIVE PULMONARY DISEASE, UNSPECIFIED Qualifiers : COPD type: emphysema (5) Restless leg syndrome, controlled Code(s): G25.81 - RESTLESS LEGS SYNDROME
[2016-08-20] MEDS: HEPARIN NA (PORCINE) 5,000 UNITS/ML 1ML VIAL SQ SCH ×2 (11:46→22:08)
[2016-08-20] MEDS: URSODIOL 300 MG CAPSULE PO SCH ×2 (11:46→22:08)
[2016-08-20] MEDS: LEVOTHYROXINE NA 125 MCG TABLET (FP) PO SCH (11:46)
[2016-08-20] MEDS: DEXTROSE 5%-0.45% SALINE 1,000 ML IV SCH (11:46)
[2016-08-20] MEDS: ALBUTEROL SO4 2.5/IPRATROPIUM 0.5 INH SOL 3 ML VIAL.NEB. NEB SCH ×2 (12:16→17:17)
[2016-08-20] MEDS: rOPINIRole HCL 1 MG TABLET (FP) PO SCH ×2 (14:50→22:08)
[2016-08-20] MEDS ORDERED: PT OWN MED DRAWER 7, Y5N ONE (21:55)
[2016-08-20] MEDS ORDERED: ATORVASTATIN CA 20 MG TABLET (FP) PO SCH (22:00)
[2016-08-20] MEDS ORDERED: MONTELUKAST NA 10 MG TABLET PO SCH (22:00)
[2016-08-21] MEDS ORDERED: ceFAZolin SODIUM 1 GM VIAL IVPB ONE
[2016-08-21] MEDS: ALBUTEROL SO4 2.5/IPRATROPIUM 0.5 INH SOL 3 ML VIAL.NEB. NEB SCH ×5 (00:06→23:08)
[2016-08-21] MEDS ORDERED: PT OWN MED DRAWER 7, Y5N ONE ×2 (06:03→15:15)
[2016-08-21] MEDS: LEVOTHYROXINE NA 125 MCG TABLET (FP) PO SCH (06:08)
[2016-08-21] MEDS: rOPINIRole HCL 1 MG TABLET (FP) PO SCH ×3 (06:08→22:33)
[2016-08-21] MEDS: DEXTROSE 5%-0.45% SALINE 1,000 ML IV SCH ×2 (06:42→22:28)
[2016-08-21] MEDS: URSODIOL 300 MG CAPSULE PO SCH ×2 (10:12→22:33)
[2016-08-21] MEDS: HEPARIN NA (PORCINE) 5,000 UNITS/ML 1ML VIAL SQ SCH ×2 (10:12→22:35)
[2016-08-21] MEDS ORDERED: LEVOFLOXACIN 500 MG IVPB 100 ML IVPB ONE (14:16)
--- NOTE | 2016-08-21 14:23 | PN ---
Progress Note (short form) - Note Progress Note: seen and examined in room states has been coughing today yet non productive no chills or fever appears comfortable scheduled for procedure today at 5 pm will order CXR exam Vital Signs Period Temp Pulse Resp BP Sys/Regan Pulse Ox Last 24 Hr 98.1 F-98.9 F 78-103 18-20 120-143/59-88 96 comfortable sitting up in bed neck supple heart reg lung CLEAR bilat no wheezing / rhonchi / or rales abd obese ext no edema no calf tenderness will request cxr and blood work Active Medications Albuterol/Ipratropium (Duoneb -) 1 amp NEB QIDR [facility] Last Admin: 08/21/16 12:00 Dose: 1 amp Atorvastatin Calcium (Lipitor -) 20 mg PO [facility] Last Admin: 08/20/16 22:08 Dose: 20 mg Heparin Sodium (Porcine) (Heparin -) 5,000 unit SQ BID [facility] Last Admin: 08/21/16 10:12 Dose: Not Given Dextrose/Sodium Chloride (D5-1/2ns -) 1,000 mls @ 125 mls/hr IV ASDIR [facility] Last Admin: 08/21/16 06:42 Dose: 125 mls/hr Levofloxacin (Levaquin 500 Mg Premixed Ivpb -) 100 mls @ 100 mls/hr IVPB ONCE ONE Stop: 08/21/16 15:15 Ketorolac Tromethamine (Toradol Injection -) 30 mg IM Q6H PRN PRN Reason: PAIN Stop: 08/25/16 09:56 Levothyroxine Sodium (Synthroid -) 125 mcg PO DAILY@0700 [facility] Last Admin: 08/21/16 06:08 Dose: 125 mcg Montelukast Sodium (Singulair -) 10 mg PO [facility] Last Admin: 08/20/16 22:08 Dose: 10 mg Ropinirole HCl (Requip -) 1 mg PO TID [facility] Last Admin: 08/21/16 06:08 Dose: 1 mg Ursodiol (Actigal -) 300 mg PO BID [facility] Last Admin: 08/21/16 10:12 Dose: Not Given Problem List - Problems (1) Kidney stone on left side Assessment/Plan: + stone UV junction Urology consult scheduled for stent today patient aware - understands procedure pain management with toradol PRN Code(s): N20.0 - CALCULUS OF KIDNEY (2) Pneumobilia Assessment/Plan: will follow up \ recent hx of bowel perforation clinically stable will follow with GI as out patient Code(s): K83.8 - OTHER SPECIFIED DISEASES OF BILIARY TRACT (3) Abdominal pain Code(s): R10.9 - UNSPECIFIED ABDOMINAL PAIN Qualifiers: Abdominal location: generalized Qualified Code(s): R10.84 - Generalized abdominal pain (4) COPD (chronic obstructive pulmonary disease) Assessment/Plan: coughing non productive clinically lungs clear CXR ordered Code(s): J44.9 - CHRONIC OBSTRUCTIVE PULMONARY DISEASE, UNSPECIFIED Qualifiers : COPD type: emphysema (5) Restless leg syndrome, controlled Code(s): G25.81 - RESTLESS LEGS SYNDROME
[2016-08-21 16:01] LABS: BASOPHIL 0.9 % (0-2.0); MCH 25.8 pg (25.7-33.7); MCHC 31.7 g/dl (32.0-36.0); MEAN CELL VOLUME 81.2 fl (80-96); MEAN PLT VOLUME 9.2 fl (7.5-11.1); NEUTROPHILS 59.3 % (42.8-82.8); PLATELET COUNT 282 K/MM3 (134-434); RDW 15.1 % (11.6-15.6)
[2016-08-21 16:43] LABS: ANION GAP 9 (8-16); CALCIUM 9.1 mg/dL (8.5-10.1); CO2 31 mmol/L (21-32); CREATININE 0.6 mg/dL (0.55-1.02); GLUCOSE,RANDOM 92 mg/dL (74-106)
[2016-08-21] MEDS ORDERED: PROMETHAZINE HCL 25 MG/1 ML VIAL IVPUSH PRN ×2 (17:20→19:32)
[2016-08-21] MEDS ORDERED: ONDANSETRON 4 MG/2 ML VIAL IVPUSH PRN ×2 (17:20→19:32)
[2016-08-21] MEDS ORDERED: oxyCODONE HCL 5 MG TABLET PO PRN ×2 (17:20→19:32)
[2016-08-21] MEDS ORDERED: MIDAZOLAM HCL 2 MG/2 ML SINGLE DOSE VIAL ONE ×2 (18:08→18:36)
--- NOTE | 2016-08-21 18:52 | OP ---
Operative Note - Note: Operative Date: 08/21/16 Pre-Operative Diagnosis: left renal stone Operation: cystoscopy/left retrograde pyelogram/left ureteroscopic stone manipulation/left stent placement Findings: 8mm left upj stone Post-Operative Diagnosis: Same as Pre-op Surgeon: Yunior Rico Anesthesia: Spinal Drains & Tubes with Location: 6 fr/24 cm stent
--- NOTE | 2016-08-21 19:14 | OP ---
Operative Note - Note: Operative Date: 08/21/16 Pre-Operative Diagnosis: left hydronephrosis and left upj stone Operation: cystoscopy/left retrograde pyelogram/left ureteroscopic stone manipulation and stent placement Findings: 8+ left upj stone Post-Operative Diagnosis: Same as Pre-op Surgeon: Yunior Rico Anesthesia: General Drains & Tubes with Location: 6 bahamian/22 cm left ureteral stent Operative Report Dictated: Yes
--- NOTE | 2016-08-21 19:37 | OP ---
DATE OF OPERATION: 08/21/2016 PREOPERATIVE DIAGNOSIS: Left hydronephrosis with left ureteropelvic junction stone. POSTOPERATIVE DIAGNOSIS: Left hydronephrosis with left ureteropelvic junction stone. PROCEDURE: Cystoscopy, left retrograde pyelogram, left uteroscopic stone manipulation, left ureteral stent placement. ATTENDING PHYSICIAN: Miriam Hutchinson MD PROCEDURE IN DETAIL: The patient was brought into the operating room and placed in the supine position on the operating room table. Spinal anesthesia and sedation were administered to the patient. The patient was then prepped and draped in the usual sterile manner in the dorsal lithotomy position. Cystoscopy was performed and no obvious neoplasm of the kidney was noted. The left ureteral orifice was identified. A wire was attempted to passed proximally to the stone, however, there was obstruction at the level of the UPJ. At this point ureteroscopy was performed and a stone was noted on retrograde pyelogram. A wire was then passed proximally and the stone was then manipulated into the left ureteropelvic junction. The stone was impacted and with release of the stone with a significant amount of hematuria behind the kidney stone. The wire was passed proximally. It was decided that the patient was a better candidate for extracorporal shock wave lithotripsy. At this point the ureteroscope was removed and a 6-Bengali 22-cm stent was placed over the wire. No complications were noted. The patient tolerated the procedure well. MIRIAM HUTCHINSON M.D. [id number]
[2016-08-21] MEDS ORDERED: ACETAMINOPHEN INJECTION 100 ML IVPB ONE (19:40)
[2016-08-21] MEDS ORDERED: ACETAMINOPHEN 1000 MG/100 ML VIAL (NON FORMULARY) IVPB ONE (20:35)
[2016-08-21] MEDS: MONTELUKAST NA 10 MG TABLET PO SCH (22:33)
[2016-08-21] MEDS: ATORVASTATIN CA 20 MG TABLET (FP) PO SCH (22:33)
[2016-08-21] MEDS: KETOROLAC TROMETHAMINE 30 MG/1 ML VIAL IM PRN (23:35)
[2016-08-22] MEDS: rOPINIRole HCL 1 MG TABLET (FP) PO SCH ×3 (05:45→22:12)
[2016-08-22] MEDS: KETOROLAC TROMETHAMINE 30 MG/1 ML VIAL IM PRN ×2 (05:45→22:12)
[2016-08-22] MEDS: DEXTROSE 5%-0.45% SALINE 1,000 ML IV SCH ×2 (05:56→17:40)
[2016-08-22] MEDS: LEVOTHYROXINE NA 125 MCG TABLET (FP) PO SCH (06:04)
[2016-08-22] MEDS: ALBUTEROL SO4 2.5/IPRATROPIUM 0.5 INH SOL 3 ML VIAL.NEB. NEB SCH ×3 (06:15→17:40)
[2016-08-22] MEDS ORDERED: PT OWN MED DRAWER 7, Y5N ONE ×2 (09:08→22:11)
[2016-08-22] MEDS: HEPARIN NA (PORCINE) 5,000 UNITS/ML 1ML VIAL SQ SCH ×2 (09:18→22:08)
[2016-08-22] MEDS: URSODIOL 300 MG CAPSULE PO SCH ×2 (09:18→22:07)
--- NOTE | 2016-08-22 11:41 | PN ---
Progress Note (short form) - Note Progress Note: Anesthesia post op note, POD#1 .S/P Cystoscopy with stent placement in spinal.VSS. Ambulating. C/O some soreness in her back. No apparent post anesthesia complications. Signed off.
--- NOTE | 2016-08-22 11:48 | PN ---
Progress Note (short form) - Note Progress Note: c/o some back pain and mild abdominal pain voiding well and no hematuria also c/o coughing in spite of nebulizer tx CXR 08/21 negative Vital Signs Period Temp Pulse Resp BP Sys/Regan Pulse Ox Last 24 Hr 97.6 F-99.4 F 61-86 16-20 82-147/33-87 94-100 neck supple heart reg lung clear bilat abd soft non tender / obese ext FROM CBC, BMP 08/21/16 14:50 08/21/16 14:50 Active Medications Albuterol/Ipratropium (Duoneb -) 1 amp NEB QIDR [facility] Last Admin: 08/22/16 06:15 Dose: 1 amp Atorvastatin Calcium (Lipitor -) 20 mg PO [facility] Last Admin: 08/21/16 22:33 Dose: 20 mg Fentanyl (Sublimaze Injection -) 50 mcg IVPUSH [id number] PRN PRN Reason: PAIN Stop: 08/24/16 17:21 Heparin Sodium (Porcine) (Heparin -) 5,000 unit SQ BID [facility] Last Admin: 08/22/16 09:18 Dose: 5,000 unit Dextrose/Sodium Chloride (D5-1/2ns -) 1,000 mls @ 125 mls/hr IV ASDIR [facility] Last Admin: 08/22/16 05:56 Dose: 125 mls/hr Ketorolac Tromethamine (Toradol Injection -) 30 mg IM Q6H PRN PRN Reason: PAIN Stop: 08/25/16 09:56 Last Admin: 08/22/16 05:45 Dose: 30 mg Levothyroxine Sodium (Synthroid -) 125 mcg PO DAILY@0700 [facility] Last Admin: 08/22/16 06:04 Dose: 125 mcg Montelukast Sodium (Singulair -) 10 mg PO [facility] Last Admin: 08/21/16 22:33 Dose: 10 mg Oxycodone HCl (Roxicodone -) 10 mg PO Q4H PRN PRN Reason: SEVERE PAIN Stop: 08/22/16 17:19 Ropinirole HCl (Requip -) 1 mg PO TID [facility] Last Admin: 08/22/16 05:45 Dose: 1 mg Ursodiol (Actigal -) 300 mg PO BID [facility] Last Admin: 06/16/17 09:18 Dose: 300 mg Microbiology 06/13/17 22:43 Urine - Urine Clean Catch Urine Culture - Final Contaminated: Please Repeat Problem List - Problems (1) Kidney stone on left side Assessment/Plan: s/p cystom and stent placement 08/21 voiding freeely comfortable will arrange for out patient follow up Code(s): N20.0 - CALCULUS OF KIDNEY (2) Pneumobilia Assessment/Plan: will follow up \ recent hx of bowel perforation clinically stable will follow with GI as out patient Code(s): K83.8 - OTHER SPECIFIED DISEASES OF BILIARY TRACT (3) Abdominal pain Assessment/Plan: continues with abdominal discomfort however benign exam Code(s): R10.9 - UNSPECIFIED ABDOMINAL PAIN Qualifiers: Abdominal location: generalized Qualified Code(s): R10.84 - Generalized abdominal pain (4) COPD (chronic obstructive pulmonary disease) Assessment/Plan: c/o coughing non productive no fever or chills placed on Levaquin yesterday prior to procedure Code(s): J44.9 - CHRONIC OBSTRUCTIVE PULMONARY DISEASE, UNSPECIFIED Qualifiers : COPD type: emphysema (5) Restless leg syndrome, controlled Code(s): G25.81 - RESTLESS LEGS SYNDROME
[2016-08-22] MEDS ORDERED: guaiFENesin/D-METHORPHAN HB 10 ML UNIT-DOSE CUPS PO PRN (11:58)
[2016-08-22] MEDS ORDERED: ACETAMINOPHEN 325 MG TABLET (FP) ONE (16:58)
[2016-08-22] MEDS: ACETAMINOPHEN 325 MG TABLET (FP) PO PRN ×2 (17:53→22:06)
[2016-08-22] MEDS: LEVOFLOXACIN 500 MG TABLET (FP) PO SCH (18:53)
[2016-08-22] MEDS: ATORVASTATIN CA 20 MG TABLET (FP) PO SCH (22:07)
[2016-08-22] MEDS: MONTELUKAST NA 10 MG TABLET PO SCH (22:12)
[2016-08-23] MEDS: ALBUTEROL SO4 2.5/IPRATROPIUM 0.5 INH SOL 3 ML VIAL.NEB. NEB SCH ×4 (00:10→17:27)
[2016-08-23] MEDS: DEXTROSE 5%-0.45% SALINE 1,000 ML IV SCH (00:51)
[2016-08-23] MEDS: LEVOFLOXACIN 500 MG TABLET (FP) PO SCH (06:08)
[2016-08-23] MEDS: LEVOTHYROXINE NA 125 MCG TABLET (FP) PO SCH (06:08)
[2016-08-23] MEDS: rOPINIRole HCL 1 MG TABLET (FP) PO SCH ×2 (06:09→13:49)
[2016-08-23] MEDS ORDERED: PT OWN MED DRAWER 7, Y5N ONE (09:01)
[2016-08-23] MEDS: HEPARIN NA (PORCINE) 5,000 UNITS/ML 1ML VIAL SQ SCH (09:16)
[2016-08-23] MEDS: URSODIOL 300 MG CAPSULE PO SCH (09:16)
[2016-08-23] MEDS: KETOROLAC TROMETHAMINE 30 MG/1 ML VIAL IM PRN (09:43)
[2016-08-23 15:36] VITALS: BP 117/56; PULSE 77; TEMP 99.3
--- NOTE | 2016-08-23 18:51 | PN ---
Progress Note (short form) - Note Progress Note: notified by nurse last night at time of discharge patient febrile Tmax 101.4 denied chills or general malaise discharge held Patient today afebrile and comfortable remains with abdominal discomfort but voiding well Vital Signs Period Temp Pulse Resp BP Sys/Regan Pulse Ox Last 24 Hr 98.4 F-100.9 F 77-81 16-20 116-149/56-71 98-98 lungs clear bilat abd soft obese / no guarding ext no edema / no calf tenderness CBC, BMP 08/21/16 14:50 08/21/16 14:50 Active Medications Acetaminophen (Tylenol -) 650 mg PO Q4H PRN PRN Reason: FEVER OVER 101 Last Admin: 08/22/16 22:06 Dose: 650 mg Albuterol/Ipratropium (Duoneb -) 1 amp NEB QIDR [facility] Last Admin: 08/23/16 17:27 Dose: 1 amp Atorvastatin Calcium (Lipitor -) 20 mg PO [facility] Last Admin: 08/22/16 22:07 Dose: 20 mg Fentanyl (Sublimaze Injection -) 50 mcg IVPUSH [id number] PRN PRN Reason: PAIN Stop: 08/24/16 17:21 Guaifenesin (Robitussin Dm -) 10 ml PO Q4H PRN PRN Reason: COUGH Heparin Sodium (Porcine) (Heparin -) 5,000 unit SQ BID [facility] Last Admin: 08/23/16 09:16 Dose: 5,000 unit Ketorolac Tromethamine (Toradol Injection -) 30 mg IM Q6H PRN PRN Reason: PAIN Stop: 08/25/16 09:56 Last Admin: 08/23/16 09:43 Dose: 30 mg Levofloxacin (Levaquin -) 500 mg PO DAILY@0600 [facility] Last Admin: 08/23/16 06:08 Dose: 500 mg Levothyroxine Sodium (Synthroid -) 125 mcg PO DAILY@0700 [facility] Last Admin: 08/23/16 06:08 Dose: 125 mcg Montelukast Sodium (Singulair -) 10 mg PO [facility] Last Admin: 08/22/16 22:12 Dose: 10 mg Ropinirole HCl (Requip -) 1 mg PO TID [facility] Last Admin: 08/23/16 13:49 Dose: 1 mg Ursodiol (Actigal -) 300 mg PO BID [facility] Last Admin: 08/23/16 09:16 Dose: 300 mg Problem List - Problems (1) Kidney stone on left side Assessment/Plan: s/p cystom and stent placement 08/21 voiding freeely febrile yesterday / today afebrile will follow up tis week in office started on Levaquin Code(s): N20.0 - CALCULUS OF KIDNEY (2) Pneumobilia Assessment/Plan: will follow up \ recent hx of bowel perforation clinically stable will follow with GI as out patient Code(s): K83.8 - OTHER SPECIFIED DISEASES OF BILIARY TRACT (3) Abdominal pain Assessment/Plan: continues with abdominal discomfort however benign exam Code(s): R10.9 - UNSPECIFIED ABDOMINAL PAIN Qualifiers: Abdominal location: generalized Qualified Code(s): R10.84 - Generalized abdominal pain (4) COPD (chronic obstructive pulmonary disease) Assessment/Plan: c/o coughing non productive no fever or chills placed on Levaquin yesterday prior to procedure CXR negative for pathology Code(s): J44.9 - CHRONIC OBSTRUCTIVE PULMONARY DISEASE, UNSPECIFIED Qualifiers : COPD type: emphysema (5) Restless leg syndrome, controlled Assessment/Plan: continue with medication Code(s): G25.81 - RESTLESS LEGS SYNDROME
--- NOTE | 2016-08-23 18:59 | DS ---
Physical Examination Vital Signs: Vital Signs Temperature 99.3 F 08/23/16 15:34 Pulse Rate 77 08/23/16 15:34 Respiratory Rate 18 08/23/16 15:34 Blood Pressure 117/56 08/23/16 15:34 O2 Sat by Pulse Oximetry (%) 98 08/23/16 09:00 Constitutional: Yes: Well Nourished, No Distress, Calm Eyes: Yes: WNL, Conjunctiva Clear, EOM Intact HENT: Yes: WNL, Atraumatic, Normocephalic Neck: Yes: WNL, Supple, Trachea Midline Cardiovascular: Yes: WNL, Regular Rate and Rhythm Respiratory: Yes: WNL, CTA Bilaterally Gastrointestinal: Yes: WNL, Normal Bowel Sounds, Soft, Abdomen, Obese Renal/: Yes: WNL Breast(s): Yes: WNL Musculoskeletal: Yes: WNL Extremities: Yes: WNL Edema: No Peripheral Pulses WNL: Yes Integumentary: Yes: WNL Neurological: Yes: WNL, Alert, Oriented ...Motor Strength: WNL Psychiatric: Yes: Alert, Oriented Labs: CBC, BMP 08/21/16 14:50 08/21/16 14:50 Discharge Summary Reason For Visit: CALCULUS OF LEFT KIDNEY; PNEUMOBELIA Current Active Problems Kidney stone on left side (Acute) Pneumobilia (Acute) Restless leg syndrome, controlled (Acute) Procedures: Principal: cysto with stent placement on 08/21/16. Dr Tai Dixon [facility] Course: admitted with abdominal pain workup significant for renal stone UV juntion / underwent cysto with stent placement will have follow up as out patient Condition: Improved - Instructions Diet, Activity, Other Instructions: activity as tolerated regular diet encourage fluid intake may take shower Referrals: Yunior Rico MD [Staff Physician] - Nora Harry MD [Primary Care Provider] - Disposition: HOME - Home Medications Comprehensive Discharge Medication List: Ambulatory Orders Alendronate Sodium [Binosto] 70 mg PO WEEKLY 04/19/15 Pravastatin Sodium [Pravachol -] 80 mg PO HS 04/19/15 Ropinirole HCl 1 mg PO TID 04/19/15 Ursodiol [Actigal -] 300 mg PO BID #60 capsule 04/22/15 Levothyroxine [Synthroid -] 125 mcg PO DAILY@0700 tablet 07/10/16 Albuterol 2.5/Ipratropium 0.5 [Duoneb -] 1 amp NEB QIDR amp 08/22/16 Atorvastatin Ca [Lipitor] 20 mg PO HS tablet 08/22/16 Levothyroxine [Synthroid -] 125 mcg PO DAILY@0700 tablet 08/22/16 Montelukast Na [Singulair -] 10 mg PO HS tablet 08/22/16 Ropinirole HCl [Requip -] 1 mg PO TID tablet 08/22/16
== END 2016-08-23 19:24 | disposition home or self-care (01) | DRG 669 ==
LOC: JER 10:19 → JERBED 16:18 → J8W 08-20 05:19 → OBSVTOIN 08-20 09:55
PROVIDERS: ADMIT Family Medicine; ATTEND Family Medicine
PROC: 0T778DZ Dilation of Left Ureter with Intraluminal Device, Via Natural or Artificial Opening Endoscopic (ICD-10-PCS; 2016-08-21)
PROC: BT1FYZZ Fluoroscopy of Left Kidney, Ureter and Bladder using Other Contrast (ICD-10-PCS; 2016-08-21)
PROC: 0TC78ZZ Extirpation of Matter from Left Ureter, Via Natural or Artificial Opening Endoscopic (ICD-10-PCS; principal; 2016-08-21 17:30)
DX: N13.2 Hydronephrosis with renal and ureteral calculous obstruction (principal); E78.00 Pure hypercholesterolemia, unspecified; R73.03 Prediabetes; J44.9 Chronic obstructive pulmonary disease, unspecified; K21.9 Gastro-esophageal reflux disease without esophagitis; E03.9 Hypothyroidism, unspecified; Z87.891 Personal history of nicotine dependence; G25.81 Restless legs syndrome
CPT/HCPCS: 36415; 71010-TC; 74177-TC; 76000-TC; 80048; 80053; 81003; 81015; 82550; 83690; 84484; 85025; 87086; 93005; 93010; 94640; 94760; 99284-25; G0378; J1644

== ENCOUNTER → 2016-09-25 | Emergency (ER) | payer BC, OTHER ==
[~2016-09-25] MED LIST: KETOROLAC TROMETHAMINE 30 MG/1 ML VIAL IVPUSH ONE; KETOROLAC TROMETHAMINE 30 MG/1 ML VIAL ONE
[2016-09-25 15:19] VITALS: BMI 26.4
--- NOTE | 2016-09-25 17:01 | PDOC ---
History of Present Illness - General Chief Complaint: Pain Stated Complaint: ABD PAIN, Diarrhea, back PAIN Time Seen by Provider: 09/25/16 16:38 History Source: Patient Exam Limitations: No Limitations - History of Present Illness Initial Comments: CHIEF COMPLAINT: 66 y/o afebrile female with PMH COPD, HLD, RLS, hypothyroidism c/o many months of abdominal pain. HISTORY OF PRESENT ILLNESS: The patient states she has a history of gallstones and kidney stones. She is scheduled to have a left kidney stone removed on by Dr. Rico. The patient states she always has upper abdominal pain that comes and goes. She states over the past 2 days it has worsened and become constant. She called her PCP, Dr. Harry, today who suggested she come here. The patient also admits to diarrhea and right side/back pain today. She denies f/c, n/v, OTTO, cough, CP, SOB, hematuria, dysuria. Vital signs on arrival are notable for pulse of 96 with O2 sat of 96% on RA. REVIEW OF SYSTEMS: GENERAL/CONSTITUTIONAL: No fever/chills. No weakness. No weight change. HEAD, EYES, EARS, NOSE AND THROAT: No change in vision. No ear pain or discharge. No sore throat. CARDIOVASCULAR: No chest pain or shortness of breath. RESPIRATORY: No cough, wheezing, or hemoptysis. GASTROINTESTINAL: +diarrhea. +upper abdominal pain. No nausea, vomiting, constipation, melena, hematochezia. GENITOURINARY: No dysuria, frequency, or change in urination. MUSCULOSKELETAL: No joint or muscle swelling or pain. No neck. +right back and side pain. SKIN: No rash or easy bruising. NEUROLOGIC: No headache, vertigo, loss of consciousness, or loss of sensation. PHYSICAL EXAM: GENERAL: The patient is awake, alert, and fully oriented, in no acute distress. She is well appearing, reading a book in the ER chair. HEAD: Normal with no signs of trauma. ENT: Pupils equal, round and reactive to light, extraocular movements intact, sclera anicteric, conjunctiva clear. Neck supple. LUNGS: Clear to auscultation bilaterally. Normal excursion. No respiratory distress or use of accessory muscles. CV: RRR, S1/S2, no MRG. Cap refill < 2 sec. ABDOMEN: Soft, non-distended, TTP of entire upper abdomen. Right flank pain with palpation. No rebound, guarding, rigidity. No lower abdominal pain. BACK: No CVA TTP b/l. EXTREMITIES: Normal range of motion, no edema. NEUROLOGICAL: Normal speech, normal gait. CN II-XII grossly intact. PSYCH: Normal mood, normal affect. SKIN: Warm, dry, normal turgor, no rashes or lesions noted. Past History - Past Medical History Allergies/Adverse Reactions: Allergies Allergy/AdvReac Type Severity Reaction Status Date / Time No Known Allergies Allergy Verified 09/25/16 15:19 Home Medications: Ambulatory Orders Pravastatin Sodium [Pravachol -] 80 mg PO HS 04/19/15 Ursodiol [Actigal -] 300 mg PO BID #60 capsule 04/22/15 Levothyroxine [Synthroid -] 125 mcg PO DAILY@0700 tablet 08/22/16 Ropinirole HCl [Requip -] 1 mg PO TID tablet 08/22/16 Albuterol 2.5/Ipratropium 0.5 [Duoneb -] 1 amp NEB QIDR 09/24/16 Cholecalciferol (Vitamin D3) [Vitamin D3 -] 400 unit PO DAILY 09/25/16 Anemia: No COPD: Yes Diabetes: Yes (PRE) Dialysis: Yes (pre) GI Disorders: Yes (gall stones) Disorders: Yes (STATES HAS KIDNEY STONES) Hypercholesterolemia: Yes Kidney Stones: Yes Thyroid Disease: Yes (hypo) - Surgical History Abdominal Surgery: Yes (07/04/16, DOES NOT RECALL EHAT SX) Cholecystectomy: Yes - Reproductive History (#): 1 Para: 1 Spontaneous : 1 - Immunization History Immunization Up to Date: Yes - Psycho/Social/Smoking Cessation Hx Anxiety: No Suicidal Ideation: No Smoking Status: Yes Smoking History: Never smoked Have you smoked in the past 12 months: No Number of Cigarettes Smoked Daily: 20 If you are a former smoker, when did you quit?: 2012 Information on smoking cessation initiated: No Hx Alcohol Use: No Drug/Substance Use Hx: No Substance Use Type: None Hx Substance Use Treatment: No *Physical Exam - Vital Signs Last Vital Signs Temp Pulse Resp BP Pulse Ox 98.6 F 96 H 18 123/65 96 09/25/16 15:18 09/25/16 15:18 09/25/16 15:18 09/25/16 15:18 09/25/16 15:18 ED Treatment Course - LABORATORY CBC & Chemistry Diagram: 09/25/16 18:00 09/25/16 18:00 - RADIOLOGY Radiology Studies Ordered: Category Date Time Status KIDNEY / RENAL US [US] Stat Ultrasound 09/25/16 16:52 Ordered Medical Decision Making - Medical Decision Making A/P: 66 y/o afebrile female with upper abdominal pain for "months" here with worsened pain x 2 days. Plan is as follows: 1. Labs 2. Gallbladder ultrasound 3. Kidney ultrasound The patient's PCP, Dr. Harry, called and informed me that the patient had a perforated abdomen this previous June of 2016. Since that time she has been complaining of constant abdominal pain. Dr. Harry states this patient has a very high tolerance for pain and she in concerned for possible re-perf. Will add CT scan of abd/pelvis. I am signing this patient out to my colleague: NICO Mina In brief, this patient is being seen in the ED for a chief complaint of: worsening abdominal pain x months. I have completed the initial assessment interview note and have ordered: labs, kidney/gallbladder ultrasound, CT scan abd/pelvis I have reviewed the following results: none Pending results are: all Please call the PCP: Dr. Harry (will admit to hospitalist today but does want call back) Plan for disposition is as follows: Pending
[2016-09-25 18:47] LABS: BASOPHIL 0.4 % (0-2.0); EOSINOPHIL 2.9 % (0-4.5); MCH 25.8 pg (25.7-33.7); MCHC 31.9 g/dl (32.0-36.0); MEAN CELL VOLUME 80.7 fl (80-96); MEAN PLT VOLUME 8.5 fl (7.5-11.1); NEUTROPHILS 55.2 % (42.8-82.8); PLATELET COUNT 268 K/MM3 (134-434); RDW 16.6 % (11.6-15.6); WHITE BLOOD COUNT 7.6 K/mm3 (4.0-10.0)
[2016-09-25 18:58] VITALS: PULSE 64; TEMP 98.4
[2016-09-25 19:10] LABS: ALBUMIN 3.5 g/dl (3.4-5.0); ANION GAP 6 (8-16); CALCIUM 9.3 mg/dL (8.5-10.1); CO2 33 mmol/L (21-32); GLUCOSE,RANDOM 92 mg/dL (74-106)
[2016-09-25 19:14] LABS: ALK PHOS 94 U/L (45-117); BILIRUBIN,TOTAL 0.7 mg/dL (0.2-1.0); CREATININE 0.8 mg/dL (0.55-1.02); SGOT/AST 23 U/L (15-37); SGPT/ALT 20 U/L (12-78); TOT PROT 7.9 g/dl (6.4-8.2)
--- NOTE | 2016-09-25 20:44 | PDOC ---
*Physical Exam - Vital Signs Last Vital Signs Temp Pulse Resp BP Pulse Ox 98.4 F 64 16 121/80 96 09/25/16 18:00 09/25/16 18:00 09/25/16 18:00 09/25/16 18:00 09/25/16 18:00 - Physical Exam Comments: 09/25/16 20:35 Sign-out received from outgoing ER provider Junior. Pt interviewed and examined. Ancillary studies reviewed. Awaiting labs, ultrasound, CT. Labs unremarkable. Ultrasound results: Multiple small gallstones with borderline thickening of the gallbladder wall and without sonographic evidence of acute cholecystitis. Likely tiny nonobstructing renal stones as seen on prior CT scan of the bad[place] pelvis with mild left renal hydronephrosis. Read by: Ada Palacios MD ED Treatment Course - LABORATORY CBC & Chemistry Diagram: 09/25/16 18:00 09/25/16 18:00 - ADDITIONAL ORDERS Additional order review: Laboratory Results 09/25/16 18:00 Sodium 140 Potassium 4.5 Chloride 101 Carbon Dioxide 33 H Anion Gap 6 L BUN 22 H Creatinine 0.8 Creat Clearance w eGFR > 60 Random Glucose 92 Calcium 9.3 Total Bilirubin 0.7 D AST 23 D ALT 20 Alkaline Phosphatase 94 Total Protein 7.9 Albumin 3.5 Lipase 171 09/25/16 18:00 RBC 4.40 MCV 80.7 MCHC 31.9 L RDW 16.6 H MPV 8.5 Neutrophils % 55.2 Lymphocytes % 32.4 Monocytes % 9.1 Eosinophils % 2.9 Basophils % 0.4 *DC/Admit/Observation/Transfer Diagnosis at time of Disposition: Kidney stone on left side UTI (urinary tract infection) Qualifiers: Urinary tract infection type: site unspecified Hematuria presence: with hematuria Qualified Code(s): N39.0 - Urinary tract infection, site not specified Gallstone Qualifiers: Cholecystitis presence: without cholecystitis Biliary obstruction: without biliary obstruction Qualified Code(s): K80.20 - Calculus of gallbladder without cholecystitis without obstruction - Discharge Dispostion Disposition: HOME Condition at time of disposition: Improved Admit: No - Prescriptions Prescriptions: Nitrofurantoin Monohyd/M-Cryst [Macrobid -] 100 mg PO BID #14 capsule Phenazopyridine HCl [Pyridium] 100 mg PO TID PRN #21 tablet PRN Reason: Pain - Referrals Referrals: Fresneda,Nora I, MD [Primary Care Provider] - - Patient Instructions Printed Discharge Instructions: DI for Gallstones, DI for Kidney Stones, DI for Urinary Tract Infection (UTI) Additional Instructions: Please take medications as prescribed. Please follow up with Dr. Harry this week. Keep your appointment with Dr. Rico for your kidney stone removal. If you experience any fever, chills, vomiting, diarrhea, rectal bleeding, worsening abdominal pain, or any new or worsening symptoms, please return to the ER.
[2016-09-25 22:09] LABS: URINE APPEARANCE CLEAR; URINE BILIRUBIN NEGATIVE (NEGATIVE); URINE BLOOD 3+ (NEGATIVE); URINE COLOR YELLOW; URINE GLUCOSE (UA) NEGATIVE (NEGATIVE); URINE KETONE NEGATIVE (NEGATIVE); URINE NITRITE NEGATIVE (NEGATIVE); URINE UROBILINOGEN NEGATIVE mg/dL (0.2-1.0)
[2016-09-25 22:13] LABS: URINE LEUK ESTERASE 3+ (NEGATIVE); URINE PROTEIN 2+ (NEGATIVE)
[2016-09-25 23:22] VITALS: BP 118/78
[2016-09-25 23:32] LABS: URINE RBC 617 /hpf (0-3); URINE WBC 74 /hpf (3-5)
== END | disposition home or self-care (01) ==
LOC: JER 15:15
PROC: 3E0333Z Introduction of Anti-inflammatory into Peripheral Vein, Percutaneous Approach (ICD-10-PCS; principal; 2016-09-25)
DX: N13.2 Hydronephrosis with renal and ureteral calculous obstruction (principal); K80.20 Calculus of gallbladder without cholecystitis without obstruction; N39.0 Urinary tract infection, site not specified; J44.9 Chronic obstructive pulmonary disease, unspecified; E78.00 Pure hypercholesterolemia, unspecified; E03.9 Hypothyroidism, unspecified; G25.81 Restless legs syndrome
CPT/HCPCS: 36415; 74177-TC; 76705-TC; 76775-TC; 80053; 81003; 81015; 83690; 85025; 87086; 99281-25

== ENCOUNTER 2016-10-06 05:27 | Day surgery (SDC) | payer BC, OTHER ==
[2016-09-24 12:31] VITALS: BMI 31.1
[~2016-10-06 05:27] MED LIST changes: -KETOROLAC TROMETHAMINE 30 MG/1 ML VIAL IVPUSH ONE; -KETOROLAC TROMETHAMINE 30 MG/1 ML VIAL ONE; +LEVOFLOXACIN 500 MG PREMIX BAG IVPB ONE
[2016-10-06] MEDS ORDERED: MIDAZOLAM HCL 2 MG/2 ML SINGLE DOSE VIAL ONE ×2 (08:51→09:31)
[2016-10-06] MEDS ORDERED: oxyCODONE HCL 5 MG TABLET PO PRN (09:03)
[2016-10-06] MEDS ORDERED: ONDANSETRON 4 MG/2 ML VIAL IVPUSH PRN (09:03)
[2016-10-06] MEDS ORDERED: LEVOFLOXACIN 500 MG IVPB 100 ML IVPB ONE (09:04)
[2016-10-06] MEDS ORDERED: LACTATED RINGERS SOLUTION 1,000 ML IV SCH (09:15)
[2016-10-06] MEDS ORDERED: LEVOFLOXACIN 500 MG PREMIX BAG IVPB ONE (09:27)
[2016-10-06] MEDS ORDERED: NALOXONE HCL 0.4 MG/ML VIAL ONE (09:49)
[2016-10-06] MEDS ORDERED: FLUMAZENIL 0.5 MG/5 ML VIAL ONE (09:49)
[2016-10-06 11:14] VITALS: TEMP 92
[2016-10-06 11:40] VITALS: BP 106/58; PULSE 80
--- NOTE | 2016-10-06 15:28 | OP ---
Operative Note - Note: Operative Date: 10/06/16 Pre-Operative Diagnosis: left 5mm mid-pole renal stone Operation: left eswl Post-Operative Diagnosis: Same as Pre-op Surgeon: Yunior Rico Anesthesia: General
--- NOTE | 2016-10-07 08:50 | OP ---
DATE OF OPERATION: 10/06/2016 PREOPERATIVE DIAGNOSIS: Left renal stone. POSTOPERATIVE DIAGNOSIS: Left renal stone. PROCEDURE: Left extracorporeal shock wave lithotripsy. ATTENDING PHYSICIAN: Miriam Hutchinson MD ANESTHESIA: General. DESCRIPTION OF OPERATION: Patient was brought in the operating room, placed in supine position on the operating room table. A left mid-pole renal stone measuring 5 mm was noted. General anesthesia was administered at this point. The patient was also given Levaquin 500 mg intravenously. Extracorporeal shock wave lithotripsy was performed; 3000 impulses at 20 joules of power were administered to the stone. Excellent fragmentation was noted under real-time fluoroscopy and ultrasonography. DISPOSITION: The patient went to recovery room. MIRIAM HUTCHINSON M.D. [id number]
== END 2016-10-06 11:46 | disposition home or self-care (01) ==
LOC: JASU-SURG 05:27
PROVIDERS: ATTEND Urology
PROC: 0TF4XZZ Fragmentation in Left Kidney Pelvis, External Approach (ICD-10-PCS; principal; 2016-10-06 08:45)
DX: N20.0 Calculus of kidney (principal)
CPT/HCPCS: 94760

== ENCOUNTER 2016-10-09 06:01 | Inpatient (IN) | payer BC, OTHER ==
--- NOTE | 2016-10-09 07:14 | PDOC ---
Attending Attestation - Resident Resident Name: Silvestre De Los Santos - ED Attending Attestation I have performed the following: I have examined & evaluated the patient, The case was reviewed & discussed with the resident, I agree w/resident's findings & plan, Exceptions are as noted - HPI HPI: 10/09/16 08:42 66 F with h/o HLD, COPD, hypothyroid, recurrent nephrolithiasis s/p L ureteral stent and lithotripsy last month, gastric perf, gallstones, presents to ER with 2 days of worsening left sided abdominal pain. Pain is constant, similar to kidney stone pain. No CP/SOB. No F/C. No dysuria, no N/V/D. - Physicial Exam PE: 10/09/16 08:45 GENERAL: Awake, alert, and fully oriented, in no acute distress HEAD: No signs of trauma EYES: PERRLA, EOMI, sclera anicteric, conjunctiva clear ENT: Auricles normal inspection, hearing grossly normal, nares patent, oropharynx clear without exudates. Moist mucosa NECK: Normal ROM, supple, no lymphadenopathy, JVD, or masses LUNGS: Breath sounds equal, clear to auscultation bilaterally. No wheezes, and no crackles HEART: Regular rate and rhythm, normal S1 and S2, no murmurs, rubs or gallops ABDOMEN: soft, nondistended, diffuse TTP most notable in LUQ, no CVAT EXTREMITIES: Normal range of motion, no edema. No clubbing or cyanosis. No cords, erythema, or tenderness NEUROLOGICAL: Cranial nerves II through XII grossly intact. Normal speech, normal gait SKIN: Warm, Dry, normal turgor, no rashes or lesions noted. - Medical Decision Making 10/09/16 08:46 66F with h/o gastric perf, recurrent kidney stones, gallstones, presents to ER with 2 days of L sided abdominal pain. Differential includes, renal colic, stent bother, gastritis, gastric perf, diverticulitis. Will obtain US kidneys to r/o hydro. Upright CXR and abd XR to evaluate for perf and obstruction. Suzan less likely given L sided pain but will r/o with RUQ sono. - Labs, lactate - CXR, Abd XR - US kidneys and gallbladder - If above w/u negative, obtain CTAP w/ PO and IV contrast 10/09/16 14:27 CTAP with extravasation from L ureteral stent. Spoke with Urologist Dr. Morrison who recommends admission for stent replacement.
--- NOTE | 2016-10-09 07:27 | PDOC ---
History of Present Illness - General Chief Complaint: Pain, Acute Stated Complaint: ABD PAIN Time Seen by Provider: 10/09/16 06:13 - History of Present Illness Initial Comments: 10/09/16 07:43 Patient is a 66 year old female with a history of kidney stones s/p left ureteral stent, gallstones, an abdominal perforation, COPD, and HTN who presents with acute worsening of left sided abdominal pain following a Lithotripsy on 10/06/16. She reports that since her lithotripsy, she has experienced worsening sharp severe left sided lower abdominal pain with radiation into her left flank and left sided back prompting her presentation to the ED today. She reports that since her perforation, she has had continued problems with recurrent kidney stones and gallstones as well as continued diffuse abdominal pain. She has had multiple presentations to the ED for kidney stones with her most recent being 09/25/16 where she had a CT abdomen that demonstrated recurrent kidney stones and gallstones. She had a ureteral stent placed in August, but has had recurrent kidney stone obstructions despite the stent which is the reason for her undergoing lithotripsy. She denies fevers , chills, chest pain, SOB, or changes with urination or bowel movements. Past History - Past Medical History Allergies/Adverse Reactions: Allergies Allergy/AdvReac Type Severity Reaction Status Date / Time No Known Allergies Allergy Verified 10/09/16 06:15 Home Medications: Ambulatory Orders Pravastatin Sodium [Pravachol -] 80 mg PO HS 04/19/15 Ursodiol [Actigal -] 300 mg PO BID #60 capsule 04/22/15 Levothyroxine [Synthroid -] 125 mcg PO DAILY@0700 tablet 08/22/16 Ropinirole HCl [Requip -] 1 mg PO TID tablet 08/22/16 Albuterol 2.5/Ipratropium 0.5 [Duoneb -] 1 amp NEB QIDR 09/24/16 Nitrofurantoin Monohyd/M-Cryst [Macrobid -] 100 mg PO BID #14 capsule 09/25/16 Phenazopyridine HCl [Pyridium] 100 mg PO TID PRN #21 tablet 09/25/16 Ergocalciferol (Vitamin D2) [Vitamin D2] 50,000 unit PO WEEKLY 10/06/16 Tiotropium Julian [Spiriva] 1 inh IH DAILY 10/06/16 Anemia: No COPD: Yes Diabetes: Yes (PRE) Dialysis: Yes (pre) GI Disorders: Yes (gall stones) Disorders: Yes (STATES HAS KIDNEY STONES) Hypercholesterolemia: Yes Kidney Stones: Yes Thyroid Disease: Yes (hypo) - Surgical History Abdominal Surgery: Yes (07/04/16, DOES NOT RECALL EHAT SX) Cholecystectomy: Yes GI Surgery: Yes (lithotripsy on 10.06.16) - Reproductive History (#): 1 Para: 1 Spontaneous : 1 - Immunization History Immunization Up to Date: Yes - Psycho/Social/Smoking Cessation Hx Anxiety: No Suicidal Ideation: No Smoking Status: Yes Smoking History: Former smoker Have you smoked in the past 12 months: No Number of Cigarettes Smoked Daily: 20 If you are a former smoker, when did you quit?: 2012 Information on smoking cessation initiated: No Hx Alcohol Use: No Drug/Substance Use Hx: No Substance Use Type: None Hx Substance Use Treatment: No Review of Systems - Review of Systems Constitutional: No: Chills, Fever Respiratory: No: Cough, Shortness of Breath Cardiac (ROS): No: Chest Pain, Palpitations ABD/GI: No: Constipated, Diarrhea, Nausea, Vomiting : No: Burning, Dysuria, Hematuria, Pain Integumentary: No: Rash Neurological: No: Headache, Numbness, Tingling, Weakness *Physical Exam - Vital Signs Last Vital Signs Temp Pulse Resp BP Pulse Ox 98.7 F 80 18 150/81 95 10/09/16 06:14 10/09/16 06:14 10/09/16 06:14 10/09/16 06:14 10/09/16 07:09 - Physical Exam Comments: 10/09/16 08:32 General Appearance: Nourished. No Apparent Distress HEENT: No Pharyngeal Erythema, Tonsillar Exudate, Tonsillar Erythema Respiratory/Chest: Lungs Clear, Normal Breath Sounds. No Crackles, Rales, Rhonchi, Wheezing Cardiovascular: Regular Rhythm, Regular Rate. No Murmur, Gallop/S3, Gallop/S4 Gastrointestinal/Abdominal: Normal Bowel Sounds, Diffuse tenderness to palpation worse in the URQ, LLQ and suprapubic regions with mild guarding in the suprapubic and LLQ. No Rebound Musculoskeletal: Normal Inspection. No CVA Tenderness Extremity: Normal Capillary Refill Integumentary: Normal Color, Dry, Warm Neurologic: Fully Oriented, Alert, Normal Mood/Affect, Normal Response ED Treatment Course - LABORATORY CBC & Chemistry Diagram: 10/09/16 08:32 10/09/16 07:59 Medical Decision Making - Medical Decision Making 10/09/16 08:33 Patient is a 66 year old female with a history of kidney stones, gallstones, abdominal perforation, HTN, and COPD who presents with acute worsening of left lower abdominal pain after lithotrispy. Differential includes but is not limited to: Nephrolethiasis, cholecystitis, pancreatitis, UTI, perforation, obstruction. Given her history and physical exam, it is likely that the patient 's kidney stone is now passing due to the lithotrispy leading to an increase in her pain. However, given her complex history of kidney stones, gallstones, and a perforation within the last year, we must evaluate for other sources of her increased pain. An acute cholecystitis is less likely given the location of her worsening pain, however we will obtain a abdominal US to evaluate. We will also obtain a cbc, cmp, lipase, lactate, and UA to evaluate. We will obtain a chest and abdomen radiograph as well. 10/09/16 10:48 CBC demonstrates a small elevation in WBC to 10.5. CMP, lipase, and lactate are unremarkable. UA demonstrates 3+ blood in her urine with 2+ leuk esterase and 100+ RBC and 48 WBC. US demonstrates left hydronephrosis with a 5mm stone as read by radiology. The patient had gone to lithotripsy for the 5mm stone on 10/06. It is possible that her pain may be due to the stone, however we will obtain a CT abdomen to further evaluate. 10/09/16 13:49 CT abdomen demonstrates hydronephrosis of the left kidney with urine extravagation as read by our radiologist. We got in contact with Dr. Rico the patient's urologist and discussed the case. Dr. Liriano asked us to get in contact with radiology to determine if the stent is placed properly. 10/09/16 14:41 We discussed the case with radiology and Dr. Rico. Per radiology's read of the ct abdomen and our exam of the patient, we feel that the only explanation for her new pain is related to obstruction of her left kidney. As discussed with radiology, the patient has new signs of hydronephrosis and urine extravagation when her CT is compared to one taken in September after the stent was placed and is concerning for obstruction of the left kidney especially given that her pain has been requiring morphine for management. We discussed with Dr. Rico that we are concerned that the stent may not be functioning properly given her new hydronephrosis. Dr. Rico agreed to see the patient today for evaluation of stent replacement and requested us to admit to the hospitalist team. 10/09/16 15:32 Discussed the case with Dr. Ibarra who is admitting for the hospitalist team who agreed to accept the patient. *DC/Admit/Observation/Transfer Diagnosis at time of Disposition: Nephrolithiasis Hydronephrosis Qualifiers: Hydronephrosis type: unspecified Qualified Code(s): N13.30 - Unspecified hydronephrosis - Discharge Dispostion Condition at time of disposition: Guarded Admit: Yes - Referrals Referrals: Nora Harry MD [Primary Care Provider] - - Attestations Physician Attestion: 10/09/16 15:31 I, Dr. Silvestre De Los Santos, attest that this document has been prepared under my direction and personally reviewed by me in its entirety. I further attest, that it accurately reflects all work, treatment, procedures and medical decision -making performed by me.
[2016-10-09] MEDS ORDERED: morphine CARPU-JECT 4 MG/1 ML DISP.SYRIN IVPUSH ONE ×2 (07:59→13:48)
[2016-10-09] MEDS ORDERED: SODIUM CHLORIDE 1,000 ML IV STA (08:23)
[2016-10-09] MEDS ORDERED: morphine CARPU-JECT 4 MG/1 ML DISP.SYRIN ONE ×3 (08:23→14:19)
[2016-10-09 08:49] LABS: BASOPHIL 0.5 % (0-2.0); EOSINOPHIL 0.9 % (0-4.5); MCH 26.2 pg (25.7-33.7); MCHC 32.2 g/dl (32.0-36.0); MEAN CELL VOLUME 81.5 fl (80-96); MEAN PLT VOLUME 8.9 fl (7.5-11.1); NEUTROPHILS 80.8 % (42.8-82.8); PLATELET COUNT 209 K/MM3 (134-434); RDW 16.4 % (11.6-15.6); WHITE BLOOD COUNT 10.7 K/mm3 (4.0-10.0)
[2016-10-09 09:27] LABS: ALBUMIN 3.7 g/dl (3.4-5.0); ALK PHOS 100 U/L (45-117); ANION GAP 6 (8-16); BILIRUBIN,TOTAL 0.4 mg/dL (0.2-1.0); CALCIUM 9.5 mg/dL (8.5-10.1); CO2 32 mmol/L (21-32); CREATININE 0.9 mg/dL (0.55-1.02); GLUCOSE,RANDOM 118 mg/dL (74-106); SGOT/AST 17 U/L (15-37); SGPT/ALT 19 U/L (12-78); TOT PROT 7.9 g/dl (6.4-8.2)
[2016-10-09 09:27] LABS: URINE APPEARANCE CLEAR; URINE BILIRUBIN NEGATIVE (NEGATIVE); URINE BLOOD 3+ (NEGATIVE); URINE COLOR AMBER; URINE GLUCOSE (UA) NEGATIVE (NEGATIVE); URINE KETONE TRACE (NEGATIVE); URINE NITRITE POSITIVE (NEGATIVE); URINE UROBILINOGEN 4.0 E.U/dl mg/dL (0.2-1.0)
[2016-10-09 09:29] LABS: URINE LEUK ESTERASE 2+ (NEGATIVE); URINE PROTEIN 1+ (NEGATIVE)
[2016-10-09 09:34] LABS: INR 0.98 (0.82-1.09); PROTHROMBIN TIME (PATIENT) 10.8 SEC (9.98-11.88)
[2016-10-09 09:37] LABS: URINE BACTERIA RARE /hpf (NONE SEEN); URINE MUCUS RARE; URINE RBC 181 /hpf (0-3); URINE WBC 48 /hpf (3-5); YEAST RARE
[2016-10-09 09:37] LABS: ACTIVATED PTT 35.8 SECONDS (26.9-34.4)
[2016-10-09] MEDS ORDERED: CEFTRIAXONE 1 GM in DEXTROSE 5%-WATER - 100 ML IVPB ONE (15:34)
[2016-10-09] MEDS ORDERED: CEFTRIAXONE 50 ML ONE (16:45)
[2016-10-09] MEDS ORDERED: ONDANSETRON 4 MG/2 ML VIAL IVPUSH PRN ×2 (17:20→20:10)
[2016-10-09] MEDS ORDERED: LACTATED RINGERS SOLUTION 1,000 ML IV SCH (17:30)
[2016-10-09] MEDS ORDERED: cefTRIAXone SODIUM 1 GM VIAL IVPB ONE (18:10)
--- NOTE | 2016-10-09 19:01 | CONSULT ---
Consult - text type - Consultation Consultation Note: CC: left hydronephrosis with perirenal fluid collection hpi: patient with history of obstructive left stone s/p stent s/p eswl who presents to er in severe left colic. Patient has a CT scan which shows a hydronephrosis with perirenal fluid collection. Patient requires morphine for pain management. PE severe left CVAT CT scan reviewed discussed with patient x25 minutes impression left hydro with perirenal fluid collection plan cysto and left retro patient taken to OR emergently
--- NOTE | 2016-10-09 19:05 | OP ---
Operative Note - Note: Operative Date: 10/09/16 Pre-Operative Diagnosis: left hydronephrosis with perirenal fluid collection and ureteral stone Operation: cystoscopy;left retrograde pyelogram; left ureteroscopic stone basketing; left ureteral stent exchange Findings: multiple stones basketed and sent for evaluation Post-Operative Diagnosis: Same as Pre-op Surgeon: Yunior Rico Anesthesia: General Drains & Tubes with Location: 08/28 stent
[2016-10-09] MEDS: LACTATED RINGERS SOLUTION 1,000 ML IV SCH (19:15)
[2016-10-09] MEDS: URSODIOL 300 MG CAPSULE PO SCH (21:54)
[2016-10-09] MEDS: ACLIDINIUM BROMIDE 400 MCG/INH AERO.POWD IH SCH ×2 (21:54→21:59)
[2016-10-09] MEDS ORDERED: URSODIOL 300 MG CAPSULE PO SCH (22:00)
[2016-10-09 22:48] VITALS: BMI 31.8
[2016-10-09] MEDS ORDERED: oxyCODONE HCL 5 MG TABLET PO PRN (23:16)
--- NOTE | 2016-10-09 23:20 | HP ---
Admitting History and Physical - Admission Chief Complaint: fllank pain History of Present Illness: Patient is a 66 year old female with a history of kidney stones s/p left ureteral stent, gallstones, an abdominal perforation, COPD, and HTN who presents with acute worsening of left sided abdominal pain following a Lithotripsy on 10/06/16. She reports that since her lithotripsy, she has experienced worsening sharp severe left sided lower abdominal pain with radiation into her left flank and left sided back prompting her presentation to the ED today. She reports that since her perforation, she has had continued problems with recurrent kidney stones and gallstones as well as continued diffuse abdominal pain. She has had multiple presentations to the ED for kidney stones with her most recent being 09/25/16 where she had a CT abdomen that demonstrated recurrent kidney stones and gallstones. She had a ureteral stent placed in August, but has had recurrent kidney stone obstructions despite the stent which is the reason for her undergoing lithotripsy. She denies fevers , chills, chest pain, SOB, or changes with urination or bowel movements. History Source: Patient, Medical Record Limitations to Obtaining History: No Limitations (explore lap for perforated duodenum) - Past Medical History Cardiovascular: Yes: Hyperlipdemia Pulmonary: Yes: COPD, Sleep Apnea Gastrointestinal: Yes: Diverticulosis, GERD, Peptic Ulcer Disease (perforated DU plicated 06/22/16), Other (s/p perforated bowel 6-8 weks ago) Hepatobiliary: Yes: Cholelithiasis Renal/: Yes: Renal Calculi ...LMP: 03/09/95 ...: No Musculoskeletal: Yes: Osteoarthritis, Other (cervical radiculopathy) Endocrine: Yes: Hypothyroidism - Past Surgical History Past Surgical History: Yes: Cataract Removal, Colonoscopy (More than 8 years ago , negative) - Smoking History Smoking history: Former smoker Have you smoked in the past 12 months: No Aproximately how many cigarettes per day: 20 If you are a former smoker, when did you quit?: 2013 - Alcohol/Substance Use Hx Alcohol Use: No History of Substance Use: reports: None - Social History ADL: Independent Occupation: unemployed History of Recent Travel: No Home Medications - Allergies Allergies/Adverse Reactions: Allergies Allergy/AdvReac Type Severity Reaction Status Date / Time No Known Allergies Allergy Verified 10/09/16 06:15 - Home Medications Home Medications: Ambulatory Orders Pravastatin Sodium [Pravachol -] 80 mg PO HS 04/19/15 Ursodiol [Actigal -] 300 mg PO BID #60 capsule 04/22/15 Levothyroxine [Synthroid -] 125 mcg PO DAILY@0700 tablet 08/22/16 Ropinirole HCl [Requip -] 1 mg PO TID tablet 08/22/16 Albuterol 2.5/Ipratropium 0.5 [Duoneb -] 1 amp NEB QIDR 09/24/16 Nitrofurantoin Monohyd/M-Cryst [Macrobid -] 100 mg PO BID #14 capsule 09/25/16 Phenazopyridine HCl [Pyridium] 100 mg PO TID PRN #21 tablet 09/25/16 Ergocalciferol (Vitamin D2) [Vitamin D2] 50,000 unit PO WEEKLY 10/06/16 Tiotropium Depue [Spiriva] 1 inh IH DAILY 10/06/16 Family Disease History - Family Disease History Family Disease History: Heart Disease: Mother (CHF, Hypoglycemia), Other: Father (Alzheimer's), Mother Review of Systems - Review of Systems Constitutional: reports: Other (flank pain) Eyes: reports: No Symptoms HENT: reports: No Symptoms Neck: reports: No Symptoms, Stiffness, Tenderness Cardiovascular: reports: No Symptoms Respiratory: reports: Exercise Intolerance, SOB on Exertion Gastrointestinal: reports: Abdominal Pain, Other (flank pain) Genitourinary: reports: No Symptoms, Flank Pain, Pain, Urgency Breasts: reports: No Symptoms Reported Musculoskeletal: reports: No Symptoms, Back Pain Integumentary: reports: No Symptoms Neurological: reports: No Symptoms Endocrine: reports: No Symptoms Hematology/Lymphatic: reports: No Symptoms Psychiatric: reports: No Symptoms Physical Examination Vital Signs: Vital Signs Temperature 98.1 F 10/09/16 21:00 Pulse Rate 88 10/09/16 21:00 Respiratory Rate 20 10/09/16 21:00 Blood Pressure 142/50 10/09/16 21:00 O2 Sat by Pulse Oximetry (%) 98 10/09/16 21:00 Constitutional: Yes: Well Nourished, Mild Distress Eyes: Yes: Conjunctiva Clear, EOM Intact HENT: Yes: Atraumatic, Normocephalic Neck: Yes: Supple, Trachea Midline Cardiovascular: Yes: Regular Rate and Rhythm Respiratory: Yes: Regular, CTA Bilaterally Gastrointestinal: Yes: Abdomen, Obese, Tenderness Renal/: Yes: CVA Tenderness - Left, Hematuria Breast(s): Yes: WNL Edema: No Peripheral Pulses WNL: Yes Integumentary: Yes: WNL Wound/Incision: Yes: Clean/Dry Neurological: Yes: Alert, Oriented ...Motor Strength: WNL Psychiatric: Yes: Alert, Oriented Problem List - Problems (1) Hydronephrosis Assessment/Plan: s/p stent placement 3 days [employer] pain to flank Hematuria abdominal pain Code(s): N13.30 - UNSPECIFIED HYDRONEPHROSIS Qualifiers: Hydronephrosis type: unspecified Qualified Code(s): N13.30 - Unspecified hydronephrosis (2) Nephrolithiasis Assessment/Plan: hematuria flank pain stent in place -- re occurance of pain evaluated and for stent replacement Code(s): N20.0 - CALCULUS OF KIDNEY (3) Restless leg syndrome, controlled Assessment/Plan: continue current medication well controlled Code(s): G25.81 - RESTLESS LEGS SYNDROME (4) Abdominal pain Assessment/Plan: secondary to Nephrolithiasis Code(s): R10.9 - UNSPECIFIED ABDOMINAL PAIN Qualifiers: Abdominal location: generalized Qualified Code(s): R10.84 - Generalized abdominal pain (5) COPD (chronic obstructive pulmonary disease) Code(s): J44.9 - CHRONIC OBSTRUCTIVE PULMONARY DISEASE, UNSPECIFIED Qualifiers : COPD type: emphysema
[2016-10-09] MEDS: ALBUTEROL SO4 2.5/IPRATROPIUM 0.5 INH SOL 3 ML VIAL.NEB. NEB SCH (23:32)
[2016-10-10] MEDS ORDERED: ALBUTEROL SO4 2.5/IPRATROPIUM 0.5 INH SOL 3 ML VIAL.NEB. NEB SCH
[2016-10-10] MEDS: LACTATED RINGERS SOLUTION 1,000 ML IV SCH ×2 (03:00→09:41)
[2016-10-10] MEDS: rOPINIRole HCL 1 MG TABLET (FP) PO SCH ×2 (06:15→14:27)
[2016-10-10] MEDS: ALBUTEROL SO4 2.5/IPRATROPIUM 0.5 INH SOL 3 ML VIAL.NEB. NEB SCH ×3 (06:25→17:16)
[2016-10-10 06:52] LABS: MCH 25.8 pg (25.7-33.7); MCHC 31.7 g/dl (32.0-36.0); MEAN CELL VOLUME 81.3 fl (80-96); MEAN PLT VOLUME 8.8 fl (7.5-11.1); PLATELET COUNT 206 K/MM3 (134-434); RDW 16.7 % (11.6-15.6); WHITE BLOOD COUNT 7.7 K/mm3 (4.0-10.0)
[2016-10-10] MEDS ORDERED: LEVOTHYROXINE NA 125 MCG TABLET (FP) PO SCH ×2 (07:00)
[2016-10-10 07:12] LABS: ANION GAP 6 (8-16); CALCIUM 8.9 mg/dL (8.5-10.1); CO2 32 mmol/L (21-32); CREATININE 0.9 mg/dL (0.55-1.02); GLUCOSE,RANDOM 167 mg/dL (74-106); MAGNESIUM 1.8 mg/dL (1.8-2.4); PHOSPHOROUS 4.9 mg/dL (2.5-4.9)
--- NOTE | 2016-10-10 08:44 | PN ---
Progress Note (short form) - Note Progress Note: Anesthesia Post op Pt seen and examined S:alert and awake O: Vital Signs Temperature 97.1 F L 10/10/16 06:00 Pulse Rate 73 10/10/16 06:00 Respiratory Rate 16 10/10/16 06:00 Blood Pressure 123/48 10/10/16 06:00 O2 Sat by Pulse Oximetry (%) 98 10/09/16 21:00 CBC, BMP 10/10/16 06:10 10/10/16 06:10 A/P: Current Active Problems Hydronephrosis (Acute) Nephrolithiasis (Acute) Pneumobilia (Acute) Restless leg syndrome, controlled (Acute) s/p cysto/stent Doing well post op Continue current care Evangelista Morillo MD
--- NOTE | 2016-10-10 09:14 | OP ---
DATE OF OPERATION: 10/09/2016 PREOPERATIVE DIAGNOSIS: Left hydronephrosis, perinephric fluid collection status post ureteral stent status post extracorporeal shock-wave lithotripsy. POSTOPERATIVE DIAGNOSIS: Multiple left ureteral stones with hydronephrosis. SURGEON: Yunior Dixon MD ANESTHESIA: General. PROCEDURE: Cystoscopy with left retrograde pyelogram, left ureteroscopic stone basketing, left stent exchange. DESCRIPTION OF PROCEDURE: The patient was brought in the operating room and placed in the supine position on the operating room table. General anesthesia was administered without complications. The patient was then placed in a dorsal lithotomy position and prepped and draped in the usual sterile manner. The patient has a history of a left ureteral stent for ureteral obstruction done about 1 month ago. The patient is 3 days status post a left extracorporeal shock-wave lithotripsy. The patient presented to the emergency room with severe renal colic requiring morphine. A CAT scan showed perinephric fluid collection with a worsening hydronephrosis. The patient was taken to the operating room emergently. A cystoscopy is performed. No evidence of neoplasm is noted within the bladder. The stent is noted to be in good position. The stent is removed, and a retrograde pyelogram shows multiple filling defects with a hydroureteronephrosis. Ureteroscopy was performed, and multiple stones were seen. Under direct vision, these stones are basketed and sent for analysis. A left retrograde pyelogram showed no significant stones present. There was no extravasation noted on retrograde pyelogram. The nephroureteral system was intact. The patient had a 6-Bengali 22-cm stent replaced utilizing the Seldinger technique over wire. DISPOSITION: Patient to recovery room. Ange [id number]
[2016-10-10] MEDS ORDERED: cefTRIAXone SODIUM 1 GM VIAL ONE (09:33)
[2016-10-10] MEDS ORDERED: DEXTROSE 5%-WATER - 50 ML IVPB ONE (09:34)
[2016-10-10] MEDS: URSODIOL 300 MG CAPSULE PO SCH (09:40)
[2016-10-10] MEDS: ACLIDINIUM BROMIDE 400 MCG/INH AERO.POWD IH SCH (09:41)
[2016-10-10] MEDS ORDERED: cefTRIAXone 1 GM/50 ML BAG (PRE-DOCKED) IVPB SCH ×2 (10:00)
[2016-10-10] MEDS ORDERED: TIOTROPIUM BROMIDE 18 MCG/INH (DEVICE W/ 5 CAPSULES) IH SCH (10:00)
[2016-10-10] MEDS ORDERED: CEFTRIAXONE 1 GM in DEXTROSE 5%-WATER - 50 ML IVPB SCH (10:00)
[2016-10-10] MEDS ORDERED: PT OWN MED DRAWER 7, Y5N ONE (14:25)
--- NOTE | 2016-10-10 17:10 | PN ---
Progress Note (short form) - Note Progress Note: Patient seen and examined in room patient sitting in chair comfortable states has had no pain since procedure last night voiding freely / clear yellow urine case was discussed with earlier she has remained Pain free and will be discharged today She has been instructed to follow up at office this week Vital Signs Period Temp Pulse Resp BP Sys/Regan Pulse Ox Last 24 Hr 97.0 F-98.2 F 68-105 16-20 102-142/46-74 95-100 neck supple heart reg S1/S2 Lungs clear bilat abd soft non tender ext no edema CBC, BMP 10/10/16 06:10 10/10/16 06:10 Active Medications Aclidinium [place] (Tudorza -) 1 puff IH BID [facility] Last Admin: 10/10/16 09:41 Dose: Not Given Albuterol/Ipratropium (Duoneb -) 1 amp NEB QIDR [facility] Last Admin: 10/10/16 11:20 Dose: 1 amp Atorvastatin Calcium (Lipitor -) 20 mg PO HS [facility] Lactated Ringer's (Lactated Ringers Solution) 1,000 mls @ 125 mls/hr IV ASDIR [facility] Last Admin: 10/10/16 09:41 Dose: 125 mls/hr Ceftriaxone Sodium 1 gm/ (Dextrose) 50 mls @ 100 mls/hr IVPB DAILY [facility] Last Admin: 10/10/16 09:40 Dose: 100 mls/hr Levothyroxine Sodium (Synthroid -) 125 mcg PO DAILY@0700 [facility] Last Admin: 10/10/16 06:14 Dose: 125 mcg Oxycodone HCl (Roxicodone -) 5 mg PO Q4H PRN Last Admin: 10/10/16 06:14 Dose: 5 mg Ropinirole HCl (Requip -) 1 mg PO TID [facility] Last Admin: 10/10/16 14:27 Dose: 1 mg Ursodiol (Actigal -) 300 mg PO BID [facility] Last Admin: 10/10/16 09:40 Dose: 300 mg stable for d/c home today Problem List - Problems (1) Hydronephrosis Assessment/Plan: s/p stent placement 3 days ENDOSCOPY TECH pain to flank with hematuria stent replaced last night has remained free of pain and voiding freely Code(s): N13.30 - UNSPECIFIED HYDRONEPHROSIS Qualifiers: Hydronephrosis type: unspecified Qualified Code(s): N13.30 - Unspecified hydronephrosis (2) Nephrolithiasis Assessment/Plan: hematuria / flank pain with stent in place --> re occurance of pain replaced stent 10/09/16 now pain free Code(s): N20.0 - CALCULUS OF KIDNEY (3) Restless leg syndrome, controlled Assessment/Plan: continue current medication well controlled Code(s): G25.81 - RESTLESS LEGS SYNDROME (4) Abdominal pain Assessment/Plan: secondary to Nephrolithiasis now resolved Code(s): R10.9 - UNSPECIFIED ABDOMINAL PAIN Qualifiers: Abdominal location: generalized Qualified Code(s): R10.84 - Generalized abdominal pain (5) COPD (chronic obstructive pulmonary disease) Assessment/Plan: patient stable on current medications will continue meds Code(s): J44.9 - CHRONIC OBSTRUCTIVE PULMONARY DISEASE, UNSPECIFIED Qualifiers : COPD type: emphysema
[2016-10-10 18:58] VITALS: BP 129/59; PULSE 71; TEMP 98.1
[2016-10-10] MEDS ORDERED: ATORVASTATIN CA 20 MG TABLET (FP) PO SCH (22:00)
== END 2016-10-10 19:18 | disposition home or self-care (01) | DRG 669 ==
LOC: JER 06:01 → SUPCPDRO 06:01 → JERBED 15:31 → J6S 20:45
PROVIDERS: ADMIT Internal Medicine; ATTEND Family Medicine
PROC: 0T778DZ Dilation of Left Ureter with Intraluminal Device, Via Natural or Artificial Opening Endoscopic (ICD-10-PCS; 2016-10-09)
PROC: BT1FYZZ Fluoroscopy of Left Kidney, Ureter and Bladder using Other Contrast (ICD-10-PCS; 2016-10-09)
PROC: 0TC78ZZ Extirpation of Matter from Left Ureter, Via Natural or Artificial Opening Endoscopic (ICD-10-PCS; principal; 2016-10-09 17:00)
PROC: 0TP98DZ Removal of Intraluminal Device from Ureter, Via Natural or Artificial Opening Endoscopic (ICD-10-PCS; 2016-10-09 17:00)
DX: N13.2 Hydronephrosis with renal and ureteral calculous obstruction (principal); G25.81 Restless legs syndrome; J44.9 Chronic obstructive pulmonary disease, unspecified; I10 Essential (primary) hypertension; E78.5 Hyperlipidemia, unspecified; Z87.891 Personal history of nicotine dependence; E03.9 Hypothyroidism, unspecified
CPT/HCPCS: 36415; 71020-TC; 74020-TC; 74177-TC; 76000-TC; 76700-TC; 80048; 80053; 81003; 81015; 83605; 83690; 83735; 84100; 85025; 85027; 85610; 85730; 87086; 87186; 94640; 94760; 97116-GP; 97161-GP; 99283-25

== ENCOUNTER 2017-01-26 14:30 | Day surgery (SDC) | payer BC, OTHER ==
[2017-01-15 17:57] VITALS: BMI 30.9
[~2017-01-26 14:30] MED LIST changes: +LACTATED RINGERS SOLUTION 1,000 ML IV SCH; -LEVOFLOXACIN 500 MG PREMIX BAG IVPB ONE; +ONDANSETRON 4 MG/2 ML VIAL IVPUSH PRN; +oxyCODONE HCL 5 MG TABLET PO PRN
[2017-01-26] MEDS ORDERED: LEVOFLOXACIN 500 MG IVPB 500 MG/100 ML BAG IVPB ONE (15:04)
[2017-01-26] MEDS ORDERED: MIDAZOLAM HCL 2 MG/2 ML SINGLE DOSE VIAL ONE (15:15)
[2017-01-26] MEDS ORDERED: LEVOFLOXACIN 500 MG PREMIX BAG IVPB ONE (15:19)
[2017-01-26] MEDS ORDERED: ONDANSETRON 4 MG/2 ML VIAL IVPUSH ONE (15:42)
--- NOTE | 2017-01-26 15:49 | OP ---
Operative Note - Note: Operative Date: 01/26/17 Pre-Operative Diagnosis: right renal stone Operation: right eswl Findings: 5 mm right mid pole renal stone Post-Operative Diagnosis: Same as Pre-op Surgeon: Yunior Rico Anesthesia: Fractional
[2017-01-26] MEDS ORDERED: ONDANSETRON 4 MG/2 ML VIAL ONE (15:58)
[2017-01-26 16:43] VITALS: TEMP 97.9
[2017-01-26 18:29] VITALS: BP 117/71; PULSE 81
--- NOTE | 2017-01-26 22:36 | OP ---
DATE OF OPERATION: 01/26/2017 PREOPERATIVE DIAGNOSIS: Right renal stone. POSTOPERATIVE DIAGNOSIS: Right renal stone. PROCEDURE: Right extracorporeal shock wave lithotripsy. ATTENDING: Miriam Rico M.D. ANESTHESIA: Fractional. OPERATION: Patient was brought in the operating room, placed in a supine position on the operating room table. Ultrasonography and fluoroscopy were performed. A 5-mm right mid pole stone was identified. At this point, anesthesia was administered with preoperative antibiotics. Extracorporeal shock wave lithotripsy was then started. 2500 impulses at 17 joules of power were administered to the stone. Excellent fragmentation of the stone was noted under real time ultrasonography and fluoroscopy. No complications were noted. DISPOSITION: Disposition of the patient to the recovery room. MIRIAM HUTCHINSON M.D. [id number]
== END 2017-01-26 18:29 | disposition home or self-care (01) ==
LOC: JASU-SURG 14:30
PROVIDERS: ATTEND Urology
PROC: 0TF3XZZ Fragmentation in Right Kidney Pelvis, External Approach (ICD-10-PCS; principal; 2017-01-26 16:15)
DX: N20.0 Calculus of kidney (principal)
CPT/HCPCS: 94760

== ENCOUNTER 2017-03-05 06:05 | Inpatient (IN) | payer OTHER ==
--- NOTE | 2017-02-26 10:20 | HP ---
Satellite PMH - Chief Complaint Chief Complaint: right knee pain - Past Medical History Allergies/Adverse Reactions: Allergies Allergy/AdvReac Type Severity Reaction Status Date / Time No Known Allergies Allergy Verified 01/26/17 14:52 Cardiovascular: Yes: Hyperlipdemia Pulmonary: Yes: COPD, Sleep Apnea Gastrointestinal: Yes: Diverticulosis, GERD, Peptic Ulcer Disease (perforated DU plicated 06/22/16), Other (s/p perforated bowel 6-8 weks ago) Hepatobiliary: Yes: Cholelithiasis Renal/: Yes: Renal Calculi ...LMP: 03/09/95 Musculoskeletal: Yes: Osteoarthritis, Other (cervical radiculopathy) Endocrine: Yes: Hypothyroidism - Current Medications Current Medications: Home Medications Medication Instructions Recorded Pravastatin Sodium [Pravachol -] 80 mg PO HS 04/19/15 Ursodiol [Actigal -] 300 mg PO BID #60 capsule 04/22/15 Ergocalciferol (Vitamin D2) 50,000 unit PO WEEKLY 10/06/16 [Vitamin D2] Tiotropium [place] [Spiriva] 1 inh IH DAILY 10/06/16 Albuterol 2.5/Ipratropium 0.5 1 amp NEB QIDR amp 10/10/16 [Duoneb -] Levothyroxine [Synthroid -] 125 mcg PO DAILY@0700 tablet 10/10/16 Ropinirole HCl [Requip -] 1 mg PO TID tablet 10/10/16 Pantoprazole Sodium 20 mg PO DAILY 01/15/17 Satellite Physical Exam - Physical Examination General Appearance: Well Nourished, Well Developed, Alert & Oriented x3 ENT: Clear Lung: Normal air movement Heart: Regular rate & rhythm Extremities: Other (right knee- + swelling, + ttp, decr rom, nvi xrays show grade 4 tricompartmental djd) Neurological: Intact, Alert, Oriented Satellite Impression/Plan - Impression/Plan Impression: right knee djd Operative Procedure: right zechariah tkr Date to be Performed: 03/05/17
[2017-02-26 13:15] VITALS: BMI 31.6
[2017-03-05] MEDS ORDERED: CELECOXIB 200 MG CAPSULE PO ONE (06:21)
[2017-03-05] MEDS ORDERED: oxyCODONE HCL 10 MG SUSTAINED ACTING TABLET PO ONE (06:21)
[2017-03-05] MEDS ORDERED: TRANEXAMIC ACID 1000 MG/10 ML VIAL IVPUSH ONE (06:21)
[2017-03-05] MEDS ORDERED: CEFAZOLIN 2 GM in DEXTROSE 5%-WATER - 50 ML IVPB ONE (06:21)
[2017-03-05] MEDS ORDERED: GABAPENTIN 300 MG CAPSULE (FP) PO ONE (06:21)
[2017-03-05] MEDS ORDERED: ceFAZolin SODIUM 1 GM VIAL ONE (07:08)
[2017-03-05] MEDS ORDERED: VANCOMYCIN 1,000 MG VIAL (RESTRICTED TO ID ONLY) ONE (07:08)
[2017-03-05] MEDS ORDERED: DEXAMETHASONE SOD PHOSPHATE/PF 10 MG/ML SDV ONE (07:32)
[2017-03-05] MEDS ORDERED: SODIUM CHLORIDE 0.9% P/F 10 ML VIAL IJ ONE (07:32)
[2017-03-05] MEDS ORDERED: ROPIVACAINE HCL 0.5% 30ML VIAL ONE (07:32)
[2017-03-05] MEDS ORDERED: MIDAZOLAM HCL 2 MG/2 ML SINGLE DOSE VIAL ONE (07:32)
[2017-03-05] MEDS ORDERED: THROMBIN (BOVINE) 5,000 UNIT VIAL TP ONE (07:42)
[2017-03-05] MEDS ORDERED: GELATIN, ABSORBABLE 100 EACH SPONGE TP ONE (07:44)
[2017-03-05] MEDS ORDERED: ONDANSETRON 4 MG/2 ML VIAL IVPUSH PRN ×2 (10:26→12:24)
[2017-03-05] MEDS ORDERED: oxyCODONE HCL 5 MG TABLET PO PRN (10:27)
[2017-03-05] MEDS ORDERED: LACTATED RINGERS SOLUTION 1,000 ML IV SCH ×2 (10:30→12:30)
[2017-03-05] MEDS: ACETAMINOPHEN 325 MG TABLET (FP) PO SCH ×2 (11:14→23:09)
[2017-03-05] MEDS ORDERED: MAGNESIUM HYDROX 2400MG/30ML ORAL SUSPENSION 30 ML CUP PO PRN (12:24)
[2017-03-05] MEDS ORDERED: MAG HYDROX/AL HYDROX/SIMETH 30 ML UNIT-DOSE CUP PO PRN (12:24)
[2017-03-05] MEDS ORDERED: HYDROmorphone HCL CARPU-JECT 1 MG/1 ML DISP.SYRIN IVPB PRN (12:28)
--- NOTE | 2017-03-05 13:07 | SPEC ---
DATE OF OPERATION: 03/05/2017 PREOPERATIVE DIAGNOSIS: Degenerative joint disease, right knee. POSTOPERATIVE DIAGNOSIS: Degenerative joint disease, right knee. PROCEDURE: Right total knee replacement with robotic-assisted navigation (Makoplasty). SURGICAL ATTENDING: Booker Whitaker M.D. PROFESSOR OF THEATER: BRYAN Schilling ANESTHESIA: Regional and spinal. CLOSURE: A Triathlon cemented knee system with a 2 femur, 3 tibia, and 9 polyethylene, 29 patella, number 1 Vicryl fascia, 0 and 2-0 subcutaneous, 3-0 Monocryl subcuticular with skin glue for skin, 4-0 undyed Vicryl for pin sites. ESTIMATED BLOOD LOSS: Negligible. COMPLICATIONS: None. CONDITION: To recovery room in stable condition. DESCRIPTION OF OPERATIVE PROCEDURE: Patient was taken to the operating room on March 05, 2017. Regional and general anesthesia was administered by the anesthesiologist. IV Kefzol and TXA were administered by the anesthesiologist. Well-padded pneumatic tourniquet was placed on the proximal thigh. The right lower extremity was prepped and draped in the usual sterile fashion. The leg was exsanguinated with an Esmarch bandage, and tourniquet was inflated to 275 mmHg. A 12 to 15-cm longitudinal midline incision was incised while centered over the patella. The dissection was carried down to the level of the extensor mechanism with sufficient flaps made to adequately perform the procedure. A medial parapatellar arthrotomy was then performed. We made a cuff of tissue on the patella for later closure. The patella was inverted, the knee was flexed up. The fat pad was excised. The subperiosteal dissection was on the anteromedial proximal tibia around towards the direction of the MCL. The ACL and the PCL were transected and debrided. The meniscal remnants of the medial and lateral meniscus were debrided and removed. This allowed the knee to be able to "be brought forward." The checkpoints were malleted into the tibia and into the femur. Two threaded pins were drilled anteroposteriorly proximal to the knee through the previous incision, through the anterior cortex, then just engaging the posterior cortex. To these pins was assembled the femoral navigation array. One handbreadth below the tibial tubercle, 2 stab incisions were used to drill 2 threaded pins in parallel fashion into the tibia, again through the anterior cortex and just engaging the posterior cortex. To these pins was fastened the tibial arrays. The knee was then registered with the navigation device with center of rotation of the hip, medial and lateral malleoli, both checkpoints, and multiple points on both the femur and the tibia to ensure excellent registration. The navigation device was directed off the "top of the bubbles" on both the femur and the tibia. The navigation passed within less than 0.5 mm to plan. The knee was then thoroughly inspected to remove all osteophytes both medially, laterally, and on the femur and the tibia, and whatever osteophytes were available for dissection. The knee was then taken to extension and to flexion, and stressed in both varus and valgus to assess flexion gaps. The virtual position of the components on the navigation device were then manipulated to optimize the position and to ensure equal gaps in both flexion and extension, and both medially and laterally. The robot was then brought into the field and was registered. The cuts were then made both on the femur and on the tibia as to plan. All osteophytes posteriorly were then removed as well. The gaps were then measured again in flexion and extension to be equal in both flexion and extension and medial and laterally. The femoral notch was then made, as we were doing a posterior stabilizing component, with the appropriate sized box. Trial reduction of the femur achieved excellent [id number] fit. A tibial baseplate of appropriate polyethylene thickness was "floated in the knee." It was ensured to be in the excellent position by navigation devices and was pinned in place. The knee was taken through a range of motion, and found to have excellent stability throughout flexion and extension. The patella was calibrated for thickness and osteotomized down to the appropriate level. The appropriate lollipop was used to drill the lug holes in the patella and the trial button was applied. The knee was taken through a range of motion and found to have excellent tracking of the patella, and patella from full extension to full flexion. Trial components were removed, the keel was punched and drilled, and a sclerotic bone on the tibia was drilled to help with cement interdigitation. The knee was thoroughly irrigated with the pulse antibiotic oven operator. The real components were then cemented in using monitored arrangement cement techniques with antibiotic cement, and pressurization and extension. After the cement was hardened, the knee was thoroughly inspected to remove any extra cement. The real polyethylene component was then clipped into place. Range of motion, stability, and tracking were as described earlier. The checkpoints and the pins were removed. The knee was thoroughly irrigated with antibiotic irrigation. Vancomycin powder was placed into the knee for antibiotic prophylaxis. The medial parapatellar arthrotomy was then closed using number 1 Vicryl interrupted suture. After closure of the deep layer, the knee was taken through a range of motion, and found to have excellent stability of the patella with no dislocation and no undue tension on the repair. The subcutaneous was pulse antibiotic irrigated, and was then closed with 2-0 Vicryl, 3-0 Monocryl subcuticular with the skin glue for the skin. The distal tibial pin site was irrigated thoroughly as well and then closed with 4-0 undyed Vicryl. A sterile Aquacel dressing was applied, followed by a Caraballo dressing. Tourniquet was deflated. Total tourniquet time was approximately 75 minutes. No complications. Patient was awakened from anesthesia and transferred to recovery room in stable condition. Postoperative x-rays revealed excellent position of the components. Ange [id number]
[2017-03-05] MEDS ORDERED: predniSONE 10 MG TABLET (UD) PO ONE ×2 (14:30)
[2017-03-05] MEDS: ALBUTEROL SO4 2.5/IPRATROPIUM 0.5 INH SOL 3 ML VIAL.NEB. NEB SCH (14:30)
[2017-03-05] MEDS: rOPINIRole HCL 1 MG TABLET (FP) PO SCH ×2 (14:37→21:16)
[2017-03-05] MEDS: CEFAZOLIN 1 GM/D5W 1 GM/50 ML BAG IVPB SCH (19:22)
[2017-03-05] MEDS ORDERED: PT OWN MED DRAWER 7, Y5N ONE (21:13)
[2017-03-05] MEDS: SENNOSIDES/DOCUSATE COMBO (SENNA PLUS) TABLET (UD) PO SCH (21:16)
[2017-03-05] MEDS: URSODIOL 300 MG CAPSULE PO SCH (21:16)
[2017-03-05] MEDS: ASCORBIC ACID 500 MG TABLET (FP) PO SCH (21:16)
[2017-03-05] MEDS: ATORVASTATIN CA 20 MG TABLET (FP) PO SCH (21:16)
[2017-03-05] MEDS: oxyCODONE HCL 5 MG TABLET PO PRN (21:17)
[2017-03-06] MEDS: ALBUTEROL SO4 2.5/IPRATROPIUM 0.5 INH SOL 3 ML VIAL.NEB. NEB SCH ×4 (00:10→17:37)
[2017-03-06] MEDS: CEFAZOLIN 1 GM/D5W 1 GM/50 ML BAG IVPB SCH (01:16)
[2017-03-06] MEDS: ACETAMINOPHEN 325 MG TABLET (FP) PO SCH ×4 (04:15→22:03)
[2017-03-06] MEDS: oxyCODONE HCL 5 MG TABLET PO PRN ×4 (04:16→17:37)
[2017-03-06] MEDS ORDERED: PT OWN MED DRAWER 7, Y5N ONE ×4 (05:05→21:36)
[2017-03-06] MEDS: rOPINIRole HCL 1 MG TABLET (FP) PO SCH ×3 (05:07→22:03)
[2017-03-06] MEDS: LEVOTHYROXINE NA 125 MCG TABLET (FP) PO SCH (06:03)
--- NOTE | 2017-03-06 08:07 | PN ---
Progress Note (short form) - Note Progress Note: Ortho Pt seen and examined s/p right zechariah tkr pod #1 Selected Entries 03/06/17 06:26 Temperature 97.9 F Pulse Rate 55 L Respiratory 20 Rate Blood Pressure 108/49 dressing c/d/i, calf soft, nt rom 0-70, nvi cbc pending a/p PT dvt ppx pain control d/c to rehab tomorrow if stable
[2017-03-06] MEDS: ASPIRIN 325 MG TABLET PO SCH (08:24)
[2017-03-06 08:44] LABS: HEMATOCRIT 32.2 % (32.4-45.2); HEMOGLOBIN 10.4 GM/dl (10.7-15.3); MCH 28.4 pg (25.7-33.7); MCHC 32.2 g/dl (32.0-36.0); MEAN CELL VOLUME 88.2 fl (80-96); MEAN PLT VOLUME 9.7 fl (7.5-11.1); PLATELET COUNT 243 K/MM3 (134-434); RBC 3.65 M/mm3 (3.60-5.2); RDW 13.9 % (11.6-15.6); WHITE BLOOD COUNT 9.8 K/mm3 (4.0-10.8)
[2017-03-06 08:51] LABS: ANION GAP 8 (8-16); BLOOD UREA NITROGEN 40 mg/dl (7-18); CALCIUM 8.7 mg/dl (8.4-10.2); CHLORIDE 97 mmol/L (98-107); CO2 30 mmol/L (22-28); CREATININE 1.6 mg/dl (0.6-1.3); GLUCOSE,RANDOM 153 mg/dl (74-106); POTASSIUM 4.2 mmol/L (3.5-5.1); SODIUM 135 mmol/L (136-145)
--- NOTE | 2017-03-06 09:31 | PN ---
Progress Note (short form) - Note Progress Note: 66F POD1 s/p right TKR under spinal anesthetic with peripheral nerve blocks for post operative pain relief. Pt states that pain is well controlled, reports no anesthetic complications. Sensory and motor function intact in bilateral lower extremities.
[2017-03-06] MEDS: CHOLECALCIFEROL (VITAMIN D3) 1,000 UNIT TABLET (FP) PO SCH (09:40)
[2017-03-06] MEDS: SENNOSIDES/DOCUSATE COMBO (SENNA PLUS) TABLET (UD) PO SCH ×2 (09:40→22:03)
[2017-03-06] MEDS: CELECOXIB 200 MG CAPSULE PO SCH (09:40)
[2017-03-06] MEDS: URSODIOL 300 MG CAPSULE PO SCH ×2 (09:40→22:03)
[2017-03-06] MEDS: PANTOPRAZOLE 40 MG TABLET (FP) PO SCH (09:41)
[2017-03-06] MEDS: ASCORBIC ACID 500 MG TABLET (FP) PO SCH ×2 (09:41→22:03)
[2017-03-06] MEDS: MULTIVITAMINS (DAILY MVI) TABLET (FP) PO SCH (09:41)
[2017-03-06] MEDS: TIOTROPIUM BROMIDE 18 MCG/INH (DEVICE W/ 5 CAPSULES) IH SCH (09:45)
[2017-03-06] MEDS ORDERED: PANTOPRAZOLE 40 MG TABLET (FP) PO SCH (10:00)
[2017-03-06] MEDS: ATORVASTATIN CA 20 MG TABLET (FP) PO SCH (22:03)
--- NOTE | 2017-03-06 23:17 | ED.PROV ---
Physicial Exam I was called to the floor to resuscitate this patient who was found unresponsive by staff. On my arrival CPR was in progress and patient was being ventilated by bag-valve- mask. Shortly after my arrival patient was attached to a monitor that showed normal sinus rhythm at a rate of 94. Patient had a pulse but was still with agonal respirations Patient's O2 sat at that time was 49%. Patient hyperventilated by staff while I set up to intubate her. Patient was noted to have 1 partially crushed and 2 whole pills in her posterior oropharynx at the time I went to intubate her. Patient was intubated with a Mac 4 blade 7.0 endotracheal tube. I was unable to visualize the cords as patient is had a tracheostomy and her anatomy was very distorted however I was able to place a tube in her trachea and her oxygen level immediately improved to 100%. Capnometer showed good color change. And breath sounds were initially greater on the right than the left. Tube was pulled back to 20 at the teeth and taped in position. Patient was placed on a vent with a tidal volume of 600 respiratory rate of 15 and 60% oxygen. Shortly after I intubated her the hospitalist Nurse Practicioner arrived and assumed responsibility for her care. Chest x-ray postintubation the tube is above the bruno and there appears to be bilateral infiltrates. The nurse practitioner was notified of the bilateral infiltrates. Total critical care time was approximately 45 minutes - Vital Signs Last Vital Signs Temp Pulse Resp BP Pulse Ox 98.4 F 62 18 114/45 89 L 03/06/17 14:03 03/06/17 14:03 03/06/17 14:03 03/06/17 14:03 03/06/17 14:03
--- NOTE | 2017-03-06 23:31 | HOSP ---
Subjective - Review of Symptoms Events since last encounter: pt s/p cardiac arrest. Nurses report pt was in her usual state of health, received night pills around 10pm. swallowed water, no distress, was talking in full sentences after medication receipt. Last medicated for pain at 1737 with oxycodone 10mg. Nurse walking by room around 1030, noted respiratory distress with sonorous respirations, went to put pt on bipap and pt with agonal respirations, unresponsive. pulse very thready and irregular, Compressions started. Code called. ED MD responded, noted pills in posterior pharynx, pt suctioned. 7.0 ETT placed. Monitor revealed NS rhythm rate 94. after intubation sat immediately jaylan to 100%. SBP remained above 100 when measured. Physical Examination Vital Signs: Vital Signs Temperature 98.4 F 03/06/17 14:03 Pulse Rate 62 03/06/17 14:03 Respiratory Rate 18 03/06/17 14:03 Blood Pressure 114/45 03/06/17 14:03 O2 Sat by Pulse Oximetry (%) 89 L 03/06/17 14:03 Constitutional: Yes: No Distress Eyes: Yes: Other (pupils pinpoint) Cardiovascular: Yes: Regular Rate and Rhythm, S1, S2 Respiratory: Yes: CTA Bilaterally Gastrointestinal: Yes: Normal Bowel Sounds Neurological: Yes: Other (grimaces to painful stimuli, does not follow commands , does not open eyes on her own.) Labs: CBC, BMP 03/06/17 07:40 03/06/17 07:40 Hospitalist Encounter Assessment: s/p respiratory arrest - unclear if pt truly fully lost pulse, bp immediately stable - on ventilator, respiratory to come in and check vent - cont current vent settings - will get abg - DW Dr. Jama who accepts pt to ICU at [facility], will arrange for transfer. - dw dr. dai, request transfer to hospitalist service unless pt has private attending-pt is Dr. Harry's pt who is off call to Dr. Ibarra for the weekend. Will manage pt for tonight and contact Fred tomorrow. - will obtain labs; CBC, BMP Pneumonia - B/L infiltrates on CXR - start unasyn 3g q6h - ? aspiration - NS @ 100cc/hr Addendum 234 - pt now alert, eyes open, no longer pinpoint pupils, pupils 2mm cancel narcan (was not given yet as no IV access) - pt able to shake head yes or no to questions - Respiratory attended pt, obtained abg. Called daughter Olga [phone] (phone number in computer incorrect, obtained from pt cell phone) - updated her about mothers condition and events. Daughter reports mother is a DNR, that she was supposed to bring in a copy. No copy found in chart. When asked if she wanted mother to be DNR, she said no, she didn't and she doesn't feel that her mother understood what it meant. Will discuss with patient when more alert.
[2017-03-06] MEDS ORDERED: NALOXONE HCL 0.4 MG/ML VIAL IVPUSH ONE (23:45)
[2017-03-07 00:26] LABS: ARTERIAL BLD GAS O2 SATURATION 95.8 % (90-98.9); ARTERIAL BLOOD GAS BASE EXCESS 0.7 meq/l (-2-2); ARTERIAL BLOOD GAS PCO2 39.7 mmHg (35-45); ARTERIAL BLOOD GAS PO2 71.5 mmHg (80-100); ARTERIAL BLOOD GAS pH 7.41 (7.35-7.45)
[2017-03-07 00:28] LABS: ALLENS TEST POSITIVE
[2017-03-07] MEDS: AMPICILLIN NA/SULBACTAM NA 3 GM in SODIUM CHLORIDE 100 ML IVPB SCH ×2 (00:47→04:05)
[2017-03-07] MEDS: ALBUTEROL SO4 2.5/IPRATROPIUM 0.5 INH SOL 3 ML VIAL.NEB. NEB SCH ×2 (00:48→23:28)
[2017-03-07] MEDS ORDERED: SODIUM CHLORIDE 1,000 ML IV SCH ×2 (01:15→10:15)
[2017-03-07 01:41] LABS: BASO % 0.3 % (0-2.0); EOS % 0.2 % (0-4.5); HEMATOCRIT 29.7 % (32.4-45.2); HEMOGLOBIN 9.6 GM/dL (10.7-15.3); MCH 28.3 pg (25.7-33.7); MCHC 32.5 g/dl (32.0-36.0); MEAN CELL VOLUME 87.1 fl (80-96); MEAN PLT VOLUME 9.1 fl (7.5-11.1); MONO % 10.1 % (3.8-10.2); NEUT % 73.4 % (42.8-82.8); PLATELET COUNT 209 K/MM3 (134-434); RBC 3.41 M/mm3 (3.60-5.2); RDW 15.1 % (11.6-15.6); WHITE BLOOD COUNT 9.5 K/mm3 (4.0-10.0)
--- NOTE | 2017-03-07 01:48 | CONSULT ---
Consultation: REQUESTING PROVIDER: CONSULT REQUEST: We have been asked to medically evaluate this patient for s/p arrest. HISTORY OF PRESENT ILLNESS: Pt is post op day 1 s/p right total knee replacement (Makoplasty) now s/p cardiac arrest. Nurses report pt was in her usual state of health, received night pills around 10pm. swallowed water, no distress, was talking in full sentences after medication receipt. Last medicated for pain at 1737 with oxycodone 10mg. Nurse walking by room around 1030, noted respiratory distress with sonorous respirations, went to put pt on bipap and noted pt with agonal respirations, unresponsive. pulse very thready and irregular, Compressions started. Code called. ED MD responded, upon intubation attempt noted pills in posterior pharynx, pt suctioned. 7.0 ETT placed. taped at 20cm. after intubation ox sat immediately jaylan to 100%. SBP remained above 100 when measured. Once pt was placed on monitor it revealed NS rhythm rate 94. PAST MEDICAL/SURGICAL HISTORY COPD, sleep apnea HLD diverticulosis, GERD, PUD, perforated bowel, cholelithiasis osteoarthritis cervical radiculopathy hypothyroidism REVIEW OF SYSTEMS: CONSTITUTIONAL: Absent: fever, chills, diaphoresis, generalized weakness, malaise, loss of appetite, weight change HEENT: Absent: rhinorrhea, nasal congestion, throat pain, throat swelling, difficulty swallowing, mouth swelling, ear pain, eye pain, visual changes CARDIOVASCULAR: Absent: chest pain, syncope, palpitations, irregular heart rate, lightheadedness , peripheral edema RESPIRATORY: Absent: cough, shortness of breath, dyspnea with exertion, orthopnea, wheezing, stridor, hemoptysis GASTROINTESTINAL: Absent: abdominal pain, abdominal distension, nausea, vomiting, diarrhea, constipation, melena, hematochezia GENITOURINARY: Absent: dysuria, frequency, urgency, hesitancy, hematuria, flank pain, genital pain MUSCULOSKELETAL: Absent: myalgia, arthralgia, joint swelling, back pain, neck pain SKIN: Absent: rash, itching, pallor HEMATOLOGIC/IMMUNOLOGIC: Absent: easy bleeding, easy bruising, lymphadenopathy, frequent infections ENDOCRINE: Absent: unexplained weight gain, unexplained weight loss, heat intolerance, cold intolerance NEUROLOGIC: Absent: headache, focal weakness or paresthesias, dizziness, unsteady gait, seizure, mental status changes, bladder or bowel incontinence PSYCHIATRIC: Absent: anxiety, depression, suicidal or homicidal ideation, hallucinations. PHYSICAL EXAMINATION Vital Signs - 24 hr 3 03/06/17 03/06/17 03/06/17 06:26 08:32 09:00 Temperature 97.9 F 98 F Pulse Rate 55 L 83 Respiratory 20 18 18 Rate Blood Pressure 108/49 105/43 O2 Sat by Pulse 98 98 Oximetry (%) 3 03/06/17 03/06/17 03/06/17 14:03 21:00 22:49 Temperature 98.4 F Pulse Rate 62 101 H Respiratory 18 18 Rate Blood Pressure 114/45 122/60 O2 Sat by Pulse 89 L Oximetry (%) 3 03/06/17 03/06/17 03/06/17 22:59 23:05 23:10 Temperature Pulse Rate 89 85 85 Respiratory Rate Blood Pressure 119/66 109/59 109/59 O2 Sat by Pulse Oximetry (%) 3 03/06/17 03/06/17 23:15 23:28 Temperature Pulse Rate 85 82 Respiratory Rate Blood Pressure 127/57 102/59 O2 Sat by Pulse Oximetry (%) GENERAL: Intubated, responsive to painful stimuli, grimaces, in no acute distress. HEAD: Normal with no signs of trauma. EYES: Pupils pinpoint, sclera anicteric, conjunctiva clear. EARS, NOSE, THROAT: Ears normal, nares patent, oropharynx clear without exudates. Moist mucous membranes. NECK: supple without lymphadenopathy, JVD, or masses. LUNGS: Breath sounds equal, clear to auscultation bilaterally. No wheezes, and no crackles. No accessory muscle use. HEART: Regular rate and rhythm, normal S1 and S2 without murmur, rub or gallop. ABDOMEN: Soft, nontender, mildly distended, normoactive bowel sounds, no guarding, no rebound, no masses. No hepatomegaly or splenomegaly. MUSCULOSKELETAL: Normal range of motion at all joints. No bony deformities or tenderness. No CVA tenderness. UPPER EXTREMITIES: 2+ pulses, warm, well-perfused. No cyanosis. No clubbing. Cap refill <2 seconds. No peripheral edema. LOWER EXTREMITIES: 2+ pulses, warm, well-perfused. No calf tenderness. No peripheral edema. NEUROLOGICAL: Cranial nerves II-XII intact. Normal speech. Normal gait. PSYCHIATRIC: Cooperative. Good eye contact. Appropriate mood and affect. SKIN: Warm, dry, normal turgor, no rashes or lesions noted. Laboratory Results - last 24 hr 3 03/06/17 03/06/17 03/06/17 07:40 07:40 23:48 WBC 9.8 RBC 3.65 Hgb 10.4 L Hct 32.2 L MCV 88.2 MCH 28.4 MCHC 32.2 RDW 13.9 Plt Count 243 MPV 9.7 Neutrophils % Lymphocytes % Monocytes % Eosinophils % Basophils % Puncture Site Right brachial ABG pH 7.41 ABG pCO2 at Pt Temp 39.7 ABG pO2 at Pt Temp 71.5 L ABG HCO3 24.7 ABG O2 Sat (Measured) 95.8 ABG O2 Content 15.9 ABG Base Excess 0.7 Azael Test Positive O2 Delivery Device Mech vent Oxygen Flow Rate 60% Vent Mode A/c Vent Rate 15 Mechanical Rate Yes PEEP 5.7 Pressure Support Vent 600 Sodium 135 L Potassium 4.2 Chloride 97 L Carbon Dioxide 30 H Anion Gap 8 BUN 40 H Creatinine 1.6 H D Random Glucose 153 H D Calcium 8.7 3 03/07/17 01:01 WBC 9.5 D RBC 3.41 L D Hgb 9.6 L D Hct 29.7 L D MCV 87.1 MCH 28.3 MCHC 32.5 RDW 15.1 Plt Count 209 MPV 9.1 Neutrophils % 73.4 D Lymphocytes % 16.0 D Monocytes % 10.1 Eosinophils % 0.2 D Basophils % 0.3 Puncture Site ABG pH ABG pCO2 at Pt Temp ABG pO2 at Pt Temp ABG HCO3 ABG O2 Sat (Measured) ABG O2 Content ABG Base Excess Azael Test O2 Delivery Device Oxygen Flow Rate Vent Mode Vent Rate Mechanical Rate PEEP Pressure Support Vent Sodium Potassium Chloride Carbon Dioxide Anion Gap BUN Creatinine Random Glucose Calcium Active Medications 3 Generic Name Dose Route Start Last Admin Trade Name Freq PRN Reason Stop Dose Admin Acetaminophen 650 mg 03/05/17 10:30 03/06/17 22:03 Tylenol - PO 03/08/17 10:29 650 mg Q6H KARIE Administration Al Hydroxide/Mg Hydroxide 30 ml 03/05/17 12:24 Mylanta Oral Suspension - PO Q4H PRN DYSPEPSIA Albuterol/Ipratropium 1 amp 03/05/17 14:00 03/07/17 00:48 Duoneb - NEB 1 amp QIDR KARIE Administration Ascorbic Acid 500 mg 03/05/17 22:00 03/06/17 22:03 Vitamin C - PO 500 mg BID KARIE Administration Aspirin 325 mg 03/06/17 08:00 03/06/17 08:24 Asa - PO 325 mg DAILY@0800 KARIE Administration Atorvastatin Calcium 20 mg 03/05/17 22:00 03/06/17 22:03 Lipitor - PO 20 mg HS KARIE Administration Celecoxib 200 mg 03/06/17 10:00 03/06/17 09:40 Celebrex - PO 200 mg DAILY KARIE Administration Cholecalciferol 5,000 unit 03/06/17 10:00 03/06/17 09:40 Vitamin D3 - PO 5,000 unit DAILY KARIE Administration Fentanyl 50 mcg 03/05/17 10:26 Sublimaze Injection - IVPUSH [id number] PRN PAIN Lactated Ringer's 1,000 mls @ 125 mls/hr 03/05/17 10:30 03/06/17 12:52 Lactated Ringers Solution IV Not Given ASDIR KARIE Ampicillin Sodium/Sulbactam 100 mls @ 200 mls/hr 03/07/17 00:45 03/07/17 00: 47 Sodium 3 gm/ Sodium Chloride IVPB 200 mls/hr Q6H-IV KARIE Administration Sodium Chloride 1,000 mls @ 100 mls/hr 03/07/17 01:15 Normal Saline - IV ASDIR KARIE Levothyroxine Sodium 125 mcg 03/06/17 07:00 03/06/17 06:03 Synthroid - PO 125 mcg DAILY@0700 KARIE Administration Magnesium Hydroxide 30 ml 03/05/17 12:24 Milk Of Magnesia - PO PRN PRN CONSTIPATION Multivitamins/Minerals/Vitamin C 1 tab 03/06/17 10:00 03/06/17 09:41 Tab-A-Vit - PO 1 tab DAILY KARIE Administration Ondansetron HCl 4 mg 03/05/17 10:26 Zofran Injection IVPUSH Q6H PRN NAUSEA AND/OR VOMITING Ondansetron HCl 4 mg 03/05/17 12:24 Zofran Injection IVPUSH Q6H PRN NAUSEA Oxycodone HCl 5 mg 03/05/17 10:27 03/05/17 12:00 Roxicodone - PO 5 mg Q3H PRN Administration PAIN LEVEL 1-5 Oxycodone HCl 10 mg 03/05/17 10:27 03/06/17 17:37 Roxicodone - PO 10 mg Q3H PRN Administration PAIN LEVEL 6-10 Pantoprazole Sodium 40 mg 03/06/17 10:00 03/06/17 09:41 Protonix - PO 40 mg DAILY KARIE Administration Ropinirole HCl 1 mg 03/05/17 14:00 03/06/17 22:03 Requip - PO 1 mg TID KARIE Administration Senna/Docusate Sodium 2 tablet 03/05/17 22:00 03/06/17 22:03 Pericolace - PO 2 tablet BID KARIE Administration Tiotropium [place] 1 puff 03/06/17 10:00 03/06/17 09:45 Spiriva - IH 1 puff DAILY KARIE Administration Ursodiol 300 mg 03/05/17 22:00 03/06/17 22:03 Actigal - PO 300 mg BID KARIE Administration ASSESSMENT/PLAN: 66yF with PMH COPD, sleep apnea, HLD, diverticulosis, GERD, PUD, perforated bowel, cholelithiasis, osteoarthritis, cervical radiculopathy, hypothyroidism who was admitted for R TKR/makoplasty. s/p respiratory arrest - unclear if pt truly fully lost pulse, bp immediately stable after intubation - pt likely aspirated given pills in posterior pharynx - on ventilator, respiratory to come in and check vent - cont current vent settings - will get abg - DW Dr. Jama who accepts pt to ICU at [facility], will arrange for transfer. - dw dr. dai, request transfer to hospitalist service unless pt has private attending-pt is Dr. Harry's pt who is off call to Dr. Ibarra for the weekend. Will manage pt for tonight and contact Fred tomorrow. - will obtain labs; CBC, BMP Pneumonia - B/L infiltrates on CXR - start unasyn 3g q6h - ? aspiration, Swallow eval when extubated - NS @ 100cc/hr s/p R TKR - care as per ortho - resume PT when extubated Addendum 2345 - pt now alert, eyes open, no longer pinpoint pupils, pupils 2mm; will cancel narcan (was not given yet as no IV access) - pt able to shake head yes or no to questions - Respiratory attended pt, obtained abg. Called daughter Olga [phone] (phone number in computer incorrect, obtained from pt cell phone) - updated her about mothers condition and events. Daughter reports mother is a DNR, that she was supposed to bring in a copy. No copy found in chart. When asked if she wanted mother to be DNR, she said no, she didn't and she doesn't feel that her mother understood what it meant. Will discuss with patient when more alert. Thank you for this consultative opportunity. Addendum 0320: Pt seen in ICU at [facility]. Pt fully awake, no acute distress, asking when tube can come out. Daughter at bedside. As per respiratory, pt doing well on CPAP mode; ox sat 100%. Advised pt tube will likely come out in AM after repeat ABG and CXR. Advised pt we can give her ativan for anxiety and discomfort r/t to tube. Will order morphine for pain while intubated. PO meds placed on hold. Resume after extubation. Visit type - Emergency Visit Emergency Visit: No - New Patient This patient is new to me today: Yes Date on this admission: 03/07/17 - Critical Care Critical Care patient: Yes Total Critical Care Time (in minutes): 50 Critical Care Statement: The care of this patient involved high complexity decision making to prevent further life threatening deterioration of the patient 's condition and/or to evaluate & treat vital organ system(s) failure or risk of failure.
[2017-03-07 02:07] LABS: BLOOD UREA NITROGEN 40 mg/dL (7-18); CALCIUM 8.3 mg/dL (8.5-10.1); CO2 27 mmol/L (21-32); CREATININE 1.9 mg/dL (0.55-1.02); GLUCOSE,RANDOM 189 mg/dL (74-106); MAGNESIUM 2.2 mg/dL (1.8-2.4); PHOSPHOROUS 2.8 mg/dL (2.5-4.9)
[2017-03-07 02:52] LABS: ANION GAP 11 (8-16); CHLORIDE 102 mmol/L (98-107); POTASSIUM 4.9 mmol/L (3.5-5.1); SODIUM 140 mmol/L (136-145)
[2017-03-07] MEDS ORDERED: morphine CARPU-JECT 2 MG/1 ML DISP.SYRIN IVPUSH PRN (03:19)
[2017-03-07] MEDS ORDERED: LORazepam 2 MG/ML SDV VIAL IVPUSH ONE (03:19)
[2017-03-07] MEDS ORDERED: ACETAMINOPHEN 1000 MG/100 ML VIAL (NON FORMULARY) IVPB PRN (03:21)
[2017-03-07] MEDS ORDERED: LORazepam 2 MG/ML SDV VIAL ONE (04:02)
[2017-03-07 06:39] LABS: BASO % 0.4 % (0-2.0); EOS % 0.3 % (0-4.5); HEMATOCRIT 24.2 % (32.4-45.2); HEMOGLOBIN 7.9 GM/dL (10.7-15.3); LYMPH % 19.6 % (8-40); MCH 28.3 pg (25.7-33.7); MCHC 32.7 g/dl (32.0-36.0); MEAN CELL VOLUME 86.4 fl (80-96); MEAN PLT VOLUME 9.2 fl (7.5-11.1); MONO % 9.9 % (3.8-10.2); NEUT % 69.8 % (42.8-82.8); PLATELET COUNT 189 K/MM3 (134-434); RDW 14.7 % (11.6-15.6); WHITE BLOOD COUNT 8.4 K/mm3 (4.0-10.0)
[2017-03-07 06:56] LABS: ANION GAP 10 (8-16); BLOOD UREA NITROGEN 35 mg/dL (7-18); CALCIUM 8.1 mg/dL (8.5-10.1); CHLORIDE 102 mmol/L (98-107); CO2 30 mmol/L (21-32); CREATININE 1.5 mg/dL (0.55-1.02); GLUCOSE,RANDOM 93 mg/dL (74-106); POTASSIUM 4.3 mmol/L (3.5-5.1); SODIUM 142 mmol/L (136-145)
--- NOTE | 2017-03-07 09:58 | CONSULT ---
Consult Consult Specialty:: PULM/CCM Referred by:: TAWNYA Reason for Consultation:: Cardiac arrest - History of Present Illness Chief Complaint: S/P CP arrest History of Present Illness: 66 F, post op day 1 s/p right total knee replacement (Makoplasty). Apparently was doing well postop, and received night pills around 10pm. Last medicated for pain at 1737 with oxycodone 10mg. THe RN walked past the room around 1030 and noted her to be in respiratory distress. She was placed on NIPPV and developed agonal respirations and became unresponsive. Compressions started. ER attending responded and apparently on intubation attempt noted pills in posterior pharynx. A size 7.0 ETT was placed. Patient was hemodynamically stable after resuscitation. She is currently awake and alert. No pressors. AC Mode of vent. CXR : RLL atelectasis. - History Source History Provided By: Medical Record Limitations to Obtaining History: Intubated - Past Medical History Cardio/Vascular: Yes: Hyperlipdemia Pulmonary: Yes: COPD, Sleep Apnea Gastrointestinal: Yes: Diverticulosis, GERD, Peptic Ulcer Disease (perforated DU plicated 06/22/16), Other (s/p perforated bowel 6-8 weks ago) Hepatobiliary: Yes: Cholelithiasis Renal/: Yes: Renal Calculi ...LMP: 03/09/95 Musculoskeletal: Yes: Osteoarthritis, Other (cervical radiculopathy) Endocrine: Yes: Hypothyroidism - Past Surgical History Past Surgical History: Yes: Cataract Removal, Colonoscopy (More than 8 years ago , negative) - Alcohol/Substance Use Hx Alcohol Use: No History of Substance Use: reports: None - Smoking History Smoking history: Former smoker Have you smoked in the past 12 months: No Aproximately how many cigarettes per day: 20 If you are a former smoker, when did you quit?: 2012 - Social History Usual Living Arrangement: Alone ADL: Independent Occupation: unemployed History of Recent Travel: No Home Medications - Allergies Allergies/Adverse Reactions: Allergies Allergy/AdvReac Type Severity Reaction Status Date / Time No Known Allergies Allergy Verified 02/26/17 12:56 - Home Medications Home Medications: Ambulatory Orders Pravastatin Sodium [Pravachol -] 80 mg PO HS 04/19/15 Ursodiol [Actigal -] 300 mg PO BID #60 capsule 04/22/15 Tiotropium [place] [Spiriva] 1 inh IH DAILY 10/06/16 Levothyroxine [Synthroid -] 125 mcg PO DAILY@0700 tablet 10/10/16 Ropinirole HCl [Requip -] 1 mg PO TID tablet 10/10/16 Albuterol 2.5/Ipratropium 0.5 [Duoneb -] 1 amp NEB QID 02/26/17 Cholecalciferol (Vitamin D3) [Vitamin D3] 5,000 unit PO DAILY 02/26/17 Pantoprazole Sodium [Protonix] 40 mg PO DAILY 02/26/17 Prednisone 10 mg PO ASDIR 03/05/17 Family Disease History - Family Disease History Family Disease History: Heart Disease: Mother (CHF, Hypoglycemia), Other: Father (Alzheimer's), Mother Review of Systems Unable to obtain ROS, reason: cannot provide Physical Exam Vital Signs: Vital Signs Temperature 98.9 F 03/07/17 06:43 Pulse Rate 62 03/07/17 06:43 Respiratory Rate 14 03/07/17 07:48 Blood Pressure 96/49 03/07/17 06:43 O2 Sat by Pulse Oximetry (%) 100 03/07/17 04:13 Constitutional: Yes: Other (Intubated) Eyes: Yes: Conjunctiva Clear, EOM Intact HENT: Yes: Atraumatic, Normocephalic Neck: Yes: Supple, Trachea Midline Cardiovascular: Yes: Regular Rate and Rhythm Respiratory: Yes: Mechanically Ventilated, Rhonchi. No: Accessory Muscle Use, Rales, Stridor, Tachypnea, Wheezes Gastrointestinal: Yes: Normal Bowel Sounds, Soft Renal/: Yes: WNL Musculoskeletal: Yes: WNL Extremities: Yes: WNL Edema: No Peripheral Pulses WNL: Yes Integumentary: Yes: WNL Wound/Incision: Yes: Clean/Dry, Well Approximated Neurological: Yes: WNL, Alert, Oriented ...Motor Strength: WNL Psychiatric: Yes: Alert Labs: CBC, BMP 03/07/17 06:15 03/07/17 06:15 Imaging - Results Chest X-ray: Report Reviewed, Image Reviewed Problem List - Problems (1) Cardiac arrest Code(s): I46.9 - CARDIAC ARREST, CAUSE UNSPECIFIED (2) Knee joint replacement status Code(s): Z96.659 - PRESENCE OF UNSPECIFIED ARTIFICIAL KNEE JOINT (3) COPD (chronic obstructive pulmonary disease) Code(s): J44.9 - CHRONIC OBSTRUCTIVE PULMONARY DISEASE, UNSPECIFIED Qualifiers: COPD type: emphysema (4) Diabetes Code(s): E11.9 - TYPE 2 DIABETES MELLITUS WITHOUT COMPLICATIONS (5) Atelectasis of right lung Code(s): J98.11 - ATELECTASIS (6) Pneumonitis Code(s): J18.9 - PNEUMONIA, UNSPECIFIED ORGANISM Assessment/Plan Wean to extubate Empiric ABX Incentive Spirometry If RLL atelectasis does not improve -> CT chest may be needed VTE prophylaxis IVF ICU monitoring Dr Jama Critical care time spent in reviewing chart, evaluating patient and formulating plan - 36 minutes.
[2017-03-07] MEDS ORDERED: morphine SULFATE 4 MG/ML VIAL IVPUSH PRN (20:02)
[2017-03-07] MEDS: morphine SULFATE 4 MG/ML VIAL IVPUSH PRN (20:49)
[2017-03-07] MEDS: SODIUM CHLORIDE 1,000 ML IV SCH (20:50)
[2017-03-07] MEDS: PIPERACILLIN/TAZOB 3.375 GM 3.375 GM in DEXTROSE 5%-WATER - 100 ML IVPB SCH (20:52)
[2017-03-07] MEDS: HEPARIN NA (PORCINE) 5,000 UNITS/ML 1ML VIAL SQ SCH (21:44)
[2017-03-07] MEDS: ATORVASTATIN CA 20 MG TABLET (FP) PO SCH (21:44)
--- NOTE | 2017-03-07 23:49 | PN ---
Progress Note, Physician - Current Medication List Current Medications: Active Medications Acetaminophen (Tylenol -) 650 mg PO Q6H [facility] Stop: 03/08/17 10:29 Last Admin: 03/06/17 22:03 Dose: 650 mg Acetaminophen (Ofirmev Injection -) 1,000 mg IVPB Q6H PRN PRN Reason: FEVER OR PAIN Last Admin: 03/07/17 04:31 Dose: 1,000 mg Al Hydroxide/Mg Hydroxide (Mylanta Oral Suspension -) 30 ml PO Q4H PRN PRN Reason: DYSPEPSIA Albuterol/Ipratropium (Duoneb -) 1 amp NEB QIDR [facility] Last Admin: 03/07/17 23:28 Dose: 1 amp Ascorbic Acid (Vitamin C -) 500 mg PO BID [facility] Last Admin: 03/06/17 22:03 Dose: 500 mg Aspirin (Asa -) 325 mg PO DAILY@0800 [facility] Last Admin: 03/06/17 08:24 Dose: 325 mg Atorvastatin Calcium (Lipitor -) 20 mg PO HS [facility] Last Admin: 03/07/17 21:44 Dose: Not Given Celecoxib (Celebrex -) 200 mg PO DAILY [facility] Last Admin: 03/06/17 09:40 Dose: 200 mg Cholecalciferol (Vitamin D3 -) 5,000 unit PO DAILY [facility] Last Admin: 03/06/17 09:40 Dose: 5,000 unit Heparin Sodium (Porcine) (Heparin -) 5,000 unit SQ BID [facility] Last Admin: 03/07/17 21:44 Dose: 5,000 unit Piperacillin Sod/Tazobactam (Sod 3.375 gm/ Dextrose) 100 mls @ 200 mls/hr IVPB Q8H-IV KARIE PRN Reason: Protocol Last Admin: 03/07/17 20:52 Dose: 200 mls/hr Sodium Chloride (Normal Saline -) 1,000 mls @ 75 mls/hr IV ASDIR [facility] Last Admin: 03/07/17 20:50 Dose: 75 mls/hr Levothyroxine Sodium (Synthroid -) 125 mcg PO DAILY@0700 [facility] Last Admin: 03/06/17 06:03 Dose: 125 mcg Magnesium Hydroxide (Milk Of Magnesia -) 30 ml PO PRN PRN PRN Reason: CONSTIPATION Morphine Sulfate (Morphine Sulfate) 2 mg IVPUSH Q3H PRN PRN Reason: PAIN Last Admin: 03/07/17 20:49 Dose: 2 mg Morphine Sulfate (Morphine Sulfate) 2 mg IVPUSH Q3H PRN Multivitamins/Minerals/Vitamin C (Tab-A-Vit -) 1 tab PO DAILY [facility] Last Admin: 03/06/17 09:41 Dose: 1 tab Ondansetron HCl (Zofran Injection) 4 mg IVPUSH Q6H PRN PRN Reason: NAUSEA Oxycodone HCl (Roxicodone -) 5 mg PO Q3H PRN PRN Reason: PAIN LEVEL 1-5 Last Admin: 03/05/17 12:00 Dose: 5 mg Oxycodone HCl (Roxicodone -) 10 mg PO Q3H PRN PRN Reason: PAIN LEVEL 6-10 Last Admin: 03/06/17 17:37 Dose: 10 mg Pantoprazole Sodium (Protonix -) 40 mg PO DAILY [facility] Last Admin: 03/06/17 09:41 Dose: 40 mg Ropinirole HCl (Requip -) 1 mg PO TID [facility] Last Admin: 03/06/17 22:03 Dose: 1 mg Senna/Docusate Sodium (Pericolace -) 2 tablet PO BID [facility] Last Admin: 03/06/17 22:03 Dose: 2 tablet Tiotropium [place] (Spiriva -) 1 puff IH DAILY [facility] Last Admin: 03/06/17 09:45 Dose: 1 puff Ursodiol (Actigal -) 300 mg PO BID [facility] Last Admin: 03/06/17 22:03 Dose: 300 mg - Objective Vital Signs: Vital Signs Temperature 98.9 F 03/07/17 06:43 Pulse Rate 93 H 03/07/17 21:00 Respiratory Rate 20 03/07/17 20:00 Blood Pressure 110/61 03/07/17 20:00 O2 Sat by Pulse Oximetry (%) 93 L 03/07/17 21:00 Labs: CBC, BMP 03/07/17 06:15 03/07/17 06:15
[2017-03-08] MEDS: PIPERACILLIN/TAZOB 3.375 GM 3.375 GM in DEXTROSE 5%-WATER - 100 ML IVPB SCH ×3 (02:24→18:13)
[2017-03-08] MEDS: morphine SULFATE 4 MG/ML VIAL IVPUSH PRN (03:24)
[2017-03-08] MEDS: ALBUTEROL SO4 2.5/IPRATROPIUM 0.5 INH SOL 3 ML VIAL.NEB. NEB SCH ×4 (05:00→23:06)
[2017-03-08] MEDS: ACETAMINOPHEN 325 MG TABLET (FP) PO SCH (06:18)
[2017-03-08 06:19] LABS: BASO % 0.9 % (0-2.0); EOS % 2.1 % (0-4.5); HEMATOCRIT 25.7 % (32.4-45.2); HEMOGLOBIN 8.4 GM/dL (10.7-15.3); LYMPH % 26.7 % (8-40); MCH 28.2 pg (25.7-33.7); MCHC 32.6 g/dl (32.0-36.0); MEAN CELL VOLUME 86.4 fl (80-96); MONO % 7.5 % (3.8-10.2); NEUT % 62.8 % (42.8-82.8); PLATELET COUNT 201 K/MM3 (134-434); RBC 2.97 M/mm3 (3.60-5.2); RDW 14.9 % (11.6-15.6); WHITE BLOOD COUNT 9.1 K/mm3 (4.0-10.0)
[2017-03-08 07:00] LABS: ANION GAP 10 (8-16); BLOOD UREA NITROGEN 15 mg/dL (7-18); CALCIUM 7.9 mg/dL (8.5-10.1); CHLORIDE 104 mmol/L (98-107); CO2 28 mmol/L (21-32); CREATININE 0.8 mg/dL (0.55-1.02); GLUCOSE,RANDOM 113 mg/dL (74-106); POTASSIUM 3.5 mmol/L (3.5-5.1); SGOT/AST 28 U/L (15-37); SGPT/ALT 11 U/L (12-78); SODIUM 142 mmol/L (136-145)
[2017-03-08 07:01] LABS: ALK PHOS 63 U/L (45-117); BILIRUBIN,TOTAL 0.4 mg/dL (0.2-1.0); TOT PROT 6.2 g/dl (6.4-8.2)
--- NOTE | 2017-03-08 09:37 | PN ---
Progress Note (short form) - Note Progress Note: Patient seen and examined in the ICU. Remains extubated. Hoarseness of voice but no stridor appreciated. Denies CP ro SOB. Some dry cough. Neuro exam seems intact. Intake & Output 03/05/17 03/06/17 03/07/17 03/08/17 23:59 23:59 23:59 23:59 Intake Total 1000 1125 1775 1025 Balance 1000 1125 1775 1025 Weight 179 lb 186 lb Last Vital Signs Temp Pulse Resp BP Pulse Ox 99.0 F 79 20 122/71 93 L 03/08/17 06:00 03/08/17 06:00 03/08/17 06:00 03/08/17 06:00 03/07/17 21:00 Active Medications Acetaminophen (Tylenol -) 650 mg PO Q6H [facility] Stop: 03/08/17 10:29 Last Admin: 03/08/17 06:18 Dose: Not Given Acetaminophen (Ofirmev Injection -) 1,000 mg IVPB Q6H PRN PRN Reason: FEVER OR PAIN Last Admin: 03/07/17 04:31 Dose: 1,000 mg Al Hydroxide/Mg Hydroxide (Mylanta Oral Suspension -) 30 ml PO Q4H PRN PRN Reason: DYSPEPSIA Albuterol/Ipratropium (Duoneb -) 1 amp NEB QIDR [facility] Last Admin: 03/08/17 05:00 Dose: 1 amp Ascorbic Acid (Vitamin C -) 500 mg PO BID [facility] Last Admin: 03/06/17 22:03 Dose: 500 mg Aspirin (Asa -) 325 mg PO DAILY@0800 [facility] Last Admin: 03/06/17 08:24 Dose: 325 mg Atorvastatin Calcium (Lipitor -) 20 mg PO HS [facility] Last Admin: 03/07/17 21:44 Dose: Not Given Celecoxib (Celebrex -) 200 mg PO DAILY [facility] Last Admin: 03/06/17 09:40 Dose: 200 mg Cholecalciferol (Vitamin D3 -) 5,000 unit PO DAILY [facility] Last Admin: 03/06/17 09:40 Dose: 5,000 unit Heparin Sodium (Porcine) (Heparin -) 5,000 unit SQ BID [facility] Last Admin: 03/07/17 21:44 Dose: 5,000 unit Piperacillin Sod/Tazobactam (Sod 3.375 gm/ Dextrose) 100 mls @ 200 mls/hr IVPB Q8H-IV KARIE PRN Reason: Protocol Last Admin: 03/08/17 02:24 Dose: 200 mls/hr Sodium Chloride (Normal Saline -) 1,000 mls @ 75 mls/hr IV ASDIR [facility] Last Admin: 03/07/17 20:50 Dose: 75 mls/hr Levothyroxine Sodium (Synthroid -) 125 mcg PO DAILY@0700 [facility] Last Admin: 03/06/17 06:03 Dose: 125 mcg Magnesium Hydroxide (Milk Of Magnesia -) 30 ml PO PRN PRN PRN Reason: CONSTIPATION Morphine Sulfate (Morphine Sulfate) 2 mg IVPUSH Q3H PRN PRN Reason: PAIN Last Admin: 03/08/17 03:24 Dose: 2 mg Morphine Sulfate (Morphine Sulfate) 2 mg IVPUSH Q3H PRN Multivitamins/Minerals/Vitamin C (Tab-A-Vit -) 1 tab PO DAILY [facility] Last Admin: 03/06/17 09:41 Dose: 1 tab Ondansetron HCl (Zofran Injection) 4 mg IVPUSH Q6H PRN PRN Reason: NAUSEA Oxycodone HCl (Roxicodone -) 5 mg PO Q3H PRN PRN Reason: PAIN LEVEL 1-5 Last Admin: 03/05/17 12:00 Dose: 5 mg Oxycodone HCl (Roxicodone -) 10 mg PO Q3H PRN PRN Reason: PAIN LEVEL 6-10 Last Admin: 03/06/17 17:37 Dose: 10 mg Pantoprazole Sodium (Protonix -) 40 mg PO DAILY [facility] Last Admin: 03/06/17 09:41 Dose: 40 mg Ropinirole HCl (Requip -) 1 mg PO TID [facility] Last Admin: 03/06/17 22:03 Dose: 1 mg Senna/Docusate Sodium (Pericolace -) 2 tablet PO BID [facility] Last Admin: 03/06/17 22:03 Dose: 2 tablet Tiotropium [place] (Spiriva -) 1 puff IH DAILY [facility] Last Admin: 03/06/17 09:45 Dose: 1 puff Ursodiol (Actigal -) 300 mg PO BID [facility] Last Admin: 03/06/17 22:03 Dose: 300 mg Constitutional: Yes: Awake and alert Eyes: Yes: Conjunctiva Clear, EOM Intact HENT: Yes: Atraumatic, Normocephalic Neck: Yes: Supple, Trachea Midline Cardiovascular: Yes: Regular Rate and Rhythm Respiratory: Yes: Few scattered rhonchi. No: Accessory Muscle Use, Rales, Stridor, Tachypnea, Wheezes Gastrointestinal: Yes: Normal Bowel Sounds, Soft Renal/: Yes: WNL Musculoskeletal: Yes: WNL Extremities: Yes: WNL Edema: No Peripheral Pulses WNL: Yes Integumentary: Yes: WNL Wound/Incision: Yes: Clean/Dry, Well Approximated Neurological: Yes: WNL, Alert, Oriented ...Motor Strength: WNL Psychiatric: Yes: Alert Labs: Laboratory Results - last 24 hr 03/08/17 03/08/17 06:05 06:05 WBC 9.1 RBC 2.97 L Hgb 8.4 L Hct 25.7 L MCV 86.4 MCH 28.2 MCHC 32.6 RDW 14.9 Plt Count 201 MPV 9.0 Neutrophils % 62.8 Lymphocytes % 26.7 D Monocytes % 7.5 Eosinophils % 2.1 D Basophils % 0.9 Sodium 142 Potassium 3.5 Chloride 104 Carbon Dioxide 28 Anion Gap 10 BUN 15 D Creatinine 0.8 D Creat Clearance w eGFR > 60 Random Glucose 113 H D Calcium 7.9 L Magnesium 2.0 Total Bilirubin 0.4 AST 28 D ALT 11 L D Alkaline Phosphatase 63 D Total Protein 6.2 L Albumin 3.0 L Problem List - Problems (1) Cardiac arrest Code(s): I46.9 - CARDIAC ARREST, CAUSE UNSPECIFIED (2) Knee joint replacement status Code(s): Z96.659 - PRESENCE OF UNSPECIFIED ARTIFICIAL KNEE JOINT (3) COPD (chronic obstructive pulmonary disease) Code(s): J44.9 - CHRONIC OBSTRUCTIVE PULMONARY DISEASE, UNSPECIFIED Qualifiers: COPD type: emphysema (4) Diabetes Code(s): E11.9 - TYPE 2 DIABETES MELLITUS WITHOUT COMPLICATIONS (5) Atelectasis of right lung Code(s): J98.11 - ATELECTASIS (6) Pneumonitis Code(s): J18.9 - PNEUMONIA, UNSPECIFIED ORGANISM Assessment/Plan O2 to maintain saturation Would monitor off ABX Incentive Spirometry Check CXR : If RLL atelectasis does not improve -> CT chest may be needed VTE prophylaxis IVF Cardiac Telemetry monitoring Dr Jama Critical care time spent in reviewing chart, evaluating patient and formulating plan - 36 minutes. Problem List - Problems (1) Cardiac arrest Code(s): I46.9 - CARDIAC ARREST, CAUSE UNSPECIFIED (2) Knee joint replacement status Code(s): Z96.659 - PRESENCE OF UNSPECIFIED ARTIFICIAL KNEE JOINT (3) COPD (chronic obstructive pulmonary disease) Code(s): J44.9 - CHRONIC OBSTRUCTIVE PULMONARY DISEASE, UNSPECIFIED Qualifiers: COPD type: emphysema (4) Diabetes Code(s): E11.9 - TYPE 2 DIABETES MELLITUS WITHOUT COMPLICATIONS (5) Atelectasis of right lung Code(s): J98.11 - ATELECTASIS (6) Pneumonitis Code(s): J18.9 - PNEUMONIA, UNSPECIFIED ORGANISM
[2017-03-08] MEDS ORDERED: PT OWN MED DRAWER 7, Y5N ONE ×2 (12:00→17:04)
[2017-03-08] MEDS: SENNOSIDES/DOCUSATE COMBO (SENNA PLUS) TABLET (UD) PO SCH ×2 (12:04→21:52)
[2017-03-08] MEDS: PANTOPRAZOLE 40 MG TABLET (FP) PO SCH (12:04)
[2017-03-08] MEDS: CELECOXIB 200 MG CAPSULE PO SCH (12:04)
[2017-03-08] MEDS: ASPIRIN 325 MG TABLET PO SCH (12:04)
[2017-03-08] MEDS: MULTIVITAMINS (DAILY MVI) TABLET (FP) PO SCH (12:04)
[2017-03-08] MEDS: CHOLECALCIFEROL (VITAMIN D3) 1,000 UNIT TABLET (FP) PO SCH (12:04)
[2017-03-08] MEDS: rOPINIRole HCL 1 MG TABLET (FP) PO SCH ×3 (12:05→23:20)
[2017-03-08] MEDS: HEPARIN NA (PORCINE) 5,000 UNITS/ML 1ML VIAL SQ SCH ×2 (12:05→21:53)
[2017-03-08] MEDS: LEVOTHYROXINE NA 125 MCG TABLET (FP) PO SCH (12:05)
[2017-03-08] MEDS: ASCORBIC ACID 500 MG TABLET (FP) PO SCH ×2 (12:05→21:53)
--- NOTE | 2017-03-08 16:06 | CON.ID ---
Consult Consult Specialty:: infectious diseases Referred by:: Reason for Consultation:: pneumonia, - History of Present Illness History of Present Illness: 66 F, post op s/p right total knee replacement . Apparently was doing well postop, patient got intubated for resp distress on intubation it was found that she had pills stuck in her throat Patient was kept intubated and then was extubated yesterday. currently the patient is feeling well and has no complaints she is awake and alert and oriented with no complaints - History Source History Provided By: Patient, Family Member Limitations to Obtaining History: No Limitations - Past Medical History Cardio/Vascular: Yes: Hyperlipdemia Pulmonary: Yes: COPD, Sleep Apnea Gastrointestinal: Yes: Diverticulosis, GERD, Peptic Ulcer Disease (perforated DU plicated 06/22/16), Other (s/p perforated bowel 6-8 weks ago) Hepatobiliary: Yes: Cholelithiasis Renal/: Yes: Renal Calculi ...LMP: 03/09/95 Musculoskeletal: Yes: Osteoarthritis, Other (cervical radiculopathy) Endocrine: Yes: Hypothyroidism - Past Surgical History Past Surgical History: Yes: Cataract Removal, Colonoscopy (More than 8 years ago , negative) - Alcohol/Substance Use Hx Alcohol Use: No History of Substance Use: reports: None - Smoking History Smoking history: Former smoker Have you smoked in the past 12 months: No Aproximately how many cigarettes per day: 20 If you are a former smoker, when did you quit?: 2012 - Social History Usual Living Arrangement: Alone ADL: Independent Occupation: unemployed History of Recent Travel: No Home Medications - Allergies Allergies/Adverse Reactions: Allergies Allergy/AdvReac Type Severity Reaction Status Date / Time No Known Allergies Allergy Verified 02/26/17 12:56 - Home Medications Home Medications: Ambulatory Orders Pravastatin Sodium [Pravachol -] 80 mg PO HS 04/19/15 Ursodiol [Actigal -] 300 mg PO BID #60 capsule 04/22/15 Tiotropium [place] [Spiriva] 1 inh IH DAILY 10/06/16 Levothyroxine [Synthroid -] 125 mcg PO DAILY@0700 tablet 10/10/16 Ropinirole HCl [Requip -] 1 mg PO TID tablet 10/10/16 Albuterol 2.5/Ipratropium 0.5 [Duoneb -] 1 amp NEB QID 02/26/17 Cholecalciferol (Vitamin D3) [Vitamin D3] 5,000 unit PO DAILY 02/26/17 Pantoprazole Sodium [Protonix] 40 mg PO DAILY 02/26/17 Prednisone 10 mg PO ASDIR 03/05/17 Family Disease History - Family Disease History Family Disease History: Heart Disease: Mother (CHF, Hypoglycemia), Other: Father (Alzheimer's), Mother Review of Systems - Review of Systems Constitutional: reports: No Symptoms Eyes: reports: No Symptoms HENT: reports: No Symptoms Neck: reports: No Symptoms Cardiovascular: reports: No Symptoms Respiratory: reports: No Symptoms Gastrointestinal: reports: No Symptoms Genitourinary: reports: No Symptoms Integumentary: reports: No Symptoms Neurological: reports: No Symptoms Endocrine: reports: No Symptoms Hematology/Lymphatic: reports: No Symptoms Physical Exam Vital Signs: Vital Signs Temperature 99.0 F 03/08/17 06:00 Pulse Rate 87 03/08/17 14:00 Respiratory Rate 20 03/08/17 14:00 Blood Pressure 142/78 03/08/17 14:00 O2 Sat by Pulse Oximetry (%) 97 03/08/17 12:00 Constitutional: Yes: No Distress, Calm Eyes: Yes: Conjunctiva Clear Cardiovascular: Yes: Regular Rate and Rhythm Respiratory: Yes: Regular, Poor Air Entry (at the bases), Rhonchi Gastrointestinal: Yes: Normal Bowel Sounds, Soft Musculoskeletal: Yes: WNL Extremities: Yes: WNL Neurological: Yes: Alert, Oriented Psychiatric: Yes: Alert, Oriented Labs: CBC, BMP 03/08/17 06:05 03/08/17 06:05 Imaging - Results Chest X-ray: Report Reviewed, Image Reviewed Assessment/Plan Problem List - Problems (1) Cardiac arrest Code(s): I46.9 - CARDIAC ARREST, CAUSE UNSPECIFIED (2) Knee joint replacement status Code(s): Z96.659 - PRESENCE OF UNSPECIFIED ARTIFICIAL KNEE JOINT (3) COPD (chronic obstructive pulmonary disease) Code(s): J44.9 - CHRONIC OBSTRUCTIVE PULMONARY DISEASE, UNSPECIFIED Qualifiers: COPD type: emphysema (4) Diabetes Code(s): E11.9 - TYPE 2 DIABETES MELLITUS WITHOUT COMPLICATIONS (5) Atelectasis of right lung Code(s): J98.11 - ATELECTASIS (6) Pneumonitis Code(s): J18.9 - PNEUMONIA, UNSPECIFIED ORGANISM patient has been started on abx plan continue current mgmt very close watch continue abx for now,if patient remains stable will deescalate rest as per icu and primary care cc time 40 min
--- NOTE | 2017-03-08 16:09 | CONSULT ---
Admitting History and Physical - Past Medical History Cardiovascular: Yes: Hyperlipdemia Pulmonary: Yes: COPD, Sleep Apnea Gastrointestinal: Yes: Diverticulosis, GERD, Peptic Ulcer Disease (perforated DU plicated 06/22/16), Other (s/p perforated bowel 6-8 weks ago) Hepatobiliary: Yes: Cholelithiasis Renal/: Yes: Renal Calculi ...LMP: 03/09/95 Musculoskeletal: Yes: Osteoarthritis, Other (cervical radiculopathy) Endocrine: Yes: Hypothyroidism - Past Surgical History Past Surgical History: Yes: Cataract Removal, Colonoscopy (More than 8 years ago , negative) - Advance Directives Advance Directives: Yes: Health Care Proxy - Smoking History Smoking history: Former smoker Have you smoked in the past 12 months: No Aproximately how many cigarettes per day: 20 If you are a former smoker, when did you quit?: 2012 - Alcohol/Substance Use Hx Alcohol Use: No History of Substance Use: reports: None - Social History ADL: Independent Occupation: unemployed History of Recent Travel: No History - Admission Reason For Visit: OSTEOARTHRITIS - Hearing Hearing: Impaired Hearing Aide: No Speech Evaluation - Communication Primary Language: WELSH Communication: Yes: Within Normal Limits Oral Expression Ability: Yes: Mild Impairment (secondary to reduced vocal quality) - Speech Production Apraxia: No Able to Make Needs Known: Yes: Moderately Impaired Intelligibility: Yes: Moderately Impaired (secondary to reduced vocal quality) - Speech Characteristics Voice Loudness: Severely Soft/Quiet Voice Pitch: Yes: Limited Variation, Pitch Breaks Voice Phonatory-based Quality: Yes: Hoarse, Breathy, Weak Speech Clarity: < 50% Nasal Resonance: Hyponasal/Denasal Articulation: Yes: Precise Rate of Speech: Intact Voice, Other Observations: Yes: Mouth Breathing Voice Comment: Reduced vocal quality observed. - Language/Auditory Comprehension Follows: Yes: 1 Stage Simple Commands, 2 Stage Simple Commands (WFL) Observation: Able to respond to yes/no queries: Yes, Yes/No Confusion: No, Comprehends Conversational Speech: Yes, Benefits from Slow Speech: No, Benefits from Repetiton: No, Benefits from Increased Volume of Speech: No - Language/Verbal Expression Able to Respond to Simple Queries: Yes: WNL Able to Communicate Wants and Needs: Yes: Mildly Impaired (secondary to reduced vocal quality) Functional Communication Status: Yes: Mildly Impaired Aware of Errors: Yes Attempts to Correct Errors: Yes Use of Gestures: No Written Expression: not examined Reading Comprehension: not examined Attention: Yes: Intact - Memory/Perception [employer]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 Memory: Yes: WNL Short Term Memory: Yes: WNL - Swallow Evaluation/Bedside Assessment Current Nutritional Intake: NPO (pending swallow eval) Oral Secretions: Yes: WFL Tracheostomy Present: No Patient on Ventilator: No Dentition: Yes: Edentulous Facial Symmetry at Rest: Symmetrical Facial Symmetry on Retraction: Symmetrical Facial Movement: Controlled Sensation: Normal Facial Comment: WFL for speech and swallowing purposes Jaw Position: Open at Rest Against Resistance Opening: Normal Against Resistance Closing: Normal Pucker Lips: Normal Smile: Normal Lips, Comment: WFL for speech and swallowing purposes Lingual Movement: Normal Lingual Speed of Movement: Normal Lingual Movement Strgth Against Opposition: Normal Lingual Movement Characteristics: Normal Lingual Comment: WFL for speech and swallowing purposes Soft Palate Description: Normal Color Hard Palate Description: Normal Color Gag Reflex: Weak Bite Reflex: Present Velopharyngeal Movement: Normal Laryngeal Elevation: WFL Laryngeal Movement: Able to Palpate Needs Assistance: Yes Rate of Intake: WFL Bolus Size: WFL Labial Seal: WFL Chewing: WFL Oral Prep Time: WFL A-P Transit: WFL Pocketing: None Timing of Swallow: WFL Odynophagia: Oral (secondary to dental status.) Other Findings/Remarks: 66 year old female seen at bedside for swallow eval to rule out dysphagia. Pt recently extubated, verbal, A&Ox3 cooperative. Pt demonstrates vocal quality characterized as breathy & hoarsen. Reduced airway protection and weak cough. PMHX includes cardiac arrest, COPD atelectasis of right lung. Currently possible PNA? and Knee joint replacement. Daughter present during this session. Pt given po trials of puree and soft chewable cookie with minimal assistance revealed good acceptance, adequate bolus formation and transport, pharyngeal swallow appears timely with no change in respirations no cough. Thin liquids trials via cup with minimal assistance was unremarkable to dysphagia and aspiration at this time. Recommendations - Speech Evaluation, Impression/Plan Impression: Pt presents with mild oral phase dysphagia secondary to dental status. Pt presents with reduced airway protection and vocal quality secondary to respiratory distress. Trial dysphagia chopped with thin liquids as tolerated. Alf Goals: tolerate the least restrictive diet without s/s of aspiration Short Term Goals: tolerate dysphagia chopped with thin liquids (no straws) without s/s of aspiration. - Dysphagia Impressions/Plan Swallowing Skills: [facility] Dysphagia Impressions: Mild Impairment *Silent aspiration: cannot be R/O at bedside Dysphagia Treatment Plan: Small Bites, Safe Rate, Elevate HOB during feed, Other (monitor nutritional intake and pulmonary status.) Dysphagia Evaluation Summary: Trial dysphagia chopped solids with thin liquids as tolerated. Small sips of liquid at a time. Crush meds in puree or applesauce. Results given verbally to hemodialysis charge nurse and to pcp via chart. [employer] to follow up and revise diet plan as needed. Recommendations: Modified Barium Swallow (consider to r/o silent aspiration.) - Recommendations Diet Consistency: Dysphagia Minced Medication Administration: Crushed with applesauce Liquids: Thin Liquids
--- NOTE | 2017-03-08 17:35 | PN ---
Progress Note, Physician - Current Medication List Current Medications: Active Medications Acetaminophen (Ofirmev Injection -) 1,000 mg IVPB Q6H PRN PRN Reason: FEVER OR PAIN Last Admin: 03/07/17 04:31 Dose: 1,000 mg Al Hydroxide/Mg Hydroxide (Mylanta Oral Suspension -) 30 ml PO Q4H PRN PRN Reason: DYSPEPSIA Albuterol/Ipratropium (Duoneb -) 1 amp NEB QIDR [facility] Last Admin: 03/08/17 12:02 Dose: 1 amp Ascorbic Acid (Vitamin C -) 500 mg PO BID [facility] Last Admin: 03/08/17 12:05 Dose: 500 mg Aspirin (Asa -) 325 mg PO DAILY@0800 [facility] Last Admin: 03/08/17 12:04 Dose: 325 mg Atorvastatin Calcium (Lipitor -) 20 mg PO HS [facility] Last Admin: 03/07/17 21:44 Dose: Not Given Celecoxib (Celebrex -) 200 mg PO DAILY [facility] Last Admin: 03/08/17 12:04 Dose: 200 mg Cholecalciferol (Vitamin D3 -) 5,000 unit PO DAILY [facility] Last Admin: 03/08/17 12:04 Dose: 5,000 unit Heparin Sodium (Porcine) (Heparin -) 5,000 unit SQ BID [facility] Last Admin: 03/08/17 12:05 Dose: 5,000 unit Piperacillin Sod/Tazobactam (Sod 3.375 gm/ Dextrose) 100 mls @ 200 mls/hr IVPB Q8H-IV KARIE PRN Reason: Protocol Last Admin: 03/08/17 11:53 Dose: 200 mls/hr Sodium Chloride (Normal Saline -) 1,000 mls @ 75 mls/hr IV ASDIR [facility] Last Admin: 03/07/17 20:50 Dose: 75 mls/hr Levothyroxine Sodium (Synthroid -) 125 mcg PO DAILY@0700 [facility] Last Admin: 03/08/17 12:05 Dose: 125 mcg Magnesium Hydroxide (Milk Of Magnesia -) 30 ml PO PRN PRN PRN Reason: CONSTIPATION Morphine Sulfate (Morphine Sulfate) 2 mg IVPUSH Q3H PRN PRN Reason: PAIN Last Admin: 03/08/17 03:24 Dose: 2 mg Morphine Sulfate (Morphine Sulfate) 2 mg IVPUSH Q3H PRN Multivitamins/Minerals/Vitamin C (Tab-A-Vit -) 1 tab PO DAILY [facility] Last Admin: 03/08/17 12:04 Dose: 1 tab Ondansetron HCl (Zofran Injection) 4 mg IVPUSH Q6H PRN PRN Reason: NAUSEA Oxycodone HCl (Roxicodone -) 5 mg PO Q3H PRN PRN Reason: PAIN LEVEL 1-5 Last Admin: 03/05/17 12:00 Dose: 5 mg Oxycodone HCl (Roxicodone -) 10 mg PO Q3H PRN PRN Reason: PAIN LEVEL 6-10 Last Admin: 03/06/17 17:37 Dose: 10 mg Pantoprazole Sodium (Protonix -) 40 mg PO DAILY [facility] Last Admin: 03/08/17 12:04 Dose: 40 mg Ropinirole HCl (Requip -) 1 mg PO TID [facility] Last Admin: 03/08/17 12:05 Dose: 1 mg Senna/Docusate Sodium (Pericolace -) 2 tablet PO BID [facility] Last Admin: 03/08/17 12:04 Dose: 2 tablet Tiotropium [place] (Spiriva -) 1 puff IH DAILY [facility] Last Admin: 03/06/17 09:45 Dose: 1 puff Ursodiol (Actigal -) 300 mg PO BID [facility] Last Admin: 03/06/17 22:03 Dose: 300 mg - Objective Vital Signs: Vital Signs Temperature 99.0 F 03/08/17 06:00 Pulse Rate 87 03/08/17 14:00 Respiratory Rate 20 03/08/17 14:00 Blood Pressure 142/78 03/08/17 14:00 O2 Sat by Pulse Oximetry (%) 97 03/08/17 12:00 Labs: CBC, BMP 03/08/17 06:05 03/08/17 06:05
[2017-03-08] MEDS: URSODIOL 300 MG CAPSULE PO SCH ×2 (18:11→21:53)
[2017-03-08] MEDS: TIOTROPIUM BROMIDE 18 MCG/INH (DEVICE W/ 5 CAPSULES) IH SCH (18:11)
--- NOTE | 2017-03-08 18:28 | PN ---
Progress Note (short form) - Note Progress Note: Pt seen and examined. She is on POD #3 s/p right knee Makoplasty. She was at [facility] when she had an acute event, believed to be an acute DE. She was resuscitated and transferred to the ICU at [facility]. Now sje is Aand Ox3 , completely responsive, on NC O2. We had a completely normal conversation. AVSS She has no knee pain. No c/o chest pain, SOB, palpitations. Right knee dressing looks fine, no drainage. RLE NVI. Good ROM with no pain at the right hip, knee, ankle, foot, toes. Overall the pt looks quite good, comfortable, stable. Orthopedically doing well. P.T. when cleared by PMD and water quality tester.
[2017-03-08] MEDS: SODIUM CHLORIDE 1,000 ML IV SCH (20:34)
[2017-03-08] MEDS ORDERED: morphine CARPU-JECT 8 MG/1 ML DISP.SYRIN IVPUSH PRN (21:50)
[2017-03-08] MEDS: ATORVASTATIN CA 20 MG TABLET (FP) PO SCH (21:53)
[2017-03-09] MEDS ORDERED: methylPREDNISolone NA SUCC 125 MG/2 ML VIAL IVPUSH ONE (02:35)
[2017-03-09] MEDS ORDERED: HEPARIN NA (PORCINE) 5,000 UNITS/ML 1ML VIAL IVPUSH PRN ×2 (02:38)
[2017-03-09] MEDS ORDERED: HEPARIN - 25,000 UNIT in SODIUM CHLORIDE 495 ML IV SCH (02:45)
[2017-03-09] MEDS ORDERED: LORazepam 2 MG/ML SDV VIAL IVPUSH ONE (03:15)
--- NOTE | 2017-03-09 03:19 | HOSP ---
Subjective - Review of Symptoms Subjective: Called for shortness of breath Pt. States she "can't breath" VS on arrival 02 99, RR 32, BP 175/101, HR Sinus 131 GEN: Moderate distress CARD: STach S1, S2 RESP: Decreased breath sounds all shirley, poor inspiratory effort ABD: BSx4 EXT: - C/C/E CBCD WBC 9.1 K/mm3 (4.0-10.0) 03/08/17 06:05 RBC 2.97 M/mm3 (3.60-5.2) L 03/08/17 06:05 Hgb 8.4 GM/dL (10.7-15.3) L 03/08/17 06:05 Hct 25.7 % (32.4-45.2) L 03/08/17 06:05 MCV 86.4 fl (80-96) 03/08/17 06:05 MCHC 32.6 g/dl (32.0-36.0) 03/08/17 06:05 RDW 14.9 % (11.6-15.6) 03/08/17 06:05 Plt Count 201 K/MM3 (134-434) 03/08/17 06:05 MPV 9.0 fl (7.5-11.1) 03/08/17 06:05 CMP Sodium 142 mmol/L (136-145) 03/08/17 06:05 Potassium 3.5 mmol/L (3.5-5.1) 03/08/17 06:05 Chloride 104 mmol/L (98-107) 03/08/17 06:05 Carbon Dioxide 28 mmol/L (21-32) 03/08/17 06:05 Anion Gap 10 (8-16) 03/08/17 06:05 BUN 15 mg/dL (7-18) D 03/08/17 06:05 Creatinine 0.8 mg/dL (0.55-1.02) D 03/08/17 06:05 Creat Clearance w eGFR > 60 (>60) 03/08/17 06:05 Random Glucose 113 mg/dL (74-106) H D 03/08/17 06:05 Calcium 7.9 mg/dL (8.5-10.1) L 03/08/17 06:05 Total Bilirubin 0.4 mg/dL (0.2-1.0) 03/08/17 06:05 AST 28 U/L (15-37) D 03/08/17 06:05 ALT 11 U/L (12-78) L D 03/08/17 06:05 Alkaline Phosphatase 63 U/L (45-117) D 03/08/17 06:05 Total Protein 6.2 g/dl (6.4-8.2) L 03/08/17 06:05 Albumin 3.0 g/dl (3.4-5.0) L 03/08/17 06:05 A/P.) Acute Hypoxic Respiratory Failure DDx: ACUTE COPD Exacerbation Vs. PE - BIPAP - Wells score- 3 (tachycardia/immobilization) - Hep. gtt- Unil CTA can be done - Duplex LE, CTA when able - STAT ABG - CXR - EKG/Trop-although hypoxia most likely from resp. cause - DUONEBS/Solu-Medrol - PT. STATES She does not want intubation- BIPAP - Accepted to ICU by subscription crew leader - CC Time: 35 Minutes Physical Examination Vital Signs: Vital Signs Temperature 97.5 F L 03/09/17 02:20 Pulse Rate 86 03/09/17 02:20 Respiratory Rate 20 03/09/17 02:20 Blood Pressure 140/64 03/09/17 02:20 O2 Sat by Pulse Oximetry (%) 98 03/09/17 03:08 Labs: CBC, BMP 03/08/17 06:05 03/08/17 06:05
--- NOTE | 2017-03-09 03:20 | PN ---
Progress Note (short form) - Note Progress Note: PULM/CCM Progress Note: Patient seen and examined in the ICU. Returns to ICU, after transfer to floor previous day. Rapid Response called due to dyspnea and hypoxia--> urgently transferred to ICU by floor team Pt was not on NIVPPV as pt had previously been refusing. Has sleep apnea and on CPAP at home. Pt was tachycardic, moving air poorly. Pt confirmed DNR/DNI status, family apparently brought in form earlier in day. Had been dealing with RLL atelectesis and resp weakness while in ICU. On exam in ICU pt is awake, alert, on NIV 20/08, 40%. Spo2 98%. CXR still with RLL collapse. Vital Signs Temp 97.5 F L 03/09/17 02:20 Pulse 86 03/09/17 02:20 Resp 20 03/09/17 02:20 BP 140/64 03/09/17 02:20 Pulse Ox 98 03/09/17 03:08 Intake & Output 03/08/17 03/08/17 03/09/17 11:59 23:59 11:59 Intake Total 1025 Balance 1025 Weight 84.368 kg Intake: IV 525 Normal Saline - 1,000 ml 525 @ 75 mls/hr IV ASDIR KARIE Rx#:[id number] IVPB 100 Oral 400 Other: Voiding Method Toilet Incontinent # Unmeasured Voids Void 3 Weight Measurement Method Built in [facility] Active Medications Acetaminophen (Ofirmev Injection -) 1,000 mg IVPB Q6H PRN PRN Reason: FEVER OR PAIN Last Admin: 03/07/17 04:31 Dose: 1,000 mg Al Hydroxide/Mg Hydroxide (Mylanta Oral Suspension -) 30 ml PO Q4H PRN PRN Reason: DYSPEPSIA Albuterol/Ipratropium (Duoneb -) 1 amp NEB QIDR [facility] Last Admin: 03/08/17 23:06 Dose: 1 amp Ascorbic Acid (Vitamin C -) 500 mg PO BID [facility] Last Admin: 03/08/17 21:53 Dose: 500 mg Aspirin (Asa -) 325 mg PO DAILY@0800 [facility] Last Admin: 03/08/17 12:04 Dose: 325 mg Atorvastatin Calcium (Lipitor -) 20 mg PO HS [facility] Last Admin: 03/08/17 21:53 Dose: 20 mg Celecoxib (Celebrex -) 200 mg PO DAILY [facility] Last Admin: 03/08/17 12:04 Dose: 200 mg Cholecalciferol (Vitamin D3 -) 5,000 unit PO DAILY [facility] Last Admin: 03/08/17 12:04 Dose: 5,000 unit Heparin Sodium (Porcine) (Heparin -) 1,000 unit IVPUSH PRN PRN PRN Reason: Heparin Heparin Sodium (Porcine) (Heparin -) 5,000 unit IVPUSH PRN PRN PRN Reason: Heparin Piperacillin Sod/Tazobactam (Sod 3.375 gm/ Dextrose) 100 mls @ 200 mls/hr IVPB Q8H-IV KARIE PRN Reason: Protocol Last Admin: 03/08/17 18:13 Dose: 200 mls/hr Sodium Chloride (Normal Saline -) 1,000 mls @ 75 mls/hr IV ASDIR [facility] Last Admin: 03/08/17 20:34 Dose: 75 mls/hr Heparin Sodium (Porcine) 25, (000 unit/ Sodium Chloride) 500 mls @ 20 mls/hr IV TITR KARIE; 1,000 UNIT/HR PRN Reason: Protocol Levothyroxine Sodium (Synthroid -) 125 mcg PO DAILY@0700 [facility] Last Admin: 03/08/17 12:05 Dose: 125 mcg Lorazepam (Ativan Injection -) 0.5 mg IVPUSH ONCE ONE Stop: 03/09/17 02:55 Magnesium Hydroxide (Milk Of Magnesia -) 30 ml PO PRN PRN PRN Reason: CONSTIPATION Morphine Sulfate (Morphine Sulfate) 2 mg IVPUSH Q3H PRN Last Admin: 03/08/17 22:34 Dose: 2 mg Multivitamins/Minerals/Vitamin C (Tab-A-Vit -) 1 tab PO DAILY [facility] Last Admin: 03/08/17 12:04 Dose: 1 tab Ondansetron HCl (Zofran Injection) 4 mg IVPUSH Q6H PRN PRN Reason: NAUSEA Oxycodone HCl (Roxicodone -) 5 mg PO Q3H PRN PRN Reason: PAIN LEVEL 1-5 Last Admin: 03/05/17 12:00 Dose: 5 mg Oxycodone HCl (Roxicodone -) 10 mg PO Q3H PRN PRN Reason: PAIN LEVEL 6-10 Last Admin: 03/06/17 17:37 Dose: 10 mg Pantoprazole Sodium (Protonix -) 40 mg PO DAILY [facility] Last Admin: 03/08/17 12:04 Dose: 40 mg Ropinirole HCl (Requip -) 1 mg PO TID [facility] Last Admin: 03/08/17 23:20 Dose: 1 mg Senna/Docusate Sodium (Pericolace -) 2 tablet PO BID [facility] Last Admin: 03/08/17 21:52 Dose: 2 tablet Tiotropium [place] (Spiriva -) 1 puff IH DAILY [facility] Last Admin: 03/08/17 18:11 Dose: 1 puff Ursodiol (Actigal -) 300 mg PO BID [facility] Last Admin: 03/08/17 21:53 Dose: 300 mg Constitutional: Yes: Awake and alert, no distress on NIV Eyes: Yes: Conjunctiva Clear, EOM Intact HENT: Yes: Atraumatic, Normocephalic Neck: Yes: Supple, Trachea Midline Cardiovascular: Yes: Regular Rate and Rhythm Respiratory: Yes: Few scattered rhonchi. Diminished bases No: Accessory Muscle Use, Rales, Stridor, Tachypnea, Wheezes Gastrointestinal: Yes: Normal Bowel Sounds, Soft Renal/: Yes: WNL Musculoskeletal: Yes: WNL Extremities: Yes: trace edema Peripheral Pulses WNL: Yes Integumentary: Yes: WNL Wound/Incision: Yes: Clean/Dry, Well Approximated, no erythema, no pain at site Neurological: Yes: WNL, Alert, Oriented ...Motor Strength: WNL Psychiatric: Yes: Alert, relates frustration with health status. Labs: Problem List - Problems (1) Cardiac arrest Code(s): I46.9 - CARDIAC ARREST, CAUSE UNSPECIFIED (2) Knee joint replacement status Code(s): Z96.659 - PRESENCE OF UNSPECIFIED ARTIFICIAL KNEE JOINT (3) COPD (chronic obstructive pulmonary disease) Code(s): J44.9 - CHRONIC OBSTRUCTIVE PULMONARY DISEASE, UNSPECIFIED Qualifiers: COPD type: emphysema (4) Diabetes Code(s): E11.9 - TYPE 2 DIABETES MELLITUS WITHOUT COMPLICATIONS (5) Atelectasis of right lung Code(s): J98.11 - ATELECTASIS (6) Pneumonitis Code(s): J18.9 - PNEUMONIA, UNSPECIFIED ORGANISM Assessment/Plan 66 y/o woman s/p R knee replacement, hx of COPD, sleep apnea on home CPAP, recent issues of brief cardiac arrest in setting of aspiration, transferred to ICU in setting of non-compliance with NIV with desaturations, c/f COPD exacerbation and less so PE On Bilevel NIV, 40% O2 to maintain saturation 92-94% low suspicion for new infection, hold ABX full dose anticoagulation and PE workup ordered by hospitalist, f/u LE duplex Incentive Spirometry Repeat CXR VTE prophylaxis IVF maintain in ICU DNR/DNI, would benefit from Palliative care consult, if does not wish for aggressive interventions should consider hospice and not returning to ICU. She relates frustration with helath status and medical interventions. Donnell Daniel ACNP [id number]
--- NOTE | 2017-03-09 03:33 | RAPID ---
Physical Examination Vital Signs: Vital Signs Temperature 97.5 F L 03/09/17 02:20 Pulse Rate 86 03/09/17 02:20 Respiratory Rate 20 03/09/17 02:20 Blood Pressure 140/64 03/09/17 02:20 O2 Sat by Pulse Oximetry (%) 98 03/09/17 03:08 Constitutional: Yes: Moderate Distress Eyes: Yes: WNL HENT: Yes: WNL Neck: Yes: WNL Cardiovascular: Yes: Tachycardia Respiratory: Yes: Diminished, Poor Air Entry, Tachypnea Gastrointestinal: Yes: WNL Edema: No Labs: CBC, BMP 03/08/17 06:05 03/08/17 06:05 Rapid Response - Rapid Response Assessment: Called to bedside by nurse due to patient becoming hypoxic to low 80s, complaining that she couldn't breath and appeared disoriented, stating she didn' t know where she was. Pt initially on 4L O2 NC. Pt given duoneb treatment with improvement in sats to high 80s, however pt still markedly dyspneic. On arrival of night team, pt upright in bed, tachypnea with marked respiratory distress, satting in low 90s. On exam, pt with poor air entry and decreased breath sounds BL with sinus tachycardia. Pt was placed on NRB 100% and given Solumedrol 125mg IV. Vitals were 175/101, HR 131, satting 99% on NRB 100% and RR 32. Pt with mild improvement in respiratory distress on NRB, still w/ dyspnea/tachycardia. Pt order for stat ABG, CXR, Bipap and heparin gtt was started as pt with recent orthopedic surgery and prolonged time in bed (Wells score of 3). Will receive CTA when stable to r/o PE. Of note, pt w/ prior hx of COPD and SATYA, currently POD3 from R knee makoplasty. Recently, pt with acute respiratory failure on POD1, becoming unresponsive and developing agonal breathing, reuiring chest compressions and intubation. Pt uses CPAP at home for SATYA and had not been receiving NIPPV tonight. PE: Tachycardic, S1 S2 Poor entry BL. Decrease breath sounds BL. No crackles, wheezing, or rhonchi. S/NT/ND No peripheral edema, WWP Assessment: #Acute respiratory failure, likely secondary to COPD exacerbation vs. Pulmonary embolism - Bipap. Maintain sat >94% - duonebs - Solumedrol 125mg given - Heparin gtt - CTA when stable - f/u ABG - Stat CXR
[2017-03-09] MEDS ORDERED: ALBUTEROL SO4 2.5/IPRATROPIUM 0.5 INH SOL 3 ML VIAL.NEB. NEB PRN (03:35)
[2017-03-09] MEDS: PIPERACILLIN/TAZOB 3.375 GM 3.375 GM in DEXTROSE 5%-WATER - 100 ML IVPB SCH (03:39)
[2017-03-09 03:41] LABS: ARTERIAL BLD GAS O2 SATURATION 94.3 % (90-98.9); ARTERIAL BLOOD GAS BASE EXCESS 2.4 meq/l (-2-2); ARTERIAL BLOOD GAS PCO2 50.5 mmHg (35-45); ARTERIAL BLOOD GAS PO2 70.5 mmHg (80-100); ARTERIAL BLOOD GAS pH 7.36 (7.35-7.45)
[2017-03-09 03:42] LABS: ALLENS TEST POSITIVE
[2017-03-09] MEDS: rOPINIRole HCL 1 MG TABLET (FP) PO SCH (06:03)
[2017-03-09] MEDS: LEVOTHYROXINE NA 125 MCG TABLET (FP) PO SCH (06:03)
[2017-03-09] MEDS: ALBUTEROL SO4 2.5/IPRATROPIUM 0.5 INH SOL 3 ML VIAL.NEB. NEB SCH (06:25)
[2017-03-09 07:02] LABS: HEMATOCRIT 29.3 % (32.4-45.2); HEMOGLOBIN 9.6 GM/dL (10.7-15.3); MCH 28.4 pg (25.7-33.7); MCHC 32.8 g/dl (32.0-36.0); MEAN CELL VOLUME 86.6 fl (80-96); MEAN PLT VOLUME 8.6 fl (7.5-11.1); PLATELET COUNT 219 K/MM3 (134-434); RBC 3.38 M/mm3 (3.60-5.2); RDW 14.5 % (11.6-15.6); WHITE BLOOD COUNT 8.8 K/mm3 (4.0-10.0)
[2017-03-09 07:37] LABS: ALBUMIN 3.2 g/dl (3.4-5.0); ANION GAP 10 (8-16); BLOOD UREA NITROGEN 11 mg/dL (7-18); CALCIUM 7.6 mg/dL (8.5-10.1); CHLORIDE 103 mmol/L (98-107); CO2 28 mmol/L (21-32); CREATININE 0.8 mg/dL (0.55-1.02); GLUCOSE,RANDOM 122 mg/dL (74-106); POTASSIUM 3.6 mmol/L (3.5-5.1); SGOT/AST 30 U/L (15-37); SODIUM 141 mmol/L (136-145)
[2017-03-09 07:43] LABS: ALK PHOS 73 U/L (45-117); BILIRUBIN,TOTAL 0.7 mg/dL (0.2-1.0); SGPT/ALT 16 U/L (12-78); TOT PROT 6.9 g/dl (6.4-8.2)
[2017-03-09 07:55] LABS: ARTERIAL BLD GAS O2 SATURATION 91.7 % (90-98.9); ARTERIAL BLOOD GAS BASE EXCESS -2.2 meq/l (-2-2); ARTERIAL BLOOD GAS PO2 76.5 mmHg (80-100)
[2017-03-09 08:07] LABS: ALLENS TEST POSITIVE
[2017-03-09 08:19] VITALS: BP 123/72; PULSE 108; TEMP 97.8
[2017-03-09 08:22] LABS: ARTERIAL BLOOD GAS PCO2 80.3 mmHg (35-45); ARTERIAL BLOOD GAS pH 7.16 (7.35-7.45)
[2017-03-09] MEDS: ASPIRIN 325 MG TABLET PO SCH (08:55)
--- NOTE | 2017-03-09 09:40 | PN ---
Progress Note (short form) - Note Progress Note: Patient seen and examined in the ICU. Events from overnight noted. Lethargic on NIPPV. Agonal breathing. Acute on chronic hypercapnia noted on ABG. NIPPV settings adjusted. Intake & Output 03/06/17 03/07/17 03/08/17 03/09/17 23:59 23:59 23:59 23:59 Intake Total 1125 1775 1025 930 Balance 1125 1775 1025 930 Weight 186 lb 184 lb 6 oz Last Vital Signs Temp Pulse Resp BP Pulse Ox 97.8 F 108 H 22 123/72 84 L 03/09/17 08:00 03/09/17 08:00 03/09/17 08:00 03/09/17 08:00 03/09/17 06:45 Active Medications Acetaminophen (Ofirmev Injection -) 1,000 mg IVPB Q6H PRN PRN Reason: FEVER OR PAIN Last Admin: 03/07/17 04:31 Dose: 1,000 mg Al Hydroxide/Mg Hydroxide (Mylanta Oral Suspension -) 30 ml PO Q4H PRN PRN Reason: DYSPEPSIA Albuterol/Ipratropium (Duoneb -) 1 amp NEB QIDR [facility] Last Admin: 03/09/17 06:25 Dose: 1 amp Albuterol/Ipratropium (Duoneb -) 1 amp NEB Q6H PRN PRN Reason: SHORTNESS OF BREATH Ascorbic Acid (Vitamin C -) 500 mg PO BID [facility] Last Admin: 03/08/17 21:53 Dose: 500 mg Aspirin (Asa -) 325 mg PO DAILY@0800 [facility] Last Admin: 03/09/17 08:55 Dose: Not Given Atorvastatin Calcium (Lipitor -) 20 mg PO HS [facility] Last Admin: 03/08/17 21:53 Dose: 20 mg Celecoxib (Celebrex -) 200 mg PO DAILY [facility] Last Admin: 03/08/17 12:04 Dose: 200 mg Cholecalciferol (Vitamin D3 -) 5,000 unit PO DAILY [facility] Last Admin: 03/08/17 12:04 Dose: 5,000 unit Heparin Sodium (Porcine) (Heparin -) 1,000 unit IVPUSH PRN PRN PRN Reason: Heparin Heparin Sodium (Porcine) (Heparin -) 5,000 unit IVPUSH PRN PRN PRN Reason: Heparin Piperacillin Sod/Tazobactam (Sod 3.375 gm/ Dextrose) 100 mls @ 200 mls/hr IVPB Q8H-IV KARIE PRN Reason: Protocol Last Admin: 03/09/17 03:39 Dose: 200 mls/hr Sodium Chloride (Normal Saline -) 1,000 mls @ 75 mls/hr IV ASDIR KARIE Last Admin: 03/08/17 20:34 Dose: 75 mls/hr Heparin Sodium (Porcine) 25, (000 unit/ Sodium Chloride) 500 mls @ 20 mls/hr IV TITR KARIE; 1,000 UNIT/HR PRN Reason: Protocol Last Admin: 03/09/17 03:47 Dose: 1,000 unit/hr, 20 mls/hr Levothyroxine Sodium (Synthroid -) 125 mcg PO DAILY@0700 [facility] Last Admin: 03/09/17 06:03 Dose: Not Given Magnesium Hydroxide (Milk Of Magnesia -) 30 ml PO PRN PRN PRN Reason: CONSTIPATION Morphine Sulfate (Morphine Sulfate) 2 mg IVPUSH Q3H PRN Last Admin: 03/08/17 22:34 Dose: 2 mg Multivitamins/Minerals/Vitamin C (Tab-A-Vit -) 1 tab PO DAILY [facility] Last Admin: 03/08/17 12:04 Dose: 1 tab Ondansetron HCl (Zofran Injection) 4 mg IVPUSH Q6H PRN PRN Reason: NAUSEA Oxycodone HCl (Roxicodone -) 5 mg PO Q3H PRN PRN Reason: PAIN LEVEL 1-5 Last Admin: 03/05/17 12:00 Dose: 5 mg Oxycodone HCl (Roxicodone -) 10 mg PO Q3H PRN PRN Reason: PAIN LEVEL 6-10 Last Admin: 03/06/17 17:37 Dose: 10 mg Pantoprazole Sodium (Protonix -) 40 mg PO DAILY [facility] Last Admin: 03/08/17 12:04 Dose: 40 mg Ropinirole HCl (Requip -) 1 mg PO TID [facility] Last Admin: 03/09/17 06:03 Dose: Not Given Senna/Docusate Sodium (Pericolace -) 2 tablet PO BID [facility] Last Admin: 03/08/17 21:52 Dose: 2 tablet Tiotropium [place] (Spiriva -) 1 puff IH DAILY [facility] Last Admin: 03/08/17 18:11 Dose: 1 puff Ursodiol (Actigal -) 300 mg PO BID KARIE Last Admin: 03/08/17 21:53 Dose: 300 mg Constitutional: Yes: Lethargic on NIPPV Eyes: Yes: Conjunctiva Clear, EOM Intact HENT: Yes: Atraumatic, Normocephalic Neck: Yes: Supple, Trachea Midline Cardiovascular: Yes: Regular Rate and Rhythm Respiratory: Yes: Accessory Muscle Use, Rales, Tachypnea Gastrointestinal: Yes: Normal Bowel Sounds, Soft Renal/: Yes: WNL Musculoskeletal: Yes: WNL Extremities: Yes: WNL Edema: No Peripheral Pulses WNL: Yes Integumentary: Yes: WNL Wound/Incision: Yes: Clean/Dry, Well Approximated Neurological: Yes: WNL, Alert, Oriented ...Motor Strength: WNL Psychiatric: Yes: Alert Labs: Laboratory Results - last 24 hr 03/09/17 03/09/17 03/09/17 03:20 06:30 06:30 WBC 8.8 RBC 3.38 L Hgb 9.6 L D Hct 29.3 L MCV 86.6 MCH 28.4 MCHC 32.8 RDW 14.5 Plt Count 219 MPV 8.6 PTT (Actin FS) Puncture Site Right radial ABG pH 7.36 ABG pCO2 at Pt Temp 50.5 H D ABG pO2 at Pt Temp 70.5 L ABG HCO3 27.8 H ABG O2 Sat (Measured) 94.3 ABG O2 Content 11.7 L ABG Base Excess 2.4 H Azael Test Positive O2 Delivery Device Oxygen Flow Rate 40% Vent Mode Vent Rate 16 Mechanical Rate Bipap Sodium 141 Potassium 3.6 Chloride 103 Carbon Dioxide 28 Anion Gap 10 BUN 11 D Creatinine 0.8 Creat Clearance w eGFR > 60 Random Glucose 122 H Calcium 7.6 L Total Bilirubin 0.7 D AST 30 ALT 16 D Alkaline Phosphatase 73 Total Protein 6.9 Albumin 3.2 L 03/09/17 03/09/17 07:40 08:35 WBC RBC Hgb Hct MCV MCH MCHC RDW Plt Count MPV PTT (Actin FS) 39.8 H Puncture Site Right radial ABG pH 7.16 L* D ABG pCO2 at Pt Temp 80.3 H* D ABG pO2 at Pt Temp 76.5 L ABG HCO3 27.3 H ABG O2 Sat (Measured) 91.7 ABG O2 Content 12.3 L ABG Base Excess -2.2 L Azael Test Positive O2 Delivery Device Bipap Oxygen Flow Rate 100% Vent Mode S/t 14/6 Vent Rate 16 Mechanical Rate Bipap Sodium Potassium Chloride Carbon Dioxide Anion Gap BUN Creatinine Creat Clearance w eGFR Random Glucose Calcium Total Bilirubin AST ALT Alkaline Phosphatase Total Protein Albumin Problem List - Problems (1) Cardiac arrest Code(s): I46.9 - CARDIAC ARREST, CAUSE UNSPECIFIED (2) Knee joint replacement status Code(s): Z96.659 - PRESENCE OF UNSPECIFIED ARTIFICIAL KNEE JOINT (3) COPD (chronic obstructive pulmonary disease) Code(s): J44.9 - CHRONIC OBSTRUCTIVE PULMONARY DISEASE, UNSPECIFIED Qualifiers: COPD type: emphysema (4) Diabetes Code(s): E11.9 - TYPE 2 DIABETES MELLITUS WITHOUT COMPLICATIONS (5) Atelectasis of right lung Code(s): J98.11 - ATELECTASIS (6) Pneumonitis Code(s): J18.9 - PNEUMONIA, UNSPECIFIED ORGANISM Assessment/Plan NIPPV adjusted Mask needs better fit due to very high airleak HOB elevation Patient is a DNR / DNI Dr Jama Critical care time spent in reviewing chart, evaluating patient and formulating plan - 36 minutes. Problem List - Problems (1) Cardiac arrest Code(s): I46.9 - CARDIAC ARREST, CAUSE UNSPECIFIED (2) Knee joint replacement status Code(s): Z96.659 - PRESENCE OF UNSPECIFIED ARTIFICIAL KNEE JOINT (3) COPD (chronic obstructive pulmonary disease) Code(s): J44.9 - CHRONIC OBSTRUCTIVE PULMONARY DISEASE, UNSPECIFIED Qualifiers: COPD type: emphysema (4) Diabetes Code(s): E11.9 - TYPE 2 DIABETES MELLITUS WITHOUT COMPLICATIONS (5) Atelectasis of right lung Code(s): J98.11 - ATELECTASIS (6) Pneumonitis Code(s): J18.9 - PNEUMONIA, UNSPECIFIED ORGANISM
--- NOTE | 2017-03-09 09:47 | PN ---
Progress Note (short form) - Note Progress Note: Called by RN as the patient became unresponsive. No Pulse appreciated. No spontaneous respiratory drive. Pupils fixed and dilated. She is a DNR/DNI. Patient pronounced at 9:28AM. PMD paged. ODN to be called. Dr Jama Problem List - Problems (1) Cardiac arrest Code(s): I46.9 - CARDIAC ARREST, CAUSE UNSPECIFIED (2) Knee joint replacement status Code(s): Z96.659 - PRESENCE OF UNSPECIFIED ARTIFICIAL KNEE JOINT (3) COPD (chronic obstructive pulmonary disease) Code(s): J44.9 - CHRONIC OBSTRUCTIVE PULMONARY DISEASE, UNSPECIFIED Qualifiers: COPD type: emphysema (4) Diabetes Code(s): E11.9 - TYPE 2 DIABETES MELLITUS WITHOUT COMPLICATIONS (5) Atelectasis of right lung Code(s): J98.11 - ATELECTASIS (6) Pneumonitis Code(s): J18.9 - PNEUMONIA, UNSPECIFIED ORGANISM
[2017-03-09] MEDS ORDERED: ENOXAPARIN NA (PORCINE) 80 MG/0.8 ML DISP.SYRIN SQ SCH (10:00)
--- NOTE | 2017-03-10 11:29 | SURG ---
Surgery Rag Cutting Machine Tender Note Rag Cutting Machine Tender: Koko Ennis PA-C Date of Service: 03/05/17 Diagnosis: right knee osteoarthritis Procedure: right zechariah total knee replacement I was present for the entirety of the operative procedure. For further detail, please refer to operative report. Visit type - Case Type Case Type: Scheduled Admission - New patient This patient is new to me today: Yes Date on this admission: 03/10/17
--- NOTE | 2017-03-10 11:59 | PATH ---
Surgical Pathology Report Patient Name: LATESHA FREEMAN [facility]. Rec. #: [id number] /Age/Gender: 1950 (Age: 66) / F Account: [id number] Location: [facility] CRITICAL CARE EDUCATOR Taken: 03/05/2017 Received: 03/05/2017 Reported: 03/10/2017 Physicians: Booker Whitaker M.D. Specimen(s) Received RIGHT KNEE BONES Clinical History Osteoarthritis Final Diagnosis BONE AND SOFT TISSUE, RIGHT KNEE, REPLACEMENT: DEGENERATIVE JOINT DISEASE. Electronically Signed Jason Martínez M.D. Gross Description Received in formalin labeled "right knee bones," is an 8.0 x 6.5 x 1.0 cm aggregate of multiple anaya, irregular portions of bone and soft tissue, consistent with knee bones. No areas of eburnation are identified. The articular surfaces are anaya-yellow and diffusely granular. The underlying trabecular bone is yellow and hard. Medication Aid sections are submitted in one cassette, following decalcification. 03/06/2017 [facility]03/06/2017
== END 2017-03-09 09:30 | disposition expired | DRG 469 ==
LOC: FM/S 06:05 → JICU 03-07 03:48 → J4W 03-08 20:16 → JICU 03-09 03:07
PROVIDERS: ADMIT Orthopaedic Surgery; ATTEND Family Medicine
PROC: 8E0Y0CZ Robotic Assisted Procedure of Lower Extremity, Open Approach (ICD-10-PCS; 2017-03-05)
PROC: 0SRC0J9 Replacement of Right Knee Joint with Synthetic Substitute, Cemented, Open Approach (ICD-10-PCS; principal; 2017-03-05 08:35)
PROC: 5A1935Z Respiratory Ventilation, Less than 24 Consecutive Hours (ICD-10-PCS; 2017-03-06)
PROC: 0BH17EZ Insertion of Endotracheal Airway into Trachea, Via Natural or Artificial Opening (ICD-10-PCS; 2017-03-06)
DX: M17.11 Unilateral primary osteoarthritis, right knee (principal); J18.9 Pneumonia, unspecified organism; J96.01 Acute respiratory failure with hypoxia; J98.11 Atelectasis; J44.1 Chronic obstructive pulmonary disease with (acute) exacerbation; J44.0 Chronic obstructive pulmonary disease with (acute) lower respiratory infection; I97.121 Postprocedural cardiac arrest following other surgery; J44.9 Chronic obstructive pulmonary disease, unspecified; E78.5 Hyperlipidemia, unspecified; K21.9 Gastro-esophageal reflux disease without esophagitis; E03.9 Hypothyroidism, unspecified; K27.9 Peptic ulcer, site unspecified, unspecified as acute or chronic, without hemorrhage or perforation; E11.9 Type 2 diabetes mellitus without complications; Z66 Do not resuscitate; R00.0 Tachycardia, unspecified; G47.33 Obstructive sleep apnea (adult) (pediatric); Y83.8 Other surgical procedures as the cause of abnormal reaction of the patient, or of later complication, without mention of misadventure at the time of the procedure; T17.298A Other foreign object in pharynx causing other injury, initial encounter; X58.XXXA Exposure to other specified factors, initial encounter; Y93.89 Activity, other specified; Y92.230 Patient room in hospital as the place of occurrence of the external cause; Y99.8 Other external cause status
CPT/HCPCS: 31500; 36415; 36600; 71010-TC; 71045-TC; 73560-TC-RT; 80048; 80053; 82803; 83735; 84100; 85025; 85027; 85730; 88304-TC; 88311-TC; 94002; 94010; 94640; 94660; 94760; 97116-GP; 97162-GP; J1644